=== PATIENT | female | born 1960 | race Caucasian/White ===

== ENCOUNTER 2016-10-28 19:22 | Emergency (ER) | payer OTHER, MEDICAID ==
--- NOTE | 2016-10-28 19:18 | EDPHY ---
H & P Constitutional: Initial Vital Signs Temperature (C) 36.9 C 10/28/16 19:31 Heart Rate 112 H 10/28/16 19:31 Respiratory Rate 18 10/28/16 19:31 O2 Sat (%) 95 10/28/16 19:31 O2 Delivery Mode Nasal Cannula O2 (L/minute) 4 Allergies/Adverse Reactions: No Known Allergies Allergy (Verified 09/14/16 22:32) Home Medications: Medication Instructions Recorded Aspirin [Aspirin 81mg (*)] 81 mg PO HS 08/22/14 Furosemide [Lasix 40 MG (*)] 40 mg PO BIDDIUR PRN 08/22/14 Gabapentin [Neurontin 300 MG (*)] 300 mg PO TID PRN 08/22/14 Levothyroxine [Synthroid 200 mcg 200 mcg PO DAILY 08/22/14 (*)] Pregabalin [Lyrica 75mg (*)] 150 mg PO TID 08/22/14 Promethazine HCl [Phenergan 25mg 25 mg PO BID PRN 08/22/14 (*)] HYDROmorphone HCL [Dilaudid 4 mg 8 mg PO Q4 PRN 08/12/15 (*)] Polyethylene Glycol 3350 [Miralax 17 gm PO BID PRN 08/12/15 17 gm (*)] Acetaminophen [Tylenol 325mg (*)] 650 mg PO Q4 PRN #0 tab 04/30/16 traZODone [traZODONE 50MG (*)] 25 mg PO HS 05/31/16 Calcium Carbonate [Tums 500MG (*)] 1,000 mg PO Q4 PRN 08/03/16 DULoxetine [Cymbalta 30 MG (*)] 30 mg PO BID 08/03/16 Diclofenac Sodium [Voltaren Gel 1 ammon TP DAILY PRN 08/03/16 (*)] HYDROmorphone HCL [Dilaudid 2 mg 2 mg PO Q4 PRN 08/03/16 (*)] Insulin Aspart Novolog 70/30 0 units SC AD 08/03/16 [Novolog Mix 70/30 (*)] Insulin Detemir [Levemir] 50 unit SQ BID 08/03/16 Sennosides/Docusate Sodium 2 tab PO BID 08/03/16 [Senokot-S] clonazePAM [Klonopin (*)] 0.5 mg PO Q6 PRN 08/03/16 fentaNYL [Duragesic 100 MCG Patch 100 mcg TD Q2D 08/09/16 (*)] Piperacillin/Tazo 3.375 gm/Dex 50 ml IV Q8HRS #0 bag 08/13/16 [Zosyn 3.375 gm (Premix)] amLODIPine BESYLATE [Norvasc 5 mg 5 mg PO DAILY #30 tab 08/13/16 (*)] Acidophilus 09/14/16 Prednisone 09/14/16 Medical Decision Making ED Course/Re-evaluation: CHIEF COMPLAINT: Multiple complaints HISTORY OF PRESENT ILLNESS: This patient is a 56 year old female arriving via EMS from [facility] with multiple complaints including chills, cough, bilateral lower leg pain, shortness of breath with chest tightness, and generalized malaise. She denies fever. She did get a flu shot this year. Medical history includes chronic pain secondary to fibromyalgia. REVIEW OF SYSTEMS: A 10 point review of systems was performed and is negative with the exception of the elements mentioned in the history of present illness. PHYSICAL EXAM: HR 112, O2 Sat 95%, RR, BP and Temp noted General Appearance: Alert, well hydrated, appropriate, and non-toxic appearing. Head: Atraumatic without scalp tenderness or obvious injury Eyes: Pupils equal, round, reactive to light and accommodation, EOMI, no trauma , no injection. Ears: Clear bilaterally, no perforation, normal landmarks Nose: Atraumatic, no rhinorrhea, clear. Throat: There is no erythema or exudates, no lesions, normal tonsils, mucus membranes moist. Neck: Supple, 2+ carotid upstroke, nontender, no lymphadenopathy. Respiratory: No retractions, no distress, no wheezes, and no accessory muscle use. Lungs are clear to auscultation bilaterally. Cardiovascular: Regular rate and rhythm, no murmurs, rubs, or gallops. Bilateral carotid, radial, dorsalis pedis, and posterior tibial pulses intact. Good capillary refill all extremities. Gastrointestinal: Abdomen is obese, soft, nontender, non-distended, no masses, no rebound, no guarding, no peritoneal signs. Musculoskeletal: Normal active ROM of all extremities, bilateral lower leg cellulitis. Neurological: Alert, appropriate, and interactive. The patient has normal DTRs and non-focal cranial nerves, motor, sensory, and cerebellar exam. Skin: No rashes, good turgor, no nodules on palpation. Past medical history: Nephropathy, kidney disease, chronic pain, fibromyalgia, anemia. Past surgical history: Denies. Family history: Non-contributory. Social history: Lives at [facility]. EKG INTERPRETATION: The 12 lead EKG was interpreted by myself: Sinus tachycardia, rate 112. No ischemic changes. See hard copy and/or "tracemaster" electronic copy for interpretation. IMAGING: Study: X-ray of the chest Indication: Cough, chest pressure Results: X-ray of the chest was obtained. The results of the study are: no acute process. The study was read by the radiologist, Dr. Frank. I viewed the images myself on the PACS system. DIFFERENTIAL DIAGNOSIS: The differential diagnosis for the patient's chills and malaise included but was not limited to pneumonia, urinary tract infection, cellulitis, viral syndrome, meningitis, and sepsis. MEDICAL DECISION MAKING: This patient is a 56 y/o female who lives at [facility] due to chronic pain who presents with multiple seemingly infectious complaints. Her vital signs are stable upon arrival, including normal O2 Sat. Physical exam is significant for bilateral lower leg cellulitis. Will proceed with formal work-up for possible sepsis. 1921: Took EMS report at bedside. Vitals in transport: BP 60/110 with HR in low 100s. Declined EKG or pain medication in transport. 2011: Labs reviewed and indicate slightly worsening but chronic renal insufficiency and mild chronic anemia. There is no indication of a septic process; lactic acid is 0.8, WBC is within normal ranges. Flu screen is negative. 2057: Imaging results reported to me by Dr. Frank. The patient's work-up is largely non-acute. Given this, she will be discharged home with self care instructions and return to the ED precautions. She is agreeable to this plan. - Data Points Laboratory Results: Laboratory Results 10/28/16 19:35 10/28/16 19:35 10/28/16 10/28/16 10/28/16 21:00 20:58 19:35 WBC 6.78 10^3/uL (3.80-9.50) RBC 3.76 L 10^6/uL (4.18-5.33) Hgb 10.2 L g/dL (12.6-16.3) Hct 31.8 L % (38.0-47.0) MCV 84.6 fL (81.5-99.8) MCH 27.1 L pg (27.9-34.1) MCHC 32.1 L g/dL (32.4-36.7) RDW 16.5 H % (11.5-15.2) Plt Count 213 10^3/uL (150-400) MPV 9.5 fL (8.7-11.7) Neut % (Auto) 66.4 % (39.3-74.2) Lymph % (Auto) 20.4 % (15.0-45.0) Crane % (Auto) 7.4 % (4.5-13.0) Eos % (Auto) 4.0 % (0.6-7.6) Baso % (Auto) 0.9 % (0.3-1.7) Nucleat RBC Rel Count 0.0 % (0.0-0.2) Absolute Neuts (auto) 4.51 10^3/uL (1.70-6.50) Absolute Lymphs (auto) 1.38 10^3/uL (1.00-3.00) Absolute Monos (auto) 0.50 10^3/uL (0.30-0.80) Absolute Eos (auto) 0.27 10^3/uL (0.03-0.40) Absolute Basos (auto) 0.06 10^3/uL (0.02-0.10) Absolute Nucleated RBC 0.00 10^3/uL (0-0.01) Immature Gran % 0.9 % (0.0-1.1) Immature Gran # 0.06 10^3/uL (0.00-0.10) PT 13.1 SEC (12.0-15.0) INR 1.00 (0.83-1.16) APTT 29.9 SEC (23.0-38.0) VBG Lactic Acid 0.8 mmol/L (0.7-2.1) Sodium 141 mEq/L (134-144) Potassium 5.0 mEq/L (3.5-5.2) Chloride 104 mEq/L (97-110) Carbon Dioxide 30 mEq/l (22-31) Anion Gap 7 mEq/L (8-16) BUN 36 H mg/dL (7-23) Creatinine 1.6 H mg/dL (0.6-1.0) Estimated GFR 33 Glucose 147 H mg/dL (70-100) Calcium 8.8 mg/dL (8.5-10.4) Total Bilirubin 0.5 mg/dL (0.1-1.4) Urine Color COLORLESS Urine Appearance CLEAR Urine pH 5.0 (5.0-7.5) Ur Specific [place] 1.008 (1.002-1.030) Urine Protein NEGATIVE (NEGATIVE) Urine Ketones NEGATIVE (NEGATIVE) Urine Blood 1+ H (NEGATIVE) Urine Nitrate NEGATIVE (NEGATIVE) Urine Bilirubin NEGATIVE (NEGATIVE) Urine Urobilinogen NEGATIVE EU (0.2-1.0) Ur Leukocyte Esterase NEGATIVE (NEGATIVE) Urine RBC 1-3 /hpf (0-3) Urine WBC NONE SEEN /hpf (0-3) Ur Epithelial Cells TRACE /lpf (NONE-1+) Urine Bacteria TRACE H /hpf (NONE SEEN) Urine Mucus TRACE /lpf (NONE-1+) Urine Glucose NEGATIVE (NEGATIVE) Influenza Typ A,B (DFA) NEGATIVE FOR FLU (NEGATIVE) Medications Given: Discontinued Medications Hydromorphone HCl (Dilaudid) 4 mg PO EDNOW ONE Stop: 10/28/16 21:44 Last Admin: 10/28/16 22:03 Dose: 4 mg Departure - Departure Disposition: Home, Routine, Self-Care Clinical Impression: Viral syndrome Cellulitis of lower extremity Qualifiers: Laterality: unspecified laterality Qualifier Code: (L03.119) Cellulitis of unspecified part of limb Condition: Good Instructions: Viral Syndrome (ED) Additional Instructions: 1. Rest, drink plenty of fluids. You should expect to start feeling better in the next 3-5 days. If not, please follow-up with your primary care provider. 2. Return to the Emergency Department if you experience difficulty breathing, worsening chest pain, or other serious concerns. Referrals: PITO DEL VALLE [Primary Care Provider] - As per Instructions Report Scribed for: Patricio Mo Report Scribed by: Loida Boyce Date of Report: 10/28/16 Time of Report: 19:22
[2016-10-28 19:32] VITALS: TEMP 98.4
--- NOTE | 2016-10-28 19:46 | CPEKG ---
Heart Rate: 113 RR Interval: 531 P-R Interval: 160 QRSD Interval: 82 QT Interval: 324 QTC Interval: 445 P [place]: 9 QRS [place]: 6 T Wave [place]: 46 EKG Severity - OTHERWISE NORMAL ECG - EKG Impression: SINUS TACHYCARDIA Electronically Signed By: Patricio Mo 28-Oct-2016 23:03:09
[2016-10-28 19:50] LABS: % IMMATURE GRANULYOCYTES 0.9 % (0.0-1.1); ABSOLUTE IMMATURE GRANULOCYTES 0.06 10^3/uL (0.00-0.10); ADD DIFF? NO; ADD MORPH? NO; ADD SCAN? NO; ATYPICAL LYMPHOCYTE FLAG 10 (0-99); FRAGMENT RBC FLAG 0 (0-99); HEMATOCRIT 31.8 % (38.0-47.0); HEMOGLOBIN 10.2 g/dL (12.6-16.3); LEFT SHIFT FLG 0 (0-99); LIPEMIA HEMOLYSIS FLAG 80 (0-99); MEAN CELL HEMOGLOBIN 27.1 pg (27.9-34.1); MEAN CELL HEMOGLOBIN CONCENTR. 32.1 g/dL (32.4-36.7); MEAN CELL VOLUME 84.6 fL (81.5-99.8); MEAN PLATELET VOLUME 9.5 fL (8.7-11.7); PLATELET CLUMPS FLAG 0 (0-99); PLATELET COUNT 213 10^3/uL (150-400); RED BLOOD CELL COUNT 3.76 10^6/uL (4.18-5.33); RED CELL DISTRIBUTION WIDTH 16.5 % (11.5-15.2)
[2016-10-28 19:58] LABS: PROTIME(PATIENT) 13.1 SEC (12.0-15.0)
[2016-10-28 19:59] LABS: APTT 29.9 SEC (23.0-38.0)
[2016-10-28 20:03] LABS: ANION GAP 7 mEq/L (8-16); BILIRUBIN,TOTAL 0.5 mg/dL (0.1-1.4); CALCIUM 8.8 mg/dL (8.5-10.4); CARBON DIOXIDE 30 mEq/l (22-31); CHLORIDE 104 mEq/L (97-110); CREATININE 1.6 mg/dL (0.6-1.0); GLOMERULAR FILTRATION RATE 33; GLUCOSE 147 mg/dL (70-100); SODIUM 141 mEq/L (134-144)
[2016-10-28 21:11] LABS: COLOR COLORLESS; LEUKOCYTE ESTERASE,URINE NEGATIVE (NEGATIVE); NITRITE,URINE NEGATIVE (NEGATIVE)
[2016-10-28 21:18] LABS: BACTERIA TRACE /hpf (NONE SEEN); MUCUS TRACE /lpf (NONE-1+)
[2016-10-28 21:20] LABS: WBC,URINE NONE SEEN /hpf (0-3)
[2016-10-28] MEDS ORDERED: HYDROmorphONE/DILAUDID 4 MG TAB PO ONE (21:43)
[2016-10-28] MEDS ORDERED: HYDROmorphONE/DILAUDID 2 MG TAB ONE (22:01)
[2016-10-28 22:12] VITALS: BP 111/61; PULSE 96; RESP 18; O2SAT 95
--- NOTE | 2016-10-28 23:14 | DX ---
PA and Lateral Chest October 28, 2016 Indication: Sick for one week. Comparison: September 14, 2016. Findings: Right-sided port is unchanged in location. The heart and mediastinum are normal. The agust[address] st is clear. Soft tissues and bones are unchanged. Impression: No acute cardiopulmonary process radiographically.
== END 2016-10-28 23:04 | disposition home or self-care (01) ==
LOC: EDUNIT#
DX: B34.9 Viral infection, unspecified (principal); L03.115 Cellulitis of right lower limb; L03.116 Cellulitis of left lower limb; Z79.82 Long term (current) use of aspirin

== ENCOUNTER 2016-12-25 16:01 | Inpatient (IN) | payer OTHER, MEDICAID ==
[2016-12-25 16:36] LABS: ABSOLUTE IMMATURE GRANULOCYTES 0.17 10^3/uL (0.00-0.10); ADD DIFF? NO; ADD MORPH? NO; ADD SCAN? NO; ATYPICAL LYMPHOCYTE FLAG 0 (0-99); FRAGMENT RBC FLAG 0 (0-99); HEMATOCRIT 30.9 % (38.0-47.0); HEMOGLOBIN 9.9 g/dL (12.6-16.3); LEFT SHIFT FLG 10 (0-99); LIPEMIA HEMOLYSIS FLAG 80 (0-99); MEAN CELL HEMOGLOBIN 26.6 pg (27.9-34.1); MEAN CELL VOLUME 83.1 fL (81.5-99.8); MEAN PLATELET VOLUME 9.6 fL (8.7-11.7); PLATELET CLUMPS FLAG 0 (0-99); PLATELET COUNT 244 10^3/uL (150-400); RED BLOOD CELL COUNT 3.72 10^6/uL (4.18-5.33); RED CELL DISTRIBUTION WIDTH 15.2 % (11.5-15.2)
--- NOTE | 2016-12-25 16:37 | EDPHY ---
H & P Stated Complaint: Bilat heel pain Source: Patient, EMS, Other ([facility] ) - Personal History Current Tetanus/Diphtheria Vaccine: Yes Tetanus Vaccine Date: unsure of date - Medical/Surgical History Hx Asthma: No Hx Chronic Respiratory Disease: No Hx Diabetes: Yes Hx Cardiac Disease: No Hx Renal Disease: Yes Hx Cirrhosis: No Hx Alcoholism: No Hx HIV/AIDS: No Hx Splenectomy or Spleen Trauma: No Other PMH: diabetic ulcers on bi-lat feet, sarcoidosis, fibromyalgia, home O2 for opiods, MRSA - Social History Smoking Status: Former smoker Time Seen by Provider: 12/25/16 16:19 HPI/ROS: This is a 56-year-old female presenting to the emergency department via EMS. EMS reports patient called 911 complaining of 10/10 bilateral heel pain, feeling feverish with chills. Patient states she has body pain all over, non ambulatory at nursing facility. History a of type 2 diabetes and anemia sleep apnea chronic foot ulcers. Patient denies any chest pain or shortness of breath at this time. REVIEW OF SYSTEMS: Constitutional: Fever chills Eyes: no eye pain ENT: No sore throat Respiratory: shortness of breath, on oxygen at nursing facility Cardiac: No chest pain Gastrointestinal: no abd pain No nausea vomiting : no urinary discomfort Musculoskeletal: Bilateral heel pain with redness Skin: Dry skin, ulcers to both heels Neurological: No headache or dizziness (Mary Ann Nichols) - Physical Exam Exam: CONSTITUTIONAL: patient obese, non-ill nontoxic appearing. No acute distress. Vital signs as documented. HEENT: NCAT. NECK: Supple, FROM without pain RESP: Non-labored resp effort, airway patent, decreased bilat at the bases CARDIAC: RRR w/o murmur, edward. GI: Abd soft NTTP, no mass NEURO: AAOx3 EXTREMITIES: Right heel 3 cm by 4 cm stage III ulcer, positive erythema warm and tender to touch. Left heel healing ulcer. No skin breakdown noted on buttocks SKIN: Dry, no rash PSYCH: Flat affect, calm, no distress (Mary Ann Nichols) Constitutional: Initial Vital Signs Temperature (C) 37 C 12/25/16 16:08 Heart Rate 114 H 12/25/16 16:08 Respiratory Rate 18 12/25/16 16:08 Blood Pressure 158/105 H 12/25/16 16:08 O2 Sat (%) 94 12/25/16 16:08 O2 Delivery Mode Nasal Cannula O2 (L/minute) 6 Allergies/Adverse Reactions: No Known Allergies Allergy (Verified 09/14/16 22:32) Home Medications: Medication Instructions Recorded Aspirin [Aspirin 81mg (*)] 81 mg PO HS 08/22/14 Levothyroxine [Synthroid 200 mcg 200 mcg PO DAILY 08/22/14 (*)] Promethazine HCl [Phenergan 25mg 25 mg PO BID PRN 08/22/14 (*)] HYDROmorphone HCL [Dilaudid 4 mg 8 mg PO Q4 PRN 08/12/15 (*)] Polyethylene Glycol 3350 [Miralax 17 gm PO BID PRN 08/12/15 17 gm (*)] Acetaminophen [Tylenol 325mg (*)] 650 mg PO Q4 PRN #0 tab 04/30/16 traZODone [traZODONE 50MG (*)] 50 mg PO HS 05/31/16 Calcium Carbonate [Tums 500MG (*)] 1,000 mg PO Q4 PRN 08/03/16 DULoxetine [Cymbalta 30 MG (*)] 30 mg PO BID 08/03/16 HYDROmorphone HCL [Dilaudid 2 mg 2 mg PO Q4 PRN 08/03/16 (*)] Insulin Detemir [Levemir] 45 unit SQ DAILY 08/03/16 Sennosides/Docusate Sodium 2 tab PO BID PRN 08/03/16 [Senokot-S] clonazePAM [Klonopin (*)] 0.5 mg PO Q6 PRN 08/03/16 predniSONE [predniSONE TAPER] 1 each PO AD 09/14/16 Gabapentin [Neurontin 100 MG (*)] 100 mg PO TID 12/25/16 Herbals/Supplements -Info Only 1 ea PO AD 12/25/16 Insulin Aspart [novoLOG] 0 unit SC TIDMEAL PRN 12/25/16 Insulin Aspart [novoLOG] 5 unit SC TIDMEAL 12/25/16 Insulin Detemir [Levemir] 63 unit SQ HS 12/25/16 Ipratropium/Albuterol [Duoneb (*)] 3 ml IH QID 12/25/16 Pregabalin [Lyrica 50mg (*)] 50 mg PO TID 12/25/16 fentaNYL [Duragesic 75 MCG Patch 75 mcg TD Q72H 12/25/16 (*)] Medical Decision Making ED Course/Re-evaluation: Patient monitor, labs drawn for sepsis protocol, chest x-ray, x-ray of right foot to rule out any osteomyelitis 1814: Transfer patient care to Dr. Morales, pt stable. (Mary Ann Nichols) I assumed care of the patient from Mary Ann Nichols at 6:00 p.m.. We are awaiting lactic acid. Patient's lactic acid is normal. On my examination, I find an overweight woman, very somnolent, asking for pain medications. Nursing staff informs me that the patient is refusing to return to [facility]. Patient has a significant ulceration on the left heel, with weeping discharge on the dressing and bed. She is too somulent to discuss with me what type of wound care she has been receiving. Wound culture was obtained. Will admit for infected decubitus ulcer, blood cultures pending, need for wound care recommendations, and potential antibiotics. 2026: Consulted with Dr. Mayorga, hospitalist. She accepts admission. (Madisyn Morales) Differential Diagnosis: Differential diagnosis considered but not limited to cellulitis, pleural effusion, sepsis (Mary Ann Nichols) - Data Points Laboratory Results: Laboratory Results 12/25/16 16:20 12/25/16 16:20 Microbiology Results: MICROBIOLOGY 12/25/16 21:06 Hand - Swab Gram Stain - Final 12/25/16 21:06 Hand - Swab Wound Culture - Preliminary Proteus Mirabilis 12/25/16 16:20 Blood Blood Culture - Preliminary Proteus Mirabilis 12/25/16 16:20 Blood Blood Panel (PCR) - Final Proteus Species 12/25/16 17:25 Blood Blood Culture - Preliminary Medications Given: Discontinued Medications Enoxaparin Sodium (Lovenox) 40 mg SC DAILY ANNELISE Stop: 06/24/17 08:59 Last Admin: 12/27/16 10:05 Dose: Not Given Hydromorphone HCl (Dilaudid) 0.5 mg IVP EDNOW ONE Stop: 12/25/16 19:54 Last Admin: 12/25/16 20:08 Dose: 0.5 mg Hydromorphone HCl (Dilaudid) 0.5 mg IVP EDNOW ONE Stop: 12/25/16 21:20 Last Admin: 12/25/16 21:25 Dose: 0.5 mg Hydromorphone HCl (Dilaudid) 0.5 mg IVP EDNOW ONE Stop: 12/25/16 23:01 Last Admin: 12/25/16 23:00 Dose: 0.5 mg Hydromorphone HCl (Dilaudid) 2 mg PO Q4 PRN PRN Reason: Pain, Severe Stop: 01/04/17 23:30 Last Admin: 12/26/16 16:25 Dose: 2 mg Ertapenem 1 gm/ Sodium (Chloride) 100 mls @ 200 mls/hr IV EDNOW ONE PRN Reason: Protocol Stop: 12/25/16 20:59 Last Admin: 12/25/16 21:10 Dose: 100 mls Vancomycin/Sodium Chloride (Vancomycin 1 Gm (Premix)) 250 mls @ 250 mls/hr IV EDNOW ONE PRN Reason: Protocol Stop: 12/25/16 21:29 Last Admin: 12/25/16 21:52 Dose: 250 mls Sodium Chloride (Ns) 1,000 mls @ 3,000 mls/hr IV ONCE ONE Stop: 12/25/16 23:45 Last Admin: 12/26/16 00:37 Dose: 1,000 mls Ertapenem 1 gm/ Sodium (Chloride) 100 mls @ 200 mls/hr IV DAILY ANNELISE PRN Reason: Protocol Stop: 01/25/17 08:59 Last Admin: 12/27/16 10:31 Dose: 100 mls Vancomycin HCl 1.25 gm/ (Dextrose) 250 mls @ 166.667 mls/hr IV Q12H ANNELISE Stop: 01/25/17 08:59 Last Admin: 12/26/16 21:45 Dose: 250 mls Magnesium Sulfate (Magnesium Sulf 2 Gm (Premix)) 50 mls @ 50 mls/hr IV ONCE ONE Stop: 12/27/16 14:29 Last Admin: 12/27/16 14:07 Dose: 50 mls Insulin Human Lispro (Humalog Lispro) 0 unit SC TIDMEAL ANNELISE PRN Reason: Protocol Stop: 06/24/17 07:59 Last Admin: 12/26/16 13:16 Dose: Not Given Prednisone (Prednisone) 20 mg PO DAILY ANNELISE Stop: 12/27/16 09:01 Last Admin: 12/27/16 10:06 Dose: 20 mg Promethazine HCl (Phenergan) 25 mg PO ONCE ONE Stop: 12/27/16 13:33 Last Admin: 12/27/16 14:06 Dose: 25 mg Sumatriptan Succinate (Imitrex) 50 mg PO ONCE ONE Stop: 12/27/16 10:16 Last Admin: 12/27/16 10:30 Dose: 50 mg Sumatriptan Succinate (Imitrex) 50 mg PO ONCE ONE Stop: 12/27/16 13:33 Last Admin: 12/27/16 14:06 Dose: 50 mg Departure - Departure Disposition: [facility] Clinical Impression: Cellulitis in diabetic foot Altered mental status Qualifiers: Altered mental status type: somnolence Qualified Code(s): R40.0 - Somnolence Lower limb ulcer, heel or midfoot Qualifiers: Laterality: left Non-pressure ulcer stage: unspecified non-pressure ulcer stage Qualified Code(s): L97.429 - Non-pressure chronic ulcer of left heel and midfoot with unspecified severity
[2016-12-25 16:55] LABS: ANION GAP 9 mEq/L (8-16); CALCIUM 9.1 mg/dL (8.5-10.4); CARBON DIOXIDE 30 mEq/l (22-31); CHLORIDE 97 mEq/L (97-110); CREATININE 1.4 mg/dL (0.6-1.0); GLOMERULAR FILTRATION RATE 39; GLUCOSE 375 mg/dL (70-100); LACTATE DEHYDROGENASE 508 IU/L (313-618); POTASSIUM 5.8 mEq/L (3.5-5.2); SODIUM 136 mEq/L (134-144)
[2016-12-25 17:17] LABS: INR 0.97 (0.83-1.16); PROTIME(PATIENT) 12.8 SEC (12.0-15.0)
[2016-12-25 17:18] LABS: APTT 26.3 SEC (23.0-38.0)
[2016-12-25 17:18] LABS: BILIRUBIN,TOTAL 0.5 mg/dL (0.1-1.4)
[2016-12-25 17:51] LABS: COLOR YELLOW; LEUKOCYTE ESTERASE,URINE NEGATIVE (NEGATIVE); NITRITE,URINE NEGATIVE (NEGATIVE)
[2016-12-25] MEDS ORDERED: HYDROmorphONE/DILAUDID 1 MG/ML SYR IVP ONE ×3 (19:53→23:00)
[2016-12-25] MEDS ORDERED: VANCOMYCIN HCL/NORMAL SALINE 250 ML IV ONE (20:30)
[2016-12-25] MEDS ORDERED: ERTAPENEM 1 GM in NS 100 ML IV ONE (20:30)
[2016-12-25] MEDS ORDERED: NS 1,000 ML IV ONE (23:26)
[2016-12-25] MEDS ORDERED: ONDANSETRON DISINTEGRATING 4 MG TAB PO PRN (23:26)
[2016-12-25] MEDS ORDERED: POLYETHYLENE GLYCOL 3350 17 GM PKT PO PRN (23:31)
[2016-12-25] MEDS ORDERED: SENNOSIDES/DOCUSATE SODIUM TAB PO PRN (23:31)
[2016-12-25] MEDS ORDERED: CALCIUM CARBONATE 500 MG CHEWABLE TAB PO PRN (23:31)
[2016-12-25] MEDS ORDERED: Herbals/Supplements -Info Only PO SCH (23:45)
[2016-12-26] MEDS ORDERED: D50W 25 GM/50 ML SYR IVP PRN (00:02)
[2016-12-26] MEDS: INSULIN GLARGINE 100 UNITS/ML SYRINGE SC SCH ×3 (00:19→23:02)
[2016-12-26] MEDS: fentaNYL 75 MCG PATCH TD SCH (00:20)
--- NOTE | 2016-12-26 00:40 | GHP ---
[f rep st] HISTORY AND PHYSICAL DATE OF ADMISSION: 12/25/2016 CHIEF COMPLAINT: Foot and hip pain. HISTORY OF PRESENT ILLNESS: A 56-year-old female with diabetes and chronic lower extremity diabetic wounds who presents from her [facility] facility today with complaints of worsening lower extr emity pain, as well as hip discomfort. The patient was brought into the emergency department by EMS with 10/10 bilateral heel pain. In the emergency department, patient was complaining of subjective fevers and chills. Denying chest pain, shortness of breath, cough. Reporting some nausea. No vom iting. Some abdominal discomfort. Denying diarrhea, dysuria, hematuria. Is reporting bilateral he el pain, as well as hip pain. Denies chest pain. Reports some shortness of breath. PAST MEDICAL HISTORY: For this patient: 1. Diabetes. 2. Chronic bilateral foot wounds, with history of osteomyelitis of the right calcaneus. 3. History of left foot abscess, status post debridement. 4. Charcot joints. 5. Morbid obesity. 6. Hypertension. 7. COPD. 8. Chronic hypoxic respiratory failure, on 4 L of oxygen. 9. Chronic kidney disease. 10. Chronic pain, with continuous narcotic dependency. 11. Sarcoidosis. FAMILY HISTORY: Positive for diabetes. SOCIAL HISTORY: Negative for active tobacco, alcohol or illicit drugs. REVIEW OF SYSTEMS: A 10-point review of systems is negative, with the exception of that reported in the HPI. ADVANCE DIRECTIVE: Patient is full cor/full tube. PHYSICAL EXAMINATION: VITAL SIGNS: Blood pressure is 158/105, heart rate 114, respiratory rate 18, 94% on 6 L. GENERAL: This is a morbidly obese female lying flat in bed. HEENT: Notable for dry mucous membranes. Eye exam is negative for any icterus. CARDIAC: Patient is tachycardic, but regu lar. A quiet systolic murmur is appreciated. PULMONARY: Poor respiratory effort. Diminished karlee th sounds at the bilateral bases. GASTROINTESTINAL: The patient is very obese. Positive bowel fabienne nds are noted. She seems diffusely tender to palpation. No rebound or guarding. MUSCULOSKELETAL: Bilateral Charcot joints, with bilateral symmetric lower extremity edema. SKIN: Patient has a jorge p-based wound of the right heel, which has purulent drainage. There is a scabbing wound on the left heel without significant drainage. No other wounds or cellulitis appreciated. NEUROLOGIC: The pa tient is somnolent on my examination, but answering yes/no questions appropriately. PSYCHIATRIC: C ooperative. DATA: White count is 17.1, most recently checked at 6.7, hematocrit 30.9, baseline, platelets of 24 4. INR 0.97. Sodium 136, potassium 5.8, creatinine 1.4, which is baseline, BUN 41. Urinalysis: 1 -3 white blood cells, 3-5 red, 2+ protein, 1+ blood, 3+ glucose. Foot x-ray, which I personally reviewed and interpreted, shows no acute bony abnormality. Radiology comments on soft tissue swelling and chronic erosive changes of the calcaneus on the right. Chest x-ray, which I personally reviewed and interpreted, shows a poor inspiratory effort, but no cl ear infiltrates or edema. ASSESSMENT AND PLAN: This is a 56-year-old female presenting with bilateral heel pain. 1. Sepsis. The patient has leukocytosis of 17, tachycardia in the 1 teens, presumed source is a di abetic foot wound on the right. The [facility] Blood cultures have been drawn, and empiric antibiotics started. 2. Purulent diabetic foot wound of the right heel. The patient has had longstanding history of chr onic bony changes, and osteo. It appears this is a status change for these chronic wounds. We have obtained blood cultures in the emergency department, and initiated vancomycin and ertapenem. We wi ll involve Infectious Disease in the morning, as they are well known to this patient, and await cult ure results. 3. Diabetes. The patient is presenting with a blood glucose greater than 300. Most recent hemoglo bin A1c is from 2014; we will resend this evening. Reinitiate her long-acting insulin, per outside dosing, and cover with lispro sliding scale. The patient is receiving aggressive fluid resuscitatio n currently. 4. Acute encephalopathy. I think this is likely toxic from high-dose narcotics intravenously in e emergency department. The patient is on chronic fentanyl patches and oral Dilaudid. We will hold additional IV doses for now until we see her mental status clear. Per report of the snf, the patient was mentating at her baseline, which is conversant and interactive prior to transition t o the emergency department. We will closely monitor overnight. 5. Chronic pain, with continuous narcotic dependency. As above, patient has a fentanyl patch in pl tawanda, which we will continue. We will continue oral dosing p.r.n. of Dilaudid, as well as her Lyrica , gabapentin, and nonnarcotic pain regimen. 6. Hypothyroidism. We will continue her Synthroid daily. 7. Prophylaxis with Lovenox. 8. Diet. Diabetic. 9. Disposition. I expect greater than 2 midnights, as the patient has multiple medical comorbiditi es, and presenting with sepsis, secondary to a diabetic foot wound. [facility] Patient will be triaged to the medical/surgical floor for care. /[id number]/MODL
[2016-12-26] MEDS: clonazePAM 0.5 MG TAB PO PRN ×2 (02:58→22:07)
[2016-12-26] MEDS: HYDROmorphONE/DILAUDID 2 MG TAB PO PRN ×5 (05:59→23:03)
[2016-12-26] MEDS: LEVOTHYROXINE 100 MCG TAB PO SCH (06:00)
[2016-12-26 06:05] LABS: % IMMATURE GRANULYOCYTES 0.5 % (0.0-1.1); ABSOLUTE IMMATURE GRANULOCYTES 0.06 10^3/uL (0.00-0.10); ADD DIFF? NO; ADD MORPH? NO; ADD SCAN? NO; ATYPICAL LYMPHOCYTE FLAG 0 (0-99); FRAGMENT RBC FLAG 0 (0-99); HEMATOCRIT 28.8 % (38.0-47.0); HEMOGLOBIN 9.2 g/dL (12.6-16.3); LEFT SHIFT FLG 0 (0-99); LIPEMIA HEMOLYSIS FLAG 80 (0-99); MEAN CELL HEMOGLOBIN 26.7 pg (27.9-34.1); MEAN CELL HEMOGLOBIN CONCENTR. 31.9 g/dL (32.4-36.7); MEAN CELL VOLUME 83.7 fL (81.5-99.8); MEAN PLATELET VOLUME 9.1 fL (8.7-11.7); PLATELET CLUMPS FLAG 0 (0-99); PLATELET COUNT 191 10^3/uL (150-400); RED BLOOD CELL COUNT 3.44 10^6/uL (4.18-5.33); RED CELL DISTRIBUTION WIDTH 15.6 % (11.5-15.2)
[2016-12-26] MEDS: ONDANSETRON 4 MG/2 ML VIAL IVP PRN (06:15)
[2016-12-26 06:31] LABS: ANION GAP 6 mEq/L (8-16); CALCIUM 8.5 mg/dL (8.5-10.4); CARBON DIOXIDE 32 mEq/l (22-31); CHLORIDE 103 mEq/L (97-110); CREATININE 1.3 mg/dL (0.6-1.0); GLOMERULAR FILTRATION RATE 43; GLUCOSE 129 mg/dL (70-100); POTASSIUM 4.6 mEq/L (3.5-5.2); SODIUM 141 mEq/L (134-144)
[2016-12-26] MEDS: IPRATROPIUM/ALBUTEROL 3 ML DEYVIAL IH SCH ×4 (06:38→21:22)
[2016-12-26] MEDS ORDERED: VANCOMYCIN 1.5 GM in D5W 250 ML IV ONE (07:00)
[2016-12-26] MEDS: INSULIN LISPRO 100 UNIT/ML SC SCH ×4 (08:26→17:48)
[2016-12-26] MEDS: ERTAPENEM 1 GM in NS 100 ML IV SCH (08:43)
[2016-12-26] MEDS: PREGABALIN 50 MG CAP PO SCH ×3 (09:06→21:44)
[2016-12-26] MEDS: DULoxetine 30 MG CAP PO SCH ×2 (09:06→21:44)
[2016-12-26] MEDS: GABAPENTIN 100 MG CAP PO SCH ×3 (09:06→21:44)
[2016-12-26] MEDS: ENOXAPARIN 40 MG/0.4 ML SYR SC SCH (09:06)
[2016-12-26] MEDS: predniSONE 20 MG TAB PO SCH (09:06)
[2016-12-26] MEDS: VANCOMYCIN 1.25 GM in D5W 250 ML IV SCH ×2 (09:38→21:45)
[2016-12-26] MEDS: ACETAMINOPHEN 325 MG TAB PO PRN ×2 (09:39→22:07)
[2016-12-26 10:04] LABS: HEMOGLOBIN A1C 8.3 % (4.0-6.0)
--- NOTE | 2016-12-26 12:57 | WOCRNPDOC ---
[facility] Advanced Assessment Note - Skin Integrity Problem, Advanced Assess Left Lower Lateral Leg Surgical Wound/Incision Dressing Type: Open to Air Exudate Amount: None Wound Bed Constitution: Granulation Tissue Wound Edges: Attached Site Measurement - Head-to-Toe Length X Width X Depth (cm): 1.5x1x0.3 Skin Integrity Problem Comment: Healing wound from previous I and D site. Left heel Dressing Type: Open to Air Exudate Amount: None Wound Bed Constitution: Dried Exudate Site Measurement - Head-to-Toe Length X Width X Depth (cm): 2.5x4x0 Pressure Injury Stage: Stage 3 Pressure Injury Present on Admit: Yes Right heel Dressing Type: Gauze, Kerlix Dressing Description: Clean/Dry, Intact Exudate Amount: Minimal Exudate Characteristic(s): Serosanguinous [place] Wound Tissue: Calloused Site Measurement - Head-to-Toe Length X Width X Depth (cm): 3.5x3.5x0.3 Pressure Injury Stage: Stage 3 Pressure Injury Present on Admit: Yes Skin Integrity Problem Comment: Will continue plan of care from outpatient clinic with hydrofera blue and kerlix.
[2016-12-26] MEDS: HYDROCODONE/APAP 5/325 TAB PO PRN ×2 (13:15→23:40)
--- NOTE | 2016-12-26 14:38 | HOSPPROG ---
Hospitalist Progress Note Assessment/Plan: * chronic right heel osteomyelitis with worsening cellulitis * continue Invanz and vancomycin * infectious Disease will see * sepsis * lactate was normal * tachycardia has improved * type 2 diabetes * continue home insulin doses * hypertension * chronic hypoxic respiratory failure on 4 L of oxygen * chronic kidney disease * chronic pain * mental status seems to be at baseline * sarcoid * DVT prophylaxis * patient is refusing Lovenox Subjective: No new complaints. Not much pain in right heel Objective: Vital Signs Temp Pulse Resp BP Pulse Ox 36.6 C 94 18 146/80 H 95 12/26/16 11:15 12/26/16 11:15 12/26/16 11:15 12/26/16 11:15 12/26/16 11:15 Laboratory Results 12/26/16 05:50 12/26/16 05:50 12/25/16 12/26/16 12/27/16 05:59 05:59 05:59 Output Total 900 Balance -900 PT 12.8 SEC (12.0-15.0) 12/25/16 16:25 INR 0.97 (0.83-1.16) 12/25/16 16:25 discussed with Infectious Disease - Physical Exam Constitutional: no apparent distress, appears nourished, not in pain Eyes: anicteric sclera, EOMI Ears, Nose, Mouth, Throat: moist mucous membranes, hearing normal, ears appear normal Cardiovascular: regular rate and rhythym, no murmur, rub, or gallop Respiratory: no respiratory distress, no rales or rhonchi, clear to auscultation Gastrointestinal: normoactive bowel sounds, soft, non-tender abdomen, no palpable masses Musculoskeletal: other ( right foot dressed) Neurologic: AAOx3 Psychiatric: interacting appropriately, not anxious, not encephalopathic, thought process linear ICD10 Worksheet Patient Problems: Problems Problem Status Onset Abscess of left leg Acute Altered mental status Acute Anemia Acute Cellulitis in diabetic foot Acute Cellulitis of foot, right Acute Cellulitis of lower extremity Acute Failure to thrive Acute Fever Acute Lower limb ulcer, heel or midfoot Acute MRSA (methicillin resistant Staphylococcus aureus) Acute 01/16/15 Osteomyelitis of ankle or foot, right, acute Acute Uremia Acute
--- NOTE | 2016-12-26 18:14 | PCMIDPN ---
Assessment/Plan: Assessment: B LE chronic heel ulcers -- under care at [facility] at the point of this admit. Patient called 911 herself to get EMS to take her to [facility] because she did not think that she was getting adequate pain control and was not getting response from the staff at the SNF. Examination of the wounds reveal no active infection or significant deviation from prior outpatient examinations. Currently covered with both vancomycin and ertapenem. Surprisingly, her blood cultures show proteus in culture. Does not appear to be a urinary source as her UA is normal. Will d/c the Vancomycin and maintain on ertapenem therapy and follow the repeat blood cultures in 1-2 days. Plan: 1) Discontinue Vancomycin. 2) Continue ertapenem. 3) Repeat blood cultures in 1-2 days. Subjective: Patient relates that she has been having problems getting adequate pain control at [facility]. This prompted her call to 911 and transport. Denies fevers or chills. Objective: Vancomycin #1 ertapenem #1 Vital Signs Temp Pulse Resp BP Pulse Ox 36.8 C 79 16 142/61 H 95 12/26/16 16:00 12/26/16 16:00 12/26/16 16:00 12/26/16 16:00 12/26/16 16:00 Laboratory Results 12/26/16 05:50 12/26/16 05:50 12/25/16 12/26/16 12/27/16 05:59 05:59 05:59 Output Total 900 Balance -900 - Physical Exam General Appearance: WD/WN, alert, no apparent distress, non-toxic Respiratory: lungs clear, normal breath sounds, No respiratory distress Cardiac/Chest: regular rate, rhythm, No tachycardia Extremities: non-tender, inflammation (minimal ), No normal inspection Skin: normal color, warm/dry, No rash Neuro/Psych: alert, normal mood/affect, oriented x 3 ICD10 Worksheet Patient Problems: Problems Problem Status Onset Abscess of left leg Acute Altered mental status Acute Anemia Acute Cellulitis in diabetic foot Acute Cellulitis of foot, right Acute Cellulitis of lower extremity Acute Failure to thrive Acute Fever Acute Lower limb ulcer, heel or midfoot Acute MRSA (methicillin resistant Staphylococcus aureus) Acute 01/16/15 Osteomyelitis of ankle or foot, right, acute Acute Uremia Acute
[2016-12-26] MEDS: traZODone 50 MG TAB PO SCH (21:44)
[2016-12-26] MEDS: ASPIRIN 81 MG CHEWABLE TAB PO SCH (21:44)
[2016-12-27] MEDS: LEVOTHYROXINE 100 MCG TAB PO SCH (05:19)
[2016-12-27] MEDS: HYDROmorphONE/DILAUDID 2 MG TAB PO PRN (06:00)
[2016-12-27] MEDS: IPRATROPIUM/ALBUTEROL 3 ML DEYVIAL IH SCH ×4 (08:25→21:26)
[2016-12-27] MEDS: HYDROCODONE/APAP 5/325 TAB PO PRN (09:51)
[2016-12-27] MEDS: ONDANSETRON 4 MG/2 ML VIAL IVP PRN (10:05)
[2016-12-27] MEDS: PREGABALIN 50 MG CAP PO SCH ×3 (10:05→21:31)
[2016-12-27] MEDS: DULoxetine 30 MG CAP PO SCH ×2 (10:05→21:31)
[2016-12-27] MEDS: GABAPENTIN 100 MG CAP PO SCH ×3 (10:05→21:31)
[2016-12-27] MEDS: ENOXAPARIN 40 MG/0.4 ML SYR SC SCH (10:05)
[2016-12-27] MEDS: predniSONE 20 MG TAB PO SCH (10:06)
[2016-12-27] MEDS: INSULIN LISPRO 100 UNIT/ML SC SCH ×3 (10:07→16:49)
[2016-12-27] MEDS: INSULIN GLARGINE 100 UNITS/ML SYRINGE SC SCH ×2 (10:07→21:33)
[2016-12-27] MEDS ORDERED: SUMAtriptan 50 MG TAB PO ONE ×2 (10:15→13:32)
[2016-12-27] MEDS: ERTAPENEM 1 GM in NS 100 ML IV SCH (10:31)
[2016-12-27] MEDS ORDERED: MAGNESIUM SULF 2 GM/WATER 50 ML IV ONE (13:30)
[2016-12-27] MEDS ORDERED: PROMETHAZINE HCL 25 MG TAB PO ONE (13:32)
--- NOTE | 2016-12-27 15:31 | PCMIDPN ---
Assessment/Plan: Proteus bacteremia - source like LE wound. Did not examine wounds today --repeat blood cultures --narrow antibiotics to ceftriaxone meds ertapenem 1gm IV day #2 microbiology 4/2 blood cx 1/2 proteus 4/2 wound cx proteus momin -S Subjective: no specific c/o still with 7/10 pain Objective: Vital Signs Temp Pulse Resp BP Pulse Ox 36.4 C 77 20 137/72 H 95 12/27/16 12:00 12/27/16 12:00 12/27/16 08:00 12/27/16 12:00 12/27/16 12:00 Laboratory Results 12/26/16 05:50 12/26/16 05:50 12/26/16 12/27/16 12/28/16 05:59 05:59 05:59 Output Total 1650 Balance -1650 Gen: obese non toxic flat affect CV: RRR Chest: breathing easy, NAD, decreased bs bases Abd: soft NT Ext Dressing in place R chest port c/d/i ICD10 Worksheet Patient Problems: Problems Problem Status Onset Abscess of left leg Acute Altered mental status Acute Anemia Acute Cellulitis in diabetic foot Acute Cellulitis of foot, right Acute Cellulitis of lower extremity Acute Failure to thrive Acute Fever Acute Lower limb ulcer, heel or midfoot Acute MRSA (methicillin resistant Staphylococcus aureus) Acute 01/16/15 Osteomyelitis of ankle or foot, right, acute Acute Uremia Acute
--- NOTE | 2016-12-27 16:03 | HOSPPROG ---
Hospitalist Progress Note Assessment/Plan: * chronic right heel osteomyelitis with worsening cellulitis * on Invanz * Proteus bacteremia * on Invanz * wound culture growing the same thing * sepsis * lactate was normal * tachycardia has improved * migraine * will try Imitrex, magnesium, phenergran * type 2 diabetes * continue home insulin doses * hypertension * chronic hypoxic respiratory failure on 4 L of oxygen * chronic kidney disease * chronic pain * mental status seems to be at baseline * sarcoid * DVT prophylaxis * patient is refusing Lovenox Subjective: complaining of migraine Objective: Vital Signs Temp Pulse Resp BP Pulse Ox 36.4 C 77 20 137/72 H 95 12/27/16 12:00 12/27/16 12:00 12/27/16 08:00 12/27/16 12:00 12/27/16 12:00 Laboratory Results 12/26/16 05:50 12/26/16 05:50 12/26/16 12/27/16 12/28/16 05:59 05:59 05:59 Output Total 1650 Balance -1650 PT 12.8 SEC (12.0-15.0) 12/25/16 16:25 INR 0.97 (0.83-1.16) 12/25/16 16:25 - Physical Exam Constitutional: no apparent distress, appears nourished, not in pain Eyes: anicteric sclera, EOMI Ears, Nose, Mouth, Throat: moist mucous membranes, hearing normal Cardiovascular: regular rate and rhythym, no murmur, rub, or gallop Respiratory: no respiratory distress, no rales or rhonchi, clear to auscultation Gastrointestinal: normoactive bowel sounds, soft, non-tender abdomen, no palpable masses Skin: warm Musculoskeletal: other ( dressed right heel) Neurologic: AAOx3 Psychiatric: interacting appropriately, not anxious, not encephalopathic, thought process linear ICD10 Worksheet Patient Problems: Problems Problem Status Onset Abscess of left leg Acute Altered mental status Acute Anemia Acute Cellulitis in diabetic foot Acute Cellulitis of foot, right Acute Cellulitis of lower extremity Acute Failure to thrive Acute Fever Acute Lower limb ulcer, heel or midfoot Acute MRSA (methicillin resistant Staphylococcus aureus) Acute 01/16/15 Osteomyelitis of ankle or foot, right, acute Acute Uremia Acute
[2016-12-27] MEDS ORDERED: ALTEPLASE 2 MG VIAL IVP PRN (18:04)
[2016-12-27] MEDS: ASPIRIN 81 MG CHEWABLE TAB PO SCH (21:31)
[2016-12-27] MEDS: traZODone 50 MG TAB PO SCH (21:31)
[2016-12-28] MEDS: LEVOTHYROXINE 100 MCG TAB PO SCH (04:49)
[2016-12-28] MEDS: HYDROmorphONE/DILAUDID 2 MG TAB PO PRN ×4 (04:50→20:52)
[2016-12-28] MEDS: HYDROCODONE/APAP 5/325 TAB PO PRN (06:08)
[2016-12-28] MEDS: IPRATROPIUM/ALBUTEROL 3 ML DEYVIAL IH SCH ×4 (06:15→21:03)
[2016-12-28] MEDS: clonazePAM 0.5 MG TAB PO PRN ×3 (06:25→20:54)
[2016-12-28] MEDS: DULoxetine 30 MG CAP PO SCH ×2 (09:21→20:47)
[2016-12-28] MEDS: PREGABALIN 50 MG CAP PO SCH ×3 (09:21→20:49)
[2016-12-28] MEDS: predniSONE 10 MG TAB PO SCH (09:22)
[2016-12-28] MEDS: GABAPENTIN 100 MG CAP PO SCH ×3 (09:22→20:49)
[2016-12-28] MEDS: INSULIN GLARGINE 100 UNITS/ML SYRINGE SC SCH ×2 (09:24→20:48)
[2016-12-28] MEDS: INSULIN LISPRO 100 UNIT/ML SC SCH ×3 (09:24→17:45)
[2016-12-28] MEDS: cefTRIAXone 2 GM in D5W 50 ML IV SCH (11:48)
--- NOTE | 2016-12-28 15:04 | PCMIDPN ---
Assessment/Plan: Assessment/Plan: * Proteus bacteremia: Likely due to heel wound although interesting that Proteus susceptibility from heel and blood are not concordant and wound has healthy appearance. Other consideration would be port related - if this is the case, would expect repeat blood cultures may still be positive. Continue ceftriaxone. Repeat blood cultures are pending to assess for clearing of bacteremia. Anticipate 10-14 days of antibiotic therapy post negative blood cultures. Blood isolate is fluoroquinolone resistant, this will necessitate treatment course with IV therapy. 12/28/16 15:01 12/28/16 15:05 Subjective: Patient without specific complaints. Objective: Vital Signs Temp Pulse Resp BP Pulse Ox 36.6 C 77 20 160/79 H 97 12/28/16 08:00 12/28/16 08:00 12/28/16 08:00 12/28/16 08:00 12/28/16 08:00 Laboratory Results 12/26/16 05:50 12/26/16 05:50 12/27/16 12/28/16 12/29/16 05:59 05:59 05:59 Output Total 1650 Balance -1650 Ceftriaxone # 2 Antibiotics # 3 Blood cultures 12/27/2016 pending Blood cultures 12/25/2016 with growth of Proteus which is resistant to levofloxacin Wound with growth of Proteus which is momin susceptible - Physical Exam General Appearance: alert, no apparent distress EENT: No thrush, No conjunctival petechiae Respiratory: lungs clear, No respiratory distress Cardiac/Chest: regular rate, rhythm, other (Port nontender without erythema), No systolic murmur Extremities: inflammation (Right heel wound with clean base with granulation throughout; no surrounding cellulitis present; no drainage; foul odor is present ; left heel with superficial breakdown without surrounding erythema) Abdomen: non-tender, No distended ICD10 Worksheet Patient Problems: Problems Problem Status Onset Altered mental status Acute Cellulitis in diabetic foot Acute Lower limb ulcer, heel or midfoot Acute Abscess of left leg Acute Anemia Acute Cellulitis of foot, right Acute Cellulitis of lower extremity Acute Failure to thrive Acute Fever Acute MRSA (methicillin resistant Staphylococcus aureus) Acute 01/16/15 Osteomyelitis of ankle or foot, right, acute Acute Uremia Acute
--- NOTE | 2016-12-28 15:19 | HOSPPROG ---
Hospitalist Progress Note Assessment/Plan: * Proteus bacteremia with protease growing on wound * on Invanz * wound culture growing the same thing although susceptibilities of different * sepsis * lactate was normal * tachycardia has improved * migraine * resolved * type 2 diabetes * continue home insulin doses * hypertension * chronic hypoxic respiratory failure on 4 L of oxygen * chronic kidney disease * chronic pain * mental status seems to be at baseline * sarcoid * DVT prophylaxis * patient is refusing Lovenox Subjective: migraine resolved. Objective: Vital Signs Temp Pulse Resp BP Pulse Ox 36.6 C 77 20 160/79 H 97 12/28/16 08:00 12/28/16 08:00 12/28/16 08:00 12/28/16 08:00 12/28/16 08:00 Laboratory Results 12/26/16 05:50 12/26/16 05:50 12/27/16 12/28/16 12/29/16 05:59 05:59 05:59 Output Total 1650 Balance -1650 PT 12.8 SEC (12.0-15.0) 12/25/16 16:25 INR 0.97 (0.83-1.16) 12/25/16 16:25 Discussed with Infectious Disease - Physical Exam Constitutional: no apparent distress, appears nourished, not in pain Eyes: anicteric sclera, EOMI Cardiovascular: regular rate and rhythym Respiratory: no respiratory distress Gastrointestinal: normoactive bowel sounds, soft, non-tender abdomen, no palpable masses Skin: warm Neurologic: AAOx3 Psychiatric: interacting appropriately, not anxious, not encephalopathic, thought process linear ICD10 Worksheet Patient Problems: Problems Problem Status Onset Altered mental status Acute Cellulitis in diabetic foot Acute Lower limb ulcer, heel or midfoot Acute Abscess of left leg Acute Anemia Acute Cellulitis of foot, right Acute Cellulitis of lower extremity Acute Failure to thrive Acute Fever Acute MRSA (methicillin resistant Staphylococcus aureus) Acute 01/16/15 Osteomyelitis of ankle or foot, right, acute Acute Uremia Acute
[2016-12-28] MEDS: ASPIRIN 81 MG CHEWABLE TAB PO SCH (20:47)
[2016-12-28] MEDS: traZODone 50 MG TAB PO SCH (20:48)
[2016-12-29] MEDS: fentaNYL 75 MCG PATCH TD SCH (00:08)
[2016-12-29] MEDS: clonazePAM 0.5 MG TAB PO PRN ×2 (03:29→14:45)
[2016-12-29] MEDS: HYDROmorphONE/DILAUDID 2 MG TAB PO PRN ×3 (03:30→20:50)
[2016-12-29] MEDS: LEVOTHYROXINE 100 MCG TAB PO SCH (05:11)
[2016-12-29] MEDS: IPRATROPIUM/ALBUTEROL 3 ML DEYVIAL IH SCH ×4 (05:17→20:13)
[2016-12-29] MEDS: predniSONE 10 MG TAB PO SCH (10:16)
[2016-12-29] MEDS: DULoxetine 30 MG CAP PO SCH ×2 (10:16→20:49)
[2016-12-29] MEDS: GABAPENTIN 100 MG CAP PO SCH ×3 (10:16→20:50)
[2016-12-29] MEDS: PREGABALIN 50 MG CAP PO SCH ×3 (10:16→20:50)
[2016-12-29] MEDS: cefTRIAXone 2 GM in D5W 50 ML IV SCH (10:17)
[2016-12-29] MEDS: INSULIN GLARGINE 100 UNITS/ML SYRINGE SC SCH ×2 (10:17→20:49)
[2016-12-29] MEDS: INSULIN LISPRO 100 UNIT/ML SC SCH ×3 (10:17→19:05)
--- NOTE | 2016-12-29 11:22 | PCMIDPN ---
Assessment/Plan: # Proteus bacteremia - source like LE wound, but odd that different susceptibility pattern. As Dr. Rodríguez mentioned, could be port (did not mention to patient) but rapid clearance of blood cx so far, less suggestive that port is etiology --repeat blood cultures cleared --plan 10 days antibiotic after blood cx clearance, 01/06/17 # B Charcot foot with pressure ulcers R>L heal - no signs of infection at wounds meds, Abx #4 ceftriaxone 2gm IV daily, #2 microbiology 4/ blood cx 1/2 proteus 4/2 wound cx proteus momin -S / blood cx 2/2 NGTD Subjective: Fairly cheerful today, heel pain significantly better than admission, no specific side effects to antibiotics have been noted Objective: Vital Signs Temp Pulse Resp BP Pulse Ox 36.9 C 78 18 135/76 H 97 12/29/16 08:00 12/29/16 08:00 12/29/16 08:00 12/29/16 08:00 12/29/16 08:00 Laboratory Results 12/26/16 05:50 12/26/16 05:50 - Physical Exam General Appearance: alert, no apparent distress, obese Respiratory: lungs clear, No accessory muscle use Neck: supple Cardiac/Chest: regular rate, rhythm Extremities: pedal edema, other (Right heel with superficial approximately 5 x 4 cm ulcer with excellent granulation in the base and no surrounding erythema. Left heel with smaller wound 1-2 cm again with good granulation tissue in the base and no surrounding erythema, no purulence) Abdomen: non-tender, soft Skin: pallor, No rash Neuro/Psych: alert, normal mood/affect, oriented x 3 - Line/s Mediport Lines: No drainage, No erythema ICD10 Worksheet Patient Problems: Problems Problem Status Onset Altered mental status Acute Cellulitis in diabetic foot Acute Lower limb ulcer, heel or midfoot Acute Abscess of left leg Acute Anemia Acute Cellulitis of foot, right Acute Cellulitis of lower extremity Acute Failure to thrive Acute Fever Acute MRSA (methicillin resistant Staphylococcus aureus) Acute 01/16/15 Osteomyelitis of ankle or foot, right, acute Acute Uremia Acute
--- NOTE | 2016-12-29 15:04 | PDIAF ---
- Diagnosis Diagnosis: Proteus bacteremia Code Status: Full Code - Medication Management Discharge Medications: Medications to Continue on Transfer Aspirin [Aspirin 81mg (*)] 81 mg PO HS 08/22/14 [Last Taken 12/24/16] Levothyroxine [Synthroid 200 mcg (*)] 200 mcg PO DAILY 08/22/14 [Last Taken 11/11] Promethazine HCl [Phenergan 25mg (*)] 25 mg PO BID PRN 08/22/14 [Last Taken 10/10] HYDROmorphone HCL [Dilaudid 4 mg (*)] 8 mg PO Q4 PRN 08/12/15 [Last Taken 08:22] Polyethylene Glycol 3350 [Miralax 17 gm (*)] 17 gm PO BID PRN 08/12/15 [Last Taken Unknown] Acetaminophen [Tylenol 325mg (*)] 650 mg PO Q4 PRN #0 tab 04/30/16 [Last Taken 12/25/16 11:39] traZODone [traZODONE 50MG (*)] 50 mg PO HS 05/31/16 [Last Taken 12/24/16] Calcium Carbonate [Tums 500MG (*)] 1,000 mg PO Q4 PRN 08/03/16 [Last Taken Unknown] DULoxetine [Cymbalta 30 MG (*)] 30 mg PO BID 08/03/16 [Last Taken 12/25/16 08:00 ] HYDROmorphone HCL [Dilaudid 2 mg (*)] 2 mg PO Q4 PRN 08/03/16 [Last Taken 08:22] Insulin Detemir [Levemir] 45 unit SQ DAILY 08/03/16 [Last Taken 12/25/16] Sennosides/Docusate Sodium [Senokot-S] 2 tab PO BID PRN 08/03/16 [Last Taken Unknown] clonazePAM [Klonopin (*)] 0.5 mg PO Q6 PRN 08/03/16 [Last Taken 12/25/16 11:38] predniSONE [predniSONE TAPER] 1 each PO AD 09/14/16 [Last Taken 12/25/16 20mg] Gabapentin [Neurontin 100 MG (*)] 100 mg PO TID 12/25/16 [Last Taken 12/25/16 08 :00] Herbals/Supplements -Info Only 1 ea PO AD 12/25/16 [Last Taken 12/25/16] Insulin Aspart [novoLOG] 0 unit SC TIDMEAL PRN 12/25/16 [Last Taken 12/25/16 11: 00] Insulin Aspart [novoLOG] 5 unit SC TIDMEAL 12/25/16 [Last Taken 12/25/16 12:00] Insulin Detemir [Levemir] 63 unit SQ HS 12/25/16 [Last Taken 12/24/16] Ipratropium/Albuterol [Duoneb (*)] 3 ml IH QID 12/25/16 [Last Taken 12/25/16 12: 00] Pregabalin [Lyrica 50mg (*)] 50 mg PO TID 12/25/16 [Last Taken 12/25/16 08:00] fentaNYL [Duragesic 75 MCG Patch (*)] 75 mcg TD Q72H 12/25/16 [Last Taken ] Snf Antibiotics: 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 PICC Care - Routine: N/A (R chest Wall port care per routine) - Labs/Radiology CBC Date: 01/02/17 CMP Date: 01/02/17 Call or Fax Lab and Imaging Results to: [id number] Ralph Rodríguez Or Simeon - Follow Up Care Current Providers and Referrals: Patient,NotPresent [Unknown] - As per Instructions
[2016-12-29] MEDS ORDERED: clonazePAM 1 MG TAB PO ONE (15:30)
--- NOTE | 2016-12-29 15:39 | HOSPPROG ---
Hospitalist Progress Note Assessment/Plan: * Proteus bacteremia with protease growing on wound * on Invanz * wound culture growing the same thing although susceptibilities of different * sepsis * lactate was normal * tachycardia has improved * migraine * resolved * type 2 diabetes * continue home insulin doses * hypertension * chronic hypoxic respiratory failure on 4 L of oxygen * chronic kidney disease * chronic pain * mental status seems to be at baseline * sarcoid * DVT prophylaxis * patient is refusing Lovenox * disposition - back to half-way tomorrow Subjective: no new complaints Objective: Vital Signs Temp Pulse Resp BP Pulse Ox 36.9 C 78 18 135/76 H 97 12/29/16 08:00 12/29/16 08:00 12/29/16 08:00 12/29/16 08:00 12/29/16 08:00 Laboratory Results 12/26/16 05:50 12/26/16 05:50 PT 12.8 SEC (12.0-15.0) 12/25/16 16:25 INR 0.97 (0.83-1.16) 12/25/16 16:25 - Physical Exam Constitutional: no apparent distress, appears nourished, not in pain Cardiovascular: regular rate and rhythym Respiratory: no respiratory distress Skin: warm Neurologic: AAOx3 Psychiatric: interacting appropriately, not anxious, not encephalopathic, thought process linear ICD10 Worksheet Patient Problems: Problems Problem Status Onset Altered mental status Acute Cellulitis in diabetic foot Acute Lower limb ulcer, heel or midfoot Acute Abscess of left leg Acute Anemia Acute Cellulitis of foot, right Acute Cellulitis of lower extremity Acute Failure to thrive Acute Fever Acute MRSA (methicillin resistant Staphylococcus aureus) Acute 01/16/15 Osteomyelitis of ankle or foot, right, acute Acute Uremia Acute
[2016-12-29] MEDS: traZODone 50 MG TAB PO SCH (20:49)
[2016-12-29] MEDS: ASPIRIN 81 MG CHEWABLE TAB PO SCH (20:49)
[2016-12-30] MEDS: HYDROmorphONE/DILAUDID 2 MG TAB PO PRN ×2 (00:47→17:19)
[2016-12-30] MEDS: clonazePAM 0.5 MG TAB PO PRN ×2 (00:48→17:19)
[2016-12-30] MEDS: IPRATROPIUM/ALBUTEROL 3 ML DEYVIAL IH SCH ×2 (05:10→08:45)
[2016-12-30] MEDS: LEVOTHYROXINE 100 MCG TAB PO SCH (05:49)
[2016-12-30] MEDS: cefTRIAXone 2 GM in D5W 50 ML IV SCH (10:25)
[2016-12-30] MEDS: PREGABALIN 50 MG CAP PO SCH ×2 (10:25→17:17)
[2016-12-30] MEDS: GABAPENTIN 100 MG CAP PO SCH ×2 (10:26→17:17)
[2016-12-30] MEDS: predniSONE 10 MG TAB PO SCH (10:26)
[2016-12-30] MEDS: INSULIN GLARGINE 100 UNITS/ML SYRINGE SC SCH (10:26)
[2016-12-30] MEDS: DULoxetine 30 MG CAP PO SCH (10:26)
[2016-12-30] MEDS: INSULIN LISPRO 100 UNIT/ML SC SCH ×2 (10:27→12:05)
--- NOTE | 2016-12-30 11:42 | PDIAF ---
- Diagnosis Diagnosis: Proteus bacteremia Code Status: Full Code - Medication Management Discharge Medications: Medications to Continue on Transfer Aspirin [Aspirin 81mg (*)] 81 mg PO HS 08/22/14 [Last Taken 12/24/16] Levothyroxine [Synthroid 200 mcg (*)] 200 mcg PO DAILY 08/22/14 [Last Taken 11/11] Promethazine HCl [Phenergan 25mg (*)] 25 mg PO BID PRN 08/22/14 [Last Taken 10/10] HYDROmorphone HCL [Dilaudid 4 mg (*)] 8 mg PO Q4 PRN 08/12/15 [Last Taken 08:22] Polyethylene Glycol 3350 [Miralax 17 gm (*)] 17 gm PO BID PRN 08/12/15 [Last Taken Unknown] Acetaminophen [Tylenol 325mg (*)] 650 mg PO Q4 PRN #0 tab 04/30/16 [Last Taken 12/25/16 11:39] traZODone [traZODONE 50MG (*)] 50 mg PO HS 05/31/16 [Last Taken 12/24/16] Calcium Carbonate [Tums 500MG (*)] 1,000 mg PO Q4 PRN 08/03/16 [Last Taken Unknown] DULoxetine [Cymbalta 30 MG (*)] 30 mg PO BID 08/03/16 [Last Taken 12/25/16 08:00 ] HYDROmorphone HCL [Dilaudid 2 mg (*)] 2 mg PO Q4 PRN 08/03/16 [Last Taken 08:22] Insulin Detemir [Levemir] 45 unit SQ DAILY 08/03/16 [Last Taken 12/25/16] Sennosides/Docusate Sodium [Senokot-S] 2 tab PO BID PRN 08/03/16 [Last Taken Unknown] clonazePAM [Klonopin (*)] 0.5 mg PO Q6 PRN 08/03/16 [Last Taken 12/25/16 11:38] predniSONE [predniSONE TAPER] 1 each PO AD 09/14/16 [Last Taken 12/25/16 20mg] Gabapentin [Neurontin 100 MG (*)] 100 mg PO TID 12/25/16 [Last Taken 12/25/16 08 :00] Herbals/Supplements -Info Only 1 ea PO AD 12/25/16 [Last Taken 12/25/16] Insulin Aspart [novoLOG] 0 unit SC TIDMEAL PRN 12/25/16 [Last Taken 12/25/16 11: 00] Insulin Aspart [novoLOG] 5 unit SC TIDMEAL 12/25/16 [Last Taken 12/25/16 12:00] Insulin Detemir [Levemir] 63 unit SQ HS 12/25/16 [Last Taken 12/24/16] Ipratropium/Albuterol [Duoneb (*)] 3 ml IH QID 12/25/16 [Last Taken 12/25/16 12: 00] Pregabalin [Lyrica 50mg (*)] 50 mg PO TID 12/25/16 [Last Taken 12/25/16 08:00] fentaNYL [Duragesic 75 MCG Patch (*)] 75 mcg TD Q72H 12/25/16 [Last Taken ] cefTRIAXone [Rocephin] 2 gm IV DAILY #0 vial 12/30/16 [Last Taken Unknown] 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 PICC Care - Routine: N/A (R chest Wall port care per routine) - Orders Services needed: Physical Therapy, Occupational Therapy - Labs/Radiology CBC Date: 01/02/17 CMP Date: 01/02/17 Call or Fax Lab and Imaging Results to: [id number] Ralph Rodríguez Or Simeon - Follow Up Care Current Providers and Referrals: Patient,NotPresent [Unknown] - As per Instructions
--- NOTE | 2016-12-30 13:59 | GDS ---
[f rep st] DISCHARGE SUMMARY DISCHARGE DIAGNOSES: 1. Protease bacteremia. 2. Chronic right heel osteomyelitis with positive protease wound culture. 3. Early sepsis, resolved. 4. Type 2 diabetes. 5. Chronic hypoxic respiratory failure. 6. Chronic kidney disease. 7. Chronic pain. 8. Sarcoid. 9. Migraine headaches. 10. Chronic osteomyelitis. HISTORY: This is a 56-year-old female with multiple medical problems, who lives at [facility] an d called 911 because she was having more pain in her right foot. This foot wound has been monitored by Infectious Disease outpatient. HOSPITAL COURSE: Patient did have some early signs of sepsis including tachycardia, elevated white blood cell count. Blood cultures were drawn which were then positive for protease. Her wound cultu re also became positive for protease. She has been treated with IV ceftriaxone at this time. Infec tious Disease feels that she should complete 14 days of IV antibiotics. She will continue this at [facility]. No other changes in her medications have been made. TIME SPENT: Greater than 30 minutes was spent on discharge. /[id number]/MODL
[2016-12-30 16:40] VITALS: BP 141/92; PULSE 93; RESP 18; TEMP 98.6; O2SAT 94
[2016-12-30] MEDS: ACETAMINOPHEN 325 MG TAB PO PRN (17:19)
== END 2016-12-30 17:41 | DRG 871 ==
LOC: EDUNIT# → OBSVTOIN 23:26 → F3E 23:40
PROVIDERS: ADMIT Hospitalist; ATTEND Internal Medicine
DX: A41.59 Other Gram-negative sepsis (principal); L89.613 Pressure ulcer of right heel, stage 3; L89.623 Pressure ulcer of left heel, stage 3; E11.621 Type 2 diabetes mellitus with foot ulcer; G93.40 Encephalopathy, unspecified; E11.69 Type 2 diabetes mellitus with other specified complication; M86.671 Other chronic osteomyelitis, right ankle and foot; J96.11 Chronic respiratory failure with hypoxia; E11.22 Type 2 diabetes mellitus with diabetic chronic kidney disease; I12.9 Hypertensive chronic kidney disease with stage 1 through stage 4 chronic kidney disease, or unspecified chronic kidney disease; N18.9 Chronic kidney disease, unspecified; D86.9 Sarcoidosis, unspecified; J44.9 Chronic obstructive pulmonary disease, unspecified; F11.20 Opioid dependence, uncomplicated; G89.29 Other chronic pain; E66.01 Morbid (severe) obesity due to excess calories; Z68.43 Body mass index [BMI] 50.0-59.9, adult; Z99.81 Dependence on supplemental oxygen
CPT/HCPCS: 96365; 97165-GO; G8987-GO-CK; G8988-GO-CI; J0696; J1170; J1335; J1650; J1815; J2405; J2997; J3370

== ENCOUNTER 2017-02-07 11:31 | Inpatient (IN) | payer OTHER, MEDICAID ==
[2017-02-07] MEDS ORDERED: ONDANSETRON 4 MG/2 ML VIAL ONE (11:34)
[2017-02-07] MEDS ORDERED: ONDANSETRON 4 MG/2 ML VIAL IVP ONE (11:38)
[2017-02-07] MEDS ORDERED: NS 1,000 ML IV ONE ×3 (11:38→15:35)
--- NOTE | 2017-02-07 12:01 | EDPHY ---
H & P Stated Complaint: vomiting, from [facility], low O2 Time Seen by Provider: 02/07/17 11:31 HPI/ROS: CHIEF COMPLAINT: Fever, vomiting, hypoxemia HISTORY OF PRESENT ILLNESS: The patient is brought to the emergency department from [facility] with a 1 day history of fever, vomiting and hypoxemia. Patient has a number of chronic comorbid medical problems including diabetes, chronic lower extremity osteomyelitis and open ulcers, hypertension, COPD, chronic pain syndrome and chronic renal insufficiency. The patient was hospitalized for sepsis in December of 2016. She was found to have Proteus bacteremia during that hospitalization. She was treated with 14 days of ceftriaxone. In the emergency department today, the patient is unable to give much history. She seems to be able to answer yes and no questions. REVIEW OF SYSTEMS: A comprehensive 10 point review of systems is otherwise negative aside from elements mentioned in the history of present illness. Source: Patient Exam Limitations: No limitations - Personal History Current Tetanus/Diphtheria Vaccine: Unsure Current Tetanus Diphtheria and Acellular Pertussis (TDAP): Unsure Tetanus Vaccine Date: unsure of date - Medical/Surgical History Hx Asthma: No Hx Chronic Respiratory Disease: No Hx Diabetes: Yes Hx Cardiac Disease: No Hx Renal Disease: Yes Hx Cirrhosis: No Hx Alcoholism: No Hx HIV/AIDS: No Hx Splenectomy or Spleen Trauma: No Other PMH: diabetic ulcers on bi-lat feet, sarcoidosis, fibromyalgia, home O2 for opiods, MRSA - Social History Smoking Status: Former smoker - Physical Exam Exam: General Appearance: Obese female, diaphoretic Eyes: Pupils equal and round no pallor or injection ENT, Mouth: Mucous membranes moist Respiratory: Tachypnea, rhonchorous breath sounds bilateral lower lobes Cardiovascular: Regular rate and rhythm Gastrointestinal: Somewhat distended, mild tenderness which is poorly localized , no peritoneal signs Neurological: A&O, normal motor function, normal sensory exam, normal cranial nerves Skin: Warm and dry, no rashes Musculoskeletal: Neck is supple nontender Extremities: Bilateral Charcot joints noted in the feet, 2+ bilateral edema, chronic ulcer noted to the base of the right heel with dressing in place. Left heel ulcer also noted Psychiatric: Patient is oriented X 3, there is no agitation Constitutional: Initial Vital Signs Temperature (C) 39.2 C H 02/07/17 11:48 Heart Rate 129 H 02/07/17 11:48 Respiratory Rate 23 H 02/07/17 11:48 Blood Pressure 165/125 H 02/07/17 11:48 O2 Sat (%) 78 L 02/07/17 11:48 O2 Delivery Mode Oxymizer O2 (L/minute) 10 Allergies/Adverse Reactions: No Known Allergies Allergy (Verified 02/07/17 11:48) Home Medications: Medication Instructions Recorded Aspirin [Aspirin 81mg (*)] 81 mg PO HS 08/22/14 Levothyroxine [Synthroid 200 mcg 200 mcg PO DAILY 08/22/14 (*)] Promethazine HCl [Phenergan 25mg 25 mg PO BID PRN 08/22/14 (*)] HYDROmorphone HCL [Dilaudid 4 mg 8 mg PO Q4 PRN 08/12/15 (*)] Polyethylene Glycol 3350 [Miralax 17 gm PO BID PRN 08/12/15 17 gm (*)] Acetaminophen [Tylenol 325mg (*)] 650 mg PO Q4 PRN #0 tab 04/30/16 traZODone [traZODONE 50MG (*)] 50 mg PO HS 05/31/16 Calcium Carbonate [Tums 500MG (*)] 1,000 mg PO Q4 PRN 08/03/16 DULoxetine [Cymbalta 30 MG (*)] 30 mg PO BID 08/03/16 HYDROmorphone HCL [Dilaudid 2 mg 2 mg PO Q4 PRN 08/03/16 (*)] Insulin Detemir [Levemir] 45 unit SQ DAILY 08/03/16 Sennosides/Docusate Sodium 2 tab PO BID PRN 08/03/16 [Senokot-S] clonazePAM [Klonopin (*)] 0.5 mg PO Q6 PRN 08/03/16 predniSONE [predniSONE TAPER] 1 each PO AD 09/14/16 Gabapentin [Neurontin 100 MG (*)] 100 mg PO TID 12/25/16 Herbals/Supplements -Info Only 1 ea PO AD 12/25/16 Insulin Aspart [novoLOG] 0 unit SC TIDMEAL PRN 12/25/16 Insulin Aspart [novoLOG] 5 unit SC TIDMEAL 12/25/16 Insulin Detemir [Levemir] 63 unit SQ HS 12/25/16 Ipratropium/Albuterol [Duoneb (*)] 3 ml IH QID 12/25/16 Pregabalin [Lyrica 50mg (*)] 50 mg PO TID 12/25/16 fentaNYL [Duragesic 75 MCG Patch 75 mcg TD Q72H 12/25/16 (*)] cefTRIAXone [Rocephin] 2 gm IV DAILY #0 vial 12/30/16 Medical Decision Making - Diagnostics Imaging Results: Imaging Impressions Chest X-Ray 02/07/17 12:00 Impression: Pronounced hypoventilatory features with progressive perihilar interstitial infiltrates compared to 12/25/2016, and a possible left perihilar alveolar infiltrate (versus localized edema). When clinically feasible, PA and lateral upright views in the department would be helpful. ED Course/Re-evaluation: The patient presents to the ED with fever, altered mental status and vomiting. The patient is morbidly obese. The patient is able to answer yes and no questions. She does not appear to be in acute pain. The patient was noted to be febrile to 39.2. The patient had blood cultures x2 obtained. The patient's initial lactic acid is normal at 1.0. The patient does have evidence of an infiltrate noted on her chest x-ray. The patient also has evidence of sepsis with tachycardia and fever. Patient was started on IV Invanz. I reviewed her past medical records including her hospitalization in December. The patient is noted to have a port in her chest wall. The patient's liver function tests and lipase are within normal limits. The patient has no significant leukocytosis. The patient will require admission to the hospital for fever, pneumonia and associated encephalopathy. Consultation was made with Dr. Douglas Paige from the hospitalist service for admission. Differential Diagnosis: Differential diagnosis considered includes pneumonia, sepsis, severe sepsis, septic shock, metabolic abnormality - Data Points Laboratory Results: Laboratory Results 02/07/17 12:05 02/07/17 12:05 02/07/17 02/07/17 02/07/17 12:05 12:05 12:05 WBC 9.01 10^3/uL 10^3/uL (3.80-9.50) RBC 3.85 10^6/uL L 10^6/uL (4.18-5.33) Hgb 9.9 g/dL L g/dL (12.6-16.3) Hct 31.1 % L % (38.0-47.0) MCV 80.8 fL L fL (81.5-99.8) MCH 25.7 pg L pg (27.9-34.1) MCHC 31.8 g/dL L g/dL (32.4-36.7) RDW 16.3 % H % (11.5-15.2) Plt Count 164 10^3/uL 10^3/uL (150-400) MPV 9.0 fL fL (8.7-11.7) Neut % (Auto) 86.1 % H % (39.3-74.2) Lymph % (Auto) 7.3 % L % (15.0-45.0) [place] % (Auto) 4.0 % L % (4.5-13.0) Eos % (Auto) 1.6 % % (0.6-7.6) Baso % (Auto) 0.3 % % (0.3-1.7) Nucleat RBC Rel Count 0.0 % % (0.0-0.2) Absolute Neuts (auto) 7.76 10^3/uL H 10^3/uL (1.70-6.50) Absolute Lymphs (auto) 0.66 10^3/uL L 10^3/uL (1.00-3.00) Absolute Monos (auto) 0.36 10^3/uL 10^3/uL (0.30-0.80) Absolute Eos (auto) 0.14 10^3/uL 10^3/uL (0.03-0.40) Absolute Basos (auto) 0.03 10^3/uL 10^3/uL (0.02-0.10) Absolute Nucleated RBC 0.00 10^3/uL 10^3/uL (0-0.01) Immature Gran % 0.7 % % (0.0-1.1) Immature Gran # 0.06 10^3/uL 10^3/uL (0.00-0.10) VBG Lactic Acid 1.0 mmol/L mmol/L (0.7-2.1) Sodium 138 mEq/L mEq/L (134-144) Potassium 5.3 mEq/L H mEq/L (3.5-5.2) Chloride 101 mEq/L mEq/L (97-110) Carbon Dioxide 27 mEq/l mEq/l (22-31) Anion Gap 10 mEq/L mEq/L (8-16) BUN 38 mg/dL H mg/dL (7-23) Creatinine 1.4 mg/dL H mg/dL (0.6-1.0) Estimated GFR 39 Glucose 273 mg/dL H mg/dL (70-100) Calcium 8.8 mg/dL mg/dL (8.5-10.4) Total Bilirubin 0.7 mg/dL mg/dL (0.1-1.4) Conjugated Bilirubin 0.4 mg/dL mg/dL (0.0-0.5) Unconjugated Bilirubin 0.3 mg/dL mg/dL (0.0-1.1) AST 22 IU/L IU/L (14-46) ALT 25 IU/L IU/L (9-52) Alkaline Phosphatase 106 IU/L IU/L (38-126) Total Protein 7.8 g/dL g/dL (6.3-8.2) Albumin 4.1 g/dL g/dL (3.5-5.0) Lipase 56.0 IU/L IU/L (23-300) Medications Given: Discontinued Medications Sodium Chloride (Ns) 1,000 mls @ 0 mls/hr IV ONCE ONE PRN Reason: Wide Open Stop: 02/07/17 11:39 Last Admin: 02/07/17 12:09 Dose: 1,000 mls Sodium Chloride (Ns) 1,000 mls @ 0 mls/hr IV ONCE ONE PRN Reason: Wide Open Stop: 02/07/17 12:01 Last Admin: 02/07/17 13:02 Dose: 1,000 mls Ondansetron HCl (Zofran) 4 mg IVP EDNOW ONE Stop: 02/07/17 11:39 Last Admin: 02/07/17 11:45 Dose: 4 mg Departure - Departure Disposition: [facility] Inpatient Acute Clinical Impression: Sepsis, Altered mental status, Failure to thrive Condition: Fair Referrals: PITO DEL VALLE [Primary Care Provider] - As per Instructions
[2017-02-07 12:13] LABS: % IMMATURE GRANULYOCYTES 0.7 % (0.0-1.1); ABSOLUTE IMMATURE GRANULOCYTES 0.06 10^3/uL (0.00-0.10); ADD DIFF? NO; ADD MORPH? NO; ADD SCAN? NO; ATYPICAL LYMPHOCYTE FLAG 0 (0-99); FRAGMENT RBC FLAG 0 (0-99); HEMATOCRIT 31.1 % (38.0-47.0); HEMOGLOBIN 9.9 g/dL (12.6-16.3); LEFT SHIFT FLG 20 (0-99); LIPEMIA HEMOLYSIS FLAG 80 (0-99); MEAN CELL HEMOGLOBIN 25.7 pg (27.9-34.1); MEAN CELL HEMOGLOBIN CONCENTR. 31.8 g/dL (32.4-36.7); MEAN CELL VOLUME 80.8 fL (81.5-99.8); PLATELET CLUMPS FLAG 0 (0-99); PLATELET COUNT 164 10^3/uL (150-400); RED BLOOD CELL COUNT 3.85 10^6/uL (4.18-5.33); RED CELL DISTRIBUTION WIDTH 16.3 % (11.5-15.2)
[2017-02-07 12:41] LABS: ALANINE AMINOTRANSFERASE 25 IU/L (9-52); ALBUMIN 4.1 g/dL (3.5-5.0); ALKALINE PHOSPHATASE 106 IU/L (38-126); ANION GAP 10 mEq/L (8-16); ASPARTATE AMINOTRANSFERASE 22 IU/L (14-46); BILIRUBIN,TOTAL 0.7 mg/dL (0.1-1.4); BILIRUBIN-CONJUGATED 0.4 mg/dL (0.0-0.5); BILIRUBIN-UNCONJUGATED 0.3 mg/dL (0.0-1.1); CALCIUM 8.8 mg/dL (8.5-10.4); CARBON DIOXIDE 27 mEq/l (22-31); CHLORIDE 101 mEq/L (97-110); CREATININE 1.4 mg/dL (0.6-1.0); GLOMERULAR FILTRATION RATE 39; GLUCOSE 273 mg/dL (70-100); POTASSIUM 5.3 mEq/L (3.5-5.2); SODIUM 138 mEq/L (134-144); TOTAL PROTEIN 7.8 g/dL (6.3-8.2)
[2017-02-07] MEDS ORDERED: ERTAPENEM 1 GM in NS 100 ML IV ONE (13:59)
[2017-02-07] MEDS ORDERED: ACETAMINOPHEN 650 MG SUPP PR ONE ×2 (14:33→14:55)
[2017-02-07] MEDS ORDERED: ACETAMINOPHEN 325 MG SUPP PR ONE (14:34)
[2017-02-07] MEDS ORDERED: ONDANSETRON DISINTEGRATING 4 MG TAB PO PRN (14:37)
[2017-02-07] MEDS ORDERED: ACETAMINOPHEN 325 MG TAB PO PRN ×2 (14:37→22:10)
[2017-02-07] MEDS ORDERED: D50W 25 GM/50 ML SYR IVP PRN (14:47)
--- NOTE | 2017-02-07 15:23 | GHP ---
[f rep st] HISTORY AND PHYSICAL DATE OF ADMISSION: 02/07/2017 HISTORY OF PRESENT ILLNESS: The patient is a pleasant 56-year-old female with history of diabetes, recent admission last month for Proteus bacteremia, as well as chronic bilateral foot wounds followed by wound care, who presents from [facility] with vomiting and tachycardia. I discussed the case with Dr Jones in the emergency department where she was answering yes or no questions to me, where she is febrile and tachycardic, whose really only answer is grunting. According to him, she has 1-day history of fever, vomiting, and hypoxemia. She does have chronic hypoxemic respiratory failure secondary to her morbid obesity. When I speak with her, she is able to deny pain. She actively resists me, opening her eyes, but otherwise is not interactive with the interview. At this point, in time, she has no leukocytosis, pending urinalysis. REVIEW OF SYSTEMS: Complete 10-point review of systems conducted, unable to be obtained secondary to patient's mental status. PAST MEDICAL HISTORY: 1. Type 2 diabetes. 2. Chronic bilateral foot wounds. History of osteomyelitis of the right calcaneus. 3. History of left foot abscess, Charcot joint. 4. Morbid obesity. 5. Hypertension. 6. COPD. 7. Chronic hypoxic respiratory failure, on 4 L of oxygen. 8. Chronic kidney disease, baseline creatinine about 1.4. 9. Chronic pain with continuous narcotic dependency. 10. Sarcoidosis, recent Proteus bacteremia. FAMILY HISTORY: Notable for diabetes. SOCIAL HISTORY: Negative tobacco, alcohol or illicit drugs. Currently living in [facility]. ALLERGIES: No known drug allergies. HOME MEDICATIONS: Acetaminophen, aspirin, calcium carbonate, recently completed a course of ceftriaxone, clonazepam, duloxetine, fentanyl patch, gabapentin, hydromorphone, pills, insulin, DuoNeb, levothyroxine, MiraLAX, prednisone, pregabalin, promethazine, senna, trazodone. PHYSICAL EXAMINATION: VITALS: Presenting vitals, temp 39.2, blood pressure 165 /125, pulse 129, breathing 22 times a minute, 78% on room air, 95 on 10 L. GENERAL: In no acute distress. She seems a little bit willfully unresponsive to the physical exam. HEENT: Sclerae are anicteric. Pupils are reactive to light. Oropharynx is clear. Mucous membranes are dry. NECK: Supple. Difficult to assess JVD given habitus. LUNGS: Anterolaterally is essentially meaningless. HEART: S1, S2, tachycardic. ABDOMEN: Obese, soft, there is no rebound or guarding. Bowel sounds are hypoactive, but present. EXTREMITIES: Lower extremities, there are bilateral chronic venous stasis changes without lymphangitic streaking. She has bilateral occlusive dressings on her lower extremities, which I did not unwrap. They are due to be changed tomorrow. NEUROLOGIC: Notable for encephalopathy. SKIN: Otherwise without rash. LABS: White count 9; hematocrit 31; platelets are 164,000. The anemia is at her baseline. Venous lactate is normal at 1, sodium 138, potassium 5.3, chloride 101, bicarb 27, BUN 38, creatinine 1.4. Again, this is about her baseline creatinine. Glucose 273, LFTs normal, lipase 56. UA pending. Chest x-ray interpreted by me is very difficult to interpret, as it is a lordotic hypoventilatory shot. I have discussed case with Dr. Keegan Jones. ASSESSMENT AND PLAN: This is a 56-year-old female with multiple chronic comorbidities who presents with fever, tachycardia, and vomiting. 1. Fever, tachycardia and vomiting. I suspect she has a viral gastroenteritis. I have written her for a gastrointestinal PCR panel. There was no evidence of diarrhea. She has had normal liver function tests and unconcerning abdominal exam. At this point in time, ertapenem was given in the emergency department. I have not written to continue antibiotics; however, this is a 24-hour antibiotic. Blood cultures have been drawn. Will follow. There is no Lim's sign. 2. Encephalopathy. I suspect this is secondary to fever, as well as possible polypharmacy. I will do serial exams today on her and re-evaluate. 3. Diabetes. Will continue her home insulin. Start lispro sliding scale. 4. History of bacteremia. Blood cultures have been drawn. Antibiotics have been started. 5. Prophylaxis. Pharmacologic prophylaxis indicated. Start low molecular weight heparin. 6. Chronic pain. Will continue her medicines as prescribed. 7. Disposition. Inpatient status. /[id number]/MODL MTDD
[2017-02-07 15:31] LABS: BASE EXCESS -1.6 mEq/L (-2.5-2.5); BICARBONATE 25 mEq/L (22-26); MEASURED OXYGEN SATURATION 95 % (92-95); PCO2 52 mmHg (34-38); PO2 84 mmHg (65-75); TCO2 26 mEq/L (23-27)
[2017-02-07] MEDS ORDERED: INSULIN LISPRO 100 UNIT/ML SC SCH ×2 (18:00→22:00)
--- NOTE | 2017-02-07 19:49 | HOSPPROG ---
Hospitalist Progress Note Assessment/Plan: patient revisited three times since admit. slightly more alert but remains tachypneic, tahcycardic and febrile abg at 4 w hypercarbia repeat cxr at 7 w progressive b/l airspace disease (interp by me) at this point diagnosis looking more like b/l pneumonia, cannot rule out large aspiration cover for HCAP and atypicals vanc/zosyn/azith check urine legionelaa discussed w er MD who will intubate now- too tenuous to leave overnight this tachypneic w low reserve 40' crit care Objective: Vital Signs Temp Pulse Resp BP Pulse Ox 39.8 C H 133 H 33 H 123/74 H 97 02/07/17 18:32 02/07/17 18:32 02/07/17 18:32 02/07/17 18:32 02/07/17 18:32 02/06/17 02/07/17 02/08/17 05:59 05:59 05:59 Intake Total 3000 Output Total 450 Balance 2550 ICD10 Worksheet Patient Problems: Problems Problem Status Onset Altered mental status Acute Failure to thrive Acute Sepsis Acute Abscess of left leg Acute Anemia Acute Cellulitis in diabetic foot Acute Cellulitis of foot, right Acute Cellulitis of lower extremity Acute Fever Acute Lower limb ulcer, heel or midfoot Acute MRSA (methicillin resistant Staphylococcus aureus) Acute 01/16/15 Osteomyelitis of ankle or foot, right, acute Acute Uremia Acute
[2017-02-07] MEDS ORDERED: PROPOFOL/EMULSION 1,000 MG/100 ML BOTTLE IV ONE (20:00)
--- NOTE | 2017-02-07 20:09 | EDPHY ---
Inpatient Procedure Narrative: 2007: I was asked by the hospitalist service specifically Dr. Paige to come and see and evaluate the patient for respiratory failure in need for emergent intubation. Upon my evaluation the patient is in respiratory failure unresponsive on a 15 L Ventimask. Patient's O2 sat 98%. Patient unresponsive to verbal or painful stimuli. Patient needs emergent intubation due to respiratory failure. This patient was intubated with a glide scope 1 attempt. Direct visualization of the cords. 7 0 endotracheal tube was passed through the cords direct visualization under glide scope. Patient was given 20 mg of IV etomidate prior to intubation. She did not require 100 mg of rocuronium. Patient tolerated this procedure well. Endotracheal tube was confirmed with moist air in the tube , bilateral breath sounds, capnography changes. Chest x-ray has been ordered for endotracheal tube placement. Hospitalist notified. Patient tolerated this procedure well. Critical Care: Total Critical Care Time Spent Managing this Patient: 20Minutes. This time was spent Exclusively with this patient. This Care was exclusive of procedures. The Organ System/life at risk was respiratory failure This Patient was in Critical Condition because respiratory failure requiring intubation.
[2017-02-07 20:35] LABS: BASE EXCESS -1.8 mEq/L (-2.5-2.5); BICARBONATE 24 mEq/L (22-26); END TIDAL CO2 45; MEASURED OXYGEN SATURATION 95 % (92-95); O2 CONCENTRATIION 50 % (0-100); P/F RATIO 184 RATIO; PCO2 56 mmHg (34-38); PO2 92 mmHg (65-75); TCO2 26 mEq/L (23-27)
[2017-02-07 20:36] LABS: INSP PRESSURE 21; PATIENT RATE 38; PRESSURE SUPPORT 7
[2017-02-07] MEDS: NS 1,000 ML IV SCH (20:45)
[2017-02-07] MEDS: AZITHROMYCIN IV 500 MG in D5W 250 ML IV SCH ×2 (20:58→21:36)
[2017-02-07] MEDS: DULoxetine 30 MG CAP PO SCH (20:59)
[2017-02-07] MEDS: fentaNYL/NACL 100 ML IV SCH (20:59)
[2017-02-07] MEDS: PROPOFOL/EMULSION 100 ML IV SCH (21:01)
[2017-02-07] MEDS: VANCOMYCIN HCL/NORMAL SALINE 250 ML IV SCH (21:05)
[2017-02-07] MEDS ORDERED: NON-FORMULARY NEW DRUG (Insulin Aspart [Novolog] 5 UNIT) SC SCH (22:00)
[2017-02-07] MEDS: PREGABALIN 50 MG CAP PO SCH (22:08)
[2017-02-07] MEDS: PIPERACILLIN/TAZO 3.375 GM/DEX 50 ML IV SCH (22:18)
[2017-02-07] MEDS: ACETAMINOPHEN 650 MG SUPP PR PRN (22:28)
[2017-02-08] MEDS ORDERED: ROCURONIUM 100 MG/10 ML VIAL ONE (00:37)
[2017-02-08] MEDS ORDERED: ETOMIDATE 40 MG/20 ML INJ ONE (00:38)
[2017-02-08] MEDS: INSULIN REGULAR HUMAN 100 UNIT in NS 100 ML IV SCH (01:32)
[2017-02-08] MEDS ORDERED: NS 1,000 ML IV ONE (02:18)
[2017-02-08] MEDS: NS 1,000 ML IV SCH (02:23)
[2017-02-08] MEDS: PROPOFOL/EMULSION 100 ML IV SCH ×3 (02:24→23:57)
[2017-02-08] MEDS ORDERED: PHENYLEPHRINE HCL 50 MG in D5W 250 ML IV SCH (02:30)
[2017-02-08] MEDS ORDERED: NOREPINEPHRINE/NS 500 ML IV SCH (02:30)
[2017-02-08] MEDS ORDERED: VASOPRESSIN/DEXTROSE 250 ML IV SCH (02:30)
[2017-02-08] MEDS ORDERED: DOBUTamine/DEXTROSE 250 ML IV SCH (02:30)
[2017-02-08] MEDS: ACETAMINOPHEN 650 MG SUPP PR PRN ×3 (03:48→22:34)
[2017-02-08 04:15] LABS: ADD MORPH? NO; ATYPICAL LYMPHOCYTE FLAG 0 (0-99); FRAGMENT RBC FLAG 0 (0-99); HEMATOCRIT 27.4 % (38.0-47.0); HEMOGLOBIN 8.5 g/dL (12.6-16.3); LIPEMIA HEMOLYSIS FLAG 80 (0-99); MEAN CELL HEMOGLOBIN 25.8 pg (27.9-34.1); MEAN PLATELET VOLUME 9.2 fL (8.7-11.7); PLATELET CLUMPS FLAG 10 (0-99); PLATELET COUNT 142 10^3/uL (150-400); RED CELL DISTRIBUTION WIDTH 16.6 % (11.5-15.2)
[2017-02-08 04:24] LABS: ADD DIFF? YES; ADD SCAN? NO; ALANINE AMINOTRANSFERASE 22 IU/L (9-52); ALBUMIN 2.8 g/dL (3.5-5.0); ALKALINE PHOSPHATASE 63 IU/L (38-126); ANION GAP 8 mEq/L (8-16); ASPARTATE AMINOTRANSFERASE 18 IU/L (14-46); BILIRUBIN,TOTAL 0.7 mg/dL (0.1-1.4); CALCIUM 7.7 mg/dL (8.5-10.4); CARBON DIOXIDE 25 mEq/l (22-31); CHLORIDE 108 mEq/L (97-110); CREATININE 1.6 mg/dL (0.6-1.0); GLOMERULAR FILTRATION RATE 33; GLUCOSE 209 mg/dL (70-100); LEFT SHIFT FLG 170 (0-99); POTASSIUM 4.5 mEq/L (3.5-5.2); SODIUM 141 mEq/L (134-144); TOTAL PROTEIN 5.8 g/dL (6.3-8.2)
[2017-02-08 04:25] LABS: INR 1.34 (0.83-1.16); PROTIME(PATIENT) 16.6 SEC (12.0-15.0)
[2017-02-08 04:26] LABS: APTT 32.8 SEC (23.0-38.0)
[2017-02-08 04:54] LABS: BASE EXCESS -1.9 mEq/L (-2.5-2.5); BICARBONATE 23 mEq/L (22-26); MEASURED OXYGEN SATURATION 96 % (92-95); PCO2 47 mmHg (34-38); PO2 94 mmHg (65-75); TCO2 24 mEq/L (23-27)
[2017-02-08 04:55] LABS: ASSIST CONTROL YES; END TIDAL CO2 38; O2 CONCENTRATIION 40 % (0-100); P/F RATIO 235 RATIO; TOTAL RATE 30
[2017-02-08 05:32] LABS: MICROCYTES 1+
[2017-02-08 05:33] LABS: LARGE PLATELETS PRESENT; PLATELET ESTIMATE ADEQUATE (ADEQ); POLYCHROMASIA 1+; TOXIC GRANULATION PRESENT
[2017-02-08] MEDS: PIPERACILLIN/TAZO 3.375 GM/DEX 50 ML IV SCH ×4 (05:34→23:07)
[2017-02-08] MEDS ORDERED: LEVOTHYROXINE 200 MCG TAB PO SCH (06:00)
[2017-02-08] MEDS: VANCOMYCIN HCL/NORMAL SALINE 250 ML IV SCH ×2 (06:13→19:40)
[2017-02-08] MEDS ORDERED: ALTEPLASE 2 MG VIAL IVP PRN (07:37)
[2017-02-08] MEDS ORDERED: INSULIN GLARGINE 100 UNITS/ML SYRINGE SC SCH (09:00)
[2017-02-08] MEDS ORDERED: INSULIN DETEMIR 45 UNIT SQ SCH (09:00)
[2017-02-08] MEDS: DULoxetine 30 MG CAP PO SCH ×2 (09:19→21:34)
[2017-02-08] MEDS: AZITHROMYCIN IV 500 MG in D5W 250 ML IV SCH (09:19)
[2017-02-08] MEDS: LOSARTAN POTASSIUM 25 MG TAB PO SCH (09:20)
[2017-02-08] MEDS: fentaNYL 75 MCG PATCH TD SCH (09:20)
[2017-02-08] MEDS: PREGABALIN 50 MG CAP PO SCH ×3 (09:20→21:34)
[2017-02-08] MEDS: ENOXAPARIN 40 MG/0.4 ML SYR SC SCH (09:24)
[2017-02-08] MEDS: fentaNYL/NACL 100 ML IV SCH (09:25)
[2017-02-08 09:57] LABS: BASE EXCESS -2.5 mEq/L (-2.5-2.5); BICARBONATE 23 mEq/L (22-26); MEASURED OXYGEN SATURATION 96 % (92-95); PCO2 49 mmHg (34-38); PO2 96 mmHg (65-75); TCO2 24 mEq/L (23-27)
[2017-02-08 09:59] LABS: ASSIST CONTROL YES; END TIDAL CO2 40
[2017-02-08 10:00] LABS: O2 CONCENTRATIION 40 % (0-100); P/F RATIO 240 RATIO; TOTAL RATE 29
--- NOTE | 2017-02-08 11:41 | HOSPPROG ---
Hospitalist Progress Note Assessment/Plan: #Strep bacteremia: suspect pulmonary source. Has chronic venous skin and chronic heel wounds. MRI feet pending. -cont Vanc/Zosyn, IVFs. PICC placed - appreciate ID consultation #Septic shock: Levo started this afternoon. #Acute on chronic hypoxemic resp failure: normally on 4 L. Intubated #Uncontrolled DM: insulin gtt #Hypotension: likely due to infection. TTE pending #Chronic calcaneal wounds: MRI pending. Broad-abx coverage #Acute encephalopathy: due to acute illness, +/- opioids. CTH negative. Give daily sedation holidays #Hypothyroidism: reduce dose in IV form (200mcg at home) #Fever: DDX includes PNA, bacteremia, chronic foot infections. Abx and evaluation as above #ARPITA on CKD: due to hypotension. Baseline Cr 1.3-1.4 #possible ileus: AXR with constipation #Diet: IVFs #DVT ppx: Lovenox #Disp: warrants inpt admission with shock, on IV pressors, abx Subjective: intubated emergently overnight Objective: Vital Signs Temp Pulse Resp BP Pulse Ox 39.6 C H 134 H 36 H 135/55 H 97 02/08/17 10:37 02/08/17 10:37 02/08/17 10:37 02/08/17 10:37 02/08/17 10:37 Laboratory Results 02/08/17 04:00 02/08/17 04:00 02/07/17 02/08/17 02/09/17 05:59 05:59 05:59 Intake Total 5590 Output Total 1385 255 Balance 4205 -255 PT 16.6 SEC (12.0-15.0) H 02/08/17 04:00 INR 1.34 (0.83-1.16) H 02/08/17 04:00 - Physical Exam Constitutional: chronically ill appearing, obese Eyes: PERRL Ears, Nose, Mouth, Throat: other (intubated) Cardiovascular: regular rate and rhythym, tachycardia Respiratory: rhonchi Gastrointestinal: other (quiet bowel sounds throughout. Dark green output from NG) Genitourinary: mccormick in urethra Skin: warm, other (chronic venous skin changes of lower legs. sloughing skin. No cellultis. ) Musculoskeletal: other (right heel with half-dollar calcaneal wound, adjacent is a quarter-sized with purulence. Dime-sized wound left heel) Neurologic: other (sedated) Psychiatric: encephalopathic ICD10 Worksheet Patient Problems: Problems Problem Status Onset Altered mental status Acute Failure to thrive Acute Sepsis Acute Abscess of left leg Acute Anemia Acute Cellulitis in diabetic foot Acute Cellulitis of foot, right Acute Cellulitis of lower extremity Acute Fever Acute Lower limb ulcer, heel or midfoot Acute MRSA (methicillin resistant Staphylococcus aureus) Acute 01/16/15 Osteomyelitis of ankle or foot, right, acute Acute Uremia Acute
[2017-02-08] MEDS: LEVOTHYROXINE 100 MCG/5 ML SYR IVP SCH (12:26)
[2017-02-08] MEDS ORDERED: NS BOLUS 500 ML (Wide open) IV ONE (14:30)
--- NOTE | 2017-02-08 15:10 | WOCRNPDOC ---
WOCRN Advanced Assessment Note - Skin Integrity Problem, Advanced Assess Right Heel Pressure Injury Dressing Type: Open to Air Exudate Amount: None [place] Wound Tissue: Hemosiderin Staining, Calloused Wound Bed Constitution: Smooth Tissue Site Measurement - Head-to-Toe Length X Width X Depth (cm): 5x6.5x0.5 Pressure Injury Stage: Stage 3 Pressure Injury Present on Admit: Yes Extremity Temperature: Warm Skin Integrity Problem Comment: Patient well known to wound care team. Long standing wound with mixed etiology of pressure (per previous discussions with patient) and lower extremity neuropathic disease with trophic changes. They are most consistent with LEND wounds. There is also a component of venous disease present in bilateral lower legs. This wound is larger by approx 2x2 cm since previous assesment at the begining of December. Orders will be written consistent with plan of care from outpatient wound healing center. Wound care will follow with visits every 1-2 weeks. Left Heel Pressure Injury Dressing Type: Open to Air Exudate Amount: None [place] Wound Tissue: Erythema (extending up gaiter area that has been demarcated with sharpie pen), Hemosiderin Staining, Calloused Wound Bed Color: Golva Wound Bed Constitution: Smooth Tissue Wound Edges: Thick Site Measurement - Head-to-Toe Length X Width X Depth (cm): 1.8x1.5x0.1 (lateral ), 1x0.8x0.1 (medial) Pressure Injury Stage: Stage 3 Pressure Injury Present on Admit: Yes Extremity Temperature: Warm Skin Integrity Problem Comment: Patient well known to wound care team. Long standing wound with mixed etiology of pressure and lower extremity neuropathic disease with trophic changes. There is also a component of venous disease present in bilateral lower legs. The two wounds on this heel were originally one wound that has partially healed and now presents as two wounds. Orders will be written consistent with plan of care from outpatient wound healing center.
--- NOTE | 2017-02-08 16:24 | ECHO ---
[id number] + + [id number] : : [place] [id number] : : [phone] + + Adult Echocardiographic Report + ------+ :Name: DAGMAR CLEMNOS LStudy Date: 02/08/2017 08:14 AM BP: 119/44 mmHg : : Hospital Admission Number: [id number] Pamella n: 252: :: 1960 Gender: Female Height: 66 in : :Age: 56 yrs Race: WH Weight: 250 lb : :Reason For Study: pulm infiltrates : : BSA: 2.2 meters 2 : :History: pulm infiltrates : + ------+ MMode/2D Measurements \T\ Calculations IVSd: 1.2 cm RVDd: 3.6 cm FS: 38.6 % Ao root diam: 2.9 cm LVPWd: 1.2 cm LVIDd: 4.2 cm EDV(Teich): 77.1 ml LA dimension: 3.3 cm LVIDs: 2.6 cm ESV(Teich): 23.6 ml EF(Teich): 69.4 % Normal Measurement Values: + + :LVIDd (3.5-5.7cm) IVSd (0.6-1.1cm) LVPWd (0.6-1.1cm) Aortic Root (2.0-3.7cm)Left Atrium (1.5-4.0cm): :LV Vol(d) (76-115ml) LV Vol(s) (29-48ml) Ejec Fraction (50-65%)PV Norberto (0.6- 1.2m/s) TV Norberto (0.4-1.0m/s) : :MV E Norberto (0.8-1.0m/s)MV A Norberto (0.3-1.0m/s)LVOT Norberto (0.7-1.2m/s) Asc Ao Norberto ( 0.9-1.8m/s) : + + Doppler Measurements \T\ Calculations MV E max norberto: Ao V2 max: LV V1 max: PA V2 max: 109.1 cm/sec 154.7 cm/sec 124.9 cm/sec 118.2 cm/sec MV A max norberto: Ao max PG: LV V1 max PG: PA max P.1 cm/sec 9.6 mmHg 6.2 mmHg 5.6 mmHg MV E/A: 1.0 MV dec time: 0.22 sec TR max norberto: 275.5 cm/sec TR max P.4 mmHg RAP systole: 10.0 mmHg RVSP(TR): 40.4 mmHg Left Ventricle The left ventricle is normal in size and function. There is mild to moderate concentric left ventricular hypertrophy. Ejection Fraction = 70%. The left ventricle is hyperdynamic. There is Doppler evidence for diastolic dysfunction. Regional wall motion abnormalities cannot be excluded due to limited visualization. Right Ventricle The right ventricle is normal in size and function. Atria The left atrial size is normal. Right atrial size is normal. Mitral Valve The mitral valve is normal in structure and function. There is no mitral valve stenosis. There is no mitral regurgitation noted. Tricuspid Valve The tricuspid valve is normal in structure and function. There is trace tricuspid regurgitation. Right ventricular systolic pressure is 40mmHg. There is Doppler evidence for mild pulmonary hypertension. Aortic Valve The aortic valve is trileaflet. There is mild aortic valve calcification. There is no aortic stenosis. There is no aortic insufficiency. Pulmonic Valve The pulmonic valve is not well visualized. There is no pulmonic valvular regurgitation. Great Vessels The aortic root is normal size. Pericardium/Pleural There is no pericardial effusion. Conclusion A two-dimensional transthoracic echocardiogram with M-mode and Doppler was performed. Technically difficult apical window. Patient supine and on a ventilator. (1) Left ventricular systolic ejection fraction was grossly normal to hyperdynamic (>70%) - regional wall motion abnormalities can not be ruled out given the patient's postion and vented position (2) Borderline left ventricular hypertrophy (3) Diastolic dysfunction was present (4) Normal atrial dimensions were noted (5) Grossly normal right ventricular size (6) Grossly normal mitral valve (7) Trileaflet aortic valve with mild sclerosis, no stenosis, and no appreciable insufficiency (8) Physiologic tricuspid regurgitation - RVSP was estimated to be 40 mm Hg (9) Poor visualization of the pulmonic valve (10) In comparison to prior echocardiogram from 2014, no substantial changes have been noted. Final Reading Physician: Jluis Casper signed on 02/08/2017 04:22 PM Ordering Physician: Douglas Paige Performed By: Karena Rae
[2017-02-08] MEDS ORDERED: LACTULOSE 20 GM/30 ML UDCUP PO PRN (20:41)
[2017-02-08] MEDS ORDERED: BISACODYL 10 MG SUPP PR PRN (20:41)
[2017-02-08] MEDS ORDERED: MAGNESIUM HYDROXIDE 30 ML UDCUP PO PRN (20:41)
[2017-02-08] MEDS ORDERED: POLYETHYLENE GLYCOL 3350 17 GM PKT PO PRN (20:41)
[2017-02-08] MEDS: SENNOSIDES 17.6 MG/10 ML UDL - IF LIQUID ORDERED PO SCH (21:34)
[2017-02-08] MEDS: METOCLOPRAMIDE 10 MG/2 ML VIAL IVP PRN (21:34)
[2017-02-09] MEDS: INSULIN REGULAR HUMAN 100 UNIT in NS 100 ML IV SCH (00:08)
[2017-02-09] MEDS: fentaNYL/NACL 100 ML IV SCH ×2 (02:18→14:28)
--- NOTE | 2017-02-09 04:08 | GCON ---
[f rep st] CONSULTATION CRITICAL CARE CONSULTATION DATE OF CONSULTATION: 02/08/2017 HISTORY OF PRESENT ILLNESS: The patient is a 56-year-old female with a history of diabetes and oste omyelitis with poor medical compliance concerning lower extremity foot wounds. In any case, she has been living at [facility] and presented with vomiting and tachycardia. She was seen in the emergency department where she was somewhat confused but febrile and was unable to really provide much detail. In any case, she appeared to have 1-day history of fever and worsening hypoxemia on top of chronic oxygen issues. She was subsequently thought initially to have a viral g astroenteritis, but a chest x-ray revealed diffuse infiltrate and she continued to have respiratory failure and required intubation overnight. She has also been intermittently hypotensive and eventua lly required pressor support. No other details are known to me at this time. REVIEW OF SYSTEMS: Otherwise unable to be obtained. PAST MEDICAL HISTORY: Includes: 1. Diabetes. 2. Bilateral foot wounds. 3. History of osteomyelitis. 4. History of a left foot abscess. 5. Morbid obesity. 6. Hypertension. 7. COPD. 8. Chronic hypoxemia with a baseline requirement of 4 L/minute. 9. Chronic kidney disease with a baseline of about 1.4. 10. Chronic pain with narcotic dependency. 11. Sarcoid, by history. 12. Recent proteus bacteremia. FAMILY HISTORY: Includes diabetes. SOCIAL HISTORY: She is a nonsmoker. No alcohol or IV drug use. ALLERGIES: Drug allergies are none. MEDICATIONS: At this time include azithromycin, Cymbalta, Lovenox, Duragesic, Lantus, Synthroid, Re glan, Levophed, Zofran, Zosyn, Lyrica, propofol, vancomycin, Vasopressin. PHYSICAL EXAMINATION: VITAL SIGNS: She had a T-max of 39.2. Blood pressure was initially this mor wali 122/49 but dropped to the 60s and required Levophed. Her heart rate was now 111. Respirations 21. Oxygen saturations 100% on 40% FiO2 with a ventilator. GENERAL: She was sedated on the vent and in no apparent distress and was not using accessory muscles for breathing. HEENT: Pupils were equally round and reactive to light, noninjected, and nonicteric. NECK: Supple without obvious nacho nopathy or jugular vein distention. LUNGS: Breath sounds were somewhat coarse but no obvious wheez ing. HEART: Had a regular rate and rhythm without murmurs, rubs, gallops. ABDOMEN: Soft, nontend er, nondistended without hepatosplenomegaly. EXTREMITIES: Showed bilateral venous stasis changes w ith bilateral calcaneal wounds. On the right side, there was an approximately 3-4 cm what appeared to be somewhat superficial wound without erythema or exudate. On the left side, there was a smaller similar-type wound on calcaneus there. NEUROLOGICAL: Otherwise nonfocal. OBJECTIVE DATA: Includes a white count which was 9.0 when she arrived yesterday; it was up to 11 to day with hematocrit of 27.4, platelets of 142. Her blood gas showed a pH of 7.30, pCO2 of 49, pO2 o f 96, bicarb 24, with a saturation of 96%. Basic metabolic panel showed an increase of creatinine t o 1.6 from 1.4 but otherwise was unremarkable. Cultures are showing gram-positive cocci in chains, likely streptococcus in her blood. ASSESSMENT AND PLAN: 1. Septic shock from bacteremia. This could certainly be from pulmonary source, which appears to b e the case. She is on reasonable antibiotics now. I believe Infectious Disease is getting involved and will likely tailor those antibiotics appropriately. She should be following sepsis protocol wi th serial lactates, as well as maintaining a mean arterial pressure of greater than 65. We should p robably look to make sure she has adequate fluids NICOM, as well. 2. Respiratory failure. Again due to pneumonia and septic shock. She is on a ventilator at this t jose eduardo. I do not think she has acute respiratory distress syndrome. She is showing signs of hypercapn ic respiratory failure at this time. We can probably increase her tidal volume to 8-10 mL/kg of lynn al body weight and make sure she is adequately sedated. She may be able to tolerate some permissive hypercapnia in an effort to maintain low tidal volumes so that we do not progress the ARDS. 3. Osteomyelitis that she has by history, which may or may not be a factor at this time, but an MRI is pending and we can follow up on that then. 4. Sarcoid, by history. Her chest x-ray shows pretty significant hypoventilation. I do not apprec iate significant adenopathy there. I do not feel that steroids directed toward sarcoid would be ammon ropriate at this time. A total of about 45 minutes of critical care time was required for this patient with multiorgan fail ure. /[id number]/MODL
[2017-02-09 04:11] LABS: HEMATOCRIT 24.3 % (38.0-47.0); HEMOGLOBIN 7.6 g/dL (12.6-16.3); MEAN CELL HEMOGLOBIN 25.9 pg (27.9-34.1); MEAN CELL HEMOGLOBIN CONCENTR. 31.3 g/dL (32.4-36.7); MEAN CELL VOLUME 82.9 fL (81.5-99.8); RED BLOOD CELL COUNT 2.93 10^6/uL (4.18-5.33)
[2017-02-09 04:21] LABS: ANION GAP 7 mEq/L (8-16); CALCIUM 7.7 mg/dL (8.5-10.4); CARBON DIOXIDE 24 mEq/l (22-31); CHLORIDE 109 mEq/L (97-110); CREATININE 1.8 mg/dL (0.6-1.0); GLOMERULAR FILTRATION RATE 29; GLUCOSE 134 mg/dL (70-100); POTASSIUM 4.2 mEq/L (3.5-5.2); SODIUM 140 mEq/L (134-144)
[2017-02-09] MEDS: ACETAMINOPHEN 650 MG SUPP PR PRN (05:10)
[2017-02-09] MEDS: PIPERACILLIN/TAZO 3.375 GM/DEX 50 ML IV SCH (05:24)
[2017-02-09] MEDS: PROPOFOL/EMULSION 100 ML IV SCH ×3 (06:17→21:34)
[2017-02-09 08:44] LABS: COLOR YELLOW; LEUKOCYTE ESTERASE,URINE TRACE (NEGATIVE); NITRITE,URINE NEGATIVE (NEGATIVE)
[2017-02-09 09:03] LABS: AMORPHOUS PRESENT /hpf (NONE-1+); MUCUS TRACE /lpf (NONE-1+)
[2017-02-09 09:09] LABS: BACTERIA NONE SEEN /hpf (NONE SEEN)
[2017-02-09] MEDS: SENNOSIDES 17.6 MG/10 ML UDL - IF LIQUID ORDERED PO SCH ×2 (09:18→21:34)
[2017-02-09] MEDS: ENOXAPARIN 40 MG/0.4 ML SYR SC SCH (09:19)
[2017-02-09] MEDS: DULoxetine 30 MG CAP PO SCH (09:24)
[2017-02-09] MEDS: PREGABALIN 50 MG CAP PO SCH (09:24)
[2017-02-09] MEDS: LOSARTAN POTASSIUM 25 MG TAB PO SCH (09:24)
[2017-02-09] MEDS: VANCOMYCIN HCL/NORMAL SALINE 250 ML IV SCH (09:26)
[2017-02-09] MEDS: AZITHROMYCIN IV 500 MG in D5W 250 ML IV SCH (09:26)
--- NOTE | 2017-02-09 10:05 | PCMIDPN ---
Assessment/Plan: #Sepsis secondary to Group C strep, portal likely LLE wound/cellulitis. Persistently febrile since admit, but generally trending down. --narrow antibiotic to ceftriaxone 2gm IV daily, elected for 3rd gen ceph in light of PNA --MRI L heal --dc vancomycin, zosyn today --repeat single blood cx 02/08 negative #Resp Failure/PNA --ceftriaxone as above #ARF secondary to sepsis, ceftriaxone not renally metabolized Subjective: no specific events overnight. remains intubated in ICU Objective: Vital Signs Temp Pulse Resp BP Pulse Ox 38 C 115 H 28 H 133/48 H 96 02/09/17 10:00 02/09/17 10:00 02/09/17 10:00 02/09/17 10:00 02/09/17 10:00 Laboratory Results 02/09/17 04:00 02/09/17 04:00 02/08/17 02/09/17 02/10/17 05:59 05:59 05:59 Intake Total 5590 3082.3 Output Total 1385 1993 Balance 4205 1089.3 - Physical Exam General Appearance: alert, obese EENT: pale conjunctiva, ET Tube Respiratory: coarse breath sounds Cardiac/Chest: tachycardia Extremities: erythema (stocking distribution LLE, with some recession from lines previously drawn), other (dressing in place B heals ) Abdomen: non-tender, soft Male Genitalia: mccormick Skin: diaphoresis, pallor, No rash Neuro/Psych: other (sedated) - Line/s RUE PICC Lines: No drainage, No erythema Mediport Lines: other (R chest wall), No drainage, No erythema - Time Spent With Patient Time Spent with Patient: greater than 35 minutes Time Spent with Patient: Greater than 35 minutes spent on this patients care, greater than 50% of time spent counseling, educating, and coordinating care regarding the above mentioned plan. ICD10 Worksheet Patient Problems: Problems Problem Status Onset Altered mental status Acute Failure to thrive Acute Sepsis Acute Abscess of left leg Acute Anemia Acute Cellulitis in diabetic foot Acute Cellulitis of foot, right Acute Cellulitis of lower extremity Acute Fever Acute Lower limb ulcer, heel or midfoot Acute MRSA (methicillin resistant Staphylococcus aureus) Acute 01/16/15 Osteomyelitis of ankle or foot, right, acute Acute Uremia Acute
[2017-02-09] MEDS: cefTRIAXone 2 GM in D5W 50 ML IV SCH (10:36)
[2017-02-09] MEDS: LEVOTHYROXINE 100 MCG/5 ML SYR IVP SCH (10:57)
[2017-02-09] MEDS ORDERED: ONDANSETRON DISINTEGRATING 4 MG TAB TUBE PRN (15:26)
[2017-02-09] MEDS ORDERED: MAGNESIUM HYDROXIDE 30 ML UDCUP TUBE PRN (15:29)
[2017-02-09] MEDS ORDERED: LACTULOSE 20 GM/30 ML UDCUP TUBE PRN (15:29)
[2017-02-09] MEDS ORDERED: POLYETHYLENE GLYCOL 3350 17 GM PKT TUBE PRN (15:29)
[2017-02-09 15:56] LABS: HEMOGLOBIN A1C 8.2 % (4.0-6.0)
[2017-02-09] MEDS ORDERED: GABAPENTIN 300 MG CAP PO SCH (16:00)
--- NOTE | 2017-02-09 16:12 | HOSPPROG ---
Hospitalist Progress Note Assessment/Plan: * Septic shock (POA) - weaned off pressors * Persistent fever - ? source -consider CT a/p if persists (chief complaint on admission GI) * Strep bacteremia -IV rocephin * Pneumonia * Acute on chronic respiratory failure - vent -4L baseline COPD * Charcot foot - chronic wounds - with cellulitis -check US r/o DVT for edema * DM -Lantus * Metabolic encephalopathy * Acute on chronic renal failure - baseline 1.3 * Morbid obesity BMI 46 Subjective: no events Objective: Vital Signs Temp Pulse Resp BP Pulse Ox 37.2 C 107 H 18 112/58 L 97 02/09/17 15:00 02/09/17 15:00 02/09/17 15:00 02/09/17 15:00 02/09/17 15:00 Laboratory Results 02/09/17 04:00 02/09/17 04:00 02/08/17 02/09/17 02/10/17 05:59 05:59 05:59 Intake Total 5590 3082.3 Output Total 1385 1993 Balance 4205 1089.3 PT 16.6 SEC (12.0-15.0) H 02/08/17 04:00 INR 1.34 (0.83-1.16) H 02/08/17 04:00 LE MRI - no osteo or abscess d/w Dr. Celis - searching for source of persistent fever IV fentanyl gtt for sedation - Physical Exam Constitutional: no apparent distress, appears nourished, not in pain Cardiovascular: regular rate and rhythym, no murmur, rub, or gallop Respiratory: no respiratory distress, no rales or rhonchi, clear to auscultation Gastrointestinal: normoactive bowel sounds, soft, non-tender abdomen, no palpable masses Skin: no fluctuance, induration, other (LE erthythema right> left with edema), No mottled Musculoskeletal: asymmetric calves Neurologic: other (intubated and sedated), No AAOx3 Psychiatric: encephalopathic, No interacting appropriately, No agitated ICD10 Worksheet Patient Problems: Problems Problem Status Onset Altered mental status Acute Failure to thrive Acute Sepsis Acute Abscess of left leg Acute Anemia Acute Cellulitis in diabetic foot Acute Cellulitis of foot, right Acute Cellulitis of lower extremity Acute Fever Acute Lower limb ulcer, heel or midfoot Acute MRSA (methicillin resistant Staphylococcus aureus) Acute 01/16/15 Osteomyelitis of ankle or foot, right, acute Acute Uremia Acute
--- NOTE | 2017-02-09 16:14 | PDINTPN ---
Catia Designer Progress Note Assessment/Plan: Assessment/plan: 56 F with DM and chronic osteomyelitis/NHW of bilateral lower extremities coupled with poor compliance admitted with hypoxemia and GI complaints, found to have eviedence of PNA requiring intubation shortly after admission. She has been treated with Abx, but her oxygen requirements have remained high with a rising creatinine. * PNA- diffuse bilateral infiltrates L>R and high FiO2. Increased PEEP and will attempt to titrate FiO2. BAL not likely helpful at this time. ID consulted and well known to their service. WBC decreasing. * Septic shock and bacteremia- blood cxs growing Strep species which is presumably the same organism in her lungs. Abx changes per ID. Now off pressors * ARPITA- her rising creatinine is a problem, though UOP is adequate. Check UA, urine electrolytes and urine eosinophils * Osteomyelitis- I believe this is chronic and MRI shows no osteo on left, but some on right. No surgical intervention required as best I can tell. * Respiratory failure with hypoxemia 2/2 severe PNA- adequate vent settings as above Objective: Vital Signs Temp Pulse Resp BP Pulse Ox 37.2 C 107 H 18 112/58 L 97 02/09/17 15:00 02/09/17 15:00 02/09/17 15:00 02/09/17 15:00 02/09/17 15:00 Laboratory Results 02/09/17 04:00 02/09/17 04:00 02/08/17 02/09/17 02/10/17 05:59 05:59 05:59 Intake Total 5590 3082.3 Output Total 1385 1993 Balance 4205 1089.3 PT 16.6 SEC (12.0-15.0) H 02/08/17 04:00 INR 1.34 (0.83-1.16) H 02/08/17 04:00 Physical Exam - Physical Exam General Appearance: obese, other (sedated) EENT: PERRL/EOMI Neck: supple Respiratory: decreased breath sounds, No rhonchi, No wheezing Cardiac/Chest: regular rate, rhythm, No edema Abdomen: normal bowel sounds, soft, No distended Skin: warm/dry, other (cellulitis RLE) Lymphatic: no adenopathy Extremities: pedal edema Neuro/Psych: cognition abnormalities ICD10 Worksheet Patient Problems: Problems Problem Status Onset Altered mental status Acute Failure to thrive Acute Sepsis Acute Abscess of left leg Acute Anemia Acute Cellulitis in diabetic foot Acute Cellulitis of foot, right Acute Cellulitis of lower extremity Acute Fever Acute Lower limb ulcer, heel or midfoot Acute MRSA (methicillin resistant Staphylococcus aureus) Acute 01/16/15 Osteomyelitis of ankle or foot, right, acute Acute Uremia Acute
[2017-02-09] MEDS ORDERED: D50W 25 GM/50 ML SYR IVP PRN (16:28)
[2017-02-09] MEDS: INSULIN GLARGINE 100 UNITS/ML SYRINGE SC SCH (16:29)
[2017-02-09] MEDS: PREGABALIN 50 MG CAP TUBE SCH ×2 (16:29→21:33)
[2017-02-09] MEDS: GABAPENTIN 300 MG CAP TUBE SCH ×2 (16:29→21:33)
[2017-02-09] MEDS ORDERED: INSULIN REGULAR HUMAN 100 UNIT/ML SC SCH (17:30)
[2017-02-09] MEDS: INSULIN REGULAR HUMAN 100 UNIT/ML SC SCH (18:20)
[2017-02-09] MEDS ORDERED: ASPIRIN EC 81 MG TAB PO SCH (21:00)
[2017-02-09] MEDS: ASPIRIN 81 MG CHEWABLE TAB TUBE SCH (21:34)
[2017-02-10] MEDS: INSULIN REGULAR HUMAN 100 UNIT/ML SC SCH ×4 (00:20→18:50)
[2017-02-10] MEDS: fentaNYL/NACL 100 ML IV SCH ×2 (02:54→22:12)
[2017-02-10] MEDS: ACETAMINOPHEN 325 MG TAB TUBE PRN ×2 (03:19→12:28)
[2017-02-10] MEDS: PROPOFOL/EMULSION 100 ML IV SCH ×3 (03:50→22:12)
[2017-02-10 04:28] LABS: % IMMATURE GRANULYOCYTES 0.2 % (0.0-1.1); ABSOLUTE IMMATURE GRANULOCYTES 0.01 10^3/uL (0.00-0.10); ADD DIFF? NO; ADD MORPH? NO; ADD SCAN? NO; ATYPICAL LYMPHOCYTE FLAG 0 (0-99); FRAGMENT RBC FLAG 0 (0-99); HEMATOCRIT 22.4 % (38.0-47.0); HEMOGLOBIN 7.2 g/dL (12.6-16.3); LEFT SHIFT FLG 60 (0-99); LIPEMIA HEMOLYSIS FLAG 80 (0-99); MEAN CELL HEMOGLOBIN CONCENTR. 32.1 g/dL (32.4-36.7); MEAN CELL VOLUME 83.9 fL (81.5-99.8); MEAN PLATELET VOLUME 10.3 fL (8.7-11.7); PLATELET CLUMPS FLAG 20 (0-99); PLATELET COUNT 123 10^3/uL (150-400); RED BLOOD CELL COUNT 2.67 10^6/uL (4.18-5.33); RED CELL DISTRIBUTION WIDTH 16.9 % (11.5-15.2)
[2017-02-10 04:41] LABS: ANION GAP 8 mEq/L (8-16); CALCIUM 7.8 mg/dL (8.5-10.4); CARBON DIOXIDE 21 mEq/l (22-31); CHLORIDE 108 mEq/L (97-110); CREATININE 1.6 mg/dL (0.6-1.0); GLOMERULAR FILTRATION RATE 33; GLUCOSE 194 mg/dL (70-100); POTASSIUM 4.4 mEq/L (3.5-5.2); SODIUM 137 mEq/L (134-144)
[2017-02-10 05:25] LABS: BASE EXCESS -2.1 mEq/L (-2.5-2.5); BICARBONATE 23 mEq/L (22-26); MEASURED OXYGEN SATURATION 94 % (92-95); PCO2 44 mmHg (34-38); PO2 81 mmHg (65-75); TCO2 24 mEq/L (23-27)
[2017-02-10 05:27] LABS: ASSIST CONTROL YES; O2 CONCENTRATIION 35 % (0-100); P/F RATIO 231 RATIO; TOTAL RATE 25
[2017-02-10] MEDS: LEVOTHYROXINE 200 MCG TAB TUBE SCH (06:05)
[2017-02-10] MEDS: cefTRIAXone 2 GM in D5W 50 ML IV SCH (08:02)
[2017-02-10] MEDS: INSULIN GLARGINE 100 UNITS/ML SYRINGE SC SCH (08:02)
[2017-02-10] MEDS: ENOXAPARIN 40 MG/0.4 ML SYR SC SCH ×2 (08:02→09:55)
[2017-02-10] MEDS: PREGABALIN 50 MG CAP TUBE SCH ×3 (08:05→22:02)
[2017-02-10] MEDS: GABAPENTIN 300 MG CAP TUBE SCH ×3 (08:05→22:03)
[2017-02-10] MEDS: SENNOSIDES 17.6 MG/10 ML UDL - IF LIQUID ORDERED PO SCH ×2 (08:06→22:01)
[2017-02-10] MEDS: LOSARTAN POTASSIUM 25 MG TAB TUBE SCH (08:20)
--- NOTE | 2017-02-10 08:53 | CPEKG ---
Heart Rate: 99 RR Interval: 606 P-R Interval: 156 QRSD Interval: 74 QT Interval: 320 QTC Interval: 411 P Reynolds Station: 31 QRS [place] Station: 5 T Wave [place] Station: 43 EKG Severity - OTHERWISE NORMAL ECG - EKG Impression: SINUS TACHYCARDIA EKG Impression: VENTRICULAR PREMATURE COMPLEX Electronically Signed By: Darya Jewell 10-Feb-2017 11:37:48
--- NOTE | 2017-02-10 11:37 | PCMIDPN ---
Assessment/Plan: Assessment: Group C/G bacteremia with probable source of lower extremity ulceration with cellulitis. Patient now on ceftriaxone 2 g daily. Repeat blood cultures are negative thus far. She remains intubated but is on weaning parameters currently. Plan to continue with ceftriaxone monotherapy for 14 days post clearance. Plan: 1. Continue ceftriaxone. Anticipate a 14 day course post clearance. 2. Follow up blood cultures. 3. Continue wound care. 4. Follow her clinical course. 02/10/17 11:50 Subjective: Patient is resting in her hospital bed. She remains intubated but her sedation is decreased for weaning parameters. She is very anxious to get the breathing tube removed. Objective: Ceftriaxone #1 Vital Signs Temp Pulse Resp BP Pulse Ox 37.9 C 102 H 20 107/52 L 100 02/10/17 08:00 02/10/17 11:00 02/10/17 11:00 02/10/17 11:00 02/10/17 11:00 Microbiology 02/09/17 16:15 - Final Sputum, Induced/Suctioned Laboratory Results 02/10/17 04:13 02/10/17 04:13 02/09/17 02/10/17 02/11/17 05:59 05:59 05:59 Intake Total 3082.3 1264.9 Output Total 1992 1350 Balance 1089.3 -85.1 - Physical Exam General Appearance: WD/WN, alert, apparent distress (Distress secondary to lower sedation and breathing tube remaining), non-toxic Respiratory: lungs clear, normal breath sounds, No respiratory distress Cardiac/Chest: regular rate, rhythm, No tachycardia Extremities: non-tender, inflammation, erythema, No normal inspection Skin: normal color, warm/dry, No rash Neuro/Psych: alert, normal mood/affect, oriented x 3 ICD10 Worksheet Patient Problems: Problems Problem Status Onset Altered mental status Acute Failure to thrive Acute Sepsis Acute Abscess of left leg Acute Anemia Acute Cellulitis in diabetic foot Acute Cellulitis of foot, right Acute Cellulitis of lower extremity Acute Fever Acute Lower limb ulcer, heel or midfoot Acute MRSA (methicillin resistant Staphylococcus aureus) Acute 01/16/15 Osteomyelitis of ankle or foot, right, acute Acute Uremia Acute
[2017-02-10 12:58] LABS: BASE EXCESS -1.4 mEq/L (-2.5-2.5); BICARBONATE 23 mEq/L (22-26); MEASURED OXYGEN SATURATION 89 % (92-95); PCO2 44 mmHg (34-38); PO2 64 mmHg (65-75); TCO2 25 mEq/L (23-27)
[2017-02-10 12:59] LABS: CPAP YES; O2 CONCENTRATIION 40 % (0-100); P/F RATIO 160 RATIO
[2017-02-10 13:00] LABS: END TIDAL CO2 50; PATIENT RATE 30; PRESSURE SUPPORT 7
--- NOTE | 2017-02-10 16:44 | HOSPPROG ---
Hospitalist Progress Note Assessment/Plan: * Septic shock (POA) - weaned off pressors * Persistent fever - improving * Strep bacteremia - LE cellulitis source -IV rocephin * Pneumonia * Acute on chronic respiratory failure - vent weans -4L baseline COPD * Charcot foot - chronic wounds - with cellulitis -minimal osteomyelitis right foot * DM -Lantus * Metabolic encephalopathy * Acute on chronic renal failure - baseline 1.3 * Morbid obesity BMI 46 Subjective: weaning okay this am but f/u ABG bad - no extubation Objective: Vital Signs Temp Pulse Resp BP Pulse Ox 36.8 C 100 24 H 133/66 H 99 02/10/17 15:00 02/10/17 15:00 02/10/17 15:00 02/10/17 15:00 02/10/17 15:00 Microbiology 02/09/17 16:15 - Final Sputum, Induced/Suctioned Laboratory Results 02/10/17 04:13 02/10/17 04:13 02/09/17 02/10/17 02/11/17 05:59 05:59 05:59 Intake Total 3082.3 1264.9 Output Total 1992 1350 Balance 1089.3 -85.1 PT 16.6 SEC (12.0-15.0) H 02/08/17 04:00 INR 1.34 (0.83-1.16) H 02/08/17 04:00 d/w Dr. Celis - miriam going well MRI LE reviewed - small osteo right foot EKG viewed, my personal interpretation is - sinus tachy - Physical Exam Constitutional: no apparent distress, appears nourished, not in pain Cardiovascular: regular rate and rhythym, no murmur, rub, or gallop Respiratory: no respiratory distress, no rales or rhonchi, clear to auscultation Gastrointestinal: normoactive bowel sounds, soft, non-tender abdomen, no palpable masses Skin: warm, erythema, induration, rash, No normal color, No fluctuance Neurologic: No weakness, No numbness Psychiatric: not anxious, not encephalopathic, agitated, other (following commands on vent) ICD10 Worksheet Patient Problems: Problems Problem Status Onset Altered mental status Acute Failure to thrive Acute Sepsis Acute Abscess of left leg Acute Anemia Acute Cellulitis in diabetic foot Acute Cellulitis of foot, right Acute Cellulitis of lower extremity Acute Fever Acute Lower limb ulcer, heel or midfoot Acute MRSA (methicillin resistant Staphylococcus aureus) Acute 01/16/15 Osteomyelitis of ankle or foot, right, acute Acute Uremia Acute
--- NOTE | 2017-02-10 16:44 | PDINTPN ---
Professor Sculpture Progress Note Assessment/Plan: Assessment/plan: 56 F with DM and chronic osteomyelitis/NHW of bilateral lower extremities coupled with poor compliance admitted with hypoxemia and GI complaints, found to have eviedence of PNA requiring intubation shortly after admission. She has been treated with Abx, but her oxygen requirements have remained high with a rising creatinine. * PNA- improving and weaned some today but unable to extubate 2/2 secretions and borderline sats. I expect she will extubate soon. The rapid improvement in her oxygen needs makes ARDS less likely and I suspect the abx have helped. Recheck CXR in AM * Septic shock and bacteremia- blood cxs growing Strep species which is presumably the same organism in her lungs. Abx changes per ID. Now off pressors * ARPITA- decreased creatinine today. Fena suggest pre-renal azotemia. Continue to follow * Osteomyelitis- I believe this is chronic and MRI shows no osteo on left, but some on right. No surgical intervention required as best I can tell. Abx changed to CTX 2 g/day per ID. * Respiratory failure with hypoxemia 2/2 severe PNA- adequate vent settings as above 02/10/17 16:39 Objective: Vital Signs Temp Pulse Resp BP Pulse Ox 36.8 C 100 24 H 133/66 H 99 02/10/17 15:00 02/10/17 15:00 02/10/17 15:00 02/10/17 15:00 02/10/17 15:00 Microbiology 02/09/17 16:15 - Final Sputum, Induced/Suctioned Laboratory Results 02/10/17 04:13 02/10/17 04:13 02/09/17 02/10/17 02/11/17 05:59 05:59 05:59 Intake Total 3082.3 1264.9 Output Total 1992 1350 Balance 1089.3 -85.1 PT 16.6 SEC (12.0-15.0) H 02/08/17 04:00 INR 1.34 (0.83-1.16) H 02/08/17 04:00 Physical Exam - Physical Exam General Appearance: no apparent distress, obese EENT: PERRL/EOMI Neck: supple Respiratory: rales, No respiratory distress Cardiac/Chest: regular rate, rhythm, edema Abdomen: normal bowel sounds, non-tender, soft, No distended Skin: warm/dry Extremities: swelling Neuro/Psych: No abnormal production engineer track II-XII ICD10 Worksheet Patient Problems: Problems Problem Status Onset Altered mental status Acute Failure to thrive Acute Sepsis Acute Abscess of left leg Acute Anemia Acute Cellulitis in diabetic foot Acute Cellulitis of foot, right Acute Cellulitis of lower extremity Acute Fever Acute Lower limb ulcer, heel or midfoot Acute MRSA (methicillin resistant Staphylococcus aureus) Acute 01/16/15 Osteomyelitis of ankle or foot, right, acute Acute Uremia Acute
[2017-02-10] MEDS: ASPIRIN 81 MG CHEWABLE TAB TUBE SCH (22:01)
[2017-02-11] MEDS: INSULIN REGULAR HUMAN 100 UNIT/ML SC SCH ×4 (00:45→18:24)
[2017-02-11] MEDS: PROPOFOL/EMULSION 100 ML IV SCH ×2 (02:17→06:55)
[2017-02-11 04:29] LABS: % IMMATURE GRANULYOCYTES 0.7 % (0.0-1.1); ABSOLUTE IMMATURE GRANULOCYTES 0.03 10^3/uL (0.00-0.10); ADD DIFF? NO; ADD MORPH? NO; ADD SCAN? NO; ATYPICAL LYMPHOCYTE FLAG 0 (0-99); FRAGMENT RBC FLAG 0 (0-99); HEMATOCRIT 23.1 % (38.0-47.0); HEMOGLOBIN 7.1 g/dL (12.6-16.3); LEFT SHIFT FLG 10 (0-99); LIPEMIA HEMOLYSIS FLAG 80 (0-99); MEAN CELL HEMOGLOBIN 25.8 pg (27.9-34.1); MEAN CELL HEMOGLOBIN CONCENTR. 30.7 g/dL (32.4-36.7); MEAN PLATELET VOLUME 10.3 fL (8.7-11.7); PLATELET CLUMPS FLAG 0 (0-99); PLATELET COUNT 138 10^3/uL (150-400); RED BLOOD CELL COUNT 2.75 10^6/uL (4.18-5.33); RED CELL DISTRIBUTION WIDTH 16.7 % (11.5-15.2)
[2017-02-11 05:01] LABS: CALCULATED OXYGEN SATURATION 97 % (92-95); O2 CONCENTRATIION 35 % (0-100)
[2017-02-11 05:05] LABS: ANION GAP 8 mEq/L (8-16); CALCIUM 8.6 mg/dL (8.5-10.4); CARBON DIOXIDE 26 mEq/l (22-31); CHLORIDE 109 mEq/L (97-110); CREATININE 1.4 mg/dL (0.6-1.0); GLOMERULAR FILTRATION RATE 39; GLUCOSE 178 mg/dL (70-100); POTASSIUM 4.4 mEq/L (3.5-5.2); SODIUM 143 mEq/L (134-144)
[2017-02-11] MEDS: LEVOTHYROXINE 200 MCG TAB TUBE SCH (05:51)
[2017-02-11] MEDS: LOSARTAN POTASSIUM 25 MG TAB TUBE SCH (09:24)
[2017-02-11] MEDS: GABAPENTIN 300 MG CAP TUBE SCH ×3 (09:24→20:17)
[2017-02-11] MEDS: ENOXAPARIN 40 MG/0.4 ML SYR SC SCH (09:24)
[2017-02-11] MEDS: PREGABALIN 50 MG CAP TUBE SCH ×3 (09:24→20:17)
[2017-02-11] MEDS: cefTRIAXone 2 GM in D5W 50 ML IV SCH (09:24)
[2017-02-11] MEDS: fentaNYL 75 MCG PATCH TD SCH (09:25)
[2017-02-11] MEDS: INSULIN GLARGINE 100 UNITS/ML SYRINGE SC SCH (09:26)
[2017-02-11] MEDS: SENNOSIDES 17.6 MG/10 ML UDL - IF LIQUID ORDERED PO SCH ×2 (10:08→20:17)
[2017-02-11] MEDS: ONDANSETRON 4 MG/2 ML VIAL IVP PRN ×3 (13:17→20:22)
--- NOTE | 2017-02-11 14:30 | PDINTPN ---
Ad Operations Coordinator Progress Note Assessment/Plan: Assessment/plan: 56 F with DM and chronic osteomyelitis/NHW of bilateral lower extremities coupled with poor compliance admitted with hypoxemia and GI complaints, found to have eviedence of PNA requiring intubation shortly after admission. She has been treated with Abx, but her oxygen requirements have remained high with a rising creatinine. * PNA- improved but she was difficult to assess on the vent and quite uncooperative. She was successfully extubated this morning and appears stable at this time. Part of her barrier may have been the small ETT (7.0). * Septic shock and bacteremia- blood cxs growing Strep species which is presumably the same organism in her lungs. Abx changes per ID. Now off pressors * ARPTIA- decreased creatinine today. Fena suggest pre-renal azotemia and creatinine decreasing * Osteomyelitis- I believe this is chronic and MRI shows no osteo on left, but some on right. No surgical intervention required as best I can tell. Abx changed to CTX 2 g/day per ID. * Respiratory failure with hypoxemia 2/2 severe PNA- extubated. Daughter at bedside and helpful 02/10/17 16:39 02/11/17 14:26 Objective: Vital Signs Temp Pulse Resp BP Pulse Ox 38.7 C H 96 13 161/70 H 100 02/11/17 12:00 02/11/17 12:00 02/11/17 12:00 02/11/17 12:00 02/11/17 12:00 Microbiology 02/09/17 16:15 - Final Sputum, Induced/Suctioned Sputum Culture - Final Laboratory Results 02/11/17 04:20 02/11/17 04:20 02/10/17 02/11/17 02/12/17 05:59 05:59 05:59 Intake Total 1264.9 2245 76 Output Total 1350 1900 Balance -85.1 345 76 PT 16.6 SEC (12.0-15.0) H 02/08/17 04:00 INR 1.34 (0.83-1.16) H 02/08/17 04:00 Physical Exam - Physical Exam General Appearance: alert, no apparent distress, anxiety, obese, other (obscene gestures and poor cooperation) EENT: PERRL/EOMI Neck: supple Respiratory: lungs clear, normal breath sounds, decreased breath sounds, No respiratory distress Cardiac/Chest: regular rate, rhythm, edema Abdomen: normal bowel sounds, non-tender, soft, No distended Skin: warm/dry, other (warm erythema RLE. Bilateral heel ulcers) Extremities: pedal edema Neuro/Psych: alert, oriented x 3, cognition abnormalities ICD10 Worksheet Patient Problems: Problems Problem Status Onset Altered mental status Acute Failure to thrive Acute Sepsis Acute Abscess of left leg Acute Anemia Acute Cellulitis in diabetic foot Acute Cellulitis of foot, right Acute Cellulitis of lower extremity Acute Fever Acute Lower limb ulcer, heel or midfoot Acute MRSA (methicillin resistant Staphylococcus aureus) Acute 01/16/15 Osteomyelitis of ankle or foot, right, acute Acute Uremia Acute
--- NOTE | 2017-02-11 16:35 | HOSPPROG ---
Hospitalist Progress Note Assessment/Plan: * Septic shock (POA) - weaned off pressors * Persistent fever * Strep bacteremia - LE cellulitis source -IV rocephin * Pneumonia * Acute on chronic respiratory failure - extubated -4L baseline COPD * Charcot foot - chronic wounds - with cellulitis -minimal osteomyelitis right foot * DM -Lantus * Metabolic encephalopathy * Acute on chronic renal failure - baseline 1.3 * Morbid obesity BMI 46 Subjective: extubated. failed swallow. angry about NPO. Profane to staff. Objective: Vital Signs Temp Pulse Resp BP Pulse Ox 38.7 C H 90 14 141/74 H 94 02/11/17 12:00 02/11/17 16:00 02/11/17 16:00 02/11/17 16:00 02/11/17 16:00 Microbiology 02/09/17 16:15 - Final Sputum, Induced/Suctioned Sputum Culture - Final Laboratory Results 02/11/17 04:20 02/11/17 04:20 02/10/17 02/11/17 02/12/17 05:59 05:59 05:59 Intake Total 1264.9 2245 76 Output Total 1350 1900 Balance -85.1 345 76 PT 16.6 SEC (12.0-15.0) H 02/08/17 04:00 INR 1.34 (0.83-1.16) H 02/08/17 04:00 CXR - poor inspiration d/w Dr. Celis - to extubate today - Physical Exam Constitutional: no apparent distress, appears nourished, not in pain Cardiovascular: regular rate and rhythym, no murmur, rub, or gallop Respiratory: no respiratory distress, no rales or rhonchi, clear to auscultation Gastrointestinal: normoactive bowel sounds, soft, non-tender abdomen, no palpable masses Skin: erythema, rash, No induration, No fluctuance Neurologic: No weakness, No numbness Psychiatric: encephalopathic, agitated, poor insight, other (profane), No interacting appropriately (angry) ICD10 Worksheet Patient Problems: Problems Problem Status Onset Altered mental status Acute Failure to thrive Acute Sepsis Acute Abscess of left leg Acute Anemia Acute Cellulitis in diabetic foot Acute Cellulitis of foot, right Acute Cellulitis of lower extremity Acute Fever Acute Lower limb ulcer, heel or midfoot Acute MRSA (methicillin resistant Staphylococcus aureus) Acute 01/16/15 Osteomyelitis of ankle or foot, right, acute Acute Uremia Acute
[2017-02-11] MEDS: METOCLOPRAMIDE 10 MG/2 ML VIAL IVP PRN (20:15)
[2017-02-11] MEDS: ASPIRIN 81 MG CHEWABLE TAB TUBE SCH (20:17)
[2017-02-11] MEDS: LORazepam 2 MG/ML INJ IVP PRN (22:21)
[2017-02-11] MEDS: ACETAMINOPHEN 325 MG TAB TUBE PRN (22:26)
[2017-02-11] MEDS: PANTOPRAZOLE SODIUM 40 MG in NS 100 ML IV SCH (23:18)
[2017-02-12] MEDS: INSULIN REGULAR HUMAN 100 UNIT/ML SC SCH ×4 (00:18→18:16)
[2017-02-12] MEDS: SENNOSIDES 17.6 MG/10 ML UDL - IF LIQUID ORDERED PO SCH (09:19)
[2017-02-12] MEDS: ENOXAPARIN 40 MG/0.4 ML SYR SC SCH (09:28)
[2017-02-12] MEDS: PREGABALIN 50 MG CAP TUBE SCH (09:28)
[2017-02-12] MEDS: GABAPENTIN 300 MG CAP TUBE SCH (09:29)
[2017-02-12] MEDS: LOSARTAN POTASSIUM 25 MG TAB TUBE SCH (09:30)
[2017-02-12] MEDS: cefTRIAXone 2 GM in D5W 50 ML IV SCH (09:32)
[2017-02-12] MEDS: PANTOPRAZOLE SODIUM 40 MG in NS 100 ML IV SCH (09:32)
[2017-02-12] MEDS ORDERED: INSULIN GLARGINE 100 UNITS/ML SYRINGE SC ONE (12:00)
[2017-02-12] MEDS: LEVOTHYROXINE 200 MCG TAB PO SCH (12:45)
[2017-02-12] MEDS ORDERED: POLYETHYLENE GLYCOL 3350 17 GM PKT PO PRN (12:47)
[2017-02-12] MEDS ORDERED: LACTULOSE 20 GM/30 ML UDCUP PO PRN (12:50)
[2017-02-12] MEDS: INSULIN GLARGINE 100 UNITS/ML SYRINGE SC SCH (13:03)
[2017-02-12] MEDS: LEVOTHYROXINE 200 MCG TAB TUBE SCH (13:04)
[2017-02-12] MEDS: DULoxetine 30 MG CAP PO SCH ×2 (13:41→20:28)
--- NOTE | 2017-02-12 14:11 | PDINTPN ---
Tutor Coordinator Progress Note Assessment/Plan: Assessment/plan: 56 F with DM and chronic osteomyelitis/NHW of bilateral lower extremities coupled with poor compliance admitted with hypoxemia and GI complaints, found to have eviedence of PNA requiring intubation shortly after admission. She has been treated with Abx, but her oxygen requirements have remained high with a rising creatinine. * PNA- extubated 02/11 without difficulty. Continue abx * Septic shock and bacteremia- blood cxs growing Strep species which is presumably the same organism in her lungs. Abx changes per ID. Now off pressors * ARPITA- decreased creatinine today. Fena suggest pre-renal azotemia and creatinine decreasing * Osteomyelitis- I believe this is chronic and MRI shows no osteo on left, but some on right. No surgical intervention required as best I can tell. Abx changed to CTX 2 g/day per ID. * Respiratory failure with hypoxemia 2/2 severe PNA- extubated. OK for floor Objective: Vital Signs Temp Pulse Resp BP Pulse Ox 37.2 C 91 22 H 136/67 H 99 02/12/17 00:00 02/12/17 08:00 02/12/17 08:00 02/12/17 09:30 02/12/17 08:00 Microbiology 02/09/17 16:15 - Final Sputum, Induced/Suctioned Sputum Culture - Final Laboratory Results 02/11/17 04:20 02/11/17 04:20 02/11/17 02/12/17 02/13/17 05:59 05:59 05:59 Intake Total 2245 420 Output Total 1900 1650 475 Balance 345 -1230 -475 PT 16.6 SEC (12.0-15.0) H 02/08/17 04:00 INR 1.34 (0.83-1.16) H 02/08/17 04:00 Physical Exam - Physical Exam General Appearance: no apparent distress, obese, other (non-communicative and uncooperative. Generally angry) EENT: PERRL/EOMI Neck: supple Respiratory: lungs clear, decreased breath sounds, No respiratory distress Cardiac/Chest: regular rate, rhythm, edema Abdomen: non-tender, soft, No distended Skin: normal color, warm/dry Lymphatic: no adenopathy Extremities: pedal edema Neuro/Psych: alert, cognition abnormalities, No abnormal crayon painter II-XII ICD10 Worksheet Patient Problems: Problems Problem Status Onset Altered mental status Acute Failure to thrive Acute Sepsis Acute Abscess of left leg Acute Anemia Acute Cellulitis in diabetic foot Acute Cellulitis of foot, right Acute Cellulitis of lower extremity Acute Fever Acute Lower limb ulcer, heel or midfoot Acute MRSA (methicillin resistant Staphylococcus aureus) Acute 01/16/15 Osteomyelitis of ankle or foot, right, acute Acute Uremia Acute
[2017-02-12] MEDS: GABAPENTIN 300 MG CAP PO SCH ×2 (15:33→21:47)
[2017-02-12] MEDS: PREGABALIN 50 MG CAP PO SCH ×2 (15:33→21:47)
--- NOTE | 2017-02-12 15:51 | HOSPPROG ---
Hospitalist Progress Note Assessment/Plan: * Septic shock (POA) - weaned off pressors * Persistent fever - ? source * Strep bacteremia - LE cellulitis source -IV rocephin for 14 days after BC clearance * Pneumonia * Acute on chronic respiratory failure - extubated -4L baseline COPD * Charcot foot - chronic wounds - with cellulitis -minimal osteomyelitis right foot - ? chronic * DM -Lantus * Metabolic encephalopathy - resolved * Acute on chronic renal failure - baseline 1.3 * Morbid obesity BMI 46 * Coffee ground emesis -patient would like to avoid EGD if possible -empiric PPI and monitor, check Hpylori abx Subjective: Coffee ground emesis last night, + diarrhea Objective: Vital Signs Temp Pulse Resp BP Pulse Ox 37.2 C 91 22 H 136/67 H 99 02/12/17 00:00 02/12/17 08:00 02/12/17 08:00 02/12/17 09:30 02/12/17 08:00 Microbiology 02/09/17 16:15 - Final Sputum, Induced/Suctioned Sputum Culture - Final Laboratory Results 02/11/17 04:20 02/11/17 04:20 02/11/17 02/12/17 02/13/17 05:59 05:59 05:59 Intake Total 2245 420 Output Total 1900 1650 475 Balance 345 -1230 -475 PT 16.6 SEC (12.0-15.0) H 02/08/17 04:00 INR 1.34 (0.83-1.16) H 02/08/17 04:00 d/w Dr. Celis ICU rounds - doing well post extubation, okay for floor tele reviewed - NSR - Physical Exam Constitutional: no apparent distress, appears nourished, not in pain Cardiovascular: regular rate and rhythym, no murmur, rub, or gallop Respiratory: no respiratory distress, no rales or rhonchi, clear to auscultation Gastrointestinal: normoactive bowel sounds, soft, non-tender abdomen, no palpable masses Skin: warm, erythema (left leg improved, still more swollen than right), induration, No mottled Neurologic: AAOx3, sensation intact bilaterally Psychiatric: interacting appropriately, not anxious, not encephalopathic, thought process linear ICD10 Worksheet Patient Problems: Problems Problem Status Onset Altered mental status Acute Failure to thrive Acute Sepsis Acute Abscess of left leg Acute Anemia Acute Cellulitis in diabetic foot Acute Cellulitis of foot, right Acute Cellulitis of lower extremity Acute Fever Acute Lower limb ulcer, heel or midfoot Acute MRSA (methicillin resistant Staphylococcus aureus) Acute 01/16/15 Osteomyelitis of ankle or foot, right, acute Acute Uremia Acute
[2017-02-12] MEDS: HYDROmorphONE/DILAUDID 4 MG TAB PO PRN (16:49)
--- NOTE | 2017-02-12 17:15 | PCMIDPN ---
Assessment/Plan: Assessment: Group C/G bacteremia with probable source of lower extremity ulceration with cellulitis. Patient now on ceftriaxone 2 g daily. Repeat blood cultures are negative thus far. Plan to continue with ceftriaxone monotherapy for 14 days post clearance. Plan: 1. Continue ceftriaxone. Anticipate a 14 day course post clearance. 2. Follow up blood cultures. 3. Continue wound care. 4. Follow her clinical course. Subjective: Patient is now extubated. To be somewhat confused. Suspect this is from the sedatives and pain medication. No fevers overnight. Seems to be tolerating ceftriaxone well. Objective: Ceftriaxone # 5/ Vital Signs Temp Pulse Resp BP Pulse Ox 37.1 C 89 14 142/73 H 98 02/12/17 15:55 02/12/17 15:55 02/12/17 15:55 02/12/17 15:55 02/12/17 15:55 Microbiology 02/09/17 16:15 - Final Sputum, Induced/Suctioned Sputum Culture - Final Laboratory Results 02/11/17 04:20 02/11/17 04:20 02/11/17 02/12/17 02/13/17 05:59 05:59 05:59 Intake Total 2245 420 Output Total 1900 1650 475 Balance 345 -1230 -475 - Physical Exam General Appearance: WD/WN, alert, no apparent distress, other (Mildly confused) Respiratory: lungs clear, normal breath sounds, No respiratory distress Cardiac/Chest: regular rate, rhythm, No tachycardia Extremities: non-tender, pedal edema, inflammation, other (Charcot joint changes bilaterally), No normal inspection Skin: normal color, warm/dry, No rash Neuro/Psych: alert, oriented x 3 ICD10 Worksheet Patient Problems: Problems Problem Status Onset Altered mental status Acute Failure to thrive Acute Sepsis Acute Abscess of left leg Acute Anemia Acute Cellulitis in diabetic foot Acute Cellulitis of foot, right Acute Cellulitis of lower extremity Acute Fever Acute Lower limb ulcer, heel or midfoot Acute MRSA (methicillin resistant Staphylococcus aureus) Acute 01/16/15 Osteomyelitis of ankle or foot, right, acute Acute Uremia Acute
[2017-02-12] MEDS: LORazepam 2 MG/ML INJ IVP PRN (19:47)
[2017-02-12] MEDS: clonazePAM 0.5 MG TAB PO PRN (19:48)
[2017-02-12] MEDS: traZODone 50 MG TAB PO SCH (20:13)
[2017-02-12] MEDS: PANTOPRAZOLE SODIUM 40 MG TAB PO SCH (20:13)
[2017-02-12 20:19] LABS: HEMATOCRIT 23.1 % (38.0-47.0); HEMOGLOBIN 7.1 g/dL (12.6-16.3)
[2017-02-13] MEDS: INSULIN REGULAR HUMAN 100 UNIT/ML SC SCH ×4 (01:33→18:56)
[2017-02-13] MEDS: HYDROmorphONE/DILAUDID 4 MG TAB PO PRN ×3 (03:55→22:30)
[2017-02-13] MEDS: LEVOTHYROXINE 200 MCG TAB PO SCH (03:56)
[2017-02-13 04:53] LABS: ANION GAP 7 mEq/L (8-16); CALCIUM 8.4 mg/dL (8.5-10.4); CARBON DIOXIDE 27 mEq/l (22-31); CHLORIDE 107 mEq/L (97-110); CREATININE 1.4 mg/dL (0.6-1.0); GLOMERULAR FILTRATION RATE 39; GLUCOSE 72 mg/dL (70-100); POTASSIUM 4.3 mEq/L (3.5-5.2); SODIUM 141 mEq/L (134-144)
[2017-02-13 04:58] LABS: ADD DIFF? YES; ADD MORPH? NO; ADD SCAN? NO; ATYPICAL LYMPHOCYTE FLAG 0 (0-99); FRAGMENT RBC FLAG 0 (0-99); HEMOGLOBIN 7.1 g/dL (12.6-16.3); LEFT SHIFT FLG 50 (0-99); LIPEMIA HEMOLYSIS FLAG 80 (0-99); MEAN CELL HEMOGLOBIN 25.9 pg (27.9-34.1); MEAN CELL HEMOGLOBIN CONCENTR. 30.9 g/dL (32.4-36.7); MEAN CELL VOLUME 83.9 fL (81.5-99.8); MEAN PLATELET VOLUME 9.4 fL (8.7-11.7); PLATELET CLUMPS FLAG 0 (0-99); PLATELET COUNT 244 10^3/uL (150-400); RED BLOOD CELL COUNT 2.74 10^6/uL (4.18-5.33); RED CELL DISTRIBUTION WIDTH 15.9 % (11.5-15.2)
[2017-02-13 05:54] LABS: HYPOCHROMIA 1+; MICROCYTES 1+; PLATELET ESTIMATE ADEQUATE (ADEQ); POLYCHROMASIA 1+
[2017-02-13] MEDS: PREGABALIN 50 MG CAP PO SCH ×3 (09:29→22:32)
[2017-02-13] MEDS: cefTRIAXone 2 GM in D5W 50 ML IV SCH (09:29)
[2017-02-13] MEDS: PANTOPRAZOLE SODIUM 40 MG TAB PO SCH ×2 (09:30→19:45)
[2017-02-13] MEDS: GABAPENTIN 300 MG CAP PO SCH ×3 (09:30→22:32)
[2017-02-13] MEDS: INSULIN GLARGINE 100 UNITS/ML SYRINGE SC SCH (09:33)
[2017-02-13] MEDS: DULoxetine 30 MG CAP PO SCH ×2 (09:46→19:45)
[2017-02-13] MEDS: LOSARTAN POTASSIUM 25 MG TAB PO SCH (10:42)
--- NOTE | 2017-02-13 10:42 | HOSPPROG ---
Hospitalist Progress Note Assessment/Plan: 56 y/o female new to my care today with: * Strep bacteremia - LE cellulitis source -IV rocephin for 14 days after BC clearance *acute on chronic respiratory failure secondary to pna s/p extubation 02/11 with persistent shortness of breath -start duoneb treatments * Septic shock (POA) - weaned off pressors (resolved) *reported diarrhea -await c-dff * Pneumonia * Charcot foot - chronic wounds - with cellulitis -minimal osteomyelitis right foot - ? chronic * DM -Lantus * Metabolic encephalopathy - resolved * Acute on chronic renal failure (improving) - baseline 1.3 * Morbid obesity BMI 46 * Coffee ground emesis with anemia -patient would like to avoid EGD if possible -empiric PPI and monitor, check Hpylori AB negative dispo: will continue inpatient care given persistent shortness of breath. Will plan to transfer back to [facility] in the next 24-48 hours once resp status stabilizes Subjective: reports shortness of breath. breathing feels "tight". no fever or chills. wants to return to [facility] Objective: Vital Signs Temp Pulse Resp BP Pulse Ox 36.6 C 94 14 142/88 H 99 02/13/17 07:50 02/13/17 07:50 02/13/17 07:50 02/13/17 07:50 02/13/17 07:50 Microbiology 02/08/17 00:40 Blood Culture - Final Blood Laboratory Results 02/13/17 04:45 02/13/17 04:15 02/12/17 02/13/17 02/14/17 05:59 05:59 05:59 Intake Total 420 1109 Output Total 1650 575 Balance -1230 534 PT 16.6 SEC (12.0-15.0) H 02/08/17 04:00 INR 1.34 (0.83-1.16) H 02/08/17 04:00 - Physical Exam Constitutional: no apparent distress, obese Cardiovascular: regular rate and rhythym, no murmur, rub, or gallop, No JVD, No edema Respiratory: reduced air movement, No expiratory wheeze, No inspiratory crackles , No rhonchi Gastrointestinal: normoactive bowel sounds, soft, non-tender abdomen, no palpable masses, No guarding, No rebound Genitourinary: no bladder fullness, no bladder tenderness, no renal bruits Skin: no rashes or abrasions, no fluctuance, no induration, other (clean dry dressing on both feet) ICD10 Worksheet Patient Problems: Problems Problem Status Onset Osteomyelitis of ankle or foot, right, acute Acute Anemia Acute Cellulitis of foot, right Acute Cellulitis in diabetic foot Acute MRSA (methicillin resistant Staphylococcus aureus) Acute 01/16/15 Failure to thrive Acute Lower limb ulcer, heel or midfoot Acute Cellulitis of lower extremity Acute Abscess of left leg Acute Altered mental status Acute Uremia Acute Fever Acute Sepsis Acute
[2017-02-13] MEDS: LOSARTAN POTASSIUM 25 MG TAB TUBE SCH (10:43)
[2017-02-13] MEDS: IPRATROPIUM/ALBUTEROL 3 ML DEYVIAL IH PRN ×2 (10:49→14:53)
--- NOTE | 2017-02-13 12:40 | PCMIDPN ---
Assessment/Plan: 1. Group C/G bacteremia, likely 2/2 LLE cellulitis/plantar foot wound: Notably,blood cultures were positive from the patient's port. She cleared her bacteremia quickly and I do not feel that her port needs to be removed at this point in time. Continue ceftriaxone. Check liver function tests tomorrow on this antibiotic. 2. Left lower extremity cellulitis /chronic ulceration: Wound Care to see today. Cellulitis improving. no evidence of osteomyelitis on MRI. 3. Pneumonia: Continue ceftriaxone. Improving slowly. 02/13/17 12:40 Subjective: Wants to go back to [facility]. Still short of breath. Denies cough. Dysphonic Secondary to ET tube. Says she was not hoarse prior to admission. Objective: Ceftriaxone 2 g IV daily day 6. Out of 14 Afebrile Vital Signs Temp Pulse Resp BP Pulse Ox 36.8 C 91 15 151/84 H 95 02/13/17 11:58 02/13/17 11:58 02/13/17 11:58 02/13/17 11:58 02/13/17 11:58 Microbiology 02/08/17 00:40 Blood Culture - Final Blood Laboratory Results 02/13/17 04:45 02/13/17 04:15 02/12/17 02/13/17 02/14/17 05:59 05:59 05:59 Intake Total 420 1109 Output Total 1650 575 Balance -1230 534 no new microbiology Repeat blood cultures are sterile February 07 blood culture with group C and g strep - Physical Exam General Appearance: no apparent distress, obese EENT: No scleral icterus, No thrush Respiratory: other, No crackles, No wheezing ( fairly clear anterolaterally.) Cardiac/Chest: other ( Port in place with no erythema or tenderness.) Extremities: other ( PICC line right upper extremity looks fine. Small hematoma superiorly. Patient's feet are wrapped ; she did not want me to take off the gauze. Left lower extremity cellulitis has improved and receded inside demarcated margins. Area is not beet red, but pinkish and blanching.) ICD10 Worksheet Patient Problems: Problems Problem Status Onset Altered mental status Acute Failure to thrive Acute Sepsis Acute Abscess of left leg Acute Anemia Acute Cellulitis in diabetic foot Acute Cellulitis of foot, right Acute Cellulitis of lower extremity Acute Fever Acute Lower limb ulcer, heel or midfoot Acute MRSA (methicillin resistant Staphylococcus aureus) Acute 01/16/15 Osteomyelitis of ankle or foot, right, acute Acute Uremia Acute
[2017-02-13] MEDS: NYSTATIN POWDER 15 GM BTL TP SCH ×2 (16:22→22:52)
[2017-02-13] MEDS: clonazePAM 0.5 MG TAB PO PRN (18:27)
[2017-02-13] MEDS: traZODone 50 MG TAB PO SCH (19:44)
[2017-02-13] MEDS: LORazepam 2 MG/ML INJ IVP PRN (19:44)
[2017-02-14] MEDS: INSULIN REGULAR HUMAN 100 UNIT/ML SC SCH ×4 (01:04→18:13)
[2017-02-14] MEDS: LORazepam 2 MG/ML INJ IVP PRN (02:58)
[2017-02-14] MEDS: ONDANSETRON 4 MG/2 ML VIAL IVP PRN (02:59)
[2017-02-14] MEDS: IPRATROPIUM/ALBUTEROL 3 ML DEYVIAL IH PRN ×2 (03:07→09:55)
[2017-02-14] MEDS: LEVOTHYROXINE 200 MCG TAB PO SCH (05:48)
[2017-02-14] MEDS: HYDROmorphONE/DILAUDID 4 MG TAB PO PRN ×3 (05:48→20:36)
[2017-02-14 06:05] LABS: ALANINE AMINOTRANSFERASE 31 IU/L (9-52); ALBUMIN 3.1 g/dL (3.5-5.0); ALKALINE PHOSPHATASE 172 IU/L (38-126); ANION GAP 10 mEq/L (8-16); ASPARTATE AMINOTRANSFERASE 26 IU/L (14-46); BILIRUBIN,TOTAL 0.5 mg/dL (0.1-1.4); CALCIUM 8.4 mg/dL (8.5-10.4); CARBON DIOXIDE 28 mEq/l (22-31); CHLORIDE 105 mEq/L (97-110); CREATININE 1.2 mg/dL (0.6-1.0); GLOMERULAR FILTRATION RATE 47; GLUCOSE 110 mg/dL (70-100); POTASSIUM 4.3 mEq/L (3.5-5.2); SODIUM 143 mEq/L (134-144); TOTAL PROTEIN 6.5 g/dL (6.3-8.2)
[2017-02-14] MEDS: LOSARTAN POTASSIUM 25 MG TAB PO SCH (09:35)
[2017-02-14] MEDS: GABAPENTIN 300 MG CAP PO SCH ×3 (09:35→20:36)
[2017-02-14] MEDS: cefTRIAXone 2 GM in D5W 50 ML IV SCH (09:36)
[2017-02-14] MEDS: PREGABALIN 50 MG CAP PO SCH ×3 (09:36→20:36)
[2017-02-14] MEDS: DULoxetine 30 MG CAP PO SCH ×2 (09:36→20:36)
[2017-02-14] MEDS: INSULIN GLARGINE 100 UNITS/ML SYRINGE SC SCH (09:36)
[2017-02-14] MEDS: PANTOPRAZOLE SODIUM 40 MG TAB PO SCH ×2 (09:36→20:36)
[2017-02-14] MEDS: NYSTATIN POWDER 15 GM BTL TP SCH ×3 (09:49→20:41)
[2017-02-14] MEDS: fentaNYL 75 MCG PATCH TD SCH (10:06)
--- NOTE | 2017-02-14 13:55 | PCMIDPN ---
Assessment/Plan: 1. Group C/G bacteremia, likely 2/2 LLE cellulitis/plantar foot wound: Cellulitis markedly improved today. Continue ceftriaxone another 7 days. As outlined in my note yesterday, I do not feel the patient's port needs to be removed. She may be able to go back to [facility] tomorrow. 2. Left lower extremity cellulitis /chronic ulceration: Cellulitis improving. No evidence of osteomyelitis on MRI. 3. Pneumonia: Continue ceftriaxone. Improving slowly. Subjective: Very irritable presently. Apparently called 911 yesterday from her room. No diarrhea, nausea or vomiting. Objective: T-max 37.7degrees Ceftriaxone 2 g IV daily day 04/07 98% on 4 L Vital Signs Temp Pulse Resp BP Pulse Ox 36.8 C 90 20 173/90 H 98 02/14/17 08:00 02/14/17 09:55 02/14/17 09:55 02/14/17 08:00 02/14/17 09:55 Laboratory Results 02/13/17 04:45 02/14/17 05:40 02/13/17 02/14/17 02/15/17 05:59 05:59 05:59 Intake Total 1109 450 Output Total 575 1400 Balance 534 -950 No new microbiology Laboratory Tests 08/29/14 06/02/16 02/14/17 05:55 17:45 05:40 Creatinine 1.6 H Total Bilirubin 0.5 AST 26 ALT 31 Alkaline Phosphatase 172 H Vancomycin Trough 8.5 - Physical Exam General Appearance: obese, other (Extremely irritable) EENT: other (Would not allow me to look in her oropharynx) Respiratory: wheezing (Diffusely) Cardiac/Chest: other (Port right upper chest looks fine with no erythema or tenderness) Extremities: other (PICC line right upper extremity is fine. Left lower extremity cellulitis markedly improved, with receding pinkish blanching erythema inside of margins. Improved compared with yesterday. I did not take down the dressings on her feet.) Skin: No rash ICD10 Worksheet Patient Problems: Problems Problem Status Onset Altered mental status Acute Failure to thrive Acute Sepsis Acute Abscess of left leg Acute Anemia Acute Cellulitis in diabetic foot Acute Cellulitis of foot, right Acute Cellulitis of lower extremity Acute Fever Acute Lower limb ulcer, heel or midfoot Acute MRSA (methicillin resistant Staphylococcus aureus) Acute 01/16/15 Osteomyelitis of ankle or foot, right, acute Acute Uremia Acute
--- NOTE | 2017-02-14 14:53 | HOSPPROG ---
Hospitalist Progress Note Assessment/Plan: 56 y/o female new to my care 02/13/17 with: * Strep bacteremia - LE cellulitis source -IV rocephin for 14 days after BC clearance *acute on chronic respiratory failure secondary to pna s/p extubation 02/11 with persistent shortness of breath -I visualized and interpreted the cxr done 02/14 that shows scattered infiltrates ? fluid overload -trial lasix -continue duoneb treatments *paranoid behavior query delirium with history of resolved metabolic encephalopathy this admission * Septic shock (POA) - weaned off pressors (resolved) *reported diarrhea (resolved) -dc cdiff precautions * Pneumonia (improving) * Charcot foot - chronic wounds - with cellulitis (improved) * DM (controlled) -Lantus * Acute on chronic renal failure (improving) - baseline 1.3 * Morbid obesity BMI 46 * Coffee ground emesis with stable anemia -patient would like to avoid EGD if possible -empiric PPI and monitor, check Hpylori AB negative dispo: will continue inpatient care given persistent shortness of breath. Will plan to transfer back to [facility] in the next 24-48 hours once resp status stabilizes Subjective: continues to report shortness of breath. no fevers or chills. appears slightly confused and paranoid Objective: Vital Signs Temp Pulse Resp BP Pulse Ox 36.8 C 90 20 173/90 H 98 02/14/17 08:00 02/14/17 09:55 02/14/17 09:55 02/14/17 08:00 02/14/17 09:55 Laboratory Results 02/13/17 04:45 02/14/17 05:40 02/13/17 02/14/17 02/15/17 05:59 05:59 05:59 Intake Total 1109 450 Output Total 575 1400 Balance 534 -950 PT 16.6 SEC (12.0-15.0) H 02/08/17 04:00 INR 1.34 (0.83-1.16) H 02/08/17 04:00 - Physical Exam Constitutional: no apparent distress, appears nourished, not in pain Cardiovascular: regular rate and rhythym, no murmur, rub, or gallop Respiratory: no respiratory distress, no rales or rhonchi, clear to auscultation , expiratory wheeze, inspiratory crackles Gastrointestinal: normoactive bowel sounds, soft, non-tender abdomen, no palpable masses, No guarding, No rebound Neurologic: AAOx3, sensation intact bilaterally Psychiatric: poor judgement, other ( paranoid) ICD10 Worksheet Patient Problems: Problems Problem Status Onset Osteomyelitis of ankle or foot, right, acute Acute Anemia Acute Cellulitis of foot, right Acute Cellulitis in diabetic foot Acute MRSA (methicillin resistant Staphylococcus aureus) Acute 01/16/15 Failure to thrive Acute Lower limb ulcer, heel or midfoot Acute Cellulitis of lower extremity Acute Abscess of left leg Acute Altered mental status Acute Uremia Acute Fever Acute Sepsis Acute
[2017-02-14] MEDS ORDERED: FUROSEMIDE 40 MG/4 ML VIAL IVP ONE (14:56)
[2017-02-14] MEDS: clonazePAM 0.5 MG TAB PO PRN (17:30)
[2017-02-14] MEDS: traZODone 50 MG TAB PO SCH (20:36)
[2017-02-15] MEDS: INSULIN REGULAR HUMAN 100 UNIT/ML SC SCH ×4 (01:55→18:46)
[2017-02-15] MEDS: IPRATROPIUM/ALBUTEROL 3 ML DEYVIAL IH PRN ×2 (03:00→22:33)
[2017-02-15] MEDS: ONDANSETRON 4 MG/2 ML VIAL IVP PRN (03:13)
[2017-02-15] MEDS: LEVOTHYROXINE 200 MCG TAB PO SCH (05:54)
[2017-02-15] MEDS: PANTOPRAZOLE SODIUM 40 MG TAB PO SCH ×2 (08:39→20:38)
[2017-02-15] MEDS: GABAPENTIN 300 MG CAP PO SCH ×3 (08:39→20:38)
[2017-02-15] MEDS: cefTRIAXone 2 GM in D5W 50 ML IV SCH (08:39)
[2017-02-15] MEDS: LOSARTAN POTASSIUM 25 MG TAB PO SCH (08:39)
[2017-02-15] MEDS: PREGABALIN 50 MG CAP PO SCH ×3 (08:39→20:38)
[2017-02-15] MEDS: INSULIN GLARGINE 100 UNITS/ML SYRINGE SC SCH (08:40)
[2017-02-15] MEDS: DULoxetine 30 MG CAP PO SCH ×2 (08:59→20:38)
[2017-02-15] MEDS: NYSTATIN POWDER 15 GM BTL TP SCH ×3 (09:00→23:09)
[2017-02-15] MEDS: HYDROmorphONE/DILAUDID 4 MG TAB PO PRN ×2 (09:48→19:27)
--- NOTE | 2017-02-15 10:54 | WOCRNPDOC ---
WOCRN Advanced Assessment Note - Skin Integrity Problem, Advanced Assess Right Heel Pressure Injury Dressing Type: Coban, Hydrofera Blue Ready, Kerlix Dressing Description: Intact, Shadowed Exudate Amount: Minimal Exudate Characteristic(s): Serosanguinous Integumentary Issue Intervention: Dressing Removed [place] Wound Tissue: Xerotic, Calloused Wound Bed Constitution: Granulation Tissue Wound Edges: Thick Site Measurement - Head-to-Toe Length X Width X Depth (cm): 4x4x0.2 Pressure Injury Stage: Stage 3 Pressure Injury Present on Admit: Yes Skin Integrity Problem Comment: Wound appears stable. No sign of infection. Continue with plan of care. Wound care will round again on 02/22. Left Heel Pressure Injury Dressing Type: Coban, Hydrofera Blue Ready, Kerlix Dressing Description: Intact, Shadowed Exudate Amount: Minimal Exudate Characteristic(s): Serosanguinous Integumentary Issue Intervention: Dressing Removed [place] Wound Tissue: Xerotic, Calloused Wound Bed Constitution: Granulation Tissue, Smooth Tissue, Scab (x2 areas ) Wound Edges: Thick Site Measurement - Head-to-Toe Length X Width X Depth (cm): 3.5x3.5x0 Pressure Injury Stage: Stage 3 Pressure Injury Present on Admit: Yes Skin Integrity Problem Comment: Wounds appear to be devolving somewhat since previous assessment one week ago. Instead of two wounds there are now 3 wounds present, two of which are partially scabbed. No evidence of infection. Please make sure biltaral heels are offloaded at all times. Continue with plan of care. Will round again in one week. Patient was pleasant and cooperative during entire assessment.
--- NOTE | 2017-02-15 10:57 | HOSPPROG ---
Hospitalist Progress Note Assessment/Plan: 56 y/o female new to my care 02/13/17 with: * Strep bacteremia - LE cellulitis source -IV rocephin for another 6 days per ID note dates 02/14 *acute on chronic respiratory failure secondary to pna s/p extubation 02/11 with persistent shortness of breath likely due to mild volume overload -continue IV lasix -continue duoneb treatments *paranoid behavior query delirium with history of resolved metabolic encephalopathy this admission * Septic shock (POA) - weaned off pressors (resolved) *reported diarrhea (resolved) -dc cdiff precautions * Pneumonia (improving) * Charcot foot - chronic wounds - with cellulitis (improved) * DM (controlled) -Lantus * Acute on chronic renal failure (improving) - baseline 1.3 * Morbid obesity BMI 46 * Coffee ground emesis with stable anemia -patient would like to avoid EGD if possible -empiric PPI and monitor, check Hpylori AB negative dispo: will continue inpatient care given persistent shortness of breath. Will plan to transfer back to [facility] 02/16/17 if resp status stabilizes Subjective: reports persistent shortness of breath. no chest pain. no fevers or chills Objective: Vital Signs Temp Pulse Resp BP Pulse Ox 36.8 C 91 20 180/90 H 98 02/15/17 08:32 02/15/17 08:32 02/15/17 08:32 02/15/17 08:32 02/15/17 08:32 Laboratory Results 02/13/17 04:45 02/14/17 05:40 02/14/17 02/15/17 02/16/17 05:59 05:59 05:59 Intake Total 450 700 Output Total 1400 3500 700 Balance -950 -2800 -700 PT 16.6 SEC (12.0-15.0) H 02/08/17 04:00 INR 1.34 (0.83-1.16) H 02/08/17 04:00 - Physical Exam Constitutional: no apparent distress, appears nourished, not in pain, chronically ill appearing Ears, Nose, Mouth, Throat: moist mucous membranes, hearing normal, ears appear normal, no oral mucosal ulcers Cardiovascular: regular rate and rhythym, no murmur, rub, or gallop, edema Respiratory: no respiratory distress, no rales or rhonchi, clear to auscultation , reduced air movement, inspiratory crackles Gastrointestinal: normoactive bowel sounds, soft, non-tender abdomen, no palpable masses, No guarding, No rebound Skin: no rashes or abrasions, no fluctuance, no induration ICD10 Worksheet Patient Problems: Problems Problem Status Onset Osteomyelitis of ankle or foot, right, acute Acute Anemia Acute Cellulitis of foot, right Acute Cellulitis in diabetic foot Acute MRSA (methicillin resistant Staphylococcus aureus) Acute 01/16/15 Failure to thrive Acute Lower limb ulcer, heel or midfoot Acute Cellulitis of lower extremity Acute Abscess of left leg Acute Altered mental status Acute Uremia Acute Fever Acute Sepsis Acute
[2017-02-15] MEDS: FUROSEMIDE 40 MG/4 ML VIAL IVP SCH (11:45)
--- NOTE | 2017-02-15 13:57 | PCMIDPN ---
Assessment/Plan: Assessment: Group C/G bacteremia with probable source of lower extremity ulceration with cellulitis. Patient now on ceftriaxone 2 g daily. Repeat blood cultures are negative thus far. Plan to continue with ceftriaxone monotherapy for 14 days post clearance. Stop date 02/22/2017. Left lower extremity cellulitis is significantly improved. Plan: 1. Continue ceftriaxone. Anticipate a 14 day course post clearance. 2. Follow up blood cultures. 3. Continue wound care. 4. Follow her clinical course. 02/15/17 13:54 02/15/17 13:55 Subjective: Patient is resting in her hospital bed. She appears significantly weak. Her voice is not strong. Had complained of some shortness of breath earlier in the day. No fevers or chills. Objective: Ceftriaxone # 05/08 Vital Signs Temp Pulse Resp BP Pulse Ox 36.9 C 96 20 129/75 H 94 02/15/17 11:22 02/15/17 11:22 02/15/17 11:22 02/15/17 11:22 02/15/17 11:22 Laboratory Results 02/13/17 04:45 02/14/17 05:40 02/14/17 02/15/17 02/16/17 05:59 05:59 05:59 Intake Total 450 700 Output Total 1400 3500 1500 Balance -950 -2800 -1500 - Physical Exam General Appearance: WD/WN, alert, no apparent distress, obese, non-toxic, other (Tired appearing) Respiratory: lungs clear, normal breath sounds, No respiratory distress Cardiac/Chest: regular rate, rhythm, No tachycardia Skin: normal color, warm/dry, other (The chronic open ulcers on the plantar heel aspect bilaterally.), No rash Neuro/Psych: alert, oriented x 3 ICD10 Worksheet Patient Problems: Problems Problem Status Onset Altered mental status Acute Failure to thrive Acute Sepsis Acute Abscess of left leg Acute Anemia Acute Cellulitis in diabetic foot Acute Cellulitis of foot, right Acute Cellulitis of lower extremity Acute Fever Acute Lower limb ulcer, heel or midfoot Acute MRSA (methicillin resistant Staphylococcus aureus) Acute 01/16/15 Osteomyelitis of ankle or foot, right, acute Acute Uremia Acute
[2017-02-15] MEDS: clonazePAM 0.5 MG TAB PO PRN (20:38)
[2017-02-15] MEDS: traZODone 50 MG TAB PO SCH (20:38)
[2017-02-16] MEDS: ACETAMINOPHEN 325 MG TAB PO PRN ×2 (00:49→16:51)
[2017-02-16] MEDS: HYDROmorphONE/DILAUDID 4 MG TAB PO PRN ×3 (00:51→15:25)
[2017-02-16] MEDS: INSULIN REGULAR HUMAN 100 UNIT/ML SC SCH ×4 (01:26→17:03)
[2017-02-16] MEDS: LEVOTHYROXINE 200 MCG TAB PO SCH (05:52)
--- NOTE | 2017-02-16 08:36 | HOSPPROG ---
Hospitalist Progress Note Assessment/Plan: #Group C/G bacteremia: from LE wounds. 2 weeks CTX through 02/22 #Septic shock: due to above. Resolved. #Acute on chronic hypoxemic resp failure: extubated 02/11. PNA + volume overload. IV Lasix, Cr stable today #Controlled DM: glargine, SSI #Chronic calcaneal wounds: MRI negative for osteo #Chronic pain: home meds #Acute encephalopathy: resolved. due to acute illness, +/- opioids. CTH negative. #Hypothyroidism: LT4 #ARPITA on CKD: due to hypotension. Baseline Cr 1.3-1.4 #Deconditioning: PT/OT, but refusing #Diet: IVFs #DVT ppx: Lovenox #Disp: warrants inpt admission with IV diuresis, abx Subjective: c/o fatigue, short of breath with talking Objective: Vital Signs Temp Pulse Resp BP Pulse Ox 36.6 C 91 14 133/84 H 97 02/16/17 03:52 02/16/17 08:23 02/16/17 08:23 02/16/17 03:52 02/16/17 08:23 Laboratory Results 02/13/17 04:45 02/14/17 05:40 02/15/17 02/16/17 02/17/17 05:59 05:59 05:59 Intake Total 700 1240 Output Total 3500 2900 Balance -2800 -1660 PT 16.6 SEC (12.0-15.0) H 02/08/17 04:00 INR 1.34 (0.83-1.16) H 02/08/17 04:00 - Physical Exam Constitutional: chronically ill appearing, obese Eyes: PERRL Ears, Nose, Mouth, Throat: moist mucous membranes, hearing normal Cardiovascular: regular rate and rhythym, systolic murmur Respiratory: reduced air movement Gastrointestinal: normoactive bowel sounds, soft, non-tender abdomen Genitourinary: no bladder fullness Skin: warm, other (chronic venous stasis LEs, feet wrapped with curlex) Musculoskeletal: generalized weakness Neurologic: AAOx3, CN II-XII Intact ICD10 Worksheet Patient Problems: Problems Problem Status Onset Altered mental status Acute Failure to thrive Acute Sepsis Acute Abscess of left leg Acute Anemia Acute Cellulitis in diabetic foot Acute Cellulitis of foot, right Acute Cellulitis of lower extremity Acute Fever Acute Lower limb ulcer, heel or midfoot Acute MRSA (methicillin resistant Staphylococcus aureus) Acute 01/16/15 Osteomyelitis of ankle or foot, right, acute Acute Uremia Acute
[2017-02-16] MEDS: FUROSEMIDE 40 MG/4 ML VIAL IVP SCH (09:12)
[2017-02-16] MEDS: INSULIN GLARGINE 100 UNITS/ML SYRINGE SC SCH (09:12)
[2017-02-16] MEDS: PREGABALIN 50 MG CAP PO SCH ×3 (09:12→20:31)
[2017-02-16] MEDS: cefTRIAXone 2 GM in D5W 50 ML IV SCH (09:12)
[2017-02-16] MEDS: DULoxetine 30 MG CAP PO SCH ×2 (09:12→19:49)
[2017-02-16] MEDS: LOSARTAN POTASSIUM 25 MG TAB PO SCH (09:12)
[2017-02-16] MEDS: PANTOPRAZOLE SODIUM 40 MG TAB PO SCH ×2 (09:12→19:49)
[2017-02-16] MEDS: GABAPENTIN 300 MG CAP PO SCH ×3 (09:12→20:31)
[2017-02-16] MEDS: NYSTATIN POWDER 15 GM BTL TP SCH ×3 (09:13→21:27)
[2017-02-16] MEDS: ONDANSETRON 4 MG/2 ML VIAL IVP PRN ×2 (11:07→19:52)
[2017-02-16 11:18] LABS: ANION GAP 10 mEq/L (8-16); CALCIUM 8.5 mg/dL (8.5-10.4); CARBON DIOXIDE 32 mEq/l (22-31); CHLORIDE 100 mEq/L (97-110); CREATININE 1.3 mg/dL (0.6-1.0); GLOMERULAR FILTRATION RATE 43; GLUCOSE 135 mg/dL (70-100); POTASSIUM 3.6 mEq/L (3.5-5.2); SODIUM 142 mEq/L (134-144)
--- NOTE | 2017-02-16 18:12 | PCMIDPN ---
Assessment/Plan: Assessment: Group C/G bacteremia with probable source of lower extremity ulceration with cellulitis. Patient now on ceftriaxone 2 g daily. Repeat blood cultures are negative thus far. Plan to continue with ceftriaxone monotherapy for 14 days post clearance. Stop date 02/22/2017. Left lower extremity cellulitis is significantly improved. Plan: 1. Continue ceftriaxone. Anticipate a 14 day course post clearance. 2. Follow up blood cultures. 3. Continue wound care. 4. Follow her clinical course. 02/15/17 13:54 02/15/17 13:55 Subjective: Patient still quite weak. No new issues. No fevers. Objective: ceftriaxone #06/08 Vital Signs Temp Pulse Resp BP Pulse Ox 36.9 C 91 20 130/81 H 98 02/16/17 15:55 02/16/17 15:55 02/16/17 15:55 02/16/17 15:55 02/16/17 15:55 Laboratory Results 02/13/17 04:45 02/16/17 10:15 02/15/17 02/16/17 02/17/17 05:59 05:59 05:59 Intake Total 700 1240 750 Output Total 3500 2900 1425 Balance -2800 -6640 -675 - Physical Exam General Appearance: WD/WN, alert, no apparent distress, non-toxic Respiratory: lungs clear, normal breath sounds, No respiratory distress Cardiac/Chest: regular rate, rhythm, No tachycardia Extremities: non-tender, No normal inspection Skin: normal color, warm/dry, No rash Neuro/Psych: alert, oriented x 3 ICD10 Worksheet Patient Problems: Problems Problem Status Onset Altered mental status Acute Failure to thrive Acute Sepsis Acute Abscess of left leg Acute Anemia Acute Cellulitis in diabetic foot Acute Cellulitis of foot, right Acute Cellulitis of lower extremity Acute Fever Acute Lower limb ulcer, heel or midfoot Acute MRSA (methicillin resistant Staphylococcus aureus) Acute 01/16/15 Osteomyelitis of ankle or foot, right, acute Acute Uremia Acute
[2017-02-16] MEDS: traZODone 50 MG TAB PO SCH (19:49)
[2017-02-16] MEDS: clonazePAM 0.5 MG TAB PO PRN (20:35)
[2017-02-17] MEDS: INSULIN REGULAR HUMAN 100 UNIT/ML SC SCH ×4 (01:19→19:24)
[2017-02-17] MEDS: LEVOTHYROXINE 200 MCG TAB PO SCH (05:18)
[2017-02-17] MEDS: HYDROmorphONE/DILAUDID 4 MG TAB PO PRN ×3 (05:35→17:35)
[2017-02-17 06:37] LABS: ANION GAP 9 mEq/L (8-16); CARBON DIOXIDE 35 mEq/l (22-31); CHLORIDE 100 mEq/L (97-110); CREATININE 1.3 mg/dL (0.6-1.0); GLOMERULAR FILTRATION RATE 43; GLUCOSE 90 mg/dL (70-100); POTASSIUM 4.1 mEq/L (3.5-5.2); SODIUM 144 mEq/L (134-144)
--- NOTE | 2017-02-17 08:25 | HOSPPROG ---
Hospitalist Progress Note Assessment/Plan: #Hypoglycemia: not eating much. Refused D5 amp #Group C/G bacteremia: from LE wounds. 2 weeks CTX through 02/22 #Septic shock: due to above. Resolved. #Acute on chronic hypoxemic resp failure: extubated 02/11. PNA + volume overload. IV Lasix, Cr stable today #Controlled DM: glargine, SSI #Chronic calcaneal wounds: MRI negative for osteo #Chronic pain: home meds #Acute encephalopathy: resolved. due to acute illness, +/- opioids. CTH negative. #Hypothyroidism: LT4 #ARPITA on CKD: due to hypotension. Baseline Cr 1.3-1.4 #Deconditioning: PT/OT, but refusing #Diet: IVFs #DVT ppx: Lovenox #Disp: warrants inpt admission with IV diuresis, abx Subjective: no acute events overnight Objective: Vital Signs Temp Pulse Resp BP Pulse Ox 36.9 C 101 H 22 H 160/84 H 92 02/17/17 04:00 02/17/17 04:00 02/17/17 04:00 02/17/17 04:00 02/17/17 04:00 Laboratory Results 02/13/17 04:45 02/17/17 05:50 02/16/17 02/17/17 02/18/17 05:59 05:59 05:59 Intake Total 1240 750 Output Total 2900 2525 Balance -1660 -1775 PT 16.6 SEC (12.0-15.0) H 02/08/17 04:00 INR 1.34 (0.83-1.16) H 02/08/17 04:00 ICD10 Worksheet Patient Problems: Problems Problem Status Onset Osteomyelitis of ankle or foot, right, acute Acute Anemia Acute Cellulitis of foot, right Acute Cellulitis in diabetic foot Acute MRSA (methicillin resistant Staphylococcus aureus) Acute 01/16/15 Failure to thrive Acute Lower limb ulcer, heel or midfoot Acute Cellulitis of lower extremity Acute Abscess of left leg Acute Altered mental status Acute Uremia Acute Fever Acute Sepsis Acute
[2017-02-17] MEDS: DULoxetine 30 MG CAP PO SCH ×2 (09:32→21:20)
[2017-02-17] MEDS: GABAPENTIN 300 MG CAP PO SCH ×3 (09:32→21:20)
[2017-02-17] MEDS: PANTOPRAZOLE SODIUM 40 MG TAB PO SCH ×2 (09:32→21:20)
[2017-02-17] MEDS: PREGABALIN 50 MG CAP PO SCH ×3 (09:32→21:20)
[2017-02-17] MEDS: INSULIN GLARGINE 100 UNITS/ML SYRINGE SC SCH (09:33)
[2017-02-17] MEDS: cefTRIAXone 2 GM in D5W 50 ML IV SCH (09:33)
[2017-02-17] MEDS: NYSTATIN POWDER 15 GM BTL TP SCH ×3 (09:33→23:14)
[2017-02-17] MEDS: FUROSEMIDE 40 MG/4 ML VIAL IVP SCH (09:33)
[2017-02-17] MEDS: LOSARTAN POTASSIUM 25 MG TAB PO SCH (09:34)
[2017-02-17] MEDS: fentaNYL 75 MCG PATCH TD SCH (09:53)
--- NOTE | 2017-02-17 13:44 | PCMIDPN ---
Assessment/Plan: Assessment: Group C/G bacteremia with probable source of lower extremity ulceration with cellulitis. Patient now on ceftriaxone 2 g daily. Repeat blood cultures are negative thus far. Plan to continue with ceftriaxone monotherapy for 14 days post clearance. Stop date 02/22/2017. Left lower extremity cellulitis is significantly improved. Patient continues to have laryngitis and some vocal stridor/wheezing. Discussed with hospitalist. Will ask ENT to evaluate for stricture. Plan: 1. Continue ceftriaxone. Anticipate a 14 day course post clearance. 2. Follow up blood cultures. 3. Continue wound care. 4. Follow her clinical course. 5. Obtain ENT consultation. Subjective: Patient is appearing stronger. She is sitting up at the side of the bed filling out a form. Still with a very weak voice and audible wheezing with inspiration. No fevers or chills. Tolerating ceftriaxone fine. Objective: Ceftriaxone # 07/08 Vital Signs Temp Pulse Resp BP Pulse Ox 36.6 C 107 H 18 141/85 H 93 02/17/17 11:21 02/17/17 11:21 02/17/17 11:21 02/17/17 11:21 02/17/17 11:21 Laboratory Results 02/13/17 04:45 02/17/17 05:50 02/16/17 02/17/17 02/18/17 05:59 05:59 05:59 Intake Total 1240 750 Output Total 2900 5225 Balance -3638 -5617 - Physical Exam General Appearance: WD/WN, alert, no apparent distress, obese, non-toxic Respiratory: lungs clear, wheezing, No normal breath sounds, No respiratory distress Cardiac/Chest: regular rate, rhythm, No tachycardia Skin: normal color, warm/dry, No rash Neuro/Psych: alert, normal mood/affect, oriented x 3 ICD10 Worksheet Patient Problems: Problems Problem Status Onset Altered mental status Acute Failure to thrive Acute Sepsis Acute Abscess of left leg Acute Anemia Acute Cellulitis in diabetic foot Acute Cellulitis of foot, right Acute Cellulitis of lower extremity Acute Fever Acute Lower limb ulcer, heel or midfoot Acute MRSA (methicillin resistant Staphylococcus aureus) Acute 01/16/15 Osteomyelitis of ankle or foot, right, acute Acute Uremia Acute
--- NOTE | 2017-02-17 13:47 | PDIAF ---
- Diagnosis Diagnosis: LLE cellulitis and bacteremia Code Status: Full Code - Medication Management Discharge Medications: Medications to Continue on Transfer Acetaminophen [Tylenol 325mg (*)] 650 mg PO Q6 PRN 02/07/17 [Last Taken 02/05/17 ] Aspirin EC [Aspirin EC 81 mg (*)] 81 mg PO HS 02/07/17 [Last Taken 02/06/17] DULoxetine [Cymbalta 30 MG (*)] 30 mg PO BID 02/07/17 [Last Taken 02/07/17] Gabapentin [Neurontin 300 MG (*)] 300 mg PO TID 02/07/17 [Last Taken 02/07/17] HYDROmorphone HCL [Dilaudid 4 mg (*)] 8 mg PO Q4H PRN 02/07/17 [Last Taken 02/06] Insulin Aspart [novoLOG] 0 unit SC AD PRN 02/07/17 [Last Taken 02/06/17] Insulin Aspart [novoLOG] 5 unit SC TID 02/07/17 [Last Taken 02/07/17] Insulin Detemir [Levemir] 45 unit SQ DAILY 02/07/17 [Last Taken 02/07/17] Levothyroxine [Synthroid 200 mcg (*)] 200 mcg PO DAILY 02/07/17 [Last Taken ] Losartan Potassium [Cozaar 25 mg (*)] 25 mg PO DAILY 02/07/17 [Last Taken ] Pregabalin [Lyrica 50mg (*)] 50 mg PO TID 02/07/17 [Last Taken 02/05/17] clonazePAM [Klonopin (*)] 0.5 mg PO BID PRN 02/07/17 [Last Taken 02/07/17] fentaNYL [Duragesic 75 MCG Patch (*)] 75 mcg TD Q72H 02/07/17 [Last Taken ] traZODone [traZODONE 50MG (*)] 50 mg PO HS 02/07/17 [Last Taken 02/06/17] [facility] [place] Antibiotics: ceftriaxone 2g IV q 24 hours [place] [place] Antibiotic Stop Date: 02/22/17 Discharge Medications: Refer to the Discharge Home Medication list for PRN reason. PICC Care - Routine: Yes - Orders Services needed: Registered Nurse - Labs/Radiology CBC Date: 02/20/17 (weekly) CMP Date: 02/20/17 (weekly) Call or Fax Lab and Imaging Results to: Dr. Patricio Rosas - Follow Up Care Current Providers and Referrals: PITO DEL VALLE [Primary Care Provider] - As per Instructions
--- NOTE | 2017-02-17 17:13 | HOSPPROG ---
Hospitalist Progress Note Assessment/Plan: #Hypoglycemia: not eating much. Refused D5 amp. Improved after eating #Raspy voice: ENT evaluated and edematous. Airway not compromised. IV Decadron, Fluconazole #Group C/G bacteremia: from LE wounds. 2 weeks CTX through 02/22 #Septic shock: due to above. Resolved. #Acute on chronic hypoxemic resp failure: extubated 02/11. PNA + volume overload. Changed to PO Lasix #Controlled DM: glargine, SSI #Chronic calcaneal wounds: MRI negative for osteo #Chronic pain: home meds #Acute encephalopathy: resolved. due to acute illness, +/- opioids. CTH negative. #Hypothyroidism: LT4 #ARPITA on CKD: due to hypotension. Baseline Cr 1.3-1.4 #Deconditioning: PT/OT, but refusing #Diet: IVFs #DVT ppx: Lovenox #Disp: warrants inpt admission with IV diuresis, abx Subjective: denies SOB. Doesnt want to leave hosp Objective: Vital Signs Temp Pulse Resp BP Pulse Ox 36.7 C 91 18 154/99 H 94 02/17/17 15:12 02/17/17 15:12 02/17/17 15:12 02/17/17 15:12 02/17/17 15:12 Laboratory Results 02/13/17 04:45 02/17/17 05:50 02/16/17 02/17/17 02/18/17 05:59 05:59 05:59 Intake Total 1240 750 Output Total 2900 2525 Balance -1660 -1775 PT 16.6 SEC (12.0-15.0) H 02/08/17 04:00 INR 1.34 (0.83-1.16) H 02/08/17 04:00 - Physical Exam Constitutional: no apparent distress, chronically ill appearing, obese Eyes: PERRL Ears, Nose, Mouth, Throat: moist mucous membranes, hearing normal, other (raspy voice. No overt stridor) Cardiovascular: regular rate and rhythym Respiratory: no respiratory distress, expiratory wheeze Gastrointestinal: normoactive bowel sounds, soft, non-tender abdomen Genitourinary: no bladder fullness Skin: warm Musculoskeletal: full muscle strength Neurologic: AAOx3 Psychiatric: interacting appropriately, flat affect ICD10 Worksheet Patient Problems: Problems Problem Status Onset Altered mental status Acute Failure to thrive Acute Sepsis Acute Abscess of left leg Acute Anemia Acute Cellulitis in diabetic foot Acute Cellulitis of foot, right Acute Cellulitis of lower extremity Acute Fever Acute Lower limb ulcer, heel or midfoot Acute MRSA (methicillin resistant Staphylococcus aureus) Acute 01/16/15 Osteomyelitis of ankle or foot, right, acute Acute Uremia Acute
[2017-02-17] MEDS: DEXAMETHASONE 10 MG/ML VIAL IVP SCH (17:34)
[2017-02-17] MEDS: clonazePAM 0.5 MG TAB PO PRN (17:45)
[2017-02-17] MEDS: FLUCONAZOLE 100 MG TAB PO SCH (18:48)
[2017-02-17] MEDS: traZODone 50 MG TAB PO SCH (21:20)
--- NOTE | 2017-02-17 22:02 | GCON ---
[f rep st] CONSULTATION HISTORY OF PRESENT ILLNESS: This is a 56-year-old female, admitted to the hospital on February 07, 2017, for a 1-day history of fever, vomiting, hypoxemia. The patient has a number of chronic comorbid med ical problems, including diabetes, lower extremity osteomyelitis and open ulcers, hypertension, COPD , chronic pain syndrome and chronic renal insufficiency. The patient was intubated for respiratory failure and ultimately extubated on February 11, 2017. Since that time, she has complained of difficulty with her voice, as well as some difficulty breathing. ENT is consulted for laryngoscopic examinatio n. PHYSICAL EXAMINATION: GENERAL: This is a 56-year-old female, in no acute distress. HEENT: There is minimal stridor on deep inspiration. Her voice is quite hoarse. Oropharynx is nor mal without mass or lesion. She does have poor dentition. Flexible laryngoscopic exam was performed through the left naris. The nasopharynx is normal. Base of tongue is normal. Epiglottis shows mild cheesy exudate. She has watery edema of the left aryten oid cartilage. Bilateral true vocal cords have significant edema. Her airway is patent however. ASSESSMENT: This is a 56-year-old female with arytenoid edema following intubation. She does have some edema of her vocal cords as well. Her airway is however. The patient was seen in conjunction with Dr. Forrest. There was question as to whether there may be some cheesy exudate to the epiglott is. Patient does have mild pain. At this point, we would recommend dexamethasone 10 mg q.8 hours. Would also recommend Diflucan 200 mg daily for 1 week for possible fungal coverage. PLAN: 1. Decadron 10 mg q.8 hours. Patient can be discharged back to her healthcare facility on a 4-day D ecadron taper. Would recommend 8 mg Decadron for 2 days, then 4 mg Decadron for 2 days then stop. 2. Recommend Diflucan 200 mg daily for 7 days for fungal coverage. 3. The patient should be given our phone number, on discharge in order for followup to be arranged. She should be seen in our office in 2 weeks after discharge for repeat evaluation. Thank you so much for allowing us to participate in the care of this patient. If you have any furth er questions, please do not hesitate to contact our office. Dr. Forrest has seen and evaluated the patient. He agrees with the above. /[id number]/MODL
[2017-02-18] MEDS: ACETAMINOPHEN 325 MG TAB PO PRN (00:34)
[2017-02-18] MEDS: DEXAMETHASONE 10 MG/ML VIAL IVP SCH ×2 (00:35→09:21)
[2017-02-18] MEDS: INSULIN REGULAR HUMAN 100 UNIT/ML SC SCH ×3 (01:21→10:17)
[2017-02-18] MEDS: LEVOTHYROXINE 200 MCG TAB PO SCH (05:36)
[2017-02-18] MEDS: ONDANSETRON 4 MG/2 ML VIAL IVP PRN ×2 (05:44→14:46)
[2017-02-18 06:03] LABS: ANION GAP 11 mEq/L (8-16); CALCIUM 8.6 mg/dL (8.5-10.4); CARBON DIOXIDE 34 mEq/l (22-31); CHLORIDE 95 mEq/L (97-110); CREATININE 1.4 mg/dL (0.6-1.0); GLOMERULAR FILTRATION RATE 39; GLUCOSE 305 mg/dL (70-100); POTASSIUM 5.1 mEq/L (3.5-5.2); SODIUM 140 mEq/L (134-144)
[2017-02-18] MEDS: cefTRIAXone 2 GM in D5W 50 ML IV SCH (09:21)
[2017-02-18] MEDS: PREGABALIN 50 MG CAP PO SCH ×2 (09:21→16:45)
[2017-02-18] MEDS: PANTOPRAZOLE SODIUM 40 MG TAB PO SCH (09:21)
[2017-02-18] MEDS: GABAPENTIN 300 MG CAP PO SCH ×2 (09:22→16:46)
[2017-02-18] MEDS: FLUCONAZOLE 100 MG TAB PO SCH (09:22)
[2017-02-18] MEDS: LOSARTAN POTASSIUM 25 MG TAB PO SCH (09:22)
[2017-02-18] MEDS: FUROSEMIDE 40 MG TAB PO SCH ×2 (09:22→14:08)
[2017-02-18] MEDS: DULoxetine 30 MG CAP PO SCH (09:22)
[2017-02-18] MEDS: INSULIN GLARGINE 100 UNITS/ML SYRINGE SC SCH (09:23)
[2017-02-18] MEDS: HYDROmorphONE/DILAUDID 4 MG TAB PO PRN ×2 (10:18→14:06)
[2017-02-18 12:07] VITALS: BP 165/85; PULSE 99; RESP 18; TEMP 97.7; O2SAT 88
--- NOTE | 2017-02-18 13:25 | HOSPPROG ---
Hospitalist Progress Note Assessment/Plan: #Aryentoid edema: from intubation. Appreciate ENT. Decadron, fluconazole #Septic shock: resolved #ARPITA on CKD: Cr stable #G/C bacteremia: abx through 02/22 #Acute on chronic hypoxemic resp failure: at baseline 3L #Acute blood loss anemia: H/H stable #Disp: DC today Subjective: "I want a sleep study" Objective: Vital Signs Temp Pulse Resp BP Pulse Ox 36.5 C 99 18 165/85 H 88 L 02/18/17 12:06 02/18/17 12:06 02/18/17 12:06 02/18/17 12:06 02/18/17 12:06 Laboratory Results 02/13/17 04:45 02/18/17 05:33 02/17/17 02/18/17 02/19/17 05:59 05:59 05:59 Intake Total 750 Output Total 2525 500 Balance -1775 -500 PT 16.6 SEC (12.0-15.0) H 02/08/17 04:00 INR 1.34 (0.83-1.16) H 02/08/17 04:00 - Physical Exam Constitutional: chronically ill appearing, obese Eyes: PERRL Ears, Nose, Mouth, Throat: moist mucous membranes, other (raspy voice) Respiratory: no respiratory distress, no rales or rhonchi, other (prolonged expiratory phase) Gastrointestinal: normoactive bowel sounds, soft, non-tender abdomen Genitourinary: no bladder fullness Skin: warm, other (improvement of LE cellulitis) Musculoskeletal: full muscle strength Neurologic: AAOx3, CN II-XII Intact ICD10 Worksheet Patient Problems: Problems Problem Status Onset Altered mental status Acute Failure to thrive Acute Sepsis Acute Abscess of left leg Acute Anemia Acute Cellulitis in diabetic foot Acute Cellulitis of foot, right Acute Cellulitis of lower extremity Acute Fever Acute Lower limb ulcer, heel or midfoot Acute MRSA (methicillin resistant Staphylococcus aureus) Acute 01/16/15 Osteomyelitis of ankle or foot, right, acute Acute Uremia Acute
[2017-02-18] MEDS ORDERED: INSULIN REGULAR HUMAN 100 UNIT/ML SC SCH ×3 (13:45→17:30)
[2017-02-18 13:46] LABS: HEMATOCRIT 26.4 % (38.0-47.0); HEMOGLOBIN 8.3 g/dL (12.6-16.3); MEAN CELL HEMOGLOBIN 25.9 pg (27.9-34.1); MEAN CELL HEMOGLOBIN CONCENTR. 31.4 g/dL (32.4-36.7); MEAN CELL VOLUME 82.2 fL (81.5-99.8); RED BLOOD CELL COUNT 3.21 10^6/uL (4.18-5.33); RED CELL DISTRIBUTION WIDTH 15.2 % (11.5-15.2)
[2017-02-18 14:05] LABS: ANION GAP 12 mEq/L (8-16); CALCIUM 8.6 mg/dL (8.5-10.4); CARBON DIOXIDE 31 mEq/l (22-31); CHLORIDE 93 mEq/L (97-110); CREATININE 1.3 mg/dL (0.6-1.0); GLOMERULAR FILTRATION RATE 43; GLUCOSE 497 mg/dL (70-100); SODIUM 136 mEq/L (134-144)
[2017-02-18] MEDS: NYSTATIN POWDER 15 GM BTL TP SCH ×2 (14:52→16:45)
--- NOTE | 2017-02-18 16:05 | PDIAF ---
- Diagnosis Diagnosis: LLE cellulitis and bacteremia Code Status: Full Code - Medication Management Discharge Medications: Medications to Continue on Transfer Acetaminophen [Tylenol 325mg (*)] 650 mg PO Q6 PRN 02/07/17 [Last Taken 02/05/17 ] Aspirin EC [Aspirin EC 81 mg (*)] 81 mg PO HS 02/07/17 [Last Taken 02/06/17] DULoxetine [Cymbalta 30 MG (*)] 30 mg PO BID 02/07/17 [Last Taken 02/07/17] Gabapentin [Neurontin 300 MG (*)] 300 mg PO TID 02/07/17 [Last Taken 02/07/17] HYDROmorphone HCL [Dilaudid 4 mg (*)] 8 mg PO Q4H PRN 02/07/17 [Last Taken 02/06] Insulin Detemir [Levemir] 45 unit SQ DAILY 02/07/17 [Last Taken 02/07/17] Levothyroxine [Synthroid 200 mcg (*)] 200 mcg PO DAILY 02/07/17 [Last Taken ] Losartan Potassium [Cozaar 25 mg (*)] 25 mg PO DAILY 02/07/17 [Last Taken ] Pregabalin [Lyrica 50mg (*)] 50 mg PO TID 02/07/17 [Last Taken 02/05/17] clonazePAM [Klonopin (*)] 0.5 mg PO BID PRN 02/07/17 [Last Taken 02/07/17] fentaNYL [Duragesic 75 MCG Patch (*)] 75 mcg TD Q72H 02/07/17 [Last Taken ] traZODone [traZODONE 50MG (*)] 50 mg PO HS 02/07/17 [Last Taken 02/06/17] Alteplase [Cathflo Activase 2 mg (*)] 2 mg IVP PRN PRN #0 vial 02/18/17 [Last Taken Unknown] Dexamethasone [Decadron 4 MG (*)] 8 mg PO DAILY #6 tab 02/18/17 [Last Taken Unknown] Fluconazole [Diflucan (*)] 200 mg PO DAILY #5 tab 02/18/17 [Last Taken Unknown] Furosemide [Lasix 20 MG (*)] 20 mg PO BID #60 tab 02/18/17 [Last Taken Unknown] Insulin Lispro [Humalog Kwikpen U-100] 100 unit SQ ACHS #1 ml 02/18/17 [Last Taken Unknown] Nystatin Powder [Mycostatin Powder] 1 ammon TP TID powder 02/18/17 [Last Taken Unknown] Pantoprazole Sodium [Protonix 40mg (*)] 40 mg PO BID tab 02/18/17 [Last Taken Unknown] Polyethylene Glycol 3350 [Miralax 17 gm (*)] 17 gm PO DAILY PRN #0 pkt 02/18/17 [Last Taken Unknown] cefTRIAXone [Rocephin] 2 gm IV DAILY vial 02/18/17 [Last Taken Unknown] Longterm Antibiotics: ceftriaxone 2g IV q 24 hours [employer] Antibiotic Stop Date: 02/22/17 Discharge Medications: Refer to the Discharge Home Medication list for PRN reason. PICC Care - Routine: Yes - Orders Services needed: Registered Nurse Diet Recommendation: ADA 2000 consistent carb Diet Texture: Regular Texture Diet - Labs/Radiology BMP Date: 02/18/17 (baseline 1.3-1.4) CBC Date: 02/20/17 (weekly) CMP Date: 02/20/17 (weekly) Call or Fax Lab and Imaging Results to: Dr. Patricio Rosas - Follow Up Care Current Providers and Referrals: John Forrest MD [Medical Doctor] - follow up in 2 weeks PITO DEL VALLE [Primary Care Provider] - As per Instructions
[2017-02-18] MEDS: clonazePAM 0.5 MG TAB PO PRN (16:56)
--- NOTE | 2017-02-19 05:20 | GDS ---
[f rep st] DISCHARGE SUMMARY DISCHARGE DIAGNOSES: 1. Septic shock secondary to chronic lower extremity leg ulcers. 2. Arytenoid edema secondary to intubation. 3. Type 2 diabetes with hyperglycemia secondary to steroids. 4. Group C-G bacteremia. 5. Acute on chronic hypoxemic respiratory failure, extubated 02/11. 6. Controlled diabetes. 7. Chronic calcaneal wound. 8. Chronic pain. 9. Acute encephalopathy. 10. Hypothyroidism. 11. Acute kidney injury on chronic kidney disease. CONSULTATIONS: Infectious Disease, Pulmonology and ENT. HISTORY OF PRESENT ILLNESS: The patient is a 56-year-old female with a history of diabetes, chronic bilateral foot wounds Charcot joint, morbid obesity, who presented from [facility] with vomiting and tachycardia. At the time of admission, she was febrile and tachycardic and only grunting. Per ED report, she was having 1 day of fevers, vomiting and hypoxemia. HOSPITAL COURSE BY PROBLEM: 1. Septic shock: from G/C bacteremia due to chronic foot oral ulcers. She was to was admitted to the ICU and required pressors initially. She was evaluated by Infectious Disease. MRI was negative for osteomyelitis. She is to complete a 14-day course of ceftriaxone from date of clearance, stop date is 02/22/2017. 2. Acute on chronic hypoxemic respiratory failure: intubated extubated on . Likely multifactorial with possible aspiration and volume overload. She was diuresed with IV Lasix here with improvement. I will transition her to a low dose 20 mg twice daily. Recommend close monitoring of creatinine. 3. Type 2 diabetes with hyperglycemia: Elevated in the setting of steroids. Sliding scale will need to be adjusted for a short course of steroids. 4. Arytenoid edema: has had persistent raspy voice. ENT was consulted and did scope that showed significant swelling. Recommended Decadron taper along with fluconazole for 7 days. Follow up with them in 2 weeks. 5. Hypothyroid. Continue on Synthroid. 6. Acute toxic encephalopathy: This was at time of admission when critically ill and likely secondary to her infection. She is now at her baseline. 7. ARPITA on CKD: due to septic shock. Cr now at baseline 1.3-1.4 7. Deconditioning. Recommend PT OT. 8. Left lower extremity cellulitis much improved. Continue ceftriaxone as stated above. 9. History of sleep apnea: Patient states that she has been off CPAP for several years and would like an outpatient CPAP. I would recommend this to be scheduled. DISPOSITION: The patient stable for discharge. MEDICATIONS: See medication reconciliation. FOLLOWUP: 1. BMP. 2. Up titrate sliding-scale insulin as needed while on steroids. 3. Referral for outpatient sleep study. 4. Follow up with Infectious Disease. 5. Follow up with ENT in 2 weeks. Time spent on DC greater than 35 min counseling patient on treatment plan and coordinating follow up. /[id number]/MODL MARIA LUISA
== END 2017-02-18 17:39 | DRG 871 ==
LOC: EDUNIT# → F2N 18:28 → F3E 02-12 21:06
PROVIDERS: ADMIT Internal Medicine; ATTEND Internal Medicine
PROC: 5A1945Z Respiratory Ventilation, 24-96 Consecutive Hours (ICD-10-PCS; principal; 2017-02-07)
PROC: 0BH18EZ Insertion of Endotracheal Airway into Trachea, Via Natural or Artificial Opening Endoscopic (ICD-10-PCS; principal; 2017-02-07)
PROC: 02HV33Z Insertion of Infusion Device into Superior Vena Cava, Percutaneous Approach (ICD-10-PCS; 2017-02-08)
PROC: 0CJS8ZZ Inspection of Larynx, Via Natural or Artificial Opening Endoscopic (ICD-10-PCS; 2017-02-17)
DX: A40.8 Other streptococcal sepsis (principal); R65.21 Severe sepsis with septic shock; E11.622 Type 2 diabetes mellitus with other skin ulcer; L89.613 Pressure ulcer of right heel, stage 3; L89.623 Pressure ulcer of left heel, stage 3; J18.9 Pneumonia, unspecified organism; J96.21 Acute and chronic respiratory failure with hypoxia; G92 Toxic encephalopathy; N17.9 Acute kidney failure, unspecified; E11.22 Type 2 diabetes mellitus with diabetic chronic kidney disease; N18.9 Chronic kidney disease, unspecified; I12.9 Hypertensive chronic kidney disease with stage 1 through stage 4 chronic kidney disease, or unspecified chronic kidney disease; G89.29 Other chronic pain; F11.20 Opioid dependence, uncomplicated; D62 Acute posthemorrhagic anemia; E11.65 Type 2 diabetes mellitus with hyperglycemia; T38.0X5A Adverse effect of glucocorticoids and synthetic analogues, initial encounter; E03.9 Hypothyroidism, unspecified; J44.9 Chronic obstructive pulmonary disease, unspecified; E66.01 Morbid (severe) obesity due to excess calories; Z68.42 Body mass index [BMI] 45.0-49.9, adult; Z87.891 Personal history of nicotine dependence; Z99.81 Dependence on supplemental oxygen
CPT/HCPCS: 82947-QW; 92526-GN; 92610-GN; 96374; 97162-GP; 97165-GO; 97530-GO; 97530-GP; 97535-GO; C1751; G8978-GP-CL; G8979-GP-CK; G8987-GO-CL; G8988-GO-CJ; G8996-GN-CI; G8996-GN-CL; G8997-GN-CI; G8998-GN-CI; J0456; J0696; J1335; J1642; J1650; J1815; J1940; J2060; J2405; J2543; J2704; J2765; J2997; J3010; J3370

== ENCOUNTER 2017-02-23 14:51 | Emergency (ER) | payer OTHER, MEDICAID ==
--- NOTE | 2017-02-23 15:01 | EDPHY ---
H & P Time Seen by Provider: 02/23/17 15:00 HPI/ROS: CHIEF COMPLAINT: Fatigue HISTORY OF PRESENT ILLNESS: The patient presents to the emergency department for evaluation of fatigue. She has a complicated past medical history. She was recently in the hospital from to January for septic shock secondary to bacteremia. The patient was treated with IV antibiotics during that hospitalization. She returned to her snf facility 4 days ago. The patient complains only of fatigue. She denies acute fever, vomiting, acute pain, diarrhea or other complaints. She denies any significant changes to her medications. The patient is not currently on antibiotics. She denies dysuria. REVIEW OF SYSTEMS: A comprehensive 10 point review of systems is otherwise negative aside from elements mentioned in the history of present illness. Source: Patient Exam Limitations: No limitations - Personal History Tetanus Vaccine Date: unsure of date - Medical/Surgical History Hx Asthma: No Hx Chronic Respiratory Disease: No Hx Diabetes: Yes Hx Cardiac Disease: No Hx Renal Disease: Yes Hx Cirrhosis: No Hx Alcoholism: No Hx HIV/AIDS: No Hx Splenectomy or Spleen Trauma: No Other PMH: diabetic ulcers on bi-lat feet, sarcoidosis, fibromyalgia, home O2 for opiods, MRSA - Social History Smoking Status: Former smoker - Physical Exam Exam: General Appearance: Obese female Eyes: Pupils equal and round no pallor or injection ENT, Mouth: Mucous membranes moist Respiratory: Lungs clear to auscultation bilaterally Cardiovascular: Regular rate and rhythm Gastrointestinal: Abdomen is soft and nontender, no masses, bowel sounds normal Neurological: A&O, normal motor function, normal sensory exam, normal cranial nerves Skin: Hyperkeratosis noted to the bilateral lower extremities, bilateral chronic heel ulcer stable in appearance Musculoskeletal: Chronic lower extremity ulcers Extremities: PICC line right upper extremity Constitutional: Initial Vital Signs Temperature (C) 36.7 C 02/23/17 15:00 Heart Rate 93 02/23/17 15:00 Respiratory Rate 18 02/23/17 15:00 Blood Pressure 156/88 H 02/23/17 15:00 O2 Sat (%) 96 02/23/17 15:00 O2 Delivery Mode Room Air O2 (L/minute) 4 Allergies/Adverse Reactions: No Known Allergies Allergy (Verified 02/07/17 11:48) Home Medications: Medication Instructions Recorded Acetaminophen [Tylenol 325mg (*)] 650 mg PO Q6 PRN 02/07/17 Aspirin EC [Aspirin EC 81 mg (*)] 81 mg PO HS 02/07/17 DULoxetine [Cymbalta 30 MG (*)] 30 mg PO BID 02/07/17 Gabapentin [Neurontin 300 MG (*)] 300 mg PO TID 02/07/17 HYDROmorphone HCL [Dilaudid 4 mg 8 mg PO Q4H PRN 02/07/17 (*)] Insulin Detemir [Levemir] 45 unit SQ DAILY 02/07/17 Levothyroxine [Synthroid 200 mcg 200 mcg PO DAILY 02/07/17 (*)] Losartan Potassium [Cozaar 25 mg 25 mg PO DAILY 02/07/17 (*)] Pregabalin [Lyrica 50mg (*)] 50 mg PO TID 02/07/17 clonazePAM [Klonopin (*)] 0.5 mg PO BID PRN 02/07/17 fentaNYL [Duragesic 75 MCG Patch 75 mcg TD Q72H 02/07/17 (*)] traZODone [traZODONE 50MG (*)] 50 mg PO HS 02/07/17 Alteplase [Cathflo Activase 2 mg 2 mg IVP PRN PRN #0 vial 02/18/17 (*)] Dexamethasone [Decadron 4 MG (*)] 8 mg PO DAILY #6 tab 02/18/17 Fluconazole [Diflucan (*)] 200 mg PO DAILY #5 tab 02/18/17 Furosemide [Lasix 20 MG (*)] 20 mg PO BID #60 tab 02/18/17 Insulin Lispro [Humalog Kwikpen 100 unit SQ ACHS #1 ml 02/18/17 U-100] Nystatin Powder [Mycostatin Powder] 1 ammon TP TID powder 02/18/17 Pantoprazole Sodium [Protonix 40mg 40 mg PO BID tab 02/18/17 (*)] Polyethylene Glycol 3350 [Miralax 17 gm PO DAILY PRN #0 pkt 02/18/17 17 gm (*)] cefTRIAXone [Rocephin] 2 gm IV DAILY vial 02/18/17 Medical Decision Making - Diagnostics Imaging Results: Imaging Impressions Chest X-Ray 02/23/17 15:18 Impression: Hypoventilatory chest with mild peribronchial thickening, which could be related to fluid overload or bronchitis, improved since February 14, 2017. ED Course/Re-evaluation: The patient is well-appearing. She is afebrile. She has no leukocytosis. The patient's vital signs are stable. The patient did have blood cultures obtained given her history of bacteremia. The patient's lower extremity cellulitis and chronic leg wound appears well without evidence of an acute infection. The patient does have evidence of mild dehydration with a slightly elevated BUN. The patient did received 2 L of IV fluids in the emergency department. She received 3 serial examinations by myself over 2.5 hour period. The patient is reexamined by myself at 5:15 p.m.. At this point time she does appear stable without evidence of significant hemodynamic instability fever, obvious infection, arrhythmia or other explanation of her fatigue which appears to be acute or life-threatening. I do feel the patient can be discharged back to her snf facility for further supportive care. Differential Diagnosis: Differential diagnosis considered includes dehydration, metabolic abnormality, sepsis, bacteremia, pneumonia - Data Points Laboratory Results: Laboratory Results 02/23/17 15:00 02/23/17 15:00 02/23/17 02/23/17 15:00 15:00 WBC 7.98 10^3/uL 10^3/uL (3.80-9.50) RBC 3.69 10^6/uL L 10^6/uL (4.18-5.33) Hgb 9.6 g/dL L g/dL (12.6-16.3) Hct 31.3 % L % (38.0-47.0) MCV 84.8 fL fL (81.5-99.8) MCH 26.0 pg L pg (27.9-34.1) MCHC 30.7 g/dL L g/dL (32.4-36.7) RDW 16.2 % H % (11.5-15.2) Plt Count 346 10^3/uL 10^3/uL (150-400) MPV 9.1 fL fL (8.7-11.7) Neut % (Auto) 59.1 % % (39.3-74.2) Lymph % (Auto) 27.2 % % (15.0-45.0) [place] % (Auto) 7.9 % % (4.5-13.0) Eos % (Auto) 3.4 % % (0.6-7.6) Baso % (Auto) 1.0 % % (0.3-1.7) Nucleat RBC Rel Count 0.0 % % (0.0-0.2) Absolute Neuts (auto) 4.72 10^3/uL 10^3/uL (1.70-6.50) Absolute Lymphs (auto) 2.17 10^3/uL 10^3/uL (1.00-3.00) Absolute Monos (auto) 0.63 10^3/uL 10^3/uL (0.30-0.80) Absolute Eos (auto) 0.27 10^3/uL 10^3/uL (0.03-0.40) Absolute Basos (auto) 0.08 10^3/uL 10^3/uL (0.02-0.10) Absolute Nucleated RBC 0.00 10^3/uL 10^3/uL (0-0.01) Immature Gran % 1.4 % H % (0.0-1.1) Immature Gran # 0.11 10^3/uL H 10^3/uL (0.00-0.10) Sodium 139 mEq/L mEq/L (134-144) Potassium 4.3 mEq/L mEq/L (3.5-5.2) Chloride 91 mEq/L L mEq/L (97-110) Carbon Dioxide 36 mEq/l H mEq/l (22-31) Anion Gap 12 mEq/L mEq/L (8-16) BUN 57 mg/dL H mg/dL (7-23) Creatinine 1.2 mg/dL H mg/dL (0.6-1.0) Estimated GFR 47 Glucose 222 mg/dL H mg/dL (70-100) Calcium 9.2 mg/dL mg/dL (8.5-10.4) Medications Given: Discontinued Medications Gabapentin (Neurontin) 300 mg PO EDNOW ONE Stop: 02/23/17 18:40 Last Admin: 02/23/17 18:49 Dose: 300 mg Hydromorphone HCl (Dilaudid) 8 mg PO EDNOW ONE Stop: 02/23/17 18:40 Last Admin: 02/23/17 18:49 Dose: 8 mg Sodium Chloride (Ns) 1,000 mls @ 0 mls/hr IV ONCE ONE PRN Reason: Wide Open Stop: 02/23/17 15:55 Last Admin: 02/23/17 16:38 Dose: 1,000 mls Sodium Chloride (Ns) 1,000 mls @ 0 mls/hr IV ONCE ONE PRN Reason: Wide Open Stop: 02/23/17 15:55 Last Admin: 02/23/17 16:38 Dose: 1,000 mls Departure - Departure Disposition: Home, Routine, Self-Care Clinical Impression: Dehydration Condition: Good Instructions: Dehydration (ED) Additional Instructions: 1. Please try and increase your fluid intake as your symptoms today appear to be secondary to dehydration. 2. Please return to the ED for fever, acute pain, vomiting, difficulty breathing or other concerns. 3. Please follow up with your regular physician as scheduled. Referrals: PITO DEL VALLE [Primary Care Provider] - As per Instructions
[2017-02-23 15:02] VITALS: TEMP 98.1
[2017-02-23 15:25] LABS: % IMMATURE GRANULYOCYTES 1.4 % (0.0-1.1); ABSOLUTE IMMATURE GRANULOCYTES 0.11 10^3/uL (0.00-0.10); ADD DIFF? NO; ADD MORPH? NO; ADD SCAN? NO; ATYPICAL LYMPHOCYTE FLAG 0 (0-99); FRAGMENT RBC FLAG 0 (0-99); HEMATOCRIT 31.3 % (38.0-47.0); HEMOGLOBIN 9.6 g/dL (12.6-16.3); LEFT SHIFT FLG 10 (0-99); LIPEMIA HEMOLYSIS FLAG 80 (0-99); MEAN CELL HEMOGLOBIN CONCENTR. 30.7 g/dL (32.4-36.7); MEAN CELL VOLUME 84.8 fL (81.5-99.8); MEAN PLATELET VOLUME 9.1 fL (8.7-11.7); PLATELET CLUMPS FLAG 0 (0-99); PLATELET COUNT 346 10^3/uL (150-400); RED BLOOD CELL COUNT 3.69 10^6/uL (4.18-5.33); RED CELL DISTRIBUTION WIDTH 16.2 % (11.5-15.2)
[2017-02-23 15:33] LABS: ANION GAP 12 mEq/L (8-16); CALCIUM 9.2 mg/dL (8.5-10.4); CARBON DIOXIDE 36 mEq/l (22-31); CHLORIDE 91 mEq/L (97-110); CREATININE 1.2 mg/dL (0.6-1.0); GLOMERULAR FILTRATION RATE 47; GLUCOSE 222 mg/dL (70-100); POTASSIUM 4.3 mEq/L (3.5-5.2); SODIUM 139 mEq/L (134-144)
[2017-02-23] MEDS ORDERED: NS 1,000 ML IV ONE ×2 (15:54)
[2017-02-23] MEDS ORDERED: GABAPENTIN 300 MG CAP PO ONE (18:39)
[2017-02-23] MEDS ORDERED: HYDROmorphONE/DILAUDID 4 MG TAB PO ONE (18:39)
[2017-02-23] MEDS ORDERED: HYDROmorphONE/DILAUDID 2 MG TAB ONE (18:42)
[2017-02-23 19:01] VITALS: BP 158/94; PULSE 94; RESP 16; O2SAT 94
== END 2017-02-23 19:50 | disposition home or self-care (01) ==
LOC: EDUNIT#
DX: E86.0 Dehydration (principal); E11.9 Type 2 diabetes mellitus without complications; Z79.4 Long term (current) use of insulin; Z79.82 Long term (current) use of aspirin; Z87.891 Personal history of nicotine dependence

== ENCOUNTER 2017-03-04 04:52 | Emergency (ER) | payer OTHER, MEDICAID ==
[2017-03-04 05:30] VITALS: BP 157/97; PULSE 100; RESP 16; TEMP 97.9; O2SAT 96
--- NOTE | 2017-03-04 05:33 | EDPHY ---
H & P Stated Complaint: AMS per [facility] staff Time Seen by Provider: 03/04/17 05:18 HPI/ROS: HPI The patient presents with behavioral change according to her nurse at [facility]. Apparently, she is more angry than usual and was not participating in her care. She was aggressive with staff and was not using her wheelchair properly. She was demanding dinner at 2:00 a.m.. Her blood sugar was elevated in the 400s. She is brought in by ambulance. To me, the patient denies any complaints, she says she feels well and just wants to be discharged from the emergency room. She feels that the nurses are not treating her fairly. REVIEW OF SYSTEMS Constitutional: No fever, no chills. Eyes: No discharge. ENT: No sore throat. Cardiovascular: No chest pain, no palpitations. Respiratory: No cough, no shortness of breath. Gastrointestinal: No abdominal pain, no vomiting. Genitourinary: No hematuria. Musculoskeletal: No back pain. Skin: No rashes. Neurological: No headache. PMHx: Diabetes, on supplemental O2, diabetic foot ulcers, recent IV line infection Soc Hx: Resides at [facility], has previously been unsatisfied with the care there and has asked to be transferred to another care home, this was not successful PHYSICAL General Appearance: Alert, no distress Eyes: Pupils equal and round no pallor or injection ENT, Mouth: Mucous membranes moist Respiratory: There are no retractions, lungs are clear to auscultation Cardiovascular: Regular rate and rhythm Gastrointestinal: Abdomen is soft and non-tender, no masses, bowel sounds normal Neurological: A&O, moves all extremities Skin: Warm and dry, no rashes Musculoskeletal: Neck is supple non tender Extremities: symmetrical, full range of motion Psychiatric: Patient is oriented X 3, there is no agitation Source: Patient, EMS, [facility] records - Personal History Tetanus Vaccine Date: unsure of date - Medical/Surgical History Hx Asthma: No Hx Chronic Respiratory Disease: No Hx Diabetes: Yes Hx Cardiac Disease: No Hx Renal Disease: Yes Hx Cirrhosis: No Hx Alcoholism: No Hx HIV/AIDS: No Hx Splenectomy or Spleen Trauma: No Other PMH: diabetic ulcers on bi-lat feet, sarcoidosis, fibromyalgia, home O2 for opiods, MRSA - Social History Smoking Status: Former smoker Constitutional: Initial Vital Signs Temperature (C) 36.6 C 03/04/17 05:28 Heart Rate 100 03/04/17 05:28 Respiratory Rate 16 03/04/17 05:28 Blood Pressure 157/97 H 03/04/17 05:28 O2 Sat (%) 96 03/04/17 05:28 O2 Delivery Mode Room Air Allergies/Adverse Reactions: No Known Allergies Allergy (Verified 03/04/17 04:59) Home Medications: Medication Instructions Recorded Acetaminophen [Tylenol 325mg (*)] 650 mg PO Q6 PRN 02/07/17 Aspirin EC [Aspirin EC 81 mg (*)] 81 mg PO HS 02/07/17 DULoxetine [Cymbalta 30 MG (*)] 30 mg PO BID 02/07/17 Gabapentin [Neurontin 300 MG (*)] 300 mg PO TID 02/07/17 HYDROmorphone HCL [Dilaudid 4 mg 8 mg PO Q4H PRN 02/07/17 (*)] Insulin Detemir [Levemir] 45 unit SQ DAILY 02/07/17 Levothyroxine [Synthroid 200 mcg 200 mcg PO DAILY 02/07/17 (*)] Losartan Potassium [Cozaar 25 mg 25 mg PO DAILY 02/07/17 (*)] Pregabalin [Lyrica 50mg (*)] 50 mg PO TID 02/07/17 clonazePAM [Klonopin (*)] 0.5 mg PO BID PRN 02/07/17 fentaNYL [Duragesic 75 MCG Patch 75 mcg TD Q72H 02/07/17 (*)] traZODone [traZODONE 50MG (*)] 50 mg PO HS 02/07/17 Alteplase [Cathflo Activase 2 mg 2 mg IVP PRN PRN #0 vial 02/18/17 (*)] Dexamethasone [Decadron 4 MG (*)] 8 mg PO DAILY #6 tab 02/18/17 Fluconazole [Diflucan (*)] 200 mg PO DAILY #5 tab 02/18/17 Furosemide [Lasix 20 MG (*)] 20 mg PO BID #60 tab 02/18/17 Insulin Lispro [Humalog Kwikpen 100 unit SQ ACHS #1 ml 02/18/17 U-100] Nystatin Powder [Mycostatin Powder] 1 ammon TP TID powder 02/18/17 Pantoprazole Sodium [Protonix 40mg 40 mg PO BID tab 02/18/17 (*)] Polyethylene Glycol 3350 [Miralax 17 gm PO DAILY PRN #0 pkt 02/18/17 17 gm (*)] cefTRIAXone [Rocephin] 2 gm IV DAILY vial 02/18/17 Medical Decision Making Differential Diagnosis: This is a 56-year-old female with multiple medical problems coming in for [facility] with behavioral change according to staff there. Apparently, she is more angry than usual and was demanding dinner at 2 o'clock in the morning. She seems somewhat confused to them. She is refusing all interventions, she eventually agrees to vital sign check which is normal. There are no signs of sepsis or hypoxia. She says that she would like to be discharged. She makes her own medical decisions. I have offered her laboratory evaluation basic workup, however she refuses. She is hyperglycemic per report from [facility], however I doubt she is in DKA given lack of abdominal pain, tachypnea, vomiting. She will be discharged home by paramedics. Departure - Departure Disposition: Home, Routine, Self-Care Clinical Impression: Behavioral change Condition: Good Instructions: Diabetic Hyperglycemia (ED) Referrals: PITO DEL VLALE [Primary Care Provider] - As per Instructions
== END 2017-03-04 05:58 | disposition home or self-care (01) ==
LOC: EDUNIT#
DX: F91.9 Conduct disorder, unspecified (principal); E11.9 Type 2 diabetes mellitus without complications; Z79.4 Long term (current) use of insulin; Z79.82 Long term (current) use of aspirin; Z87.891 Personal history of nicotine dependence

== ENCOUNTER 2017-07-31 16:26 | Emergency (ER) | payer OTHER, MEDICAID ==
--- NOTE | 2017-07-31 16:39 | EDPHY ---
H & P Source: Patient Exam Limitations: No limitations - Personal History Tetanus Vaccine Date: unsure of date - Medical/Surgical History Hx Asthma: No Hx Chronic Respiratory Disease: No Hx Diabetes: Yes Hx Cardiac Disease: No Hx Renal Disease: Yes Hx Cirrhosis: No Hx Alcoholism: No Hx HIV/AIDS: No Hx Splenectomy or Spleen Trauma: No Other PMH: diabetic ulcers on bi-lat feet, sarcoidosis, fibromyalgia, home O2 for opiods, MRSA, type 2 diabetes,anemia - Social History Smoking Status: Former smoker Time Seen by Provider: 07/31/17 16:37 HPI/ROS: HPI: This is a 56-year-old female who presents with Chief Complaint: This is a 56-year-old female who presents with Location:RECTAL Quality: Pain Duration: 1 day Signs and Symptoms: no fever, no nausea, no vomiting, no hematemesis, no blood in stool, no abdominal bloating, no diarrhea, no back pain, no urinary symptoms , no testicular/groin pain, no indigestion, no chest pain, no shortness of breath Timing: Sudden Severity: Moderate Context: Patient arrived from [facility] via EMS with complaints of constipated yesterday gave enema and suppository with result of a large bowel movement and has had burning rectal pain ever since the event. She reports that she has a history of hemorrhoids unsure if it is internal or external as she is unable to use the commode and primarily uses a bed pain and does not wipe herself. Patient reports that she has had problems with constipation ever since starting opiates. She consumes approximately 16 mg of Dilaudid daily. Primarily bed ridden. Last colonoscopy was 10 years ago and normal per patient. Denies any blood in her stool. She is passing flatus and eating without difficulty. Denies nausea/vomiting/abdominal pain. Modifying Factors: See above Comment: ROS: see HPI Constitutional: No fever, no chills, no weight loss Eyes: No blurred vision Respiratory: No shortness of breath, no cough Cardiovascular: No chest pain, no palpitations Gastrointestinal: No nausea, no vomiting, no diarrhea, no hematemesis, no blood in stool Genitourinary: No dysuria, no blood in urine Extremities: No myalgias, no edema Neurologic: No weakness, no numbness Skin: No rashes, no petechiae Hematologic: No bruising, no bleeding MEDICAL/SURGICAL/SOCIAL HISTORY: Medical history: diabetic ulcers on bi-lat feet, sarcoidosis, fibromyalgia, home O2 for opiods, MRSA, type 2 diabetes,anemia Surgical history: Amputation Social history: Resident of [facility] CONSTITUTIONAL: Morbidly obese well-appearing white female, wearing nasal cannula, awake and alert, no obvious distress HEENT: Atraumatic and normocephalic, PERRL, EOMI. Tympanic membranes clear. Oropharynx clear, no exudate and moist pink mucosa. Airway patent. No lymphadenopathy. No meningismus. Cardiovascular: Normal S1/S2, regular rate, regular rhythm, without murmur rub or gallop. PULMONARY/CHEST: Symmetrical and nontender. Clear to auscultation bilaterally. Good air movement. No accessory muscle usage. ABDOMEN: Soft, nondistended, nontender, no rebound, no guarding, no peritoneal signs, no masses or organomegaly. No CVAT. RECTAL: Good sphincter tone, light brown stool in vault, external hemorrhoids but no thrombosis/bleeding, no fissures, no palpable masses, guaiac negative EXTREMITIES: 2/2 pulses, strength 5/5, right BKA, no clubbing, no cyanosis or edema. NEUROLOGICAL: no focal neuro deficits. GCS 15. SKIN: Warm and dry, no erythema. no rash. Good capillary refill. (Nadege Rcoha) Constitutional: Initial Vital Signs Temperature (C) 36.7 C 07/31/17 16:35 Heart Rate 102 H 07/31/17 16:35 Respiratory Rate 12 07/31/17 16:35 Blood Pressure 130/73 H 07/31/17 16:35 O2 Sat (%) 92 07/31/17 16:35 O2 Delivery Mode Room Air O2 (L/minute) 5 Allergies/Adverse Reactions: No Known Allergies Allergy (Verified 03/04/17 04:59) Home Medications: Medication Instructions Recorded Acetaminophen [Tylenol 325mg (*)] 325 mg PO Q6 PRN 02/07/17 DULoxetine [Cymbalta 30 MG (*)] 30 mg PO BID 02/07/17 Gabapentin [Neurontin 300 MG (*)] 300 mg PO BID 02/07/17 HYDROmorphone HCL [Dilaudid 4 mg 10 mg PO MOTUWETHFRSA 02/07/17 (*)] Insulin Detemir [Levemir] 50 unit SQ DAILY 02/07/17 Levothyroxine [Synthroid 200 mcg 200 mcg PO DAILY 02/07/17 (*)] Losartan Potassium [Cozaar 25 mg 25 mg PO DAILY 02/07/17 (*)] Pregabalin [Lyrica 50mg (*)] 50 mg PO TID 02/07/17 clonazePAM [Klonopin (*)] 0.5 mg PO BID PRN 02/07/17 traZODone [traZODONE 50MG (*)] 50 mg PO HS 02/07/17 Furosemide [Lasix 20 MG (*)] 20 mg PO BID #60 tab 02/18/17 Alteplase [Cathflo Activase 2 mg 2 mg IVP DAILY PRN 06/10/17 (*)] Aspirin [Aspirin 81mg (*)] 81 mg PO DAILY 06/10/17 Bisacodyl [Dulcolax] 10 mg RC DAILY PRN 06/10/17 Calcium Carbonate [Tums 500MG (*)] 1,000 mg PO Q4H PRN 06/10/17 Diclofenac Sodium 1% [Voltaren Gel 2 gm TP QID 06/10/17 (*)] Gabapentin [Neurontin 400 MG (*)] 400 mg PO BID 06/10/17 HYDROmorphone HCL [Dilaudid 4 mg 8 mg PO Q4H PRN 06/10/17 (*)] Ibuprofen [Motrin (*)] 600 mg PO Q8H PRN 06/10/17 Insulin Lispro [humALOG LISPRO 100 5 unit SC TIDMEAL 06/10/17 units/ml (*)] Insulin Lispro [humALOG LISPRO 100 5 unit SC TIDMEAL PRN 06/10/17 units/ml (*)] Ipratropium/Albuterol [Duoneb (*)] 3 ml IH Q6H PRN 06/10/17 Magnesium Hydroxide [Milk of 30 ml PO DAILY PRN 06/10/17 Magnesia] Nystatin Powder [Mycostatin Powder] 1 ammon TP Q8H PRN 06/10/17 Omeprazole Magnesium [Prilosec Otc] 20 mg PO DAILY 06/10/17 Phenylephrine/Shk Lv/Mo/Pet,Wh 1 ammon AL Q6H PRN 06/10/17 [Preparation H Oint] Polyethylene Glycol 3350 [Miralax 17 gm PO BID PRN 06/10/17 17 gm (*)] Promethazine HCl [Phenergan 25mg 25 mg PO BID PRN 06/10/17 (*)] Sennosides/Docusate Sodium 2 tab PO BID PRN 06/10/17 [Senna-Docusate Sodium Tablet] Acetaminophen [Tylenol 325mg (*)] 650 mg PO Q4 PRN tab 06/28/17 Acetaminophen [Tylenol Rectal] 650 mg AL Q4 PRN supp 06/28/17 Carbamide Peroxide [Debrox Ear 5 drop RTEAR BID bottle 06/28/17 drops (*)] Citalopram [CeleXA 20 MG] 20 mg PO DAILY tab 06/28/17 Insulin Detemir [Levemir] 35 unit SQ HS #0 06/28/17 Lidocaine 5% [Lidoderm 5% Patch 2 ea TD DAILY patch 06/28/17 (*)] Melatonin [Melatonin 3 MG (*)] 3 mg PO HS tab 06/28/17 Patch Removal 1 ea TD DAILY21 patch 06/28/17 Polyethylene Glycol 3350 [Miralax 17 gm PO BID PRN pkt 06/28/17 17 gm (*)] fentaNYL [Duragesic 100 MCG Patch 100 mcg TD Q72H patch 06/28/17 (*)] Hydrocortisone Acetate [Anucort-Hc] 25 mg RC BID #12 supp.rect 07/31/17 Polyethylene Glycol 3350 [Miralax 17 gm PO DAILY #30 pkt 07/31/17 17 gm (*)] Medical Decision Making - Diagnostics Imaging Results: Imaging Impressions Abdomen X-Ray 07/31/17 16:41 Impression: Significant constipation. Otherwise normal bowel gas pattern. ED Course/Re-evaluation: Uro jet used during examination which patient tolerated relatively well. Guaiac negative Advised MiraLax and Anusol HC suppositories GI follow-up (Nadege Rocha) Differential Diagnosis: Differential diagnosis includes but is not limited to external hemorrhoids, thrombosed hemorrhoids, fissure, rectal irritation, constipation. (Nadege Rocha) Other Provider: The patient was evaluated and managed by the Physician Malariologist/ Nurse Practitioner. I discussed the patient's presentation and course with the midlevel provider with them and agree with the evaluation. My co-signature indicates that I have reviewed this chart and I agree with the findings and plan of care as documented. I am the secondary supervising physician. (Madisyn Morales) - Data Points Laboratory Results: 07/31/17 16:53 Stool Occult Bld Scrn NEGATIVE (NEGATIVE) Medications Given: Discontinued Medications Lidocaine (Uroject Lidocaine 2% Jelly) 20 ml TP EDNOW ONE Stop: 07/31/17 16:41 Last Admin: 07/31/17 16:51 Dose: 20 ml Departure - Departure Disposition: Home, Routine, Self-Care Clinical Impression: External hemorrhoids without complication, Perirectal skin irritation Constipation Qualifiers: Constipation type: drug induced constipation Qualified Code(s): K59.03 - Drug induced constipation Condition: Good Instructions: Constipation (ED), Hemorrhoids (ED) Additional Instructions: Please use Anusol HC suppositories for rectal pain. Take MiraLax daily and drink plenty of liquids to prevent constipation. Follow up with General surgery for repeat examination and determine candidacy for outpatient colonoscopy. Referrals: Derek Nolan MD [Medical Doctor] - As per Instructions Prescriptions: Hydrocortisone Acetate [Anucort-Hc] 25 mg RC BID #12 supp.rect Polyethylene Glycol 3350 [Miralax 17 gm (*)] 17 gm PO DAILY #30 pkt
[2017-07-31] MEDS ORDERED: LIDOCAINE 2% JELLY 20 ML (UROJECT) TP ONE (16:40)
[2017-07-31 16:47] VITALS: TEMP 98.1
[2017-07-31 17:19] VITALS: BP 131/60; PULSE 97; RESP 16; O2SAT 99
== END 2017-07-31 19:00 | disposition home or self-care (01) ==
LOC: EDUNIT#
DX: K64.4 Residual hemorrhoidal skin tags (principal); K59.03 Drug induced constipation; E11.9 Type 2 diabetes mellitus without complications; T40.2X5A Adverse effect of other opioids, initial encounter; Z79.4 Long term (current) use of insulin; Z79.82 Long term (current) use of aspirin; Z87.891 Personal history of nicotine dependence

== ENCOUNTER 2017-08-19 16:19 | Emergency (ER) | payer OTHER, MEDICAID ==
--- NOTE | 2017-08-19 16:16 | EDPHY ---
H & P Constitutional: Initial Vital Signs Temperature (C) 36.8 C 08/19/17 16:28 Heart Rate 95 08/19/17 16:28 Respiratory Rate 16 08/19/17 16:28 Blood Pressure 129/70 H 08/19/17 16:28 O2 Sat (%) 97 08/19/17 16:28 Allergies/Adverse Reactions: No Known Allergies Allergy (Verified 03/04/17 04:59) Home Medications: Medication Instructions Recorded Acetaminophen [Tylenol 325mg (*)] 325 mg PO Q6 PRN 02/07/17 DULoxetine [Cymbalta 30 MG (*)] 30 mg PO BID 02/07/17 Gabapentin [Neurontin 300 MG (*)] 300 mg PO BID 02/07/17 HYDROmorphone HCL [Dilaudid 4 mg 10 mg PO MOTUWETHFRSA 02/07/17 (*)] Insulin Detemir [Levemir] 50 unit SQ DAILY 02/07/17 Levothyroxine [Synthroid 200 mcg 200 mcg PO DAILY 02/07/17 (*)] Losartan Potassium [Cozaar 25 mg 25 mg PO DAILY 02/07/17 (*)] Pregabalin [Lyrica 50mg (*)] 50 mg PO TID 02/07/17 clonazePAM [Klonopin (*)] 0.5 mg PO BID PRN 02/07/17 traZODone [traZODONE 50MG (*)] 50 mg PO HS 02/07/17 Furosemide [Lasix 20 MG (*)] 20 mg PO BID #60 tab 02/18/17 Alteplase [Cathflo Activase 2 mg 2 mg IVP DAILY PRN 06/10/17 (*)] Aspirin [Aspirin 81mg (*)] 81 mg PO DAILY 06/10/17 Bisacodyl [Dulcolax] 10 mg RC DAILY PRN 06/10/17 Calcium Carbonate [Tums 500MG (*)] 1,000 mg PO Q4H PRN 06/10/17 Diclofenac Sodium 1% [Voltaren Gel 2 gm TP QID 06/10/17 (*)] Gabapentin [Neurontin 400 MG (*)] 400 mg PO BID 06/10/17 HYDROmorphone HCL [Dilaudid 4 mg 8 mg PO Q4H PRN 06/10/17 (*)] Ibuprofen [Motrin (*)] 600 mg PO Q8H PRN 06/10/17 Insulin Lispro [humALOG LISPRO 100 5 unit SC TIDMEAL 06/10/17 units/ml (*)] Insulin Lispro [humALOG LISPRO 100 5 unit SC TIDMEAL PRN 06/10/17 units/ml (*)] Ipratropium/Albuterol [Duoneb (*)] 3 ml IH Q6H PRN 06/10/17 Magnesium Hydroxide [Milk of 30 ml PO DAILY PRN 06/10/17 Magnesia] Nystatin Powder [Mycostatin Powder] 1 ammon TP Q8H PRN 06/10/17 Omeprazole Magnesium [Prilosec Otc] 20 mg PO DAILY 06/10/17 Phenylephrine/Shk Lv/Mo/Pet,Wh 1 ammon [place] Q6H PRN 06/10/17 [Preparation H Oint] Polyethylene Glycol 3350 [Miralax 17 gm PO BID PRN 06/10/17 17 gm (*)] Promethazine HCl [Phenergan 25mg 25 mg PO BID PRN 06/10/17 (*)] Sennosides/Docusate Sodium 2 tab PO BID PRN 06/10/17 [Senna-Docusate Sodium Tablet] Acetaminophen [Tylenol 325mg (*)] 650 mg PO Q4 PRN tab 06/28/17 Acetaminophen [Tylenol Rectal] 650 mg [place] Q4 PRN supp 06/28/17 Carbamide Peroxide [Debrox Ear 5 drop RTEAR BID bottle 06/28/17 drops (*)] Citalopram [CeleXA 20 MG] 20 mg PO DAILY tab 06/28/17 Insulin Detemir [Levemir] 35 unit SQ HS #0 06/28/17 Lidocaine 5% [Lidoderm 5% Patch 2 ea TD DAILY patch 06/28/17 (*)] Melatonin [Melatonin 3 MG (*)] 3 mg PO HS tab 06/28/17 Patch Removal 1 ea TD DAILY21 patch 06/28/17 Polyethylene Glycol 3350 [Miralax 17 gm PO BID PRN pkt 06/28/17 17 gm (*)] fentaNYL [Duragesic 100 MCG Patch 100 mcg TD Q72H patch 06/28/17 (*)] Hydrocortisone Acetate [Anucort-Hc] 25 mg RC BID #12 supp.rect 07/31/17 Polyethylene Glycol 3350 [Miralax 17 gm PO DAILY #30 pkt 07/31/17 17 gm (*)] Medical Decision Making - Diagnostics Imaging Results: Imaging Impressions Thoracic Spine CT 08/19/17 16:57 Impression: 1. No acute findings in the thoracic spine. 2. Old moderate T12 compression fracture. 3. Additional findings, as above. Findings discussed with Patricio Mo MD on August 19, 2017 at 1741 hours. ED Course/Re-evaluation: CHIEF COMPLAINT: Back pain HISTORY OF PRESENT ILLNESS: This patient is an obese 56 year old female with history of type II diabetes mellitus arriving via EMS from [facility] complaining of mid-back pain secondary to an accidental injury shortly prior to arrival. She has a right below-knee amputation and requires assistance to use the commode for bowel movements. Today, she felt uncomfortable and unsteady with her placement in the sling used to move her from her bed to her commode, and during this transfer, she struck her mid-back against the commode apparatus. She continues to note mid -back pain. She denies chest pain, difficulty breathing, headache, or other associated symptoms. No other recent trauma. REVIEW OF SYSTEMS: A 10 point review of systems was performed and is negative with the exception of the elements mentioned in the history of present illness. PHYSICAL EXAM: HR, BP, O2 Sat, RR. Temp noted General Appearance: Morbidly obese, alert, well hydrated, appropriate, and non- toxic appearing. Head: Atraumatic without scalp tenderness or obvious injury Eyes: Pupils equal, round, reactive to light and accommodation, EOMI, no trauma , no injection. Throat: There is no erythema or exudates, no lesions, normal tonsils, mucus membranes moist. Neck: Supple, nontender, no lymphadenopathy. Respiratory: No retractions, no distress, no wheezes, and no accessory muscle use. Lungs are clear to auscultation bilaterally. Cardiovascular: Regular rate and rhythm, no murmurs, rubs, or gallops. Good capillary refill all extremities. Gastrointestinal: Abdomen is soft, nontender, non-distended, no masses, no rebound, no guarding, no peritoneal signs. Musculoskeletal: Right leg amputation below knee. Normal active ROM of other extremities. Neurological: Alert, appropriate, and interactive. The patient has normal DTRs and non-focal cranial nerves, motor, sensory, and cerebellar exam. Skin: Ulceration to left plantar surface. No rashes, good turgor, no nodules on palpation. Past medical history: Type II diabetes mellitus with chronic kidney disease. Fibromyalgia. Chronic pain. Anemia. Obstructive sleep apnea. Chronic foot ulcer. Morbid obesity. Depression. Past surgical history: Right leg amputation below knee. Family history: Noncontributory Social history: Lives at [facility]. Single. No tobacco, alcohol, or illicit drug use. DIAGNOSTICS/PROCEDURES/CRITICAL CARE TIME: Study: CT of the thoracic spine Indication: back pain and thoracic spine after being dropped on to a bedside commode according to the patient Results: CT scan of the thoracic spine was obtained. The results of the study are old T12 compression fracture nothing acute. The study was read by the radiologist, Dr. Donny Feliciano. I viewed the images myself on the PACS system. DIFFERENTIAL DIAGNOSIS: The differential diagnosis for the patient's back pain included but was not limited to musculo-skeletal pain, epidural abscess, herniated disk, spinal fracture, and intra-abdominal causes including urinary system. MEDICAL DECISION MAKING: This 56 year old female presents with mid-back pain following an accidental injury shortly prior to arrival. Exam reveals no obvious signs of trauma. Plan for CT thoracic spine to evaluate for acute processes. 17:[address] Feliciano, radiologist. CT thoracic spine negative for acute processes. This patient has no acute findings. There is no evidence of significant back injury and certainly no neuro compromise. Patient has a negative CT scan. I will send her back to [facility]. Departure - Departure Disposition: Home, Routine, Self-Care Clinical Impression: Back contusion Qualifiers: Encounter type: initial encounter Laterality: unspecified laterality Qualified Code(s): S20.229A - Contusion of unspecified back wall of thorax, initial encounter Condition: Good Instructions: Contusion in Adults (ED), Back Pain (ED) Additional Instructions: 1. Follow up with your primary care provider for further evaluation. 2. You make take ibuprofen or Tylenol as directed below as needed for pain. 3. Return to the emergency department for severe pain, fever, numbness, change in location or nature of pain or other concerns. Adult Pain & Fever Control: We recommend Acetaminophen (Tylenol) and Ibuprofen (Motrin,Advil) for pain and fever control. When fever is high or pain severe, both drugs can be used at the same time, but at different intervals. Please note the time differences. Your dose is: Acetaminophen 650mg every 4 to 6 hours Ibuprofen 600mg every 6-8 hours with food Note: do not take Acetaminophen with Hydrocodone (Vicodin, Lortab) or Oxycodone (Percocet). These medications also contain Acetaminophen. No more than 3000mg of Acetaminophen should be taken in 24 hours (for an adult). Referrals: Patient,NotPresent [Primary Care Provider] - As per Instructions Sinai Vo MD [Medical Doctor] - As per Instructions Report Scribed for: Patricio Mo Report Scribed by: Katarzyna Thacker Date of Report: 08/19/17 Time of Report: 16:17
[2017-08-19 16:31] VITALS: BP 129/70; PULSE 95; RESP 16; TEMP 98.2; O2SAT 97
== END 2017-08-19 19:21 | disposition home or self-care (01) ==
LOC: EDUNIT#
DX: S20.229A Contusion of unspecified back wall of thorax, initial encounter (principal); E11.9 Type 2 diabetes mellitus without complications; Z79.82 Long term (current) use of aspirin; Z79.4 Long term (current) use of insulin; W22.8XXA Striking against or struck by other objects, initial encounter

== ENCOUNTER 2017-09-02 08:14 | Emergency (ER) | payer OTHER, MEDICAID ==
[2017-09-02 08:30] VITALS: RESP 16
--- NOTE | 2017-09-02 08:36 | EDPHY ---
General - Diagnostics Imaging: Discussed imaging studies w/ senior production supervisor Radiologist, I viewed and interpreted images myself - History Smoking Status: Former smoker Narrative: CHIEF COMPLAINT: Abdominal pain, urinary retention HISTORY OF PRESENT ILLNESS: Patient complains of ongoing abdominal pain as well as urinary retention. The abdominal pain has been going on since her recent right leg above the knee amputation. It is generalized but worse on the left upper left lower quadrant. No nausea or vomiting. Some constipation. No diarrhea. No bloody stools. She also had urinary retention earlier today that resolved prior to being transported to the hospital. She felt as though this was a normal void after not urinating for over 24 hr. No fever or chills. No chest pain or shortness of breath. She is transported by EMS and seen at time arrival. She received 8 mg of Dilaudid in route. This is her normal q.4 hours dosing. No other associated complaints or modifying factors. REVIEW OF SYSTEMS: Ten systems reviewed and are negative unless otherwise noted in the HPI PCP: None. She just fired her PCP (Dr. Mancia) yesterday SPECIALISTS: Dr. Derek Nolan PAST MEDICAL HISTORY: Extensive. Significant for diabetes mellitus with chronic kidney disease and recent right [id number] amputation, chronic pain syndrome, fibromyalgia. Chronic supplemental O2 dependence PAST SURGICAL HISTORY: Reviewed. Recent above the knee right lower extremity amputation SOCIAL HISTORY: Quit smoking 20 years ago. Lives in [facility] FAMILY HISTORY: Noncontributory EXAMINATION General Appearance: Alert, no distress Head: normocephalic, atraumatic Eyes: Pupils equal and round, no conjunctival pallor or injection ENT, Mouth: Mucous membranes moist. Airway patent. Surgically edentulous Neck: Normal inspection, supple, non-tender Respiratory: Mild rhonchi. No wheezing. No crackles. No diminishment. No distress Cardiovascular: Tachycardic rate with regular rhythm. Gastrointestinal: Morbidly obese abdomen. Difficult to fully assess. There is tenderness of the left side. No appreciated tympany. No appreciated rigidity. No CVA tenderness. Neurological: GCS 15. Alert and oriented x4. Strength is symmetric in the upper extremities. Skin: Warm and dry, no rash. Well-healed surgical incision on the right leg from her recent [id number] amputation. Extremities: Right leg status post [id number] amputation. Psychiatric: Mood and affect normal DIFFERENTIAL DIAGNOSES: Including but not limited to urinary retention, UTI, stricture, stone, colitis, diverticulitis, constipation, obstipation MDM: 8:25 a.m. Urinary retention that resolved prior to arrival, but patient does have ongoing abdominal pain. Difficult to assess this patient due to body habitus and chronic pain, on high dose narcotics. Due to this I have ordered CT scan of the abdomen pelvis. This has been ordered without contrast due to her chronic kidney dysfunction. Laboratory studies have been ordered. Bladder scan ordered. She is in no acute distress with mild tachycardia. No vomiting. No diarrhea. 8:45 a.m. Notified by KD Bennett. Bladder scan reveals 259 mLs. Continue with laboratory studies and CT scan. Case has been discussed with Dr. Mo. He agrees with the plan thus far. 9:45 a.m. CBC is unremarkable. Her hemoglobin is chronically low back has improved since last lab draw. Chemistry does reveal a decrease in her kidney function. She has gone from a creatinine 1.2 in June to a creatinine of 2.4 today, but her BUN to creatinine ratio is nearly [address] scan pending. 10:44 a.m. Contacted by radiologist Dr. Clark. CT scan of the abdomen pelvis reveals constipation. No other significant findings noted. Patient still has not been able to void, thus we will place a Guillen catheter due to acute urinary retention. 11:55 a.m. Urinalysis is unremarkable. I have re-evaluated the patient, and she is feeling significantly better post Guillen catheter placement she does have significant constipation which should be treated with Fleet's enemas and MiraLax. I do feel this could be done back at her residence. She is in no acute distress. We discussed her increasing creatinine and I stressed the importance of follow up with primary care physician, urologist and apartment assistant manager this week due to the urinary retention in conjunction with pre renal azotemia. She is comfortable this plan and she will be discharged back to her halfway. I have discussed the case with Dr. Mo he agrees with this plan. SUPERVISION: Patient was independently examined, but I discussed the case with my secondary supervising physician Dr. Mo (Cristo Felton) Medical Decision Making: I Evaluated this patient, reviewed laboratory studies, discuss the case with Neo Felton, nurse, medical case worker. This patient had urinary retention but she urinated just before arrival. She has numerous chronic medical problems including chronic pain on a number of opiates and chronically constipated. Since she has had this chronic abdominal pain that is not been worked out will perform a noncontrast CT scan because she has chronic kidney disease so no contrast will be given. Disposition will be back to [facility] with Urology follow-up and instructions to help relieve her constipation. This patient is workup is unremarkable. The kidney function is slightly worse potentially stop struck issues will leave a Guillen catheter in. We are recommending nephrology follow-up. Otherwise, she is severe chronic constipation from all of her opiate analgesics. (Patricio Mo) - Diagnostics Imaging Results: Imaging Impressions Abdomen/Pelvis CT 09/02/17 08:36 Impression: Constipation, otherwise negative CT of the abdomen and pelvis without contrast. - Objective Vital Signs: Initial Vital Signs Temperature (C) 36.9 C 09/02/17 08:14 Heart Rate 122 H 09/02/17 08:14 Respiratory Rate 16 09/02/17 08:14 Blood Pressure 137/80 H 09/02/17 08:14 O2 Sat (%) 92 09/02/17 08:14 O2 Delivery Mode Nasal Cannula O2 (L/minute) 2 Allergies/Adverse Reactions: No Known Allergies Allergy (Verified 03/04/17 04:59) Home Medications: Medication Instructions Recorded Acetaminophen [Tylenol 325mg (*)] 325 mg PO Q6 PRN 02/07/17 DULoxetine [Cymbalta 30 MG (*)] 30 mg PO BID 02/07/17 Gabapentin [Neurontin 300 MG (*)] 300 mg PO BID 02/07/17 HYDROmorphone HCL [Dilaudid 4 mg 10 mg PO MOTUWETHFRSA 02/07/17 (*)] Insulin Detemir [Levemir] 50 unit SQ DAILY 02/07/17 Levothyroxine [Synthroid 200 mcg 200 mcg PO DAILY 02/07/17 (*)] Losartan Potassium [Cozaar 25 mg 25 mg PO DAILY 02/07/17 (*)] Pregabalin [Lyrica 50mg (*)] 50 mg PO TID 02/07/17 clonazePAM [Klonopin (*)] 0.5 mg PO BID PRN 02/07/17 traZODone [traZODONE 50MG (*)] 50 mg PO HS 02/07/17 Furosemide [Lasix 20 MG (*)] 20 mg PO BID #60 tab 02/18/17 Alteplase [Cathflo Activase 2 mg 2 mg IVP DAILY PRN 06/10/17 (*)] Aspirin [Aspirin 81mg (*)] 81 mg PO DAILY 06/10/17 Bisacodyl [Dulcolax] 10 mg RC DAILY PRN 06/10/17 Calcium Carbonate [Tums 500MG (*)] 1,000 mg PO Q4H PRN 06/10/17 Diclofenac Sodium 1% [Voltaren Gel 2 gm TP QID 06/10/17 (*)] Gabapentin [Neurontin 400 MG (*)] 400 mg PO BID 06/10/17 HYDROmorphone HCL [Dilaudid 4 mg 8 mg PO Q4H PRN 06/10/17 (*)] Ibuprofen [Motrin (*)] 600 mg PO Q8H PRN 06/10/17 Insulin Lispro [humALOG LISPRO 100 5 unit SC TIDMEAL 06/10/17 units/ml (*)] Insulin Lispro [humALOG LISPRO 100 5 unit SC TIDMEAL PRN 06/10/17 units/ml (*)] Ipratropium/Albuterol [Duoneb (*)] 3 ml IH Q6H PRN 06/10/17 Magnesium Hydroxide [Milk of 30 ml PO DAILY PRN 06/10/17 Magnesia] Nystatin Powder [Mycostatin Powder] 1 ammon TP Q8H PRN 06/10/17 Omeprazole Magnesium [Prilosec Otc] 20 mg PO DAILY 06/10/17 Phenylephrine/Shk Lv/Mo/Pet,Wh 1 ammon [place] Q6H PRN 06/10/17 [Preparation H Oint] Polyethylene Glycol 3350 [Miralax 17 gm PO BID PRN 06/10/17 17 gm (*)] Promethazine HCl [Phenergan 25mg 25 mg PO BID PRN 06/10/17 (*)] Sennosides/Docusate Sodium 2 tab PO BID PRN 06/10/17 [Senna-Docusate Sodium Tablet] Acetaminophen [Tylenol 325mg (*)] 650 mg PO Q4 PRN tab 06/28/17 Acetaminophen [Tylenol Rectal] 650 mg [place] Q4 PRN supp 06/28/17 Carbamide Peroxide [Debrox Ear 5 drop RTEAR BID bottle 06/28/17 drops (*)] Citalopram [CeleXA 20 MG] 20 mg PO DAILY tab 06/28/17 Insulin Detemir [Levemir] 35 unit SQ HS #0 06/28/17 Lidocaine 5% [Lidoderm 5% Patch 2 ea TD DAILY patch 06/28/17 (*)] Melatonin [Melatonin 3 MG (*)] 3 mg PO HS tab 06/28/17 Patch Removal 1 ea TD DAILY21 patch 06/28/17 Polyethylene Glycol 3350 [Miralax 17 gm PO BID PRN pkt 06/28/17 17 gm (*)] fentaNYL [Duragesic 100 MCG Patch 100 mcg TD Q72H patch 06/28/17 (*)] Hydrocortisone Acetate [Anucort-Hc] 25 mg RC BID #12 supp.rect 07/31/17 Polyethylene Glycol 3350 [Miralax 17 gm PO DAILY #30 pkt 07/31/17 17 gm (*)] Laboratory Results: Laboratory Results 09/02/17 09:15 09/02/17 09:15 09/02/17 09/02/17 09/02/17 11:20 09:15 09:15 WBC 8.78 10^3/uL 10^3/uL (3.80-9.50) RBC 3.01 10^6/uL L 10^6/uL (4.18-5.33) Hgb 9.1 g/dL L g/dL (12.6-16.3) Hct 27.2 % L % (38.0-47.0) MCV 90.4 fL fL (81.5-99.8) MCH 30.2 pg pg (27.9-34.1) MCHC 33.5 g/dL g/dL (32.4-36.7) RDW 16.2 % H % (11.5-15.2) Plt Count 187 10^3/uL 10^3/uL (150-400) MPV 9.6 fL fL (8.7-11.7) Neut % (Auto) 72.8 % % (39.3-74.2) Lymph % (Auto) 16.6 % % (15.0-45.0) [place] % (Auto) 5.7 % % (4.5-13.0) Eos % (Auto) 3.4 % % (0.6-7.6) Baso % (Auto) 0.5 % % (0.3-1.7) Nucleat RBC Rel Count 0.0 % % (0.0-0.2) Absolute Neuts (auto) 6.39 10^3/uL 10^3/uL (1.70-6.50) Absolute Lymphs (auto) 1.46 10^3/uL 10^3/uL (1.00-3.00) Absolute Monos (auto) 0.50 10^3/uL 10^3/uL (0.30-0.80) Absolute Eos (auto) 0.30 10^3/uL 10^3/uL (0.03-0.40) Absolute Basos (auto) 0.04 10^3/uL 10^3/uL (0.02-0.10) Absolute Nucleated RBC 0.00 10^3/uL 10^3/uL (0-0.01) Immature Gran % 1.0 % % (0.0-1.1) Immature Gran # 0.09 10^3/uL 10^3/uL (0.00-0.10) Sodium 140 mEq/L mEq/L (134-144) Potassium 5.1 mEq/L mEq/L (3.5-5.2) Chloride 91 mEq/L L mEq/L (97-110) Carbon Dioxide 33 mEq/l H mEq/l (22-31) Anion Gap 16 mEq/L mEq/L (8-16) BUN 71 mg/dL H mg/dL (7-23) Creatinine 2.4 mg/dL H mg/dL (0.6-1.0) Estimated GFR 21 Glucose 167 mg/dL H mg/dL (70-100) Calcium 10.0 mg/dL mg/dL (8.5-10.4) Total Bilirubin 0.2 mg/dL mg/dL (0.1-1.4) Conjugated Bilirubin 0.2 mg/dL mg/dL (0.0-0.5) Unconjugated Bilirubin 0.0 mg/dL mg/dL (0.0-1.1) AST 25 IU/L IU/L (14-46) ALT 31 IU/L IU/L (9-52) Alkaline Phosphatase 94 IU/L IU/L (38-126) Total Protein 7.4 g/dL g/dL (6.3-8.2) Albumin 3.8 g/dL g/dL (3.5-5.0) Lipase 27 IU/L IU/L (23-300) Urine Color YELLOW Urine Appearance CLEAR Urine pH 5.0 (5.0-7.5) Ur Specific [place] 1.013 (1.002-1.030) Urine Protein NEGATIVE (NEGATIVE) Urine Ketones NEGATIVE (NEGATIVE) Urine Blood NEGATIVE (NEGATIVE) Urine Nitrate NEGATIVE (NEGATIVE) Urine Bilirubin NEGATIVE (NEGATIVE) Urine Urobilinogen NEGATIVE EU EU (0.2-1.0) Ur Leukocyte Esterase NEGATIVE (NEGATIVE) Urine RBC NONE SEEN /hpf /hpf (0-3) Urine WBC NONE SEEN /hpf /hpf (0-3) Ur Epithelial Cells TRACE /lpf /lpf (NONE-1+) Urine Mucus TRACE /lpf /lpf (NONE-1+) Urine Glucose NEGATIVE (NEGATIVE) Medications Given: Discontinued Medications Heparin Sodium (Porcine) (Heparin Lock Flush) 500 unit IVP EDNOW ONE Stop: 09/02/17 12:20 Last Admin: 09/02/17 12:47 Dose: 500 unit Sodium Chloride (Ns) 1,000 mls @ 0 mls/hr IV EDNOW ONE; Wide Open PRN Reason: Protocol Stop: 09/02/17 08:38 Last Admin: 09/02/17 09:10 Dose: 1,000 mls Departure - Departure Disposition: Home, Routine, Self-Care Clinical Impression: Constipation due to opioid therapy, Urinary retention Abdominal pain Qualifiers: Abdominal location: generalized Qualified Code(s): R10.84 - Generalized abdominal pain CKD (chronic kidney disease) Qualifiers: Chronic kidney disease stage: stage 3 (moderate) Qualified Code(s): N18.3 - Chronic kidney disease, stage 3 (moderate) Condition: Good Instructions: Constipation (ED), Chronic Kidney Disease (ED), High Fiber Diet ( ED), Fleet Enema (ED) Additional Instructions: 1. Contact primary care physician and Nephrology to discuss your chronic kidney disease 2. Increase your water intake 3. Fleet enema and magnesium citrate Referrals: Keegan Sharpe MD [Medical Doctor] - As per Instructions Prudencio Thompson MD [Medical Doctor] - As per Instructions Viktor Celis MD [Medical Doctor] - As per Instructions
[2017-09-02] MEDS ORDERED: NS 1,000 ML IV ONE (08:37)
[2017-09-02 09:25] LABS: ABSOLUTE IMMATURE GRANULOCYTES 0.09 10^3/uL (0.00-0.10); ADD DIFF? NO; ADD MORPH? NO; ADD SCAN? NO; ATYPICAL LYMPHOCYTE FLAG 0 (0-99); FRAGMENT RBC FLAG 0 (0-99); HEMATOCRIT 27.2 % (38.0-47.0); HEMOGLOBIN 9.1 g/dL (12.6-16.3); LEFT SHIFT FLG 0 (0-99); LIPEMIA HEMOLYSIS FLAG 80 (0-99); MEAN CELL HEMOGLOBIN 30.2 pg (27.9-34.1); MEAN CELL HEMOGLOBIN CONCENTR. 33.5 g/dL (32.4-36.7); MEAN CELL VOLUME 90.4 fL (81.5-99.8); MEAN PLATELET VOLUME 9.6 fL (8.7-11.7); PLATELET CLUMPS FLAG 0 (0-99); PLATELET COUNT 187 10^3/uL (150-400); RED BLOOD CELL COUNT 3.01 10^6/uL (4.18-5.33); RED CELL DISTRIBUTION WIDTH 16.2 % (11.5-15.2)
[2017-09-02 09:40] LABS: ALANINE AMINOTRANSFERASE 31 IU/L (9-52); ALBUMIN 3.8 g/dL (3.5-5.0); ALKALINE PHOSPHATASE 94 IU/L (38-126); ANION GAP 16 mEq/L (8-16); ASPARTATE AMINOTRANSFERASE 25 IU/L (14-46); BILIRUBIN,TOTAL 0.2 mg/dL (0.1-1.4); BILIRUBIN-CONJUGATED 0.2 mg/dL (0.0-0.5); CARBON DIOXIDE 33 mEq/l (22-31); CHLORIDE 91 mEq/L (97-110); CREATININE 2.4 mg/dL (0.6-1.0); GLOMERULAR FILTRATION RATE 21; GLUCOSE 167 mg/dL (70-100); POTASSIUM 5.1 mEq/L (3.5-5.2); SODIUM 140 mEq/L (134-144); TOTAL PROTEIN 7.4 g/dL (6.3-8.2)
[2017-09-02 11:43] LABS: COLOR YELLOW; LEUKOCYTE ESTERASE,URINE NEGATIVE (NEGATIVE); NITRITE,URINE NEGATIVE (NEGATIVE)
[2017-09-02 11:51] LABS: MUCUS TRACE /lpf (NONE-1+)
[2017-09-02 11:53] LABS: RBC,URINE NONE SEEN /hpf (0-3); WBC,URINE NONE SEEN /hpf (0-3)
[2017-09-02 12:17] VITALS: TEMP 98.2
[2017-09-02 13:46] VITALS: BP 115/71; PULSE 91; O2SAT 98
== END 2017-09-02 13:39 | disposition home or self-care (01) ==
LOC: EDUNIT#
PROC: 0T9B70Z Drainage of Bladder with Drainage Device, Via Natural or Artificial Opening (ICD-10-PCS; principal; 2017-09-02)
DX: R33.9 Retention of urine, unspecified (principal); K59.09 Other constipation; T40.2X5A Adverse effect of other opioids, initial encounter; E11.9 Type 2 diabetes mellitus without complications; N18.9 Chronic kidney disease, unspecified; E86.9 Volume depletion, unspecified; Z87.891 Personal history of nicotine dependence; Z79.82 Long term (current) use of aspirin; Z79.4 Long term (current) use of insulin
CPT/HCPCS: 51702; 74176; 96361; 96374; 99285; J1642

== ENCOUNTER 2017-09-04 15:17 | Emergency (ER) | payer OTHER, MEDICAID ==
--- NOTE | 2017-09-04 15:25 | EDPHY ---
H & P - Personal History Tetanus Vaccine Date: unsure of date - Medical/Surgical History Hx Asthma: No Hx Chronic Respiratory Disease: No Hx Diabetes: Yes Hx Cardiac Disease: No Hx Renal Disease: Yes Hx Cirrhosis: No Hx Alcoholism: No Hx HIV/AIDS: No Hx Splenectomy or Spleen Trauma: No Other PMH: diabetic ulcers on bi-lat feet, sarcoidosis, fibromyalgia, home O2 for opiods, MRSA, type 2 diabetes,anemia - Social History Smoking Status: Former smoker Constitutional: Initial Vital Signs Heart Rate 101 H 09/04/17 15:25 Respiratory Rate 18 09/04/17 15:25 Blood Pressure 129/75 H 09/04/17 15:25 O2 Sat (%) 96 09/04/17 15:25 O2 Delivery Mode Nasal Cannula O2 (L/minute) 4 Allergies/Adverse Reactions: No Known Allergies Allergy (Verified 03/04/17 04:59) Home Medications: Medication Instructions Recorded Acetaminophen [Tylenol 325mg (*)] 325 mg PO Q6 PRN 02/07/17 DULoxetine [Cymbalta 30 MG (*)] 30 mg PO BID 02/07/17 Gabapentin [Neurontin 300 MG (*)] 300 mg PO BID 02/07/17 HYDROmorphone HCL [Dilaudid 4 mg 10 mg PO MOTUWETHFRSA 02/07/17 (*)] Insulin Detemir [Levemir] 50 unit SQ DAILY 02/07/17 Levothyroxine [Synthroid 200 mcg 200 mcg PO DAILY 02/07/17 (*)] Losartan Potassium [Cozaar 25 mg 25 mg PO DAILY 02/07/17 (*)] Pregabalin [Lyrica 50mg (*)] 50 mg PO TID 02/07/17 clonazePAM [Klonopin (*)] 0.5 mg PO BID PRN 02/07/17 traZODone [traZODONE 50MG (*)] 50 mg PO HS 02/07/17 Furosemide [Lasix 20 MG (*)] 20 mg PO BID #60 tab 02/18/17 Alteplase [Cathflo Activase 2 mg 2 mg IVP DAILY PRN 06/10/17 (*)] Aspirin [Aspirin 81mg (*)] 81 mg PO DAILY 06/10/17 Bisacodyl [Dulcolax] 10 mg RC DAILY PRN 06/10/17 Calcium Carbonate [Tums 500MG (*)] 1,000 mg PO Q4H PRN 06/10/17 Diclofenac Sodium 1% [Voltaren Gel 2 gm TP QID 06/10/17 (*)] Gabapentin [Neurontin 400 MG (*)] 400 mg PO BID 06/10/17 HYDROmorphone HCL [Dilaudid 4 mg 8 mg PO Q4H PRN 06/10/17 (*)] Ibuprofen [Motrin (*)] 600 mg PO Q8H PRN 06/10/17 Insulin Lispro [humALOG LISPRO 100 5 unit SC TIDMEAL 06/10/17 units/ml (*)] Insulin Lispro [humALOG LISPRO 100 5 unit SC TIDMEAL PRN 06/10/17 units/ml (*)] Ipratropium/Albuterol [Duoneb (*)] 3 ml IH Q6H PRN 06/10/17 Magnesium Hydroxide [Milk of 30 ml PO DAILY PRN 06/10/17 Magnesia] Nystatin Powder [Mycostatin Powder] 1 ammon TP Q8H PRN 06/10/17 Omeprazole Magnesium [Prilosec Otc] 20 mg PO DAILY 06/10/17 Phenylephrine/Shk Lv/Mo/Pet,Wh 1 ammon CA Q6H PRN 06/10/17 [Preparation H Oint] Polyethylene Glycol 3350 [Miralax 17 gm PO BID PRN 06/10/17 17 gm (*)] Promethazine HCl [Phenergan 25mg 25 mg PO BID PRN 06/10/17 (*)] Sennosides/Docusate Sodium 2 tab PO BID PRN 06/10/17 [Senna-Docusate Sodium Tablet] Acetaminophen [Tylenol 325mg (*)] 650 mg PO Q4 PRN tab 06/28/17 Acetaminophen [Tylenol Rectal] 650 mg CA Q4 PRN supp 06/28/17 Carbamide Peroxide [Debrox Ear 5 drop RTEAR BID bottle 06/28/17 drops (*)] Citalopram [CeleXA 20 MG] 20 mg PO DAILY tab 06/28/17 Insulin Detemir [Levemir] 35 unit SQ HS #0 06/28/17 Lidocaine 5% [Lidoderm 5% Patch 2 ea TD DAILY patch 06/28/17 (*)] Melatonin [Melatonin 3 MG (*)] 3 mg PO HS tab 06/28/17 Patch Removal 1 ea TD DAILY21 patch 06/28/17 Polyethylene Glycol 3350 [Miralax 17 gm PO BID PRN pkt 06/28/17 17 gm (*)] fentaNYL [Duragesic 100 MCG Patch 100 mcg TD Q72H patch 06/28/17 (*)] Hydrocortisone Acetate [Anucort-Hc] 25 mg RC BID #12 supp.rect 07/31/17 Polyethylene Glycol 3350 [Miralax 17 gm PO DAILY #30 pkt 07/31/17 17 gm (*)] Cephalexin [Keflex (RX)] 500 mg PO TID #30 cap 09/04/17 Medical Decision Making ED Course/Re-evaluation: CHIEF COMPLAINT: Increasing lethargy HISTORY OF PRESENT ILLNESS: This is a 57 y/o female with multiple comorbidities who arrives via EMS from [facility] for evaluation of increasing lethargy over the last 2 days. She was evaluated here on 09/02/17, 2 days ago, for abdominal pain and urinary retention. She required a Guillen catheter to be placed at that time and this remains in place today. She complained then and today of constipation as well, which is likely related to her 8mg Dilaudid [id number] dosing. REVIEW OF SYSTEMS: A 10 point review of systems was performed and is negative with the exception of the elements mentioned in the history of present illness. PHYSICAL EXAM: HR, BP, O2 Sat, RR. Temp noted General Appearance: Alert, well-hydrated, appropriate, morbidly obese, and chronically-ill appearing. Head: Atraumatic without scalp tenderness or obvious injury Eyes: Pupils equal, round, reactive to light and accommodation, EOMI, no trauma , no injection. Nose: Atraumatic, no rhinorrhea, clear. Throat: Mucus membranes moist. Neck: Supple Respiratory: No retractions, no distress, no wheezes, and no accessory muscle use. Lungs distant to auscultation bilaterally. Cardiovascular: Regular rate and rhythm, no murmurs, rubs, or gallops. Good capillary refill all extremities. Gastrointestinal: Abdomen is soft, non-tender, obese, no masses, no rebound, no guarding, no peritoneal signs. Musculoskeletal: Right above the knee amputation, no evidence of dehiscence or infection at incision site; Normal active ROM of all extremities, atraumatic. Neurological: Alert, appropriate, and interactive. The patient has non-focal cranial nerves, motor, sensory, and cerebellar exam. Skin: No rashes, good turgor, no nodules on palpation. PAST MEDICAL HISTORY: Diabetes with chronic kidney disease and right above the knee amputation and foot ulcers; sarcoidosis; fibromyalgia and chronic pain syndrome on extensive opioids requiring home O2; anemia; obstructive sleep apnea ; morbid obesity; hypoxemia PAST SURGICAL HISTORY: Right ATK amputation SOCIAL HISTORY: Lives at [facility]. Fired her PCP (Dr. Martinez) 3 days ago. Prior medical records reviewed including ED visit 09/02/17 for urinary retention and abdominal pain DIFFERENTIAL DIAGNOSIS: The differential diagnosis for the patient's lethargy included but was not limited to UTI, narcotic dependence, hypoglycemia, infectious process, electrolyte abnormality, head injury, neurologic process, anemia, cardiac process, and intoxicants. MEDICAL DECISION MAKING: This is a morbidly obese and chronically-ill appearing 57 y/o female with extensive medical history who presents with increasing lethargy after her return to her SNF 2 days ago. She takes 8mg Dilaudid T7svild and also required a Guillen catheter to be placed during her ED visit on 09/02/17 for urinary retention. Her symptoms are consistent with a UTI. Plan for UA. UA indicated UTI. 500mg PO Keflex administered. Patient will be discharged home to [facility] with script for Keflex and standard care instructions. Return precautions discussed. She agrees with plan for discharge. - Data Points Laboratory Results: 09/04/17 15:25 Urine Color YELLOW Urine Appearance HAZY Urine pH 7.0 (5.0-7.5) Ur Specific [place] 1.015 (1.002-1.030) Urine Protein 2+ H (NEGATIVE) Urine Ketones NEGATIVE (NEGATIVE) Urine Blood NEGATIVE (NEGATIVE) Urine Nitrate NEGATIVE (NEGATIVE) Urine Bilirubin NEGATIVE (NEGATIVE) Urine Urobilinogen NEGATIVE EU EU (0.2-1.0) Ur Leukocyte Esterase 2+ H (NEGATIVE) Urine RBC 5-10 /hpf H /hpf (0-3) Urine WBC 15-25 /hpf H /hpf (0-3) Ur Epithelial Cells TRACE /lpf /lpf (NONE-1+) Urine Mucus TRACE /lpf /lpf (NONE-1+) Urine Glucose NEGATIVE (NEGATIVE) Medications Given: Discontinued Medications Cephalexin HCl (Keflex) 500 mg PO EDNOW ONE PRN Reason: Protocol Stop: 09/04/17 15:48 Last Admin: 09/04/17 15:59 Dose: 500 mg Departure - Departure Disposition: Home, Routine, Self-Care Clinical Impression: UTI (urinary tract infection) Qualifiers: Urinary tract infection type: catheter-associated UTI Indwelling urinary catheter type: indwelling urethral catheter Encounter type: initial encounter Qualified Code(s): T83.511A - Infection and inflammatory reaction due to indwelling urethral catheter, initial encounter Condition: Good Instructions: Cephalexin (By mouth), Urinary Tract Infection in Women (ED) Additional Instructions: 1. Take Keflex as prescribed for UTI. Be sure to complete the entire prescription. 2. Follow up with your primary care provider as needed in the next 2-3 days. Referrals: [facility],. [Clinic] - As per Instructions Prescriptions: Cephalexin [Keflex (RX)] 500 mg PO TID #30 cap Report Scribed for: Patricio Mo Report Scribed by: Maribel Spann Date of Report: 09/04/17 Time of Report: 15:34
[2017-09-04 15:33] LABS: COLOR YELLOW; LEUKOCYTE ESTERASE,URINE 2+ (NEGATIVE); NITRITE,URINE NEGATIVE (NEGATIVE)
[2017-09-04 15:42] LABS: MUCUS TRACE /lpf (NONE-1+); WBC,URINE 15-25 /hpf (0-3)
[2017-09-04] MEDS ORDERED: CEPHALEXIN 500 MG CAP PO ONE (15:47)
[2017-09-04 16:01] VITALS: RESP 16
[2017-09-04 16:34] VITALS: BP 150/80; PULSE 75; TEMP 98.6; O2SAT 94
== END 2017-09-04 16:45 | disposition home or self-care (01) ==
DX: T83.511A Infection and inflammatory reaction due to indwelling urethral catheter, initial encounter (principal); E11.9 Type 2 diabetes mellitus without complications; N18.9 Chronic kidney disease, unspecified; Z79.4 Long term (current) use of insulin; Z87.891 Personal history of nicotine dependence; Y73.2 Prosthetic and other implants, materials and accessory gastroenterology and urology devices associated with adverse incidents

== ENCOUNTER 2017-11-17 08:53 | Inpatient (IN) | payer OTHER, MEDICAID ==
[2017-11-17] MEDS ORDERED: AMPICILLIN/SULBACTAM 3 GM in NS 100 ML IV ONE (09:02)
[2017-11-17] MEDS ORDERED: NS 1,000 ML IV ONE ×3 (09:03→10:17)
[2017-11-17] MEDS ORDERED: NALOXONE HCL 0.4 MG/ML INJ IVP ONE (09:12)
[2017-11-17] MEDS ORDERED: NALOXONE HCL 0.4 MG/ML INJ ONE (09:12)
[2017-11-17 09:13] LABS: PLATELET COUNT 218 10^3/uL (150-400)
[2017-11-17] MEDS ORDERED: AMPICILLIN/SULBACTAM 3 GM in STERILE WATER INJ 8 ML IV ONE (09:15)
--- NOTE | 2017-11-17 09:16 | CPEKG ---
Heart Rate: 160 RR Interval: 375 P-R Interval: 376 QRSD Interval: 74 QT Interval: 248 QTC Interval: 405 P [place]: 0 QRS [place]: 47 T Wave [place]: 73 EKG Severity - ABNORMAL ECG - EKG Impression: SINUS TACHYCARDIA EKG Impression: FIRST DEGREE AV BLOCK Electronically Signed By: Juliocesar Leigh 17-Nov-2017 14:36:15
[2017-11-17] MEDS ORDERED: ONDANSETRON 4 MG/2 ML VIAL ONE (09:17)
[2017-11-17] MEDS ORDERED: ONDANSETRON 4 MG/2 ML VIAL IVP ONE (09:18)
[2017-11-17 09:23] LABS: INR 1.01 (0.83-1.16); PROTIME(PATIENT) 13.5 SEC (12.0-15.0)
[2017-11-17] MEDS ORDERED: ETOMIDATE 40 MG/20 ML INJ IV ONE (09:45)
[2017-11-17] MEDS ORDERED: PROPOFOL/EMULSION 1,000 MG/100 ML BOTTLE IV ONE (09:55)
--- NOTE | 2017-11-17 10:55 | ASMTCMCOM ---
CM Note CM Note Notes: Pt. om FED from [facility]. Records indicate a history of homelessness, several comorbidities and multiple ED visits. This SW left a message for SEAN Colon @ [facility] (called through direct line [phone]) and a message for Carine [phone]. Daughter listed in system, Emily [phone]. This SW called but did not leave a VM. Date Signed: 11/17/2017 10:54 AM Electronically Signed By:Susan Fried LCSW
[2017-11-17] MEDS ORDERED: SODIUM CHLORIDE IV ONE (12:00)
[2017-11-17] MEDS ORDERED: ACETAMINOPHEN 325 MG TAB PO PRN (12:10)
[2017-11-17] MEDS ORDERED: ONDANSETRON 4 MG/2 ML VIAL IVP PRN (12:10)
[2017-11-17] MEDS ORDERED: ONDANSETRON DISINTEGRATING 4 MG TAB PO PRN (12:10)
[2017-11-17] MEDS ORDERED: D50W 25 GM/50 ML SYR IVP PRN (12:12)
--- NOTE | 2017-11-17 12:13 | ASMTCMCOM ---
CM Note CM Note Notes: Return call from [facility] Nurse Floresita. Floresita left a message for daughter Dorothy, not on file with [facility]. She also attempted to call Emily but was full. At the time of this note Floresita reported that Keyana had not returned the call. Date Signed: 11/17/2017 12:12 PM Electronically Signed By:Susan Fried LCSW
[2017-11-17] MEDS ORDERED: guaiFENesin 600 MG TAB.ER PO PRN (12:14)
[2017-11-17] MEDS ORDERED: NYSTATIN POWDER 15 GM BTL TP PRN (12:14)
[2017-11-17] MEDS ORDERED: POLYETHYLENE GLYCOL 3350 17 GM PKT PO PRN (12:14)
[2017-11-17] MEDS ORDERED: BISACODYL 10 MG SUPP PR PRN (12:14)
[2017-11-17] MEDS ORDERED: fentaNYL 100 MCG PATCH TD SCH (12:15)
[2017-11-17] MEDS ORDERED: ALTEPLASE 2 MG VIAL IVP PRN (12:44)
[2017-11-17] MEDS ORDERED: VANCOMYCIN 1 GM in NS 250 ML IV SCH (13:00)
--- NOTE | 2017-11-17 13:09 | GHP ---
[f rep st] HISTORY AND PHYSICAL DATE OF ADMISSION: 11/17/2017 CHIEF COMPLAINT: Intubated. HISTORY OF PRESENT ILLNESS: This is a 58-year-old female, who resides at [facility], who is currently intubated. All history is derived per discussions with Dr. Leigh as well as per her chart. Apparently at [facility] she was found to be hyperglycemic. I believe that paramedics were called after that, she vomited, and immediately had worsening respiratory distress. Paramedics report that her oxygen sats were in the 50s when they arrived. She was brought to the emergency department, seen by Dr. Leigh who initially placed her on BiPAP. She was initially comfortable; however, he felt that intubation was necessary and thus proceeded with intubation. She is intubated when I am seeing her. In review of her chart, I note that she has had significant resistant bacteria exposure including Pseudomonas, MRSA. PAST MEDICAL/SURGICAL HISTORY: 1. Diabetes mellitus type 2. 2. Charcot joints. 3. Chronic calcaneal wound with previous osteomyelitis. 4. Morbid obesity. 5. Hypertension. 6. COPD, on 4 L. 7. Chronic kidney disease, baseline creatinine 1.3. 8. Continuous narcotic dependency with chronic pain. 9. Sarcoidosis. MEDICATIONS: Please see medication reconciliation. ALLERGIES: No known drug allergies. SOCIAL HISTORY: She lives at [facility]. FAMILY HISTORY: This is unobtainable due to her mental status. REVIEW OF SYSTEMS: Unobtainable, due to mental status. PHYSICAL EXAM: VITAL SIGNS: Blood pressure is 105/78, heart rate 140, respiration rate 20, satting at 95% on ventilator 60% FiO2, temperature 38.7. GENERAL: The patient is an obtunded female who is obese, lying in bed. HEENT: Shows her to be normocephalic, atraumatic. CARDIOVASCULAR: Shows her to be tachycardic. There are no murmurs, rubs, or gallops. The S1 and S2 are very diminished. PULMONARY: Shows her to have an endotracheal tube in place. She has diffuse rhonchi bilaterally. ABDOMEN: Shows her to have normal bowel sounds. She is soft. She does not grimace to palpation. There is no rebound or guarding. EXTREMITIES: Shows her to have a right BKA. SKIN: Shows no rash. : Shows her to have a chronic Guillen catheter in place. NEUROLOGIC: Shows her to be moving all extremities. Otherwise is unobtainable. LABS: White count is 14.03, hemoglobin is 11; actually higher than her previous. INR is 1.0. ABG shows her to have a blood gas of 7.3/55/30/71. Creatinine is 1.3 with a BUN of 69, glucose is 348. Urinalysis shows her to have positive nitrites, 3+ leukocyte esterase, 50-182 whites, 4+ bacteria. DATA: 1. I discussed this with Dr. Leigh. 2. I personally viewed and interpreted her chest x-ray. This shows bilateral interstitial infiltrates. She has had 2 x-rays. The second shows her to have an endotracheal tube about 1.5 cm above the lia. She also does notably has a right-sided port in place. IMPRESSION AND PLAN: 1. Severe sepsis, possibly septic shock: Suspect pulmonary source though urine source considered as well. She is not currently receiving her bolus of intravenous fluids. PIC has been ordered. She may need pressors. 2. Suspected aspiration pneumonia: Currently critically ill, requiring a ventilator. Given her history of methicillin-resistant Staphylococcus aureus as well as Pseudomonas, I will broadly cover her potential aspiration event with vancomycin as well as Zosyn. Pulmonology will be involved. Will follow her clinical course. 3. Possible urinary tract infection: Does not seem as though this was the precipitant however her urine looks as though it may be infected. She should be covered by the above antibiotics. 4. Diabetes mellitus type 2: Will cut her normal insulin doses in half. She is however quite hyperglycemic. But not taking by mouth. We will give her every 6 sliding scale as well. 5. Chronic pain on continuous narcotics: Will continue her fentanyl patch. Will put her gabapentin and Lyrica down her tube if possible. 6. Prerenal azotemia: Creatinine is at baseline. However BUN is elevated. She is getting fluid bolus. 7. Charcot foot deformity with chronic calcaneal wound: Does not appear infected at this point. 8. Morbid obesity: Body mass index is 52. 9. Chronic obstructive pulmonary disease: She has chronic oxygen requirement of 4 L. 10. Code status: Full code. 11. I spent 45 minutes of bedside and floor critical care time taking care of the patient. 12. Deep vein thrombosis prophylaxis: Lovenox. She is high risk. /[id number]/MODL MTDD
[2017-11-17] MEDS ORDERED: PREGABALIN 50 MG CAP PO SCH (14:00)
--- NOTE | 2017-11-17 14:21 | PDMN ---
Medical Necessity Medical necessity: est los>2mn for severe sepsis, possible septic shock r/t pulmonary and/or urinary source, suspected aspiration pna requiring ventilator, hyperglycemia, and prerenal azotemia; requires admit to ICU w/possible need for pressors, IV abx; IVF; comorbid DM, COPD, HTN, CKD,, chronic calcaneal wound, morbid obesity, Charcot joints, hx osteomyelitis, significant resistant bacteria exposure: MRSA, pseudomonas; per order and H&P 11/17/17
[2017-11-17] MEDS ORDERED: POLYETHYLENE GLYCOL 3350 17 GM PKT TUBE PRN (14:30)
[2017-11-17] MEDS ORDERED: ONDANSETRON DISINTEGRATING 4 MG TAB TUBE PRN (14:30)
[2017-11-17] MEDS ORDERED: ACETAMINOPHEN 325 MG TAB TUBE PRN (14:30)
[2017-11-17] MEDS ORDERED: SODIUM POLY SULF 15 GM/60 ML BOTTLE PO ONE ×2 (15:23→17:52)
[2017-11-17] MEDS: INSULIN GLARGINE 100 UNITS/ML UNIT SC SCH ×2 (15:45→21:19)
[2017-11-17] MEDS ORDERED: LIDOCAINE 2% 5 ML SDV ONE (16:00)
[2017-11-17] MEDS ORDERED: DOBUTamine/DEXTROSE 250 ML IV SCH (16:30)
[2017-11-17] MEDS ORDERED: PHENYLEPHRINE HCL 50 MG in D5W 250 ML IV SCH (16:30)
[2017-11-17] MEDS ORDERED: NOREPINEPHRINE BITARTRATE 4 MG in NS 500 ML IV SCH (16:30)
[2017-11-17] MEDS ORDERED: VASOPRESSIN/DEXTROSE 250 ML IV SCH (16:30)
[2017-11-17] MEDS ORDERED: INSULIN LISPRO 100 UNIT/ML SC SCH (18:00)
[2017-11-17] MEDS ORDERED: HEPARIN 10,000 UNIT/10 ML MDV (1,000 UNIT/ML) DIAL ONE (19:00)
[2017-11-17] MEDS: PIPERACILLIN/TAZO 4.5 GM/DEX 100 ML IV SCH (19:11)
--- NOTE | 2017-11-17 19:12 | GPN ---
[f rep st] PROCEDURE NOTE PREOPERATIVE DIAGNOSIS: Acute renal failure. POSTOPERATIVE DIAGNOSIS: Acute renal failure. NAME OF PROCEDURE: Right femoral vein central venous catheterization for dialysis. INDICATIONS: 57-year-old female going into renal failure with hyperkalemia, needing emergent dialysi s. DESCRIPTION OF PROCEDURE: The right groin was scrubbed with ChloraPrep, draped in usual sterile fash ion. An 18-gauge thin-wall needle was used to locate the femoral vein on the 1st attempt using ultra sound guidance. A guidewire was inserted. Dilators were exchanged over the guidewire, somewhat diff icult because of the patient's morbid obesity, thick pannus, etc., but with retraction of the pannus cephalad by the nurse, the wire could be kept straight enough to allow the dilators to pass and event ually the triple-lumen hemodialysis catheter inserted to its full length, sutured in place, flushed w ith saline, and a sterile dressing applied. Blood had been easily returned from all 3 ports. Fitz t tolerated the procedure well. /[id number]/MODL
--- NOTE | 2017-11-17 19:36 | GCON ---
[f rep st] CONSULTATION CRITICAL-CARE CONSULTATION DATE OF CONSULTATION: 11/17/2017 HISTORY OF PRESENT ILLNESS: This patient is a 57-year-old, morbidly obese female with multiple medic al problems and numerous hospital admissions and ER visits. She is a resident of [facility] and a pparently was found to have hyperglycemia earlier today. This was followed by an episode of nausea a nd vomiting of large volume causing immediate respiratory distress and an oxygen saturation of 50% de spite her baseline oxygen requirement of 4 L/minute (due to COPD). EMS was called and she was placed on BiPAP and transported to the emergency department where she was still in respiratory distress and was intubated in the emergency department. A chest x-ray showed diffuse bilateral infiltrates suspi cious for edema but certainly not diagnostic. In any case, she was then brought to the intensive car e unit where her blood pressure was marginal with a mean arterial pressure of about 60, though she wa s comfortable on the ventilator at the time of my initial evaluation. All of the details were hicks ed from the patient's medical record as she was unable to communicate at the time of my evaluation. She has a longstanding history of recent visits to [facility] including May. She was admitted from 06/10/2017, through 06/28/2017, with altered mental status, sepsis, and hy percapnic respiratory failure. She has required multiple visits to the emergency department includin g 07/31/2017, 09/02/2017, 09/04/2017, mostly related to urinary retention, constipation, abdominal pa in, and lethargy; all in the setting of chronic narcotic dependence. She was also admitted to [facility] beds at the [facility] I believe in January of 2017 with a similar presentation as today. REVIEW OF SYSTEMS: Otherwise negative. PAST MEDICAL HISTORY: Includes: 1. Diabetes. 2. Charcot joint. 3. Osteomyelitis in the past. 4. Obesity. 5. Hypertension. 6. COPD with a 4 L/minute oxygen requirement. 7. Chronic kidney disease with a baseline creatinine 1.3. 8. Narcotic dependency. 9. Sarcoidosis. 10. Bacteremia. 11. Cellulitis. 12. Fibromyalgia. 13. Anemia. 14. Sleep apnea with noncompliance. 15. Probable obesity hypoventilation syndrome. PAST SURGICAL HISTORY: Includes a right BKA in May 2017. SOCIAL HISTORY: She is a former smoker. FAMILY HISTORY: Noncontributory at this time. MEDICATIONS: Include aspirin, Celexa, Cymbalta, Lovenox, Duragesic, Lantus, Synthroid, Zofran, Asaf nix, Zosyn, Lyrica, propofol, vancomycin. PHYSICAL EXAMINATION: VITAL SIGNS: Her T-max was 38.7, blood pressure 88/61, heart rate of 135, sin us tachycardia, respirations 28, oxygen saturation 94% on 60% FiO2. She is morbidly obese female who is sedated on the ventilator in no apparent distress. HEENT: Pupils were equally round and reactiv e to light. Nonicteric and noninjected. Mucous membranes appeared to be moist without erythema or e xudate. NECK: Supple, without adenopathy. I could not detect jugular venous distention. RESPIRATO RY: Breath sounds reveal coarse rhonchi bilaterally without wheezing. HEART: Regular rate and rhyt hm without murmurs, rubs, gallops. ABDOMEN: Obese but soft, nontender, nondistended, without palpab le masses or pulsations, and no obvious hepatosplenomegaly. EXTREMITIES: A BKA on the right, and th e left side showed no clubbing, cyanosis, or edema. NEUROLOGICAL: Exam was deferred. SKIN: Warm a nd dry without rash. OBJECTIVE DATA: Includes a chest x-ray as described above. White count was 14, hematocrit of 34, platelets 218. INR was 1. Her blood gas drawn at 9:38 showed a pH of 7.33, pCO2 55, PO2 71, bicarb 29, sat of 93%. Basic metabolic panel was significant for sodi um 141, potassium 5.0, chloride 100, bicarb 30, BUN 69, creatinine 1.3, glucose of 359. Procalcitoni n was 1.65. Urinalysis showed no ketones, but positive nitrates, 3+ positive leukocyte esterase, 50- 180 white cells, 4+ bacteria. Blood cultures were drawn and are pending at this time. ASSESSMENT AND PLAN: 1. Septic shock. Not mentioned above was a lactate of only 2.3, but her blood pressure is certainly marginal right now. I think we should treat her with a sepsis protocol upfront, look at serial lact ates as well as maintaining a mean arterial pressure of at least 65. Though her chest x-ray does loo k somewhat like pulmonary edema, given the elevated procalcitonin and white count, I would favor infe ction at this time. We should follow the sepsis protocol and get a peripherally inserted central cat heter line placed in case she needs pressors in the near future. 2. Pneumonia, probably from an aspiration event. Again, antibiotics are indicated. I agree with Zo syn and vancomycin, and ventilator support. I do not think she had a food emesis. I do not feel a b ronchoscopy would be useful at this time. 3. Acute hypoxic respiratory failure with chronic hypercapnia. Her ventilation management should in clude an increase in her rate, though not much because I suspect that her baseline CO2 is probably ab out 50. In the meantime, we should use a low tidal volume strategy until other issues arise. 4. Chronic kidney disease, appears to be stable at this time at her baseline creatinine. We should watch closely her urine output. Critical care time was about 40 minutes at the bedside, with a highly complex patient. /[id number]/MODL
[2017-11-17] MEDS ORDERED: FUROSEMIDE 100 MG/10 ML VIAL IVP ONE (20:30)
[2017-11-17] MEDS: PROPOFOL/EMULSION 100 ML IV SCH (20:41)
[2017-11-17] MEDS: CHLORHEXIDINE GLUCONATE 15 ML UDL PO SCH (21:00)
[2017-11-17] MEDS ORDERED: FAMOTIDINE 20 MG/NACL 50 ML IV SCH (21:00)
[2017-11-17] MEDS: ASPIRIN 81 MG CHEWABLE TAB TUBE SCH (21:26)
--- NOTE | 2017-11-17 21:41 | GCON ---
[f rep st] CONSULTATION DATE OF CONSULTATION: 11/17/2017 REASON FOR CONSULTATION: Opinion regarding acute kidney injury in a patient with known chronic kidne y disease. HISTORY OF PRESENT ILLNESS: The patient is a 57-year-old female, who is a permanent resident of [facility]. The patient was brought to the emergency department by paramedics earlier today after the y were called for possible aspiration. Apparently, the patient vomited and was unable to clear her r espiratory tract. The oxygen saturations were quite low (in the 50s) when they arrived. She was bro ught to the emergency department here at [facility], where she was placed on suppleme ntal oxygen and BiPAP. After a time on BiPAP, she did have increasing respiratory distress and ended up being intubated and moved to the intensive care unit. The patient is sedated and intubated on the ventilator, and I was unable to glean any information dir ectly from the patient. All of my information was gleaned by chart review. PAST MEDICAL HISTORY: Significant for: 1. Chronic kidney disease stage 3, with a baseline creatinine between 1.3 and 1.4. 2. Diabetes mellitus type 2, with multiple complications. 3. Chronic pain. 4. History of right wsrqk-ciy-ggar amputation. 5. Peripheral vascular occlusive disease. 6. History of osteomyelitis. 7. Hypothyroidism. 8. Fibromyalgia. 9. Anemia. 10. Gastroesophageal reflux disease. 11. Depression. ALLERGIES: None known. FAMILY HISTORY: Unobtainable. CURRENT MEDICATIONS: Include: 1. Tylenol. 2. Aspirin 81 mg a day. 3. Celexa 20 mg daily. 4. Dobutamine as necessary. 5. Norepinephrine 9 mcg/kg per minute. 6. Cymbalta 60 mg a day. 7. Lovenox 40 mg a day. 8. Duragesic patch 100 mcg, change every 3 days. 9. Insulin. 10. Prevacid 30 mg a day. 11. Phenylephrine as needed. 12. Vasopressin as needed. 13. Zosyn every 6 hours. 14. Normal saline at 75 cc/hour. 15. Lyrica. 16. Propofol. REVIEW OF SYSTEMS: Unobtainable from the patient. PHYSICAL EXAMINATION: VITAL SIGNS: Temperature 39.4 degrees, pulse in the 120s to 130s and appears to be sinus tachycardia, blood pressure 121/53 on intravenous norepinephrine, respirations 28. Urine output about 650 cc since admission. GENERAL: She is sedated on the ventilator. She is morbidly o bese. HEENT: Pupils are reactive to light. Extraocular movements are not noted. NECK: Thick. No lymphadenopathy or thyromegaly. HEART: Tachycardic, regular. No rub. No murmur appreciated. THANH GS: Coarse breath sounds bilaterally, with rhonchi, rales, and wheezes. ABDOMEN: Morbidly obese. Bowel sounds are positive. Soft. No apparent tenderness. I cannot appreciate any organomegaly, mas ses, or bruits. EXTREMITIES: She has a right qvjyj-jop-eeum amputation that is healed. She has Chhaya rcot joints in her left ankle. She does have trace lower extremity edema on the left below the knee. NEUROLOGIC: She is sedated, on the ventilator. She has no asterixis. SKIN: No unusual rashes. LYMPHATICS: No palpable lymphadenopathy or lymphedema. MUSCULOSKELETAL: Right dsjcu-uqa-piij amput ation. Charcot joint on the left ankle. LABORATORY: Serum sodium 143, potassium 6.2 and climbing, chloride 103, CO2 29, BUN 70, creatinine 1 .6, glucose 355, calcium 8.1, AST 23. Procalcitonin is elevated at 1.65. Urinalysis: Specific grav ity 1.012, pH 5, +1 protein, +2 blood, +4 bacteria. WBCs 15966, hemoglobin 11, hematocrit 34, platel et count 218,000. ABG: pH 7.33, pCO2 55, pO2 37. Lactic acid is 2.1. IMPRESSION: 1. Chronic kidney disease stage 3. Baseline creatinine is around 1.3 to 1.4. This is presumed due to diabetes and vascular disease. 2. Acute kidney injury. Serum creatinine is rising. She is nonoliguric at this time, although her urine output seems to be slowing down a bit. 3. Hypotension requiring intravenous norepinephrine to maintain a mean arterial pressure of greater than 65. 4. Respiratory failure, on a ventilator. 5. Chronic respiratory acidosis. 6. Hyperkalemia. RECOMMENDATIONS: I have talked with Dr. Ferreira. We appreciate Trauma Surgery helping us out with a right groin temporary dialysis catheter. We are going to repeat a stat renal panel. If the [facility] um continues to go up, we will need to initiate renal replacement therapy. I think we would start wi th hemodialysis. If she does not tolerate that, we may need to proceed to CRRT. The patient is unab le to give consent at this time. This would be considered emergency dialysis should her potassium co ntinue to increase. Thank you for allowing me to participate in the care of your patient. If there are any questions, pl ease do not hesitate to contact us. We will be following along with you. /[id number]/MODL
[2017-11-17] MEDS ORDERED: ACETAMINOPHEN 650 MG/20.3 ML UDCUP PO PRN (21:44)
[2017-11-17 23:41] LABS: HEPATITIS B SURFACE ANTIGEN NEGATIVE (NEGATIVE)
[2017-11-18 00:01] LABS: HEPATITIS C ANTIBODY TOTAL NEGATIVE (NEGATIVE)
[2017-11-18] MEDS: ACETAMINOPHEN 650 MG/20.3 ML UDCUP TUBE PRN ×2 (01:55→10:32)
[2017-11-18] MEDS ORDERED: INSULIN LISPRO 100 UNIT/ML SC ONE (02:09)
[2017-11-18 05:59] LABS: PLATELET COUNT 187 10^3/uL (150-400)
[2017-11-18] MEDS: PIPERACILLIN/TAZO 4.5 GM/DEX 100 ML IV SCH ×4 (06:07→18:22)
[2017-11-18] MEDS: PROPOFOL/EMULSION 100 ML IV SCH (06:08)
[2017-11-18] MEDS: NS 1,000 ML IV SCH ×2 (06:09→20:37)
[2017-11-18] MEDS: INSULIN REGULAR HUMAN 100 UNIT in NS 100 ML IV SCH ×2 (08:31→18:22)
[2017-11-18] MEDS: D5W 1,000 ML IV SCH (08:31)
[2017-11-18] MEDS ORDERED: PANTOPRAZOLE SODIUM 40 MG TAB PO SCH (09:00)
--- NOTE | 2017-11-18 10:00 | HOSPPROG ---
Hospitalist Progress Note Assessment/Plan: # acute encephalopathy - likely d/t below; wean sedation and follow # acute on chronic (COPD on 4L) hypoxic resp failure d/t aspiration pneumonia - cont zosyn (sputum cx with GPC); got a dose of vanc, has a hx MRSA - cont vent support # acute on chronic renal failure - hyperK better; has not needed HD - has R groin line, hope to dc soon - good oup currently # septic shock - d/t pna; cont pressors, wean as tolerated # DM2 with hyperglycemia - insulin gtt # ?UTI - UCx sent, covered with abx # chronic pain on continuous narcotics - cont fentanyl TD and dilaudid per tube # nutrition - start TF # htn - holding meds # morbid obesity - BMI 52 # charcot foot deformity 45 mins bedside/floor cc time managing septic shock, resp failure Subjective: seen by renal overnight; K better today; remains intubated Objective: Vital Signs Temp Pulse Resp BP Pulse Ox 38.1 C 120 H 28 H 104/60 95 11/18/17 08:00 11/18/17 09:00 11/18/17 09:00 11/18/17 09:00 11/18/17 09:00 Microbiology 11/17/17 13:32 - Final Sputum, Induced/Suctioned Laboratory Results 11/18/17 05:35 11/18/17 08:25 11/17/17 11/18/17 11/19/17 05:59 05:59 05:59 Intake Total 5502.5 Output Total 2000 Balance 3502.5 PT 13.5 SEC (12.0-15.0) 11/17/17 09:00 INR 1.01 (0.83-1.16) 11/17/17 09:00 - Physical Exam Constitutional: obese Ears, Nose, Mouth, Throat: other (ET tube; NGT) Cardiovascular: regular rate and rhythym, no murmur, rub, or gallop Respiratory: inspiratory crackles (diffuse), rhonchi (diffuse) Gastrointestinal: soft, non-tender abdomen ICD10 Worksheet Patient Problems: Problems Problem Status Onset Osteomyelitis of right foot Acute Methicillin resistant Staphylococcus aureus infection Acute ~06/10/17 Osteomyelitis of ankle or foot, right, acute Acute Anemia Acute Cellulitis of foot, right Acute Cellulitis in diabetic foot Acute MRSA (methicillin resistant Staphylococcus aureus) Acute 01/16/15 Failure to thrive Acute Lower limb ulcer, heel or midfoot Acute Cellulitis of lower extremity Acute Abscess of left leg Acute Altered mental status Acute Uremia Acute Fever Acute Sepsis Acute Severe sepsis Acute
[2017-11-18] MEDS: DULoxetine 30 MG CAP TUBE SCH (10:28)
[2017-11-18] MEDS: CHLORHEXIDINE GLUCONATE 15 ML UDL PO SCH ×2 (10:28→20:37)
[2017-11-18] MEDS: LANSOPRAZOLE SUSP 30MG/10ML UDSYR (Adult) TUBE SCH (10:29)
[2017-11-18] MEDS: CITALOPRAM 20 MG TAB TUBE SCH (10:29)
[2017-11-18] MEDS: LEVOTHYROXINE 200 MCG TAB TUBE SCH (10:29)
[2017-11-18] MEDS: ENOXAPARIN 40 MG/0.4 ML SYR SC SCH (10:29)
[2017-11-18] MEDS: HYDROmorphONE/DILAUDID 4 MG TAB TUBE PRN ×3 (10:30→22:21)
--- NOTE | 2017-11-18 11:12 | PDINTPN ---
Supervisor In Charge Progress Note Assessment/Plan: Assessment: Septic Shock: Likely due to pneumonia. BP improved, still tachycardic. Pneumonia: Aspiration (witnessed vomiting at time of deterioration) vs. bacterial vs. viral, CXR now with a more discreet infiltrate on left On Zosyn, got Vancomycin. Tachycardia: Sinus. Likely due to sepsis, anemia. ARPITA with CKD: Baseline Cr 1.3. Oliguric and hyperkalemic overnight, now both resolved. DM: BSs 400s overnight, now coming down on insulin gtt. Anemia: H/H down this AM. Tachycardic without hypotension. No signs active blood loss currently. Dilution could contribute. Plan: Check viral respiratory panel. Continue Zosyn, mechanical ventilation. Continue insulin gtt. Remove HD catheter. Follow H/H 40 minutes CC time managing tachycardia, hypoxemic respiratory failure, adjusting ventilator. 11/18/17 11:31 Subjective: Intubated, sedated. Objective: Vital Signs Temp Pulse Resp BP Pulse Ox 38.1 C 129 H 28 H 118/70 95 11/18/17 08:00 11/18/17 10:00 11/18/17 10:00 11/18/17 10:00 11/18/17 10:00 Microbiology 11/17/17 13:32 - Final Sputum, Induced/Suctioned Laboratory Results 11/18/17 05:35 11/18/17 08:25 11/17/17 11/18/17 11/19/17 05:59 05:59 05:59 Intake Total 5502.5 Output Total 2000 Balance 3502.5 PT 13.5 SEC (12.0-15.0) 11/17/17 09:00 INR 1.01 (0.83-1.16) 11/17/17 09:00 CXR 11/17: Increased density LLL. Images reviewed by me. Physical Exam - Physical Exam General Appearance: unresponsive (sedated) EENT: normal ENT inspection, ET tube Neck: normal inspection Respiratory: chest non-tender, lungs clear Cardiac/Chest: regular rate, rhythm, No edema Abdomen: normal bowel sounds, soft Skin: normal color, warm/dry Extremities: normal inspection Neuro/Psych: No alert ICD10 Worksheet Patient Problems: Problems Problem Status Onset Abscess of left leg Acute Altered mental status Acute Anemia Acute Cellulitis in diabetic foot Acute Cellulitis of foot, right Acute Cellulitis of lower extremity Acute Failure to thrive Acute Fever Acute Lower limb ulcer, heel or midfoot Acute MRSA (methicillin resistant Staphylococcus aureus) Acute 01/16/15 Methicillin resistant Staphylococcus aureus infection Acute ~06/10/17 Osteomyelitis of ankle or foot, right, acute Acute Osteomyelitis of right foot Acute Sepsis Acute Severe sepsis Acute Uremia Acute
--- NOTE | 2017-11-18 12:38 | SOAPPROG ---
SOAP Progress Note Assessment/Plan: Assessment: ARPITA due to ischemia from hypotension, creat leveled off about 1.9 Oliguria, resolved with IV diuretics and better blood pressures hyperkalemia, life threatening last night, with conservative management has much improved hypotension, better, pressors have been off for about 2 hours CKD 3 due to diabetes, baseline creat about 1.3 diabetes with multiple complications respiratory failure due to PNA and probable aspiration remains sedated on the vent pneumonia with aspiration on Zosyn Plan: no dialysis needs OK to remove HD catheter continue antibiotics renal US reviewed follow lytes volume and renal function 11/18/17 12:32 Subjective: sedated on the vent, not communicative Objective: Vital Signs Temp Pulse Resp BP Pulse Ox 39.2 C H 134 H 28 H 122/71 H 96 11/18/17 12:00 11/18/17 12:00 11/18/17 12:00 11/18/17 12:00 11/18/17 12:00 Microbiology 11/17/17 13:32 - Final Sputum, Induced/Suctioned Laboratory Results 11/18/17 05:35 11/18/17 08:25 11/17/17 11/18/17 11/19/17 05:59 05:59 05:59 Intake Total 5502.5 Output Total 2000 Balance 3502.5 PT 13.5 SEC (12.0-15.0) 11/17/17 09:00 INR 1.01 (0.83-1.16) 11/17/17 09:00 Physical Exam - Physical Exam General Appearance: obese, other (sedated) Neck: other (thick) Respiratory: other (coarse bs with RH and wh bilaterally) Cardiac/Chest: regular rate, rhythm, edema Abdomen: other (obese, quiet) Skin: warm/dry Extremities: other (right BKA) Neuro/Psych: other (sedated) ICD10 Worksheet Patient Problems: Problems Problem Status Onset Abscess of left leg Acute Altered mental status Acute Anemia Acute Cellulitis in diabetic foot Acute Cellulitis of foot, right Acute Cellulitis of lower extremity Acute Failure to thrive Acute Fever Acute Lower limb ulcer, heel or midfoot Acute MRSA (methicillin resistant Staphylococcus aureus) Acute 01/16/15 Methicillin resistant Staphylococcus aureus infection Acute ~06/10/17 Osteomyelitis of ankle or foot, right, acute Acute Osteomyelitis of right foot Acute Sepsis Acute Severe sepsis Acute Uremia Acute
[2017-11-18] MEDS: fentaNYL 100 MCG PATCH TD SCH (13:11)
[2017-11-18] MEDS: PREGABALIN 50 MG CAP TUBE SCH (14:20)
[2017-11-18] MEDS: GABAPENTIN 100 MG CAP TUBE SCH ×2 (14:21→22:21)
--- NOTE | 2017-11-18 16:03 | ASMTCMCOM ---
CM Note CM Note Notes: Pt was admitted with aspiration PNA from [facility]. Anticipate d/c back to LTC when medically cleared. CM will follow for any d/c needs. Date Signed: 11/18/2017 04:02 PM Electronically Signed By:TAYA Singer
[2017-11-18] MEDS: ASPIRIN 81 MG CHEWABLE TAB TUBE SCH (22:21)
[2017-11-19] MEDS: PIPERACILLIN/TAZO 4.5 GM/DEX 100 ML IV SCH ×4 (00:07→17:52)
[2017-11-19] MEDS: ACETAMINOPHEN 650 MG/20.3 ML UDCUP TUBE PRN ×4 (02:18→20:00)
[2017-11-19] MEDS: HYDROmorphONE/DILAUDID 4 MG TAB TUBE PRN ×2 (06:17→20:00)
[2017-11-19] MEDS: LANSOPRAZOLE SUSP 30MG/10ML UDSYR (Adult) TUBE SCH (08:35)
[2017-11-19] MEDS: GABAPENTIN 100 MG CAP TUBE SCH ×3 (08:35→22:43)
[2017-11-19] MEDS: CHLORHEXIDINE GLUCONATE 15 ML UDL PO SCH ×2 (08:35→20:01)
[2017-11-19] MEDS: LEVOTHYROXINE 200 MCG TAB TUBE SCH (08:35)
[2017-11-19] MEDS: CITALOPRAM 20 MG TAB TUBE SCH (08:35)
[2017-11-19] MEDS: ENOXAPARIN 40 MG/0.4 ML SYR SC SCH (08:35)
[2017-11-19] MEDS: DULoxetine 30 MG CAP TUBE SCH (08:36)
[2017-11-19] MEDS ORDERED: POTASSIUM CL 20 MEQ/15 ML UDCUP PO ONE (09:35)
--- NOTE | 2017-11-19 09:47 | PDINTPN ---
Gis Manager Progress Note Assessment/Plan: Assessment: Septic Shock: Likely due to pneumonia. BP improved, still tachycardic. Pneumonia: Aspiration (witnessed vomiting at time of deterioration) vs. bacterial vs. viral, CXR now with a more discreet infiltrate on left On Zosyn, got Vancomycin. Tachycardia: Sinus. Now with some bigeminy. Likely due to sepsis, anemia. ARPITA with CKD: Baseline Cr 1.3. Oliguric and hyperkalemic overnight, now both resolved. DM: BSs 400s yesterday, now coming down to about 200 on insulin gtt. Anemia: H/H down this AM. Tachycardic without hypotension. No signs active blood loss currently. Dilution could contribute. Hypokalemia: Mild. Could contribute to arrhythmias. Plan: Continue Zosyn, mechanical ventilation. Continue insulin gtt. Replace K+. Transfuse 1 unit PRBCs and follow H/H 40 minutes CC time managing tachycardia, hypoxemic respiratory failure, adjusting ventilator, addressing anemia. 11/19/17 10:52 11/19/17 11:01 Subjective: Intubated, sedated. Objective: Vital Signs Temp Pulse Resp BP Pulse Ox 38.4 C H 112 H 28 H 134/54 H 93 11/19/17 08:00 11/19/17 08:02 11/19/17 08:02 11/19/17 08:00 11/19/17 08:02 Microbiology 11/17/17 13:32 - Final Sputum, Induced/Suctioned 11/18/17 11:15 Respiratory Panel (PCR) - Final Nasal, Sinus - Swab No Organism Detected Laboratory Results 11/18/17 05:35 11/19/17 05:15 11/18/17 11/19/17 11/20/17 05:59 05:59 05:59 Intake Total 5502.5 3411 140 Output Total 1999 2250 Balance 3502.5 1161 140 PT 13.5 SEC (12.0-15.0) 11/17/17 09:00 INR 1.01 (0.83-1.16) 11/17/17 09:00 CXR: Persistent left pneumonia. New right base infiltrate. Images reviewed by me. Microbiology 11/18/17 11:15 Nasal, Sinus - Swab Respiratory Panel (PCR) - Final No Organism Detected 11/17/17 13:32 Sputum, Induced/Suctioned - Final 11/17/17 13:32 Sputum, Induced/Suctioned Sputum Culture - Preliminary Staphylococcus Aureus Laboratory Tests 11/19/17 10:10 WBC 9.73 H Hgb 6.9 L Plt Count 150 Physical Exam - Physical Exam General Appearance: No alert EENT: normal ENT inspection Neck: normal inspection Respiratory: lungs clear, normal breath sounds Cardiac/Chest: edema (trace), irregularly irregular Abdomen: normal bowel sounds, non-tender Skin: normal color, warm/dry Extremities: normal inspection Neuro/Psych: No alert, No oriented x 3 ICD10 Worksheet Patient Problems: Problems Problem Status Onset Abscess of left leg Acute Altered mental status Acute Anemia Acute Cellulitis in diabetic foot Acute Cellulitis of foot, right Acute Cellulitis of lower extremity Acute Failure to thrive Acute Fever Acute Lower limb ulcer, heel or midfoot Acute MRSA (methicillin resistant Staphylococcus aureus) Acute 01/16/15 Methicillin resistant Staphylococcus aureus infection Acute ~06/10/17 Osteomyelitis of ankle or foot, right, acute Acute Osteomyelitis of right foot Acute Sepsis Acute Severe sepsis Acute Uremia Acute
[2017-11-19] MEDS ORDERED: PROTOCOL POTASSIUM 1 DOSE MISC PRN (09:51)
[2017-11-19 10:23] LABS: PLATELET COUNT 150 10^3/uL (150-400)
--- NOTE | 2017-11-19 11:28 | HOSPPROG ---
Hospitalist Progress Note Assessment/Plan: # acute encephalopathy - likely d/t below; continues, sedation weaned with some arousal but still very somnolent # acute on chronic (COPD on 4L) hypoxic resp failure d/t aspiration pneumonia - MSSA in sputum - cont zosyn today, consider tapering abx - cont vent support # acute on chronic renal failure - hyperK better; has not needed HD - better today with actually low K # septic shock - d/t pna; off pressors today # anemia - no clear source of blood loss; agree with transfusing PRBC # DM2 with hyperglycemia - cont insulin gtt - start lantus today (has high requirements) - may need to increase # ?UTI - multiple orgs in UCx - not clearly UTI, more likely colonization - currently covered by zosyn # chronic pain on continuous narcotics - cont fentanyl TD and dilaudid per tube # FEN - cont TF, increase free H2O flushes # htn - holding meds # morbid obesity - BMI 52 # charcot foot deformity 35 mins bedside/floor cc time managing resp failure requiring mechanical ventilation Subjective: still intubated; off sedation, awakes but barely oriented Objective: Vital Signs Temp Pulse Resp BP Pulse Ox 38.7 C H 114 H 28 H 139/67 H 97 11/19/17 10:00 11/19/17 10:00 11/19/17 10:00 11/19/17 10:00 11/19/17 10:00 Microbiology 11/17/17 13:32 - Final Sputum, Induced/Suctioned 11/18/17 11:15 Respiratory Panel (PCR) - Final Nasal, Sinus - Swab No Organism Detected Laboratory Results 11/19/17 10:10 11/19/17 05:15 11/18/17 11/19/17 11/20/17 05:59 05:59 05:59 Intake Total 5502.5 3411 140 Output Total 1999 2250 Balance 3502.5 1161 140 PT 13.5 SEC (12.0-15.0) 11/17/17 09:00 INR 1.01 (0.83-1.16) 11/17/17 09:00 - Physical Exam Constitutional: chronically ill appearing, unkempt Cardiovascular: no murmur, rub, or gallop, tachycardia Respiratory: inspiratory crackles, rhonchi, other (ETT), No expiratory wheeze Gastrointestinal: soft, non-tender abdomen, no palpable masses Genitourinary: mccormick in urethra Musculoskeletal: other (BKA) ICD10 Worksheet Patient Problems: Problems Problem Status Onset Osteomyelitis of right foot Acute Methicillin resistant Staphylococcus aureus infection Acute ~06/10/17 Osteomyelitis of ankle or foot, right, acute Acute Anemia Acute Cellulitis of foot, right Acute Cellulitis in diabetic foot Acute MRSA (methicillin resistant Staphylococcus aureus) Acute 01/16/15 Failure to thrive Acute Lower limb ulcer, heel or midfoot Acute Cellulitis of lower extremity Acute Abscess of left leg Acute Altered mental status Acute Uremia Acute Fever Acute Sepsis Acute Severe sepsis Acute
[2017-11-19] MEDS: NS 1,000 ML IV SCH (11:33)
--- NOTE | 2017-11-19 11:58 | SOAPPROG ---
SOAP Progress Note Assessment/Plan: Assessment: ARPITA due to ischemia from hypotension, creat better today Oliguria, resolved with IV diuretics and better blood pressures hyperkalemia, life threatening last night, with conservative management has much improved hypotension, better, pressors off CKD 3 due to diabetes, baseline creat about 1.3 diabetes with multiple complications respiratory failure due to PNA and probable aspiration remains on the vent pneumonia with aspiration on Zosyn Plan: no dialysis needs OK to remove HD catheter continue antibiotics renal US reviewed follow lytes volume and renal function nothing further to add, will sign off, available if needed 11/18/17 12:32 11/19/17 11:54 Subjective: opens eyes to her name does not answer or engage in questions Objective: Vital Signs Temp Pulse Resp BP Pulse Ox 38.7 C H 124 H 28 H 139/67 H 94 11/19/17 10:00 11/19/17 11:48 11/19/17 11:48 11/19/17 10:00 11/19/17 11:48 Microbiology 11/17/17 13:32 - Final Sputum, Induced/Suctioned 11/18/17 11:15 Respiratory Panel (PCR) - Final Nasal, Sinus - Swab No Organism Detected Laboratory Results 11/19/17 10:10 11/19/17 05:15 11/18/17 11/19/17 11/20/17 05:59 05:59 05:59 Intake Total 5502.5 3411 140 Output Total 2000 2250 Balance 3502.5 1161 140 PT 13.5 SEC (12.0-15.0) 11/17/17 09:00 INR 1.01 (0.83-1.16) 11/17/17 09:00 Physical Exam - Physical Exam General Appearance: obese Neck: other (thick) Respiratory: other (coarse bs with wheezes and rhonchi throughout) Cardiac/Chest: regular rate, rhythm, edema Abdomen: other (obese, quiet) Skin: other (changes of arterial and venous insufficiency) Extremities: other (R BKA, L ankle charcot jt.) Neuro/Psych: other (no asterixis) ICD10 Worksheet Patient Problems: Problems Problem Status Onset Abscess of left leg Acute Altered mental status Acute Anemia Acute Cellulitis in diabetic foot Acute Cellulitis of foot, right Acute Cellulitis of lower extremity Acute Failure to thrive Acute Fever Acute Lower limb ulcer, heel or midfoot Acute MRSA (methicillin resistant Staphylococcus aureus) Acute 01/16/15 Methicillin resistant Staphylococcus aureus infection Acute ~06/10/17 Osteomyelitis of ankle or foot, right, acute Acute Osteomyelitis of right foot Acute Sepsis Acute Severe sepsis Acute Uremia Acute
[2017-11-19] MEDS: INSULIN GLARGINE 100 UNITS/ML UNIT SC SCH (12:54)
[2017-11-19] MEDS ORDERED: POTASSIUM Cl (KCl) 50 ML IV SCH (14:39)
[2017-11-19] MEDS: PREGABALIN 50 MG CAP TUBE SCH (15:31)
[2017-11-19] MEDS: POTASSIUM Cl (KCl) 10 MEQ in NS 100 ML IV SCH ×3 (15:33→16:43)
[2017-11-19] MEDS ORDERED: POTASSIUM Cl (KCl) 50 ML IV ONE (19:12)
[2017-11-19] MEDS: ASPIRIN 81 MG CHEWABLE TAB TUBE SCH (20:00)
[2017-11-19] MEDS: PROPOFOL/EMULSION 100 ML IV SCH (22:30)
[2017-11-20] MEDS: PIPERACILLIN/TAZO 4.5 GM/DEX 100 ML IV SCH ×2 (00:05→05:45)
[2017-11-20] MEDS: D5W 1,000 ML IV SCH (00:22)
[2017-11-20] MEDS ORDERED: POTASSIUM Cl (KCl) 50 ML IV SCH (01:30)
[2017-11-20] MEDS ORDERED: POTASSIUM Cl (KCl) 100 ML IV ONE (01:30)
[2017-11-20] MEDS: INSULIN REGULAR HUMAN 100 UNIT in NS 100 ML IV SCH (02:22)
[2017-11-20] MEDS ORDERED: POTASSIUM Cl (KCl) 10 MEQ in D5W 50 ML IV ONE (02:30)
[2017-11-20] MEDS: HYDROmorphONE/DILAUDID 4 MG TAB TUBE PRN ×4 (04:55→20:50)
[2017-11-20] MEDS: PROPOFOL/EMULSION 100 ML IV SCH (04:55)
[2017-11-20 06:04] LABS: PLATELET COUNT 145 10^3/uL (150-400)
[2017-11-20] MEDS ORDERED: POTASSIUM Cl (KCl) 50 ML IV ONE ×2 (06:37→21:36)
[2017-11-20] MEDS: DULoxetine 30 MG CAP TUBE SCH (08:19)
[2017-11-20] MEDS: CHLORHEXIDINE GLUCONATE 15 ML UDL PO SCH (08:19)
[2017-11-20] MEDS: LEVOTHYROXINE 200 MCG TAB TUBE SCH (08:19)
[2017-11-20] MEDS: INSULIN GLARGINE 100 UNITS/ML UNIT SC SCH (08:19)
[2017-11-20] MEDS: ENOXAPARIN 40 MG/0.4 ML SYR SC SCH (08:20)
[2017-11-20] MEDS: GABAPENTIN 100 MG CAP TUBE SCH ×3 (08:20→21:04)
[2017-11-20] MEDS: LANSOPRAZOLE SUSP 30MG/10ML UDSYR (Adult) TUBE SCH (08:26)
[2017-11-20] MEDS: CITALOPRAM 20 MG TAB TUBE SCH (08:27)
[2017-11-20] MEDS: NS 1,000 ML IV SCH ×2 (10:53→10:58)
--- NOTE | 2017-11-20 11:30 | PDINTPN ---
Home Energy Auditor Progress Note Assessment/Plan: Assessment: Septic Shock: Likely due to pneumonia. BP improved, still tachycardic. Pneumonia: Aspiration (witnessed vomiting at time of deterioration) vs. bacterial vs. viral, CXR now with a more discreet infiltrate on left On Zosyn, got Vancomycin. Tachycardia: Sinus. Resolved. ARPITA with CKD: Baseline Cr 1.3. Cr trending down towards this. DM: BSs 400s initially, now low 100s on Lantus and insulin gtt. Anemia: Improved after transfusion, still low Hypokalemia: Mild. Improved with treatment. Hypernatremia: Na climbing. Plan: Continue Zosyn. Increase free H2O. Wean vent, try to extubate. 11/20/17 11:29 11/20/17 11:31 Subjective: Intubated, alert, comfortable. Objective: Vital Signs Temp Pulse Resp BP Pulse Ox 37 C 75 28 H 115/61 95 11/20/17 10:00 11/20/17 10:00 11/20/17 10:00 11/20/17 10:00 11/20/17 10:00 Microbiology 11/17/17 13:32 - Final Sputum, Induced/Suctioned Sputum Culture - Final Staphylococcus Aureus Laboratory Results 11/20/17 05:50 11/20/17 05:50 11/19/17 11/20/17 11/21/17 05:59 05:59 05:59 Intake Total 3411 4750 Output Total 2250 2900 Balance 1161 1850 PT 13.5 SEC (12.0-15.0) 11/17/17 09:00 INR 1.01 (0.83-1.16) 11/17/17 09:00 CXR: Improved basilar infiltrates, persistent/worsened left mid-lung infiltrate. Images reviewed by me. Physical Exam - Physical Exam General Appearance: alert, no apparent distress EENT: normal ENT inspection Neck: normal inspection Respiratory: lungs clear, normal breath sounds Cardiac/Chest: regular rate, rhythm, No edema Abdomen: normal bowel sounds, non-tender Skin: normal color, warm/dry Extremities: normal inspection Neuro/Psych: alert, normal mood/affect, No motor weakness ICD10 Worksheet Patient Problems: Problems Problem Status Onset Abscess of left leg Acute Altered mental status Acute Anemia Acute Cellulitis in diabetic foot Acute Cellulitis of foot, right Acute Cellulitis of lower extremity Acute Failure to thrive Acute Fever Acute Lower limb ulcer, heel or midfoot Acute MRSA (methicillin resistant Staphylococcus aureus) Acute 01/16/15 Methicillin resistant Staphylococcus aureus infection Acute ~06/10/17 Osteomyelitis of ankle or foot, right, acute Acute Osteomyelitis of right foot Acute Sepsis Acute Severe sepsis Acute Uremia Acute
[2017-11-20] MEDS: clonazePAM 0.5 MG TAB TUBE PRN (16:50)
[2017-11-20] MEDS: AMPICILLIN/SULBACTAM 3 GM VIAL IV SCH ×2 (16:55→21:04)
[2017-11-20] MEDS: PREGABALIN 50 MG CAP TUBE SCH (17:03)
--- NOTE | 2017-11-20 17:20 | HOSPPROG ---
Hospitalist Progress Note Assessment/Plan: # acute encephalopathy - likely d/t below; continues, sedation weaned responding appropriately # acute on chronic (COPD on 4L) hypoxic resp failure d/t aspiration pneumonia- improving on vent oxygen saturations 95% on 50% Fi02 CXR ( personally reviewed and interpreted) multifocal infiltrates - MSSA in sputum- dc zosyn today transition to Unasyn - cont vent support- anticipating extubation today # acute on chronic renal failure - hyperK better; has not needed HD creatinine 1.5 today # septic shock - d/t pna; off pressors today # anemia - no clear source of blood loss; agree with transfusing PRBC # DM2 with hyperglycemia -dc insulin gtt - cont lantus andstart SSI # ?UTI - multiple orgs in UCx - not clearly UTI, more likely colonization - currently covered by unasyn # chronic pain on continuous narcotics - cont fentanyl TD # FEN - is passes swallow post extubation diabetic # htn - holding meds # morbid obesity - BMI 52 # charcot foot deformity I have discussed the case with Dr. Nunn - planning for extubation today Subjective: denies pain Objective: Vital Signs Temp Pulse Resp BP Pulse Ox 37 C 98 19 149/87 H 93 11/20/17 14:00 11/20/17 14:00 11/20/17 14:00 11/20/17 14:00 11/20/17 14:00 Microbiology 11/17/17 13:32 - Final Sputum, Induced/Suctioned Sputum Culture - Final Staphylococcus Aureus Laboratory Results 11/20/17 05:50 11/20/17 05:50 11/19/17 11/20/17 11/21/17 05:59 05:59 05:59 Intake Total 3411 4750 Output Total 2250 2900 Balance 1161 1850 PT 13.5 SEC (12.0-15.0) 11/17/17 09:00 INR 1.01 (0.83-1.16) 11/17/17 09:00 - Physical Exam Constitutional: obese Eyes: anicteric sclera Ears, Nose, Mouth, Throat: moist mucous membranes Cardiovascular: regular rate and rhythym Respiratory: no respiratory distress Gastrointestinal: normoactive bowel sounds Genitourinary: no bladder fullness Skin: warm Musculoskeletal: No asymmetric calves Neurologic: No AAOx3 Psychiatric: interacting appropriately Lymph, Heme, Immunologic: no cervical LAD ICD10 Worksheet Patient Problems: Problems Problem Status Onset Abscess of left leg Acute Altered mental status Acute Anemia Acute Cellulitis in diabetic foot Acute Cellulitis of foot, right Acute Cellulitis of lower extremity Acute Failure to thrive Acute Fever Acute Lower limb ulcer, heel or midfoot Acute MRSA (methicillin resistant Staphylococcus aureus) Acute 01/16/15 Methicillin resistant Staphylococcus aureus infection Acute ~06/10/17 Osteomyelitis of ankle or foot, right, acute Acute Osteomyelitis of right foot Acute Sepsis Acute Severe sepsis Acute Uremia Acute
[2017-11-20] MEDS: INSULIN LISPRO 100 UNIT/ML SC SCH (19:12)
[2017-11-20] MEDS: ASPIRIN 81 MG CHEWABLE TAB TUBE SCH (20:49)
[2017-11-21] MEDS: HYDROmorphONE/DILAUDID 4 MG TAB TUBE PRN ×2 (00:47→05:52)
[2017-11-21] MEDS: clonazePAM 0.5 MG TAB TUBE PRN (00:47)
[2017-11-21] MEDS: AMPICILLIN/SULBACTAM 3 GM VIAL IV SCH ×4 (05:10→22:38)
[2017-11-21 05:27] LABS: PLATELET COUNT 171 10^3/uL (150-400)
--- NOTE | 2017-11-21 09:11 | PDINTPN ---
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 BP, tachycardia improved, afebrile. Pneumonia: Aspiration (witnessed vomiting at time of deterioration) vs. bacterial vs. viral, CXR now with a more discreet infiltrate on left. On Zosyn, got Vancomycin. O2 needs down to baseline ARPITA with CKD: Back to baseline Cr 1.3. DM: BSs 400s initially, now low 100s on Lantus Anemia: Improved after transfusion, still low Hypokalemia: Mild. Improved with treatment. Hypernatremia: Na high but starting to trend down on D5. Plan: Continue Zosyn. Increase free H2O. Swallow eval. Follow Na, H/H, BSs. Transfer to /S. 11/21/17 09:11 11/21/17 09:12 11/21/17 09:13 Subjective: C/O hungry since being made NPO. Still feels weak. Breathing feels at baseline. Objective: Vital Signs Temp Pulse Resp BP Pulse Ox 37.1 C 83 16 134/75 H 97 11/21/17 04:00 11/21/17 06:00 11/21/17 06:00 11/21/17 06:00 11/21/17 06:00 Laboratory Results 11/21/17 04:50 11/21/17 04:50 11/20/17 11/21/17 11/22/17 05:59 05:59 05:59 Intake Total 4750 2129 Output Total 2900 3575 Balance 1850 -1446 PT 13.5 SEC (12.0-15.0) 11/17/17 09:00 INR 1.01 (0.83-1.16) 11/17/17 09:00 Physical Exam - Physical Exam General Appearance: alert, no apparent distress EENT: normal ENT inspection Neck: normal inspection Respiratory: lungs clear Cardiac/Chest: regular rate, rhythm, edema Abdomen: normal bowel sounds, non-tender Skin: normal color, warm/dry Extremities: normal inspection, other (amputation RLE) Neuro/Psych: alert, No normal mood/affect ICD10 Worksheet Patient Problems: Problems Problem Status Onset Abscess of left leg Acute Altered mental status Acute Anemia Acute Cellulitis in diabetic foot Acute Cellulitis of foot, right Acute Cellulitis of lower extremity Acute Failure to thrive Acute Fever Acute Lower limb ulcer, heel or midfoot Acute MRSA (methicillin resistant Staphylococcus aureus) Acute 01/16/15 Methicillin resistant Staphylococcus aureus infection Acute ~06/10/17 Osteomyelitis of ankle or foot, right, acute Acute Osteomyelitis of right foot Acute Sepsis Acute Severe sepsis Acute Uremia Acute
[2017-11-21] MEDS: INSULIN LISPRO 100 UNIT/ML SC SCH ×3 (09:40→18:48)
[2017-11-21] MEDS: LANSOPRAZOLE SUSP 30MG/10ML UDSYR (Adult) TUBE SCH (12:47)
[2017-11-21] MEDS: ENOXAPARIN 40 MG/0.4 ML SYR SC SCH (12:47)
[2017-11-21] MEDS: DULoxetine 30 MG CAP TUBE SCH (12:48)
[2017-11-21] MEDS: LEVOTHYROXINE 200 MCG TAB TUBE SCH (12:48)
[2017-11-21] MEDS: GABAPENTIN 100 MG CAP TUBE SCH ×3 (12:48→17:38)
[2017-11-21] MEDS: CITALOPRAM 20 MG TAB TUBE SCH (12:48)
[2017-11-21] MEDS: INSULIN GLARGINE 100 UNITS/ML UNIT SC SCH (13:30)
[2017-11-21] MEDS: fentaNYL 100 MCG PATCH TD SCH (13:30)
[2017-11-21] MEDS: PREGABALIN 50 MG CAP TUBE SCH ×2 (15:44→17:38)
--- NOTE | 2017-11-21 15:45 | HOSPPROG ---
Hospitalist Progress Note Assessment/Plan: # acute encephalopathy - resolved after fentanyl patch removed and patient taken off sedation # acute on chronic (COPD on 4L) hypoxic resp failure d/t aspiration pneumonia- extubated successfully overnight oxygen saturations 96% on 4L CXR ( personally reviewed and interpreted) multifocal infiltrates - MSSA in sputum- cont Unasyn # acute on chronic renal failure - hyperK better; has not needed HD creatinine 1.3 today # septic shock - d/t pna- remains off pressors today # anemia - no clear source of blood loss; agree with transfusing PRBC # DM2 with hypoglycemia overnight- BS 68 - dc lantus - cont SSI # ?UTI - multiple orgs in UCx - not clearly UTI, more likely colonization- wbc count improving even though providencia in urine not covered by abx - no change to abx for urine # chronic pain on continuous narcotics - dc fentanyl TD secondary to sedation # FEN - is passes swallow post extubation diabetic # htn - holding meds # morbid obesity - BMI 52 # charcot foot deformity I have discussed the case with Dr. Nunn - pt stable for transfer to floor Subjective: tearful Objective: Vital Signs Temp Pulse Resp BP Pulse Ox 37.1 C 67 16 166/104 H 96 11/21/17 14:31 11/21/17 14:31 11/21/17 14:31 11/21/17 14:31 11/21/17 14:31 Laboratory Results 11/21/17 04:50 11/21/17 04:50 11/20/17 11/21/17 11/22/17 05:59 05:59 05:59 Intake Total 4750 2129 Output Total 2900 3575 Balance 1850 -1446 PT 13.5 SEC (12.0-15.0) 11/17/17 09:00 INR 1.01 (0.83-1.16) 11/17/17 09:00 - Physical Exam Constitutional: chronically ill appearing, obese Eyes: anicteric sclera Ears, Nose, Mouth, Throat: dry mucous membranes Cardiovascular: regular rate and rhythym Respiratory: no respiratory distress, rhonchi Gastrointestinal: normoactive bowel sounds Genitourinary: no bladder fullness Skin: warm Musculoskeletal: No asymmetric calves Neurologic: AAOx3 Psychiatric: interacting appropriately, depressed Lymph, Heme, Immunologic: no cervical LAD ICD10 Worksheet Patient Problems: Problems Problem Status Onset Abscess of left leg Acute Altered mental status Acute Anemia Acute Cellulitis in diabetic foot Acute Cellulitis of foot, right Acute Cellulitis of lower extremity Acute Failure to thrive Acute Fever Acute Lower limb ulcer, heel or midfoot Acute MRSA (methicillin resistant Staphylococcus aureus) Acute 01/16/15 Methicillin resistant Staphylococcus aureus infection Acute ~06/10/17 Osteomyelitis of ankle or foot, right, acute Acute Osteomyelitis of right foot Acute Sepsis Acute Severe sepsis Acute Uremia Acute
--- NOTE | 2017-11-21 15:59 | ASMTCMCOM ---
CM Note CM Note Notes: Plan is for patient to return to [facility] on discharge. Transferred to the floor. Date Signed: 11/21/2017 03:58 PM Electronically Signed By:Dior Amanda LCSW
[2017-11-21] MEDS ORDERED: ACETAMINOPHEN 325 MG TAB PO PRN (16:32)
[2017-11-21] MEDS ORDERED: POLYETHYLENE GLYCOL 3350 17 GM PKT PO PRN (17:00)
[2017-11-21] MEDS ORDERED: ONDANSETRON DISINTEGRATING 4 MG TAB PO PRN (17:00)
[2017-11-21] MEDS: HYDROmorphONE/DILAUDID 4 MG TAB PO PRN (20:51)
[2017-11-21] MEDS: ASPIRIN 81 MG CHEWABLE TAB PO SCH (20:52)
[2017-11-21] MEDS: GABAPENTIN 100 MG CAP PO SCH (20:52)
[2017-11-21] MEDS: clonazePAM 0.5 MG TAB PO PRN (20:52)
[2017-11-21] MEDS: ENOXAPARIN 60 MG/0.6 ML SYR SC SCH (20:53)
[2017-11-21] MEDS ORDERED: ZOLPIDEM TARTRATE 5 MG TAB PO SCH (23:00)
[2017-11-22] MEDS: HYDROmorphONE/DILAUDID 4 MG TAB PO PRN ×3 (02:13→13:04)
[2017-11-22] MEDS: clonazePAM 0.5 MG TAB PO PRN (02:53)
[2017-11-22] MEDS: AMPICILLIN/SULBACTAM 3 GM VIAL IV SCH (05:38)
[2017-11-22 06:14] LABS: PLATELET COUNT 215 10^3/uL (150-400)
[2017-11-22 07:11] VITALS: BP 149/74; PULSE 59; RESP 18; TEMP 98.5; O2SAT 95
[2017-11-22] MEDS ORDERED: PANTOPRAZOLE SODIUM 40 MG TAB PO SCH (09:00)
[2017-11-22] MEDS ORDERED: DULoxetine 30 MG CAP PO SCH (09:00)
[2017-11-22] MEDS ORDERED: LEVOTHYROXINE 200 MCG TAB PO SCH (09:00)
[2017-11-22] MEDS ORDERED: CITALOPRAM 20 MG TAB PO SCH (09:00)
[2017-11-22] MEDS: GABAPENTIN 100 MG CAP PO SCH (09:03)
[2017-11-22] MEDS: ENOXAPARIN 60 MG/0.6 ML SYR SC SCH (09:04)
[2017-11-22] MEDS: INSULIN LISPRO 100 UNIT/ML SC SCH ×2 (09:04→11:38)
--- NOTE | 2017-11-22 11:04 | PDIAF ---
- Diagnosis Diagnosis: pneumonia Code Status: Full Code - Medication Management Discharge Medications: Medications to Continue on Transfer DULoxetine [Cymbalta 30 MG (*)] 60 mg PO DAILY 02/07/17 [Last Taken 11/16/17] Levothyroxine [Synthroid 200 mcg (*)] 200 mcg PO DAILY 02/07/17 [Last Taken ] Losartan Potassium [Cozaar 25 mg (*)] 25 mg PO DAILY 02/07/17 [Last Taken ] Pregabalin [Lyrica 50mg (*)] 150 mg PO DAILY AT 2PM 02/07/17 [Last Taken ] clonazePAM [Klonopin (*)] 0.5 mg PO BID PRN 02/07/17 [Last Taken 11/15/17] Alteplase [Cathflo Activase 2 mg (*)] 2 mg IVP DAILY PRN 06/10/17 [Last Taken Unknown] Aspirin [Aspirin 81mg (*)] 81 mg PO HS 06/10/17 [Last Taken 11/16/17] Calcium Carbonate [Tums 500MG (*)] 1,000 mg PO Q4H PRN 06/10/17 [Last Taken Unknown] Insulin Lispro [humALOG LISPRO 100 units/ml (*)] 5 unit SC TIDMEAL PRN 06/10/17 [Last Taken 11/16/17] Magnesium Hydroxide [Milk of Magnesia] 30 ml PO DAILY PRN 06/10/17 [Last Taken Unknown] Nystatin Powder [Mycostatin Powder] 1 ammon TP Q8H PRN 06/10/17 [Last Taken Unknown] Omeprazole Magnesium [Prilosec Otc] 20 mg PO DAILY 06/10/17 [Last Taken 11/16/17 ] Phenylephrine/Shk Lv/Mo/Pet,Wh [Preparation H Oint] 1 ammon ME Q6H PRN 06/10/17 [ Last Taken 05/29/17] Promethazine HCl [Phenergan 25mg (*)] 25 mg PO BID PRN 06/10/17 [Last Taken 04/11] Sennosides/Docusate Sodium [Senna-Docusate Sodium Tablet] 2 tab PO BID PRN 06/10 [Last Taken Unknown] Acetaminophen [Tylenol 325mg (*)] 650 mg PO Q4 PRN tab 06/28/17 [Last Taken ] Acetaminophen [Tylenol Rectal] 650 mg ME Q4 PRN supp 06/28/17 [Last Taken Unknown] Citalopram [CeleXA 20 MG] 20 mg PO DAILY tab 06/28/17 [Last Taken Unknown] Polyethylene Glycol 3350 [Miralax 17 gm (*)] 17 gm PO BID PRN pkt 06/28/17 [ Last Taken Unknown] Polyethylene Glycol 3350 [Miralax 17 gm (*)] 17 gm PO DAILY #30 pkt 07/31/17 [ Last Taken 11/16/17] Bisacodyl [Dulcolax] 10 mg RC DAILY PRN 11/17/17 [Last Taken Unknown] Cyclobenzaprine [Flexeril 10 MG (*)] 5 mg PO Q6H PRN 11/17/17 [Last Taken ] Fluticasone Nasal [Flonase Nasal [place]] 1 sprays NASAL DAILY 11/17/17 [Last Taken 11/16/17] Gabapentin [Neurontin 100 MG (*)] 200 mg PO TID 11/17/17 [Last Taken 11/16/17] Ipratropium/Albuterol [Duoneb (*)] 3 ml IH Q6H PRN 11/17/17 [Last Taken Unknown] Lidocaine 5% [Lidoderm 5% Patch] 2 ea TD Q8H PRN 11/17/17 [Last Taken Unknown] Sod Phos,M-B/Na Phos,Di-Ba [Fleet Enema] 133 ml RC DAILY PRN 11/17/17 [Last Taken Unknown] Sodium Chloride [[place] Saline] 1 unit NS Q2H PRN 11/17/17 [Last Taken Unknown] guaiFENesin [Mucinex 600 MG (*)] 600 mg PO BID PRN 11/17/17 [Last Taken 11/12/17 ] HYDROmorphone HCL [Dilaudid 4 mg (*)] 4 mg PO Q4HRS PRN tab 11/22/17 [Last Taken Unknown] Insulin Detemir [Levemir] 10 unit SQ DAILY #0 11/22/17 [Last Taken 11/16/17] levOFLOXACIN [levAQUIN (*)] 750 mg PO DAILY #1 tab 11/22/17 [Last Taken Unknown] Discharge Medications: Refer to the Discharge Home Medication list for PRN reason. - Orders Services needed: Home Care, Registered Nurse, Physical Therapy, Occupational Therapy, Speech Language Pathologist Home Care Face to Face: I certify that this patient was under my care and that I had the required [id number] encounter meeting the encounter requirements on the discharge day. My findings support the fact that the patient is homebound as defined in Home Care Face to Face Continued: CMS Chapter 7 Medicare Benefits Manual 30.1.1 , The condition of the patient is such that there exists a normal inability to leave home and consequently, leaving home would require a considerable and taxing effort. Isolation Type: Contact Isolation Diet Recommendation: ADA 2200 consistent carb Diet Texture: Regular Texture Diet, Thin Liquids, Meds Whole w/Liquids - Follow Up Care Current Providers and Referrals: Patient,NotPresent [Unknown] -
--- NOTE | 2017-11-22 12:40 | ASMTLACE ---
LACE Length of stay for Answers: 4-6 days current admission Acuity / Level of Answers: Yes Care: Did the patient have an inpatient admission? Comorbidities - select Answers: Diabetes (uncontrolled or all that apply controlled) Opioid dependence / Chronic pain # of Emergency department Answers: 5-8 visits in the last 6 months Social determinants Answers: Homelessness (street, skilled nursing) Score: 19 Date Signed: 11/22/2017 12:39 PM Electronically Signed By:Daniela Tsang RN
[2017-11-22] MEDS ORDERED: PREGABALIN 50 MG CAP PO SCH (14:00)
--- NOTE | 2017-11-22 20:56 | GDS ---
[f rep st] DISCHARGE SUMMARY DISCHARGE DIAGNOSES: Include. 1. Acute encephalopathy, thought secondary to medications including chronic narcotics. 2. Acute on chronic hypoxic respiratory failure. 3. Aspiration pneumonia status post intubation. 4. Acute on chronic renal failure. 5. Septic shock secondary to pneumonia. 6. Chronic anemia. 7. Diabetes. 8. Chronic pain on continuous narcotics. 9. Morbid obesity. HISTORY OF PRESENT ILLNESS: This is a 57-year-old female with a history of chronic hypoxic respirato ry failure, who presented on 11/17/2017, to [facility] with respiratory distress. For details of the patient's initial presentation, please see the history and physical dated 11/17/2017. HOSPITAL COURSE: 1. Acute hypoxic respiratory failure secondary to aspiration pneumonia. Patient was intubated, bein g cared for in the intensive care unit. She was successfully extubated and maintained saturations. In 48 hours prior to disposition, had at 95% to 98% on 4 L. The patient will complete her last day o f antibiotics for aspiration pneumonia at the shelter. 2. Septic shock. Patient required pressor support for her sepsis. On the day of disposition, her b lood pressures are stable. She has been off pressors for greater than 72 hours and mentating normall y and breathing at her baseline. 3. Acute encephalopathy. The patient was continued on her home dosing of narcotics for the early pa rt of her hospital stay. Initially extubated, patient remained extremely somnolent. We have discont inued her long-acting fentanyl patch and have found that her mentation is markedly improved without t his medication. Continued her p.r.n. dose of Dilaudid for her chronic pain, but recommend staying aw ay from fentanyl patches going forward. 4. Diabetes. The patient had significant hypoglycemia on half of her home dosing of long-acting ins ulin. We have decreased that significantly in the setting of her acute illness and postextubation ti me, as her diet has not been baseline. Would continue to cover with her sliding scale insulin. I ex pect that she can likely be up titrated back to her previous insulin dosing. However, this was not s afe to reinitiate at those doses. She is being discharged on 10 units of long-acting insulin during the day, rather than 50 in the day and 60 at night. 5. Acute kidney injury. Her renal function has improved after treatment for sepsis. The creatinine peaked at 1.9, is 1.2 on the day of disposition. She is taking adequate oral intake and suspect we will see this maintained post disposition. MEDICATIONS AT THE TIME OF DISPOSITION: Please reference med rec printed on 11/22/2018. PENDING STUDIES: At the time of this dictation are none. FOLLOWUP APPOINTMENTS: Include with the primary care provider in 1-2 weeks for post disposition foll ow up and vital signs and labs. I spent greater than 30 minutes in the planning and coordination of this discharge. /[id number]/MODL
--- NOTE | 2017-11-23 09:31 | ASDISCHSUM ---
Discharge Information Plan Status:SNF Medically Cleared to Leave: Discharge Date:11/22/2017 02:01 PM CM D/C Disposition:Residential Facility ADT D/C Disposition:Residential Facility Projected Discharge Date:11/22/2017 02:00 AM Transportation at D/C:ALS/BLS Discharge Delay Reason: Follow-Up Date:11/22/2017 02:00 AM Discharge Slot: Final Diagnosis:Acute encephalopathy, COPD, Renal Failure, Septic shock Placement Information Referral Type:*Retirement/SNF Referral ID:[id number] Provider Name:Clif Glover/[employer] Address 1:[address] Phone Number: Address 2: Fax Number: [facility]:[place] Selection Factors: State:[place] Patient Contact Information Contact Name:TVOA Relationship:Daughter Address: Work Phone: City: [facility] Phone: [facility] Code: Email: Financial Information Financial Class:Medicare Primary Plan Desc:MEDICARE INPATIENT Primary Plan Number:[id number] Secondary Plan Desc:[place] Secondary Plan Number:[id number] Assessment Information [facility] CM Progress Note CM Note CM Note Notes: Pt. om FED from [facility]. Records indicate a history of homelessness, several comorbidities and multiple ED visits. This SW left a message for SEAN Colon @ [facility] (called through direct line [phone]) and a message for Carine [phone]. Daughter listed in system, Emily [phone]. This SW called but did not leave a VM. Date Signed: 11/17/2017 10:54 AM Electronically Signed By:Susan Fried LCSW [facility] Length of stay for Answers: 4-6 days current admission Acuity / Level of Answers: Yes Care: Did the patient have an inpatient admission? Comorbidities - select Answers: Diabetes (uncontrolled or all that apply controlled) Opioid dependence / Chronic pain # of Emergency department Answers: 5-8 visits in the last 6 months Social determinants Answers: Homelessness (street, retirement) Score: 19 Date Signed: 11/22/2017 12:39 PM Electronically Signed By:Daniela Tsang RN [facility] CM Progress Note CM Note CM Note Notes: Return call from [facility] Nurse Floresita. Floresita left a message for daughter Dorothy, not on file with [facility]. She also attempted to call Emily but was full. At the time of this note Floresita reported that [facility] had not returned the call. Date Signed: 11/17/2017 12:12 PM Electronically Signed By:Susan Fried LCSW [facility] CM Progress Note CM Note CM Note Notes: Pt was admitted with aspiration PNA from [facility]. Anticipate d/c back to [facility] when medically cleared. CM will follow for any d/c needs. Date Signed: 11/18/2017 04:02 PM Electronically Signed By:TAYA Singer [facility] CM Progress Note CM Note CM Note Notes: Plan is for patient to return to [facility] on discharge. Transferred to the floor. Date Signed: 11/21/2017 03:58 PM Electronically Signed By:Dior Amanda LCSW Case Management Discharge Plan Note Case Management Discharge Discharge Order Complete? Answers: Yes Patient to Obtain Answers: Other Notes: [facility] Medications Transportation Arranged Answers: [facility] will Pick (Date 11/22/2017 02:00 AM & Time) Case Management Transport Answers: Yes Form Complete Faxed Final Orders Answers: Yes Agency/Facility Transfer Answers: Yes Report Printed & Faxed to Receiving Agency Discharge Comments Notes: Pt will dc back to [facility] today. Spoke w/Carine from who said they are ready to accept and she has arranged transport w/[facility]. Discussed w/RN who will call report; pt in agreement w/dc plan. Orders/info sent to [facility] through [facility]. Date Signed: 11/22/2017 12:38 PM Electronically Signed By:Daniela Tsang RN Intervention Information Intervention Type:*IM-Signed Date of Service:11/22/2017 11:29 AM Patient Type:Inpatient Staff Member:Louann Zabala Hours: Discipline: Severity: Comment:
== END 2017-11-22 14:01 | DRG 871 ==
LOC: EDUNIT# → F2N 10:54 → F3E 11-21 14:18
PROVIDERS: ADMIT Student in an Organized Health Care Education/Training Program; ATTEND Student in an Organized Health Care Education/Training Program
PROC: 0BH17EZ Insertion of Endotracheal Airway into Trachea, Via Natural or Artificial Opening (ICD-10-PCS; principal; 2017-11-17)
PROC: 5A1945Z Respiratory Ventilation, 24-96 Consecutive Hours (ICD-10-PCS; principal; 2017-11-17)
PROC: 02HV33Z Insertion of Infusion Device into Superior Vena Cava, Percutaneous Approach (ICD-10-PCS; 2017-11-17)
DX: A41.9 Sepsis, unspecified organism (principal); R65.21 Severe sepsis with septic shock; J69.0 Pneumonitis due to inhalation of food and vomit; J96.21 Acute and chronic respiratory failure with hypoxia; G92 Toxic encephalopathy; T40.605A Adverse effect of unspecified narcotics, initial encounter; N17.9 Acute kidney failure, unspecified; I12.9 Hypertensive chronic kidney disease with stage 1 through stage 4 chronic kidney disease, or unspecified chronic kidney disease; E11.22 Type 2 diabetes mellitus with diabetic chronic kidney disease; N18.3 Chronic kidney disease, stage 3 (moderate); E11.65 Type 2 diabetes mellitus with hyperglycemia; E87.6 Hypokalemia; E87.0 Hyperosmolality and hypernatremia; E66.01 Morbid (severe) obesity due to excess calories; Z68.43 Body mass index [BMI] 50.0-59.9, adult; E11.610 Type 2 diabetes mellitus with diabetic neuropathic arthropathy; D63.8 Anemia in other chronic diseases classified elsewhere; J44.9 Chronic obstructive pulmonary disease, unspecified; D86.9 Sarcoidosis, unspecified; E11.51 Type 2 diabetes mellitus with diabetic peripheral angiopathy without gangrene; I73.9 Peripheral vascular disease, unspecified; G89.29 Other chronic pain; E03.9 Hypothyroidism, unspecified; K21.9 Gastro-esophageal reflux disease without esophagitis; Z79.4 Long term (current) use of insulin; Z99.81 Dependence on supplemental oxygen; Z87.891 Personal history of nicotine dependence
CPT/HCPCS: 82947-QW; 92526-GN; 92610-GN; C1751; G0472; G8996-GN-CI; G8997-GN-CI; G8998-GN-CI; J0295; J1642; J1650; J1815; J1940; J2310; J2405; J2543; J2704; J3370; J3480; P9016

== ENCOUNTER 2017-12-15 12:11 | Emergency (ER) | payer OTHER, MEDICAID ==
--- NOTE | 2017-12-15 12:39 | EDPHY ---
H & P Stated Complaint: pt fell out of bed at [facility], left shoulder pain Time Seen by Provider: 12/15/17 12:27 HPI/ROS: CHIEF COMPLAINT: Left shoulder pain following mechanical fall HISTORY OF PRESENT ILLNESS: The patient presents the ED with complaints of left shoulder pain and headache following a mechanical fall. The patient has a history of obesity and currently is living at a shelter. She has multiple chronic medical problems. She recently has been admitted to the hospital for respiratory failure. The patient did strike her head. She denies loss of consciousness. She reportedly felt a pop in her left shoulder. REVIEW OF SYSTEMS: A comprehensive 10 point review of systems is otherwise negative aside from elements mentioned in the history of present illness. Source: Patient - Personal History Current Tetanus Diphtheria and Acellular Pertussis (TDAP): Yes Tetanus Vaccine Date: unsure of date - Medical/Surgical History Hx Asthma: No Hx Chronic Respiratory Disease: No Hx Diabetes: Yes Hx Cardiac Disease: No Hx Renal Disease: Yes Hx Cirrhosis: No Hx Alcoholism: No Hx HIV/AIDS: No Hx Splenectomy or Spleen Trauma: No Other PMH: diabetic ulcers on bi-lat feet, sarcoidosis, fibromyalgia, home O2 for opiods, MRSA, type 2 diabetes,anemia - Social History Smoking Status: Former smoker - Physical Exam Exam: General Appearance: Obese female, no acute distress Head: Normocephalic atraumatic Neck: Minimal left paracervical muscular tenderness Eyes: Pupils equal and round no pallor or injection ENT, Mouth: Mucous membranes moist Respiratory: There are no retractions, lungs are clear to auscultation Cardiovascular: Regular rate and rhythm Gastrointestinal: Abdomen is soft and nontender, no masses, bowel sounds normal Neurological: A&O, normal motor function, normal sensory exam, normal cranial nerves Skin: Warm and dry, no rashes Musculoskeletal: Tenderness to palpation over left clavicle Constitutional: Initial Vital Signs Temperature (C) 37.4 C 12/15/17 12:15 Heart Rate 108 H 12/15/17 12:15 Respiratory Rate 24 H 12/15/17 12:15 Blood Pressure 170/117 H 12/15/17 12:15 O2 Sat (%) 95 12/15/17 12:15 O2 Delivery Mode Room Air Allergies/Adverse Reactions: No Known Allergies Allergy (Verified 03/04/17 04:59) Home Medications: Medication Instructions Recorded DULoxetine [Cymbalta 30 MG (*)] 60 mg PO DAILY 02/07/17 Levothyroxine [Synthroid 200 mcg 200 mcg PO DAILY 02/07/17 (*)] Losartan Potassium [Cozaar 25 mg 25 mg PO DAILY 02/07/17 (*)] Pregabalin [Lyrica 50mg (*)] 150 mg PO DAILY AT 2PM 02/07/17 clonazePAM [Klonopin (*)] 0.5 mg PO BID PRN 02/07/17 Alteplase [Cathflo Activase 2 mg 2 mg IVP DAILY PRN 06/10/17 (*)] Aspirin [Aspirin 81mg (*)] 81 mg PO HS 06/10/17 Calcium Carbonate [Tums 500MG (*)] 1,000 mg PO Q4H PRN 06/10/17 Insulin Lispro [humALOG LISPRO 100 5 unit SC TIDMEAL PRN 06/10/17 units/ml (*)] Magnesium Hydroxide [Milk of 30 ml PO DAILY PRN 06/10/17 Magnesia] Nystatin Powder [Mycostatin Powder] 1 ammon TP Q8H PRN 06/10/17 Omeprazole Magnesium [Prilosec Otc] 20 mg PO DAILY 06/10/17 Phenylephrine/Shk Lv/Mo/Pet,Wh 1 ammon ND Q6H PRN 06/10/17 [Preparation H Oint] Promethazine HCl [Phenergan 25mg 25 mg PO BID PRN 06/10/17 (*)] Sennosides/Docusate Sodium 2 tab PO BID PRN 06/10/17 [Senna-Docusate Sodium Tablet] Acetaminophen [Tylenol 325mg (*)] 650 mg PO Q4 PRN tab 06/28/17 Acetaminophen [Tylenol Rectal] 650 mg ND Q4 PRN supp 06/28/17 Citalopram [CeleXA 20 MG] 20 mg PO DAILY tab 06/28/17 Polyethylene Glycol 3350 [Miralax 17 gm PO BID PRN pkt 06/28/17 17 gm (*)] Polyethylene Glycol 3350 [Miralax 17 gm PO DAILY #30 pkt 07/31/17 17 gm (*)] Bisacodyl [Dulcolax] 10 mg RC DAILY PRN 11/17/17 Cyclobenzaprine [Flexeril 10 MG 5 mg PO Q6H PRN 11/17/17 (*)] Fluticasone Nasal [Flonase Nasal 1 sprays NASAL DAILY 11/17/17 [place]] Gabapentin [Neurontin 100 MG (*)] 200 mg PO TID 11/17/17 Ipratropium/Albuterol [Duoneb (*)] 3 ml IH Q6H PRN 11/17/17 Lidocaine 5% [Lidoderm 5% Patch] 2 ea TD Q8H PRN 11/17/17 Sod Phos,M-B/Na Phos,Di-Ba [Fleet 133 ml RC DAILY PRN 11/17/17 Enema] Sodium Chloride [[place] Saline] 1 unit NS Q2H PRN 11/17/17 guaiFENesin [Mucinex 600 MG (*)] 600 mg PO BID PRN 11/17/17 HYDROmorphone HCL [Dilaudid 4 mg 4 mg PO Q4HRS PRN tab 11/22/17 (*)] Insulin Detemir [Levemir] 10 unit SQ DAILY #0 11/22/17 levOFLOXACIN [levAQUIN (*)] 750 mg PO DAILY #1 tab 11/22/17 Medical Decision Making - Diagnostics Imaging Results: Imaging Impressions Cervical Spine CT 12/15/17 12:28 Impression: 1. Prominent cerebral atrophy considering the patient's age. 2. No acute posttraumatic abnormality identified. 2. CT Cervical Spine Without Contrast, 12:39 PM History: Trauma. Fall out of bed today. Neck pain. Comparison: None Technique: Multislice helical CT through the cervical spine without contrast from the skull base to T1. Soft tissue and bone evaluation is performed. Sagittal and coronal reconstructions are obtained and reviewed. Dose reduction techniques were utilized. Findings: Cervical alignment is anatomic. There is mild superior endplate compression of C7 associated with a small osteophyte of the anterior superior C7 corner. I suspect this is old. No obvious acute fracture or dislocation is identified. The relationship between skull base and C1 is normal. The C1-C2 articulation is normally aligned. The odontoid process is intact. Disk spaces maintain their normal height except for mild narrowing of the C6-C7 disk space where there is a large ventral disk protrusion with disk material extending above and below the disk space consistent with a prolapsed fragment. Facet joints are normally aligned. The cervical thoracic junction is normally aligned. Soft tissue window evaluation does not show evidence of epidural or prevertebral hematoma. Impression: 1. Indeterminate age (suspect old) mild superior endplate C7 compression. This is associated with a large disk protrusion that could potentially be the source of significant central canal stenosis. If clinically indicated consider cervical MRI. Final concordant results discussed with Dr. Edson Jones at 1:22 PM. Final results are concordant with the initial interpretation. General information for patients regarding this examination can be found at [facility]. If you have questions or comments about this report, please contact me at [phone](hospital) or [phone] (cell). Head CT 12/15/17 12:28 Impression: 1. Prominent cerebral atrophy considering the patient's age. 2. No acute posttraumatic abnormality identified. 2. CT Cervical Spine Without Contrast, 12:39 PM History: Trauma. Fall out of bed today. Neck pain. Comparison: None Technique: Multislice helical CT through the cervical spine without contrast from the skull base to T1. Soft tissue and bone evaluation is performed. Sagittal and coronal reconstructions are obtained and reviewed. Dose reduction techniques were utilized. Findings: Cervical alignment is anatomic. There is mild superior endplate compression of C7 associated with a small osteophyte of the anterior superior C7 corner. I suspect this is old. No obvious acute fracture or dislocation is identified. The relationship between skull base and C1 is normal. The C1-C2 articulation is normally aligned. The odontoid process is intact. Disk spaces maintain their normal height except for mild narrowing of the C6-C7 disk space where there is a large ventral disk protrusion with disk material extending above and below the disk space consistent with a prolapsed fragment. Facet joints are normally aligned. The cervical thoracic junction is normally aligned. Soft tissue window evaluation does not show evidence of epidural or prevertebral hematoma. Impression: 1. Indeterminate age (suspect old) mild superior endplate C7 compression. This is associated with a large disk protrusion that could potentially be the source of significant central canal stenosis. If clinically indicated consider cervical MRI. Final concordant results discussed with Dr. Edson Jones at 1:22 PM. Final results are concordant with the initial interpretation. General information for patients regarding this examination can be found at [facility]. If you have questions or comments about this report, please contact me at [phone](hospital) or [phone] (cell). Clavicle X-Ray 12/15/17 12:36 Impression: Distal clavicle fracture 2. Left Clavicle, 2 views History: Pain post fall Findings: There is a distal left clavicular neck fracture with superior displacement of the distal clavicular shaft by three quarters the width of the clavicle. The AC joint remains normally aligned as does the shoulder joint. There is widening of the acromioclavicular distance. Impression: Superiorly displaced distal clavicle fracture, with a tear of the coracoclavicular ligaments. Humerus X-Ray 12/15/17 12:36 Impression: Distal clavicle fracture 2. Left Clavicle, 2 views History: Pain post fall Findings: There is a distal left clavicular neck fracture with superior displacement of the distal clavicular shaft by three quarters the width of the clavicle. The AC joint remains normally aligned as does the shoulder joint. There is widening of the acromioclavicular distance. Impression: Superiorly displaced distal clavicle fracture, with a tear of the coracoclavicular ligaments. ED Course/Re-evaluation: The patient presents the ED after mechanical fall. She is neurologically intact upon arrival. The patient was taken for a stat CT scan of the head which demonstrates no evidence of intracranial hemorrhage. CT C-spine demonstrates no evidence of an acute fracture. The patient does have EGD. The patient was noted to be neurologically intact in the upper lower extremities without any radicular symptoms. The patient does have a distal left clavicle fracture. The patient has been placed in a sling. I have cleared her cervical spine clinically. The patient will be advised to follow up with Orthopedics as an outpatient. I anticipate that her clavicle fracture should heal without the need for surgery. The patient is on chronic narcotic medications at baseline. She will be advised to take these medications and ibuprofen as needed for pain. She is given the contact number for Dr. Garland with Orthopedic surgery. Differential Diagnosis: Differential diagnosis considered includes intracranial hemorrhage, skull fracture, cervical spine fracture, clavicle fracture, pneumothorax, neurovascular injury - Data Points Medications Given: Discontinued Medications Acetaminophen (Tylenol) 1,000 mg PO EDNOW ONE Stop: 12/15/17 13:14 Last Admin: 12/15/17 13:19 Dose: 1,000 mg Departure - Departure Disposition: Home, Routine, Self-Care Clinical Impression: Clavicle fracture Condition: Good Instructions: Clavicle Fracture (ED) Additional Instructions: 1. Please wear sling as needed for comfort. 2. Please continue your regular pain medications. 3. You do have a fracture collar bone which should heal without surgery. Please schedule a follow-up appointment with the orthopedic surgeon you have been referred to. Referrals: Angel Garland MD [Medical Doctor] - As per Instructions
[2017-12-15] MEDS ORDERED: ACETAMINOPHEN 500 MG TAB PO ONE (13:13)
[2017-12-15 14:56] VITALS: BP 165/89; PULSE 78; RESP 18; TEMP 98.2; O2SAT 97
--- NOTE | 2017-12-15 15:36 | ASMTCMCOM ---
CM Note CM Note Notes: Pt presents to ED, from [facility], with complaints of left shoulder pain after falling out of bed. Spoke with Carine at [facility]; reports pt's fall today was out of a low bed. Carine states pt "was placed in a low bed because she keeps falling out of bed; [facility] staff members feel the recent falls may be intentional". Updated MD & RN. Date Signed: 12/15/2017 03:35 PM Electronically Signed By:Joy Paige RN
== END 2017-12-15 15:40 | disposition home or self-care (01) ==
LOC: EDUNIT#
DX: S42.032A Displaced fracture of lateral end of left clavicle, initial encounter for closed fracture (principal); E11.9 Type 2 diabetes mellitus without complications; Z87.891 Personal history of nicotine dependence; Z79.4 Long term (current) use of insulin; Z79.82 Long term (current) use of aspirin; W22.8XXA Striking against or struck by other objects, initial encounter; Y92.129 Unspecified place in nursing home as the place of occurrence of the external cause
CPT/HCPCS: 70450; 72125; 73000; 73060; 99285; A4565

== ENCOUNTER 2017-12-27 14:12 | Emergency (ER) | payer MEDICAID, OTHER ==
--- NOTE | 2017-12-27 14:21 | EDPHY ---
H & P Time Seen by Provider: 12/27/17 14:21 HPI/ROS: CHIEF COMPLAINT: Hyperglycemia HISTORY OF PRESENT ILLNESS: 57-year-old female with diabetes and multiple medical problems presents with hyperglycemia. She lives at [facility] and apparently her blood sugar was greater than 400 just prior to arrival. She has type 2 diabetes and takes insulin as needed. She would like us to check her blood sugar, give her insulin per her usual sliding scale and then send her back to [facility]. She refuses other assessment or treatment. REVIEW OF SYSTEMS: Constitutional: No fever, no recent illness Eyes: No drainage ENT: No sore throat Respiratory: No cough, no shortness of breath Cardiac: No chest pain Gastrointestinal: no vomiting, no abdominal pain Genitourinary: No hematuria, no dysuria Musculoskeletal: recent clavicle fracture Skin: No rash Neurological: No headache Psychiatric: depression - Personal History Tetanus Vaccine Date: unsure of date - Medical/Surgical History Hx Asthma: No Hx Chronic Respiratory Disease: No Hx Diabetes: Yes Hx Cardiac Disease: No Hx Renal Disease: Yes Hx Cirrhosis: No Hx Alcoholism: No Hx HIV/AIDS: No Hx Splenectomy or Spleen Trauma: No Other PMH: diabetic ulcers on bi-lat feet, sarcoidosis, fibromyalgia, home O2 for opiods, MRSA, type 2 diabetes,anemia - Social History Smoking Status: Former smoker - Physical Exam Exam: General Appearance: Alert, angry, demeaning Eyes: Pupils equal and round ENT, Mouth: Mucous membranes moist Neck: Normal inspection Respiratory: Lungs are clear to auscultation anteriorly Cardiovascular: Regular tachycardia Gastrointestinal: Abdomen is soft and nontender Neurological: A&O, nonfocal exam Skin: Warm and dry Extremities: normal inspection Psychiatric: angry Constitutional: Initial Vital Signs Temperature (C) 37 C 12/27/17 14:22 Heart Rate 127 H 12/27/17 14:22 Respiratory Rate 16 12/27/17 14:22 Blood Pressure 145/110 H 12/27/17 14:22 O2 Sat (%) 93 12/27/17 14:22 O2 Delivery Mode Room Air Allergies/Adverse Reactions: No Known Allergies Allergy (Verified 03/04/17 04:59) Home Medications: Medication Instructions Recorded DULoxetine [Cymbalta 30 MG (*)] 60 mg PO DAILY 02/07/17 Levothyroxine [Synthroid 200 mcg 200 mcg PO DAILY 02/07/17 (*)] Losartan Potassium [Cozaar 25 mg 25 mg PO DAILY 02/07/17 (*)] Pregabalin [Lyrica 50mg (*)] 150 mg PO DAILY AT 2PM 02/07/17 clonazePAM [Klonopin (*)] 0.5 mg PO BID PRN 02/07/17 Alteplase [Cathflo Activase 2 mg 2 mg IVP DAILY PRN 06/10/17 (*)] Aspirin [Aspirin 81mg (*)] 81 mg PO HS 06/10/17 Calcium Carbonate [Tums 500MG (*)] 1,000 mg PO Q4H PRN 06/10/17 Insulin Lispro [humALOG LISPRO 100 5 unit SC TIDMEAL PRN 06/10/17 units/ml (*)] Magnesium Hydroxide [Milk of 30 ml PO DAILY PRN 06/10/17 Magnesia] Nystatin Powder [Mycostatin Powder] 1 ammon TP Q8H PRN 06/10/17 Omeprazole Magnesium [Prilosec Otc] 20 mg PO DAILY 06/10/17 Phenylephrine/Shk Lv/Mo/Pet,Wh 1 ammon NM Q6H PRN 06/10/17 [Preparation H Oint] Promethazine HCl [Phenergan 25mg 25 mg PO BID PRN 06/10/17 (*)] Sennosides/Docusate Sodium 2 tab PO BID PRN 06/10/17 [Senna-Docusate Sodium Tablet] Acetaminophen [Tylenol 325mg (*)] 650 mg PO Q4 PRN tab 06/28/17 Acetaminophen [Tylenol Rectal] 650 mg NM Q4 PRN supp 06/28/17 Citalopram [CeleXA 20 MG] 20 mg PO DAILY tab 06/28/17 Polyethylene Glycol 3350 [Miralax 17 gm PO BID PRN pkt 06/28/17 17 gm (*)] Polyethylene Glycol 3350 [Miralax 17 gm PO DAILY #30 pkt 07/31/17 17 gm (*)] Bisacodyl [Dulcolax] 10 mg RC DAILY PRN 11/17/17 Cyclobenzaprine [Flexeril 10 MG 5 mg PO Q6H PRN 11/17/17 (*)] Fluticasone Nasal [Flonase Nasal 1 sprays NASAL DAILY 11/17/17 [place]] Gabapentin [Neurontin 100 MG (*)] 200 mg PO TID 11/17/17 Ipratropium/Albuterol [Duoneb (*)] 3 ml IH Q6H PRN 11/17/17 Lidocaine 5% [Lidoderm 5% Patch] 2 ea TD Q8H PRN 11/17/17 Sod Phos,M-B/Na Phos,Di-Ba [Fleet 133 ml RC DAILY PRN 11/17/17 Enema] Sodium Chloride [[place] Saline] 1 unit NS Q2H PRN 11/17/17 guaiFENesin [Mucinex 600 MG (*)] 600 mg PO BID PRN 11/17/17 HYDROmorphone HCL [Dilaudid 4 mg 4 mg PO Q4HRS PRN tab 11/22/17 (*)] Insulin Detemir [Levemir] 10 unit SQ DAILY #0 11/22/17 levOFLOXACIN [levAQUIN (*)] 750 mg PO DAILY #1 tab 11/22/17 Medical Decision Making ED Course/Re-evaluation: This patient presents with hyperglycemia. She is also tachycardic, with a heart rate in the 120s. She refuses to allow me to assess this tachycardia. She states that her HR is high because she's upset and that she just wants to go home. Insulin 6 units regular subcutaneously given. At her request, no further evaluation done. Transported back to [place] by ambulance. 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
[2017-12-27] MEDS ORDERED: INSULIN REGULAR HUMAN 100 UNIT/ML UNIT SC ONE (14:33)
[2017-12-27 16:00] VITALS: BP 155/85; PULSE 110; RESP 20; TEMP 98.6; O2SAT 95
== END 2017-12-27 15:59 | disposition home or self-care (01) ==
LOC: EDUNIT#
DX: E11.65 Type 2 diabetes mellitus with hyperglycemia (principal); Z79.4 Long term (current) use of insulin; Z87.891 Personal history of nicotine dependence
CPT/HCPCS: J1815

== ENCOUNTER 2018-03-27 08:27 | Emergency (ER) | payer OTHER, MEDICAID ==
[2018-03-27] MEDS ORDERED: LIDOCAINE/PRILOCAINE 1 EACH CRTUBE TP ONE (08:48)
--- NOTE | 2018-03-27 09:36 | EDPHY ---
H & P Time Seen by Provider: 03/27/18 08:54 HPI/ROS: CHIEF COMPLAINT: Altered mental status HISTORY OF PRESENT ILLNESS: 57-year-old female presents to the emergency department by ambulance from [facility] with altered mental status. The patient states that last night she was on the phone with her daughter and felt confused. She states that she was having trouble naming things like this ceiling and the wall. She states"I get disoriented when I have an infection and ". She does have a known abscess in the left axilla that has been draining. She denies fevers or chills. She has had an ongoing productive cough for months. She is unsure of fevers. She has a history of COPD and is chronically on 4 L of oxygen. She denies pain in her chest. Denies neck pain. She is wheelchair-bound. She states that the word-finding difficulty and the confusion has improved although she still feels dizzy and lightheaded. She is concerned about recurring infection. She was admitted to the hospital October 2017 with septic shock and aspiration pneumonia. REVIEW OF SYSTEMS: Constitutional: No fever, no chills. Eyes: No double or blurry vision. ENT: No sore throat. Respiratory: Cough as above Cardiac: No chest pain. Gastrointestinal: No abdominal pain, vomiting or diarrhea. Genitourinary: No dysuria. Musculoskeletal: No neck or back pain. Skin: Infection left axilla. No rashes. Neurological: No headache. 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 Temperature 36.6 degrees, blood pressure 142/45, heart rate 90, 99% on 5 L of nasal cannula oxygen. Eyes: Pupils equal and round. Extraocular motions are all intact. ENT: Mouth: Mucous membranes moist. Respiratory: Diffuse expiratory rhonchi throughout. No wheezing or rales. Cardiovascular: Regular rate and rhythm. Gastrointestinal: Abdomen is obese and soft and nontender, no masses, no rebound or guarding, bowel sounds normal. Neurological: Alert and oriented x 3, cranial nerves II through XII grossly intact Skin: Patient has what appears to be a subcutaneous abscess just below the left axilla that is acutely draining. Mostly serous fluid. There is induration surrounding the wound greater than 3 cm in diameter. Warm and dry, no rashes. Musculoskeletal: Nontender to palpate along the cervical, thoracic or lumbar spine. Neck is supple. Extremities: Right [id number] amputation noted. No signs of infection in the left foot. Psychiatric: Patient is oriented X 3, there is no agitation. Constitutional: Initial Vital Signs Temperature (C) 37.0 C 03/27/18 08:52 Heart Rate 97 03/27/18 08:52 Respiratory Rate 19 03/27/18 08:52 Blood Pressure 133/76 H 03/27/18 08:52 O2 Sat (%) 97 03/27/18 08:52 O2 Delivery Mode Nasal Cannula O2 (L/minute) 5 Allergies/Adverse Reactions: No Known Allergies Allergy (Verified 03/04/17 04:59) Home Medications: Medication Instructions Recorded DULoxetine [Cymbalta 30 MG (*)] 60 mg PO DAILY 02/07/17 Levothyroxine [Synthroid 200 mcg 200 mcg PO DAILY 02/07/17 (*)] Losartan Potassium [Cozaar 25 mg 25 mg PO DAILY 02/07/17 (*)] Pregabalin [Lyrica 50mg (*)] 150 mg PO DAILY AT 2PM 02/07/17 clonazePAM [Klonopin (*)] 0.5 mg PO BID PRN 02/07/17 Alteplase [Cathflo Activase 2 mg 2 mg IVP DAILY PRN 06/10/17 (*)] Aspirin [Aspirin 81mg (*)] 81 mg PO HS 06/10/17 Calcium Carbonate [Tums 500MG (*)] 1,000 mg PO Q4H PRN 06/10/17 Insulin Lispro [humALOG LISPRO 100 5 unit SC TIDMEAL PRN 06/10/17 units/ml (*)] Magnesium Hydroxide [Milk of 30 ml PO DAILY PRN 06/10/17 Magnesia] Nystatin Powder [Mycostatin Powder] 1 ammon TP Q8H PRN 06/10/17 Omeprazole Magnesium [Prilosec Otc] 20 mg PO DAILY 06/10/17 Phenylephrine/Shk Lv/Mo/Pet,Wh 1 ammon MN Q6H PRN 06/10/17 [Preparation H Oint] Promethazine HCl [Phenergan 25mg 25 mg PO BID PRN 06/10/17 (*)] Sennosides/Docusate Sodium 2 tab PO BID PRN 06/10/17 [Senna-Docusate Sodium Tablet] Acetaminophen [Tylenol 325mg (*)] 650 mg PO Q4 PRN tab 06/28/17 Acetaminophen [Tylenol Rectal] 650 mg MN Q4 PRN supp 06/28/17 Citalopram [CeleXA 20 MG] 20 mg PO DAILY tab 06/28/17 Polyethylene Glycol 3350 [Miralax 17 gm PO BID PRN pkt 06/28/17 17 gm (*)] Polyethylene Glycol 3350 [Miralax 17 gm PO DAILY #30 pkt 07/31/17 17 gm (*)] Bisacodyl [Dulcolax] 10 mg RC DAILY PRN 11/17/17 Cyclobenzaprine [Flexeril 10 MG 5 mg PO Q6H PRN 11/17/17 (*)] Fluticasone Nasal [Flonase Nasal 1 sprays NASAL DAILY 11/17/17 [place]] Gabapentin [Neurontin 100 MG (*)] 200 mg PO TID 11/17/17 Ipratropium/Albuterol [Duoneb (*)] 3 ml IH Q6H PRN 11/17/17 Lidocaine 5% [Lidoderm 5% Patch] 2 ea TD Q8H PRN 11/17/17 Sod Phos,M-B/Na Phos,Di-Ba [Fleet 133 ml RC DAILY PRN 11/17/17 Enema] Sodium Chloride [[place] Saline] 1 unit NS Q2H PRN 11/17/17 guaiFENesin [Mucinex 600 MG (*)] 600 mg PO BID PRN 11/17/17 HYDROmorphone HCL [Dilaudid 4 mg 4 mg PO Q4HRS PRN tab 11/22/17 (*)] Insulin Detemir [Levemir] 10 unit SQ DAILY #0 11/22/17 levOFLOXACIN [levAQUIN (*)] 750 mg PO DAILY #1 tab 11/22/17 Medical Decision Making - Diagnostics Imaging Results: Imaging Impressions Chest X-Ray 03/27/18 09:28 Impression: No evidence for pneumonia. Imaging: I viewed and interpreted images myself ED Course/Re-evaluation: The case was discussed with Dr. James Ford, secondary supervising physician, who did not directly evaluate the patient but agrees with treatment and plan. Lactate was normal. The patient has chronic anemia and her hemoglobin and hematocrit are 9.8 and 30% respectively which is an improvement for her. Elevated blood sugar over 300. Chemistries are otherwise unremarkable. She does have a creatinine 1.1 and elevated BUN of 38. Chest x-ray reveals no signs of pneumonia. Urinalysis reveals no signs of infection. Patient does have a likely sebaceous cyst just inferior to the left axilla. There is drainage noted. She does have some induration. No other fluctuance. I do not think further incision and drainage is warranted at this time. Wound culture has been ordered and is pending. She will continue antibiotics as prescribed. The patient was encouraged to follow up with her construction tech given her ongoing chronic cough. She does have a history of COPD. The patient also has evidence of infection in the left axilla however I do not think further debridement is necessary at this time. I did encourage her to a apply warm compresses. She is welcome back at [facility]. I encouraged close follow- up with primary care provider. She was instructed to return if she develops headache, vomiting, altered mental status, fever, or if she feels worse in any way. Patient was monitored throughout her stay in the emergency department for several hours. She was completely lucid. She had no signs of confusion or altered mental status. Certainly no focal neurologic findings. Differential Diagnosis: Including but not limited to sepsis, cellulitis, abscess, electrolyte abnormality, pneumonia - Data Points Laboratory Results: Laboratory Results 03/27/18 09:35 03/27/18 09:35 03/27/18 03/27/18 03/27/18 11:38 11:38 09:35 WBC RBC Hgb Hct MCV MCH MCHC RDW Plt Count MPV Neut % (Auto) Lymph % (Auto) [place] % (Auto) Eos % (Auto) Baso % (Auto) Nucleat RBC Rel Count Absolute Neuts (auto) Absolute Lymphs (auto) Absolute Monos (auto) Absolute Eos (auto) Absolute Basos (auto) Absolute Nucleated RBC Immature Gran % Seg Neutrophils % Band Neutrophils % Lymphocytes % Monocytes % Eosinophils % Basophils % Metamyelocytes % Myelocytes % Promyelocytes % Blast Cells % Immature Gran # Absolute Seg Neuts Absolute Band Neuts Absolute Lymphocytes Absolute Monocytes Absolute Eosinophils Absolute Basophils Absolute Metamyelocyte Absolute Myelocytes Absolute Promyelocytes Absolute Plasma Cells Absolute Blast Cells Plasma Cells % Platelet Estimate Microcytic Cells VBG Lactic Acid Sodium 141 mEq/L mEq/L (135-145) Potassium 4.7 mEq/L mEq/L (3.3-5.0) Chloride 103 mEq/L mEq/L (97-110) Carbon Dioxide 28 mEq/l mEq/l (22-31) Anion Gap 10 mEq/L mEq/L (8-16) BUN 38 mg/dL H mg/dL (7-23) Creatinine 1.1 mg/dL H mg/dL (0.6-1.0) Estimated GFR 51 Glucose 338 mg/dL H mg/dL (70-100) Calcium 9.2 mg/dL mg/dL (8.5-10.4) Urine Color YELLOW Urine Appearance CLEAR Urine pH 5.0 (5.0-7.5) Ur Specific [place] 1.013 (1.002-1.030) Urine Protein NEGATIVE (NEGATIVE) Urine Ketones NEGATIVE (NEGATIVE) Urine Blood NEGATIVE (NEGATIVE) Urine Nitrate NEGATIVE (NEGATIVE) Urine Bilirubin NEGATIVE (NEGATIVE) Urine Urobilinogen NEGATIVE EU EU (0.2-1.0) Ur Leukocyte Esterase NEGATIVE (NEGATIVE) Urine RBC 1-3 /hpf /hpf (0-3) Urine WBC 1-3 /hpf /hpf (0-3) Ur Epithelial Cells TRACE /lpf /lpf (NONE-1+) Urine Mucus TRACE /lpf /lpf (NONE-1+) Urine Glucose 3+ H (NEGATIVE) Urine Opiates Screen 468 ng/mL ng/mL (NEGATIVE) Urine Barbiturates NEGATIVE ng/mL ng/mL (NEGATIVE) Ur Phencyclidine Scrn NEGATIVE ng/mL ng/mL (NEGATIVE) Ur Amphetamines Screen NEGATIVE ng/mL ng/mL (NEGATIVE) U Benzodiazepines Scrn NEGATIVE ng/mL ng/mL (NEGATIVE) Urine Cocaine Screen NEGATIVE ng/mL ng/mL (NEGATIVE) U Marijuana (THC) Screen NEGATIVE ng/mL ng/mL (NEGATIVE) 03/27/18 03/27/18 09:35 09:35 WBC 5.77 10^3/uL 10^3/uL (3.80-9.50) RBC 3.53 10^6/uL L 10^6/uL (4.18-5.33) Hgb 9.8 g/dL L g/dL (12.6-16.3) Hct 30.0 % L % (38.0-47.0) MCV 85.0 fL fL (81.5-99.8) MCH 27.8 pg L pg (27.9-34.1) MCHC 32.7 g/dL g/dL (32.4-36.7) RDW 14.4 % % (11.5-15.2) Plt Count 204 10^3/uL 10^3/uL (150-400) MPV 9.0 fL fL (8.7-11.7) Neut % (Auto) Not Reported Lymph % (Auto) Not Reported [place] % (Auto) Not Reported Eos % (Auto) Not Reported Baso % (Auto) Not Reported Nucleat RBC Rel Count Not Reported Absolute Neuts (auto) Not Reported Absolute Lymphs (auto) Not Reported Absolute Monos (auto) Not Reported Absolute Eos (auto) Not Reported Absolute Basos (auto) Not Reported Absolute Nucleated RBC Not Reported Immature Gran % Not Reported Seg Neutrophils % 58.1 % % Band Neutrophils % 0 % % Lymphocytes % 32.4 % % Monocytes % 3.8 % % Eosinophils % 2.9 % % Basophils % 1.9 % % Metamyelocytes % 0.9 % % Myelocytes % 0 % % Promyelocytes % 0 % % Blast Cells % 0 % % Immature Gran # Not Reported Absolute Seg Neuts 3.35 10^/uL 10^/uL (1.70-6.50) Absolute Band Neuts 0.00 10^3/uL 10^3/uL (0.00-0.70) Absolute Lymphocytes 1.87 10^3/uL 10^3/uL (1.00-3.00) Absolute Monocytes 0.22 10^3/uL L 10^3/uL (0.30-0.80) Absolute Eosinophils 0.17 10^3/uL 10^3/uL (0.03-0.40) Absolute Basophils 0.11 10^3/uL H 10^3/uL (0.02-0.10) Absolute Metamyelocyte 0.05 10^3/mL H 10^3/mL (0.00-0.00) Absolute Myelocytes 0.00 10^3/mL 10^3/mL (0.00-0.00) Absolute Promyelocytes 0.00 10^3/uL 10^3/uL (0.00-0.00) Absolute Plasma Cells 0.00 10^3/uL 10^3/uL (0.00-0.00) Absolute Blast Cells 0.00 10^3/uL 10^3/uL (0.00-0.00) Plasma Cells % 0 % % Platelet Estimate ADEQUATE (ADEQ) Microcytic Cells 1+ H VBG Lactic Acid 0.8 mmol/L mmol/L (0.7-2.1) Sodium Potassium Chloride Carbon Dioxide Anion Gap BUN Creatinine Estimated GFR Glucose Calcium Urine Color Urine Appearance Urine pH Ur Specific [place] Urine Protein Urine Ketones Urine Blood Urine Nitrate Urine Bilirubin Urine Urobilinogen Ur Leukocyte Esterase Urine RBC Urine WBC Ur Epithelial Cells Urine Mucus Urine Glucose Urine Opiates Screen Urine Barbiturates Ur Phencyclidine Scrn Ur Amphetamines Screen U Benzodiazepines Scrn Urine Cocaine Screen U Marijuana (THC) Screen Microbiology Results: MICROBIOLOGY 03/27/18 09:31 Axilla - Swab Gram Stain - Final 03/27/18 09:31 Axilla - Swab Wound Culture - Preliminary Departure - Departure Disposition: Home, Routine, Self-Care Clinical Impression: Altered mental status Qualifiers: Altered mental status type: unspecified Qualified Code(s): R41.82 - Altered mental status, unspecified Condition: Good Instructions: Abscess (ED), Altered Mental Status (ED) Additional Instructions: You have no evidence of acute infection on examination today. Follow up with your primary care provider this week to recheck. Return to the emergency department if you developed fever, shortness of breath, or if you feel worse in any way. Call [phone] for the results of your wound culture in 48 hr. Continue antibiotics as prescribed. Warm compresses. Follow-up with your construction tech regarding your ongoing chronic cough.
[2018-03-27 09:59] LABS: PLATELET COUNT 204 10^3/uL (150-400)
[2018-03-27 13:04] VITALS: BP 134/88
== END 2018-03-27 13:15 | disposition home or self-care (01) ==
LOC: EDUNIT# → EDBD
DX: R41.82 Altered mental status, unspecified (principal); E11.9 Type 2 diabetes mellitus without complications; J44.9 Chronic obstructive pulmonary disease, unspecified; I12.9 Hypertensive chronic kidney disease with stage 1 through stage 4 chronic kidney disease, or unspecified chronic kidney disease; N18.9 Chronic kidney disease, unspecified; Z79.4 Long term (current) use of insulin; Z79.82 Long term (current) use of aspirin; Z87.891 Personal history of nicotine dependence
CPT/HCPCS: 80307; G0480

== ENCOUNTER 2018-06-06 20:10 | Emergency (ER) | payer OTHER, MEDICAID ==
--- NOTE | 2018-06-06 22:06 | EDPHY ---
H & P Stated Complaint: pt request insulin dosage consult--not satisfied w/ [facility] care Time Seen by Provider: 06/06/18 21:50 HPI/ROS: CHIEF COMPLAINT: unsatisfied with [facility] HISTORY OF PRESENT ILLNESS: The patient is a 57-year-old female with morbid obesity and poorly-controlled diabetes with a right below-knee amputation. She lives at [facility] and she her family is unsatisfied with the care there. The patient states that she has no complaints other than that they have not been tight enough with her glycemic control. She states that she has a food addict and will often times eat untill her glucose is 500 and then once them to give her large dose of insulin but they give her a small dose. She does take Lantus 100 units per day as well. Today her 19-year-old daughter was frustrated with the care there and called an ambulance and asked that she be brought to the emergency department for recommendations on her insulin sliding scale. Patient herself has no complaints other than not liking the facility in general and that they do not treat her with respect. Severity: Moderate Modifying factors: Moderate REVIEW OF SYSTEMS: Constitutional: denies: chills, fever, recent illness, recent injury EENTM: denies: blurred vision, double vision, nose congestion Respiratory: denies: cough, shortness of breath Cardiac: denies: chest pain, irregular heart rate, lightheadedness, palpitations Gastrointestinal/Abdominal: denies: abdominal pain, diarrhea, nausea, vomiting, blood streaked stools Genitourinary: denies: dysuria, frequency, hematuria, pain Musculoskeletal: denies: joint pain, muscle pain Skin: denies: lesions, rash, jaundice, bruising Neurological: denies: headache, numbness, paresthesia, tingling, dizziness, weakness Hematologic/Lymphatic: denies: blood clots, easy bleeding, easy bruising Immunologic/allergic: denies: HIV/AIDS, transplant 10 systems reviewed and negative except as noted EXAM: GENERAL: Morbidly obese HEAD: Atraumatic, normocephalic. EYES: Pupils equal round and reactive to light, extraocular movements intact, sclera anicteric, conjunctiva are normal. ENT: TMs normal, nares patent, oropharynx clear without exudates. Moist mucous membranes. NECK: Normal range of motion, supple without lymphadenopathy or JVD. LUNGS: Breath sounds clear to auscultation bilaterally and equal. No wheezes rales or rhonchi. HEART: Regular rate and rhythm without murmurs, rubs or gallops. ABDOMEN: Soft, nontender, normoactive bowel sounds. No guarding, no rebound. No masses appreciated. BACK: No CVA tenderness, no spinal tenderness, step-offs or deformities EXTREMITIES: Right below-knee amputation. Normal range of motion, no pitting or edema. No clubbing or cyanosis. NEUROLOGICAL: Cranial nerves II through XII grossly intact. Normal speech. 5/ 5 strength, normal movement in all extremities, normal sensation, normal reflexes PSYCH: Normal mood, normal affect. SKIN: Warm, dry, normal turgor, no visible rashes or lesions. Source: Patient Exam Limitations: No limitations - Personal History Tetanus Vaccine Date: unsure of date - Medical/Surgical History Hx Asthma: No Hx Chronic Respiratory Disease: No Hx Diabetes: Yes Hx Cardiac Disease: No Hx Renal Disease: Yes Hx Cirrhosis: No Hx Alcoholism: No Hx HIV/AIDS: No Hx Splenectomy or Spleen Trauma: No Other PMH: IDDM, diabetic ulcers on bi-lat feet, R lower leg amput, sarcoidosis , fibromyalgia, home O2, MRSA, anemia - Social History Smoking Status: Former smoker Alcohol Use: Sober Drug Use: None Constitutional: Initial Vital Signs Temperature (C) 36.5 C 06/06/18 20:42 Heart Rate 84 06/06/18 20:42 Respiratory Rate 18 06/06/18 20:42 Blood Pressure 149/94 H 06/06/18 20:42 O2 Sat (%) 94 06/06/18 20:42 O2 Delivery Mode Room Air O2 (L/minute) 5 Allergies/Adverse Reactions: No Known Allergies Allergy (Verified 03/04/17 04:59) Home Medications: Medication Instructions Recorded DULoxetine [Cymbalta 30 MG (*)] 60 mg PO DAILY 02/07/17 Levothyroxine [Synthroid 200 mcg 200 mcg PO DAILY 02/07/17 (*)] Losartan Potassium [Cozaar 25 mg 25 mg PO DAILY 02/07/17 (*)] Pregabalin [Lyrica 50mg (*)] 150 mg PO DAILY AT 2PM 02/07/17 clonazePAM [Klonopin (*)] 0.5 mg PO BID PRN 02/07/17 Alteplase [Cathflo Activase 2 mg 2 mg IVP DAILY PRN 06/10/17 (*)] Aspirin [Aspirin 81mg (*)] 81 mg PO HS 06/10/17 Calcium Carbonate [Tums 500MG (*)] 1,000 mg PO Q4H PRN 06/10/17 Insulin Lispro [humALOG LISPRO 100 5 unit SC TIDMEAL PRN 06/10/17 units/ml (*)] Magnesium Hydroxide [Milk of 30 ml PO DAILY PRN 06/10/17 Magnesia] Nystatin Powder [Mycostatin Powder] 1 ammon TP Q8H PRN 06/10/17 Omeprazole Magnesium [Prilosec Otc] 20 mg PO DAILY 06/10/17 Phenylephrine/Shk Lv/Mo/Pet,Wh 1 ammon MA Q6H PRN 06/10/17 [Preparation H Oint] Promethazine HCl [Phenergan 25mg 25 mg PO BID PRN 06/10/17 (*)] Sennosides/Docusate Sodium 2 tab PO BID PRN 06/10/17 [Senna-Docusate Sodium Tablet] Acetaminophen [Tylenol 325mg (*)] 650 mg PO Q4 PRN tab 06/28/17 Acetaminophen [Tylenol Rectal] 650 mg MA Q4 PRN supp 06/28/17 Citalopram [CeleXA 20 MG] 20 mg PO DAILY tab 06/28/17 Polyethylene Glycol 3350 [Miralax 17 gm PO BID PRN pkt 06/28/17 17 gm (*)] Polyethylene Glycol 3350 [Miralax 17 gm PO DAILY #30 pkt 07/31/17 17 gm (*)] Bisacodyl [Dulcolax] 10 mg RC DAILY PRN 11/17/17 Cyclobenzaprine [Flexeril 10 MG 5 mg PO Q6H PRN 11/17/17 (*)] Fluticasone Nasal [Flonase Nasal 1 sprays NASAL DAILY 11/17/17 [place]] Gabapentin [Neurontin 100 MG (*)] 200 mg PO TID 11/17/17 Ipratropium/Albuterol [Duoneb (*)] 3 ml IH Q6H PRN 11/17/17 Lidocaine 5% [Lidoderm 5% Patch] 2 ea TD Q8H PRN 11/17/17 Sod Phos,M-B/Na Phos,Di-Ba [Fleet 133 ml RC DAILY PRN 11/17/17 Enema] Sodium Chloride [[place] Saline] 1 unit NS Q2H PRN 11/17/17 guaiFENesin [Mucinex 600 MG (*)] 600 mg PO BID PRN 11/17/17 HYDROmorphone HCL [Dilaudid 4 mg 4 mg PO Q4HRS PRN tab 11/22/17 (*)] Insulin Detemir [Levemir] 10 unit SQ DAILY #0 11/22/17 levOFLOXACIN [levAQUIN (*)] 750 mg PO DAILY #1 tab 11/22/17 Medical Decision Making ED Course/Re-evaluation: 10:00 p.m. the patient glucose is currently 280. I will give her IV insulin and recheck. I do not see any evidence for admission. The patient essentially has no complaints other than that she wants her glucose more closely monitored and managed however she is not willing to modify her diet at all. I Understand that she and her daughter not happy with [facility] but we discussed the appropriateness of coming to the hospital to facilitate transfer to a different snf when the patient is not acutely ill. I do not believe that this is appropriate. Eventually agreed to take her back to [facility] and will pursue changing locations from there. The patient does not have an anion gap. Her glucose is only moderately elevated. The she has been given insulin. Will recheck her glucose. She has no further complaints. Then we will discharge back to [facility]. We will ask case management to call them tomorrow to assist relocation. Differential Diagnosis: Partial list of the Differential diagnosis considered include but were not limited to; hyperglycemia, DKA, dehydration, failure to thrive and although unlikely based on the history and physical exam, I also considered infection, head injury. - Data Points Laboratory Results: Laboratory Results 06/06/18 22:06 06/06/18 22:06 06/06/18 06/06/18 23:32 22:06 POC Hgb 9.9 gm/dL L gm/dL (12.6-16.3) POC Hct 29 % L % (38-47) POC Sodium 140 mEq/L mEq/L (135-145) Sodium 139 mEq/L mEq/L (135-145) POC Potassium 4.3 mEq/L mEq/L (3.3-5.0) Potassium 4.7 mEq/L mEq/L (3.3-5.0) POC Chloride 101 mEq/L mEq/L (97-110) Chloride 101 mEq/L mEq/L (97-110) Carbon Dioxide 30 mEq/l mEq/l (22-31) Anion Gap 8 mEq/L mEq/L (8-16) POC BUN 38 mg/dL H mg/dL (7-23) BUN 44 mg/dL H mg/dL (7-23) Creatinine 1.1 mg/dL H mg/dL (0.6-1.0) POC Creatinine 1.1 mg/dL H mg/dL (0.6-1.0) Estimated GFR 51 Glucose 286 mg/dL H mg/dL (70-100) POC Glucose 217 mg/dL H mg/dL (70-100) Calcium 8.8 mg/dL mg/dL (8.5-10.4) Medications Given: Discontinued Medications Heparin Sodium (Porcine) (Heparin Lock Flush) 500 unit IVP EDNOW ONE Stop: 06/06/18 23:56 Last Admin: 06/07/18 00:00 Dose: 500 unit Insulin Human Regular (Humulin R) 10 unit IVP EDNOW ONE Stop: 06/06/18 22:08 Last Admin: 06/06/18 22:17 Dose: 10 units Point of Care Test Results: Chemistry 06/06/18 06/06/18 06/06/18 23:32 22:09 22:03 POC Sodium 140 mEq/L mEq/L 139 mEq/L mEq/L (135-145) (135-145) POC Potassium 4.3 mEq/L mEq/L 4.6 mEq/L mEq/L (3.3-5.0) (3.3-5.0) POC Chloride 101 mEq/L mEq/L 101 mEq/L mEq/L (97-110) (97-110) POC BUN 38 mg/dL H mg/dL 38 mg/dL H mg/dL (7-23) (7-23) POC Creatinine 1.1 mg/dL H mg/dL 1.2 mg/dL H mg/dL (0.6-1.0) (0.6-1.0) POC Glucose 217 mg/dL H mg/dL 295 mg/dL H mg/dL 281 mg/dL H mg/dL (70-100) (70-100) (70-100) ISTAT H&H 06/06/18 06/06/18 23:32 22:09 POC Hgb 9.9 gm/dL L gm/dL 10.9 gm/dL L gm/dL (12.6-16.3) (12.6-16.3) POC Hct 29 % L % 32 % L % (38-47) (38-47) Departure - Departure Disposition: Home, Routine, Self-Care Clinical Impression: Hyperglycemia, Morbid obesity Condition: Fair Instructions: Diabetic Hyperglycemia (ED) Referrals: NONE *PRIMARY CARE P,. [Primary Care Provider] - As per Instructions
[2018-06-06] MEDS ORDERED: INSULIN REGULAR HUMAN 100 UNIT/ML UNIT IVP ONE (22:07)
[2018-06-06 22:13] LABS: PLATELET COUNT 193 10^3/uL (150-400)
[2018-06-07 00:42] VITALS: BP 134/88
== END 2018-06-07 00:44 | disposition home or self-care (01) ==
LOC: EDUNIT#
DX: E11.65 Type 2 diabetes mellitus with hyperglycemia (principal); E66.01 Morbid (severe) obesity due to excess calories; Z89.511 Acquired absence of right leg below knee; Z79.4 Long term (current) use of insulin
CPT/HCPCS: 96374; 96375; 99284; J1642; J1815; 82435-PO; 82565-PO; 82947-PO; 84132-PO; 84295-PO; 84520-PO; 85014-PO

== ENCOUNTER 2018-06-15 17:35 | Emergency (ER) | payer OTHER, MEDICAID ==
--- NOTE | 2018-06-15 17:52 | EDPHY ---
H & P Time Seen by Provider: 06/15/18 17:35 HPI/ROS: CHIEF COMPLAINT: Altered Mental Status HISTORY OF PRESENT ILLNESS: The patient is 57 year old female sent here from [facility] where she is said to have hallucinating for the last 2 weeks. EMS reports that they have seen this patient many times and that she is at her behavior baseline and alert and oriented. Pt reports that she is very frustrated with her care at [facility] as they do not regularly check her blood sugar and move her from room to room daily. She denies suicidal and homicidal ideation. She denies hallucination. She denies drug and ETOH use. She denies fever and dysuria. REVIEW OF SYSTEMS: Constitutional: No fever, no chills. Eyes: No discharge. ENT: No sore throat. Cardiovascular: No chest pain, no palpitations. Respiratory: No cough, no shortness of breath. Gastrointestinal: No abdominal pain, no vomiting. Genitourinary: No hematuria. Musculoskeletal: No back pain. Skin: No rashes. Neurological: No headache. Physical Exam: General Appearance: Alert and orient to person place and time and no distress. Eyes: Pupils equal and round no injection. Respiratory: Chest is nontender, lungs are clear to auscultation. Cardiac: regular rate and rhythm. Gastrointestinal: Abdomen is soft and nontender, no masses, bowel sounds normal. Musculoskeletal: Neck is supple and nontender. Extremities have full range of motion and are nontender. Skin: No rashes or lesions. Constitutional: Initial Vital Signs Temperature (C) 37.3 C 06/15/18 17:35 Heart Rate 102 H 06/15/18 17:35 Respiratory Rate 16 06/15/18 17:35 Blood Pressure 123/54 H 06/15/18 17:35 O2 Sat (%) 97 06/15/18 17:35 O2 Delivery Mode Nasal Cannula O2 (L/minute) 4 Allergies/Adverse Reactions: No Known Allergies Allergy (Unverified 06/15/18 17:52) Home Medications: Medication Instructions Recorded DULoxetine [Cymbalta 30 MG (*)] 60 mg PO DAILY 02/07/17 Levothyroxine [Synthroid 200 mcg 200 mcg PO DAILY 02/07/17 (*)] Losartan Potassium [Cozaar 25 mg 25 mg PO DAILY 02/07/17 (*)] Pregabalin [Lyrica 50mg (*)] 150 mg PO DAILY AT 2PM 02/07/17 clonazePAM [Klonopin (*)] 0.5 mg PO BID PRN 02/07/17 Alteplase [Cathflo Activase 2 mg 2 mg IVP DAILY PRN 06/10/17 (*)] Aspirin [Aspirin 81mg (*)] 81 mg PO HS 06/10/17 Calcium Carbonate [Tums 500MG (*)] 1,000 mg PO Q4H PRN 06/10/17 Insulin Lispro [humALOG LISPRO 100 5 unit SC TIDMEAL PRN 06/10/17 units/ml (*)] Magnesium Hydroxide [Milk of 30 ml PO DAILY PRN 06/10/17 Magnesia] Nystatin Powder [Mycostatin Powder] 1 ammon TP Q8H PRN 06/10/17 Omeprazole Magnesium [Prilosec Otc] 20 mg PO DAILY 06/10/17 Phenylephrine/Shk Lv/Mo/Pet,Wh 1 ammon ND Q6H PRN 06/10/17 [Preparation H Oint] Promethazine HCl [Phenergan 25mg 25 mg PO BID PRN 06/10/17 (*)] Sennosides/Docusate Sodium 2 tab PO BID PRN 06/10/17 [Senna-Docusate Sodium Tablet] Acetaminophen [Tylenol 325mg (*)] 650 mg PO Q4 PRN tab 06/28/17 Acetaminophen [Tylenol Rectal] 650 mg ND Q4 PRN supp 06/28/17 Citalopram [CeleXA 20 MG] 20 mg PO DAILY tab 06/28/17 Polyethylene Glycol 3350 [Miralax 17 gm PO BID PRN pkt 06/28/17 17 gm (*)] Polyethylene Glycol 3350 [Miralax 17 gm PO DAILY #30 pkt 07/31/17 17 gm (*)] Bisacodyl [Dulcolax] 10 mg RC DAILY PRN 11/17/17 Cyclobenzaprine [Flexeril 10 MG 5 mg PO Q6H PRN 11/17/17 (*)] Fluticasone Nasal [Flonase Nasal 1 sprays NASAL DAILY 11/17/17 [place]] Gabapentin [Neurontin 100 MG (*)] 200 mg PO TID 11/17/17 Ipratropium/Albuterol [Duoneb (*)] 3 ml IH Q6H PRN 11/17/17 Lidocaine 5% [Lidoderm 5% Patch] 2 ea TD Q8H PRN 11/17/17 Sod Phos,M-B/Na Phos,Di-Ba [Fleet 133 ml RC DAILY PRN 11/17/17 Enema] Sodium Chloride [[place] Saline] 1 unit NS Q2H PRN 11/17/17 guaiFENesin [Mucinex 600 MG (*)] 600 mg PO BID PRN 11/17/17 HYDROmorphone HCL [Dilaudid 4 mg 4 mg PO Q4HRS PRN tab 11/22/17 (*)] Insulin Detemir [Levemir] 10 unit SQ DAILY #0 11/22/17 levOFLOXACIN [levAQUIN (*)] 750 mg PO DAILY #1 tab 11/22/17 Medical Decision Making ED Course/Re-evaluation: Pt sent her by [facility] for psychiatric evaluation and AMS. On arrival she is afebrile and vitals are stable. She is alert and oriented and has no neurologic deficits. She refused UA but Mental health was willing to see the patient and found the patient to be stable for discharge home. I discussed her care with her daughter and she agrees that the patient has been more angry lately and think once a week ago the patient was hallucinating when her blood sugar was high. She has requested a referral to neurology for further evaluation. Pt has no e/o CVA, psychosis, sepsis, DKA. She is referred to neurology for further evaluation. - Data Points Laboratory Results: Laboratory Results 06/15/18 18:55 06/15/18 18:55 Medications Given: Discontinued Medications Heparin Sodium (Porcine) (Heparin Lock Flush) 500 unit IVP EDNOW ONE Stop: 06/15/18 22:39 Last Admin: 06/15/18 22:30 Dose: 500 unit Sodium Chloride (Ns) 1,000 mls @ 0 mls/hr IV EDNOW ONE; Wide Open PRN Reason: Protocol Stop: 06/15/18 20:27 Last Admin: 06/15/18 20:37 Dose: 1,000 mls Sodium Chloride (Ns) 1,000 mls @ 0 mls/hr IV EDNOW ONE; Wide Open PRN Reason: Protocol Stop: 06/15/18 20:27 Last Admin: 06/15/18 20:38 Dose: 1,000 mls Point of Care Test Results: Chemistry 06/15/18 21:51 POC Glucose 291 mg/dL H mg/dL (70-100) Departure - Departure Disposition: Home, Routine, Self-Care Clinical Impression: Hyperglycemia, Altered mental status, unspecified Condition: Good Instructions: Hyperosmolar Hyperglycemic State (ED), Altered Mental Status (ED) Additional Instructions: Please follow up with Neurology for further evaluation of altered mental status. Additionally the nursing facility were your sting should be taking your blood sugar at least 3 times per day with her meals. Be sure to follow up with your doctor at the nursing facility to have you're A1c checked and to discuss more close monitoring of your blood sugars. Referrals: NONE *PRIMARY CARE P,. [Primary Care Provider] - As per Instructions Heriberto Steele DO [Doctor of Osteopathy] - As per Instructions
[2018-06-15 19:04] LABS: PLATELET COUNT 190 10^3/uL (150-400)
[2018-06-15] MEDS ORDERED: NS 1,000 ML IV ONE ×2 (20:26)
--- NOTE | 2018-06-15 21:36 | ASMTTLCEVL ---
[facility] Evaluation - Basic Information Evaluation Start Date and 06/15/2018 07:30 PM Time Hospital Status Answers: Voluntary Patient statement Notes: "I don't need to be here" Narrative Notes: Pt is a 57 YO caucasion female, resident of [facility], sent to [facility] ED for a psyc eval due to reported hallucinations, difficult interactions with staff, and reportedly increased aggression. [facility] contacted [facility] to see if they had a hx on this pt, they reported that this patient was not open and upon further review has never been seen by mental health partners in any capacity. Diagnosis History Notes: None. Prior suicide attempts Notes: None Prior hospitalizations Notes: None Treatment Responses Notes: NA History of violence Notes: None Therapist: None Psychiatrist: None Medications (name, dosage, route, freq uency) Notes: None Allergies/Reaction Notes: None reported Sleep Notes: Poor due to sleep apnea Appetite Notes: Low Medical/Surgical history Notes: Extensive Medical History and many visits to [facility] ED for medical concerns; GI issues, Diabetic related concerns, obesity...see ED Report and previous [facility] visit. Substance use history (frequency, intensity, his tory, duration) Notes: None reported Family composition Notes: 2 Sisters Marilou and Keely Need for family Answers: Yes participation in patient's care Family psychiatric/substance abuse history Notes: None reported Developmental history Notes: Not add, adhd, denied emotional, physical, sexual abuse, pt has had many falls recently and [facility] would like a neuro consult. Abuse concerns Answers: None Marital status/children Notes: with two adult children. Living situation Notes: [facility] Sexual history/orientation Notes: Heterosexual, not sexually active. Peer support/family strengths Notes: Family support only, pt does not have any reported peer support. Education level/history Notes: Highschool. Work history Notes: Disability. Notes: None Reported. 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 Patient's strengths Answers: Funny/Using Humor (Please select at least TWO strengths): Supportive Family [facility] Evaluation - Mental Status Exam Appearance: Answers: Appropriate Clean Eye Contact: Answers: Good/Direct Mood: Answers: Irritable Affect: Answers: Appropriate Apprehensive Behavior: Answers: Appropriate Cooperative Speech: Answers: Relevant Logical Clear Coherent Flight of Ideas Thought Process: Answers: Organized Oriented Alert Insight: Answers: Fair Judgement: Answers: Fair Manic Signs/Symptoms Answers: Irritability Hallucinations: Answers: Tactile Visual Pt reported to have Answers: No suicidal/self-injuring ideation/behavior? Pt reported to be making Answers: No suicidal/self-injuring threats? Pt reported to have Answers: No aggression/assault ideation/behavior? Pt reported to be making Answers: No aggression/assault threats? Pt exhibits inability to Answers: No care for self/grave disability? Ideation/behavior is Answers: No chronic? Patient has a specific Answers: No plan? Pt has access to means to Answers: No execute the plan? Ideation involves Answers: No serious/lethal intent? Ideation has Answers: No delusional/hallucinatory content? History of Answers: No suicidal/self-injuring ideation, behavior, or threats? History of Answers: No aggressive/assaultive ideation, behavior, or threats? History of serious Answers: No physical harm to self/others while in treatment setting? [facility] Evaluation - Suicide/Homicide Risk Suicide Risk Factors: Answers: < 20 or > 40 Years of Age Agitation Borderline Personality DO Impulsivity Single Homicide/violence risk Answers: None factors: Current Suicidal Answers: No Ideation? Current Suicidal Ideation Answers: No in the Past 48 Hours? Suicide Internal Answers: Absence of Psychosis Protective Factors: Frustration Tolerance Grisel with Stress Church Beliefs Suicide External Answers: Positive Therapeutic Protective Factors: Relationships Responsibility to Children Social Support Ranking of patient's Answers: Low suicidal risk: Ranking of patient's Answers: Low homicidal risk: T[facility] Evaluation - Wrap-up BDI Total Score: 0 BDI Question #2 Score: 0 BDI Question #9 Score: 0 BSS Total Score: 2 AXIS I Diagnosis (include DSM-V and ICD-10 codes), must also be entered in [employer], which is the source of truth. Notes: Deferred to Neuro Evaluation End Date and 06/15/2018 09:50 PM Time (HH:BREANNA): Date Signed: 06/15/2018 09:35 PM Electronically Signed By:Edouard Kam
--- NOTE | 2018-06-15 21:39 | ASMTLCPROG ---
Notes Note: Notes: [facility] spoke with [facility] and pt has no history with pt. Spoke with pt's daughter Tjty [phone] and Aida pt's daycare assistant. Emily is concerned pt is not getting propper insulin, Aida is concerned the [place] is causing hallucinations. Aida reported they thought they were sending her for neurological eval and MRI, not just a mental health exam. A neuro referral has been added to discharge paper work. Per Aida pt is her own worst enemy and keeps missing appts due to her personality disorder. Date Signed: 06/15/2018 09:38 PM Electronically Signed By:Edouard Kam
--- NOTE | 2018-06-15 21:41 | ASMTTCLDSP ---
[facility] Discharge Disposition Disposition Notes: Notes: In consultation with ED physician Nestor Olson and insulation worker interior surface Psychiatrist Darnell Moss MD the pt does not meet appear to meet criterea for a 27-65 Mental Health Hold as she is not an imminant risk of harm to self, to others, or gravely diabled due to a mental illness. PT may be discharged back to [facility]. Was patient given the Answers: Not applicable Inpatient Behavioral Health Prohibited Belongings List while in the ED? Date Signed: 06/15/2018 09:40 PM Electronically Signed By:Edouard Kam
[2018-06-15 22:38] VITALS: BP 105/78
== END 2018-06-15 22:50 | disposition home or self-care (01) ==
LOC: EDUNIT#
DX: E11.65 Type 2 diabetes mellitus with hyperglycemia (principal); Z79.4 Long term (current) use of insulin; E86.9 Volume depletion, unspecified
CPT/HCPCS: 96361; 96374; 99284; J1642; G0480

== ENCOUNTER → 2018-07-05 | Outpatient (CLI) | payer OTHER, MEDICAID ==
[~2018-07-05] MED LIST: GADOBUTROL 10 ML VIAL IVP ONE; fentaNYL 100 MCG/2 ML INJ ONE
== END ==
LOC: FIMAGING 14:54
DX: R44.1 Visual hallucinations (principal)
CPT/HCPCS: 70553; A9585; J1642; J3010; 82565-PO

== ENCOUNTER → 2018-07-19 | Outpatient (CLI) | payer OTHER, MEDICAID | LOC: FIMAGING 13:07 | PROVIDERS: ATTEND Nurse Practitioner Gerontology | DX: R44.3 Hallucinations, unspecified (principal) ==

== ENCOUNTER 2018-10-18 16:34 | Inpatient (IN) | payer OTHER ==
--- NOTE | 2018-10-18 17:40 | EDPHY ---
H & P Stated Complaint: weakness, lethargy starting yesterday from [facility] Time Seen by Provider: 10/18/18 17:28 HPI/ROS: CHIEF COMPLAINT: Lethargy, hypoxia Limitations: Patient unable to provide any clinical history HISTORY OF PRESENT ILLNESS: 58-year-old female with morbid obesity and diabetes presents with lethargy and hypoxia. Patient was sent here by skilled nursing staff who noticed that she was lethargic today. Oxygen saturation was apparently low. The patient thinks that she might of been diagnosed with pneumonia recently, but is unsure. She does not know whether she is on antibiotics or not. No known fever. REVIEW OF SYSTEMS: unable to obtain Source: Patient, EMS - Personal History Current Tetanus/Diphtheria Vaccine: No Current Tetanus Diphtheria and Acellular Pertussis (TDAP): No Tetanus Vaccine Date: unsure of date - Medical/Surgical History Hx Asthma: No Hx Chronic Respiratory Disease: No Hx Diabetes: Yes Hx Cardiac Disease: No Hx Renal Disease: Yes Hx Cirrhosis: No Hx Alcoholism: No Hx HIV/AIDS: No Hx Splenectomy or Spleen Trauma: No Other PMH: IDDM, diabetic ulcers on bi-lat feet, R lower leg amput, sarcoidosis , fibromyalgia, home O2, MRSA, anemia,generalized muscle weakness, anemia, chron. pain syndrom, CRISTIANO (baseline o2 at 4l/hr per nc), morbid obesity due to excess calories, adjustment disorder with depressed mood, dysthymic disorder, neuromuscular dysfunction of bladder, boarderline personality disorder, sleep apnea, - Social History Smoking Status: Former smoker Alcohol Use: None Drug Use: None - Physical Exam Exam: General Appearance: Lethargic, opens eyes to voice, answers a few questions Eyes: Pupils equal and round, no conjunctival pallor or injection ENT, Mouth: Mucous membranes dry Neck: Normal inspection Respiratory: Lungs are clear to auscultation anteriorly Cardiovascular: Regular rate and rhythm Gastrointestinal: Abdomen is soft, no apparent tenderness, erythema under the pannus, appears irritated, not cellulitic Neurological: Lethargic, does not follow commands Skin: Warm and dry, pale Extremities: RLE amputation Psychiatric: Flat affect Constitutional: Initial Vital Signs Temperature (C) 36.7 C 10/18/18 16:50 Heart Rate 97 10/18/18 16:50 Respiratory Rate 18 10/18/18 16:50 Blood Pressure 97/43 L 10/18/18 16:50 O2 Sat (%) 100 10/18/18 16:50 O2 Delivery Mode Nasal Cannula O2 (L/minute) 5 Allergies/Adverse Reactions: No Known Allergies Allergy (Unverified 10/18/18 16:58) Home Medications: Medication Instructions Recorded DULoxetine [Cymbalta 30 MG (*)] 60 mg PO DAILY 02/07/17 Pregabalin [Lyrica 50mg (*)] 150 mg PO BID 02/07/17 clonazePAM [Klonopin (*)] 0.25 mg PO DAILY 02/07/17 Aspirin [Aspirin 81mg (*)] 81 mg PO HS 06/10/17 Calcium Carbonate [Tums 500MG (*)] 1,500 mg PO Q4H PRN 06/10/17 Insulin Lispro [humALOG LISPRO 100 16 unit SC TIDMEAL PRN 06/10/17 units/ml (*)] Omeprazole Magnesium [Prilosec Otc] 20 mg PO DAILY 06/10/17 Acetaminophen [Tylenol 325mg (*)] 650 mg PO Q4 PRN tab 06/28/17 guaiFENesin [Mucinex 600 MG (*)] 600 mg PO Q12H PRN 11/17/17 Buprenorphine 1 ea TD TH 10/18/18 Cholecalciferol Vit D3 [Vitamin D3 50,000 unit PO FR 10/18/18 (*)] Cyanocobalamin [Vitamin B12 (*)] 1,000 mcg PO DAILY 10/18/18 Furosemide [Lasix 20 MG (*)] 20 mg PO DAILY 10/18/18 HYDROmorphone HCL [Dilaudid 2 mg 2 mg PO Q6HRS PRN 10/18/18 (*)] Insulin Glargine [Lantus] 38 units SC BID 10/18/18 Levothyroxine [Synthroid 100 mcg 100 mcg PO DAILY06 10/18/18 (*)] Levothyroxine [Synthroid 112 mcg 112 mcg PO DAILY06 10/18/18 (*)] Losartan Potassium [Cozaar 25 mg 25 mg PO DAILY 10/18/18 (*)] Methyl Salicylate/Menthol 1 each TP DAILY 10/18/18 [SALONPAS PATCH] Naloxone HCl 0.4 mg IJ DAILY PRN 10/18/18 Ondansetron Odt [Zofran Odt 4 mg 4 mg PO Q6H PRN 10/18/18 (*)] PE/Shark Liver/Gly/Pet,Wh 1 ammon MO Q6H PRN 10/18/18 [Preparation H Cream (*)] Polyethylene Glycol 3350 [Miralax 17 gm PO DAILY PRN 10/18/18 17 gm (*)] Potassium Chloride [Klor-Con 10] 10 meq PO Q2D 10/18/18 clonazePAM [Klonopin (*)] 0.5 mg PO HS 10/18/18 guaiFENesin [Guaifenesin] 30 ml PO Q6H PRN 10/18/18 risperiDONE [Risperdal 1mg (*)] 1 mg PO DAILY 10/18/18 risperiDONE [Risperdal 1mg (*)] 1.5 mg PO HS 10/18/18 Medical Decision Making - Diagnostics EKG Interpretation: EKG interpreted by me reveals normal sinus rhythm, rate 93, no ST or T segment changes. Interpretation: Normal EKG. ED Course/Re-evaluation: This pt presents with lethargy and increased oxygen requirement, likely multifactorial in this complex patient (infectious/medications). Meets SIRS criteria, initial lactate normal. CXR reveals RUL infiltrate. Bld cx's drawn and Zosyn IV given for likely aspiration pneumonia. During ED stay, pt had several episodes of diarrhea, ?infectious/Cdif, sent for GI pathogen panel. Also has ARF, most likely secondary to dehydration, gentle IVF given. Elevated d-dimer noted, pt unable to have CTA d/t elevated creatinine. BLE sono ordered to evaluate, consider CTA is creatinine improves vs VQ scan. Pt's mental status remained unchanged throughout. The hospitalist service was consulted for admission. Differential Diagnosis: includes though not limited to UTI, infectious diarrhea, PE, pneumonia, CHF, medication effect. - Data Points Laboratory Results: Laboratory Results 10/18/18 16:44 10/18/18 16:44 Medications Given: Acetaminophen (Tylenol) 650 mg PO Q4HRS PRN PRN Reason: Pain, Mild/Fever, Can Take PO Stop: 04/16/19 19:14 Last Admin: 10/19/18 04:50 Dose: 650 mg Albuterol (Proventil Neb) 3 ml IH Q2HRS PRN PRN Reason: Short of Breath/Dyspnea Stop: 04/16/19 19:14 Last Admin: 10/19/18 14:59 Dose: 3 ml Cholecalciferol (D3-50) 50,000 unit PO FR [facility] Stop: 04/17/19 10:14 Last Admin: 10/19/18 13:30 Dose: 50,000 unit Heparin Sodium (Porcine) (Heparin Sc Injection) 5,000 unit SC Q8 ANNELISE Stop: 04/16/19 21:59 Last Admin: 10/19/18 14:46 Dose: 5,000 unit Hydromorphone HCl (Dilaudid) 0.2 - 0.4 mg IVP Q4HRS PRN PRN Reason: Pain, Severe Unable to Take PO Stop: 10/28/18 19:14 Last Admin: 10/19/18 04:48 Dose: 0.2 mg Sodium Chloride (Ns) 1,000 mls @ 125 mls/hr IV CONT ANNELISE Stop: 04/16/19 19:14 Last Admin: 10/19/18 08:27 Dose: 1,000 mls Piperacillin/Tazobactam/Dextrose (Zosyn 3.375 Gm (Premix)) 50 mls @ 100 mls/hr IV Q6H ANNELISE PRN Reason: Protocol Stop: 11/18/18 00:59 Last Admin: 10/19/18 19:47 Dose: 50 mls Insulin Human Lispro (Humalog Lispro) 0 unit SC TIDMEAL ANNELISE PRN Reason: Protocol Stop: 04/17/19 07:59 Last Admin: 10/19/18 19:35 Dose: 2 units Levothyroxine Sodium (Synthroid) 100 mcg PO DAILY06 [facility] Stop: 04/17/19 05:59 Last Admin: 10/19/18 13:44 Dose: 100 mcg Levothyroxine Sodium (Synthroid) 112 mcg PO DAILY06 [facility] Stop: 04/17/19 05:59 Last Admin: 10/19/18 13:44 Dose: 112 mcg Losartan Potassium (Cozaar) 25 mg PO DAILY [facility] Stop: 04/17/19 08:59 Last Admin: 10/19/18 14:39 Dose: Not Given Oxycodone HCl (Oxycodone Ir) 5 - 10 mg PO Q3HRS PRN PRN Reason: Pain, Severe Able to Take PO Stop: 10/28/18 19:14 Last Admin: 10/19/18 19:59 Dose: 5 mg Discontinued Medications Sodium Chloride (Ns) 1,000 mls @ 0 mls/hr IV ONCE ONE; Wide Open PRN Reason: Protocol Stop: 10/18/18 18:00 Last Admin: 10/18/18 18:17 Dose: 1,000 mls Piperacillin/Tazobactam/Dextrose (Zosyn (Premix)) 100 mls @ 200 mls/hr IV EDNOW ONE PRN Reason: Protocol Stop: 10/18/18 18:32 Last Admin: 10/18/18 18:38 Dose: 100 mls Departure - Departure Disposition: [facility] Inpatient Acute Clinical Impression: Pneumonia Qualifiers: Pneumonia type: due to unspecified organism Laterality: right Lung location: upper lobe of lung Qualified Code(s): J18.1 - Lobar pneumonia, unspecified organism Condition: Fair
[2018-10-18 17:56] LABS: PLATELET COUNT 192 10^3/uL (150-400)
[2018-10-18] MEDS ORDERED: NS 1,000 ML IV ONE (17:59)
[2018-10-18] MEDS ORDERED: PIPERACILLIN/TAZO 4.5 GM/DEX 100 ML IV ONE (18:03)
[2018-10-18] MEDS ORDERED: HYDROCODONE/APAP 5/325 TAB PO PRN (19:15)
[2018-10-18] MEDS ORDERED: HYDROmorphONE/DILAUDID 1 MG/ML INJ IVP PRN (19:15)
[2018-10-18] MEDS ORDERED: ONDANSETRON 4 MG/2 ML VIAL IVP PRN (19:15)
[2018-10-18] MEDS ORDERED: PROMETHAZINE HCL 25 MG/ML INJ IVP PRN (19:15)
[2018-10-18] MEDS ORDERED: ACETAMINOPHEN 650 MG SUPP PR PRN (19:15)
[2018-10-18] MEDS ORDERED: ONDANSETRON DISINTEGRATING 4 MG TAB PO PRN (19:15)
[2018-10-18] MEDS ORDERED: D50W 25 GM/50 ML SYR IVP PRN (19:19)
--- NOTE | 2018-10-18 19:38 | PDGENHP ---
History and Physical - Chief Complaint lethargy, hypoxia - History of Present Illness 58 yo F with PMH that includes morbid obesity, copd with chronic hypoxic respiratory failure, chronic pain with continuous narcotic use and dependency with a hx of multiple admissions to this hospital for altered mental status, respiratory failure and sepsis who presents today from the [place] where she resides for concerns of increased lethargy and increased oxygen needs. At the time of my evaluation patient is unresponsive, essentially only groaning intermittently to examination and therefore this history is obtained entirely per chart review and from discussion with ER doctor. Apparently staff at [place] became concerned today but did not know if she had been ill recently. Patient was incontinent of stool in the ER, with large liquid stool noted to be discharging while she was being evaluated. Her vital signs were otherwise relatively stable in the ER, and patient was nearly at her baseline O2 requirement (currently on 5L, typically on 4). History Information - Allergies/Home Medication List Allergies/Adverse Reactions: No Known Allergies Allergy (Unverified 10/18/18 16:58) Home Medications: DULoxetine [Cymbalta 30 MG (*)] 60 mg PO DAILY 02/07/17 [Last Taken 11/16/17] Levothyroxine [Synthroid 200 mcg (*)] 200 mcg PO DAILY 02/07/17 [Last Taken ] Losartan Potassium [Cozaar 25 mg (*)] 25 mg PO DAILY 02/07/17 [Last Taken ] Pregabalin [Lyrica 50mg (*)] 150 mg PO DAILY AT 2PM 02/07/17 [Last Taken ] clonazePAM [Klonopin (*)] 0.5 mg PO BID PRN 02/07/17 [Last Taken 11/15/17] Alteplase [Cathflo Activase 2 mg (*)] 2 mg IVP DAILY PRN 06/10/17 [Last Taken Unknown] Aspirin [Aspirin 81mg (*)] 81 mg PO HS 06/10/17 [Last Taken 11/16/17] Calcium Carbonate [Tums 500MG (*)] 1,000 mg PO Q4H PRN 06/10/17 [Last Taken Unknown] Insulin Lispro [humALOG LISPRO 100 units/ml (*)] 5 unit SC TIDMEAL PRN 06/10/17 [Last Taken 11/16/17] Magnesium Hydroxide [Milk of Magnesia] 30 ml PO DAILY PRN 06/10/17 [Last Taken Unknown] Nystatin Powder [Mycostatin Powder] 1 ammon TP Q8H PRN 06/10/17 [Last Taken Unknown] Omeprazole Magnesium [Prilosec Otc] 20 mg PO DAILY 06/10/17 [Last Taken 11/16/17 ] Phenylephrine/Shk Lv/Mo/Pet,Wh [Preparation H Oint] 1 ammon SD Q6H PRN 06/10/17 [ Last Taken 05/29/17] Promethazine HCl [Phenergan 25mg (*)] 25 mg PO BID PRN 06/10/17 [Last Taken 04/11] Sennosides/Docusate Sodium [Senna-Docusate Sodium Tablet] 2 tab PO BID PRN 06/10 [Last Taken Unknown] Bisacodyl [Dulcolax] 10 mg RC DAILY PRN 11/17/17 [Last Taken Unknown] Cyclobenzaprine [Flexeril 10 MG (*)] 5 mg PO Q6H PRN 11/17/17 [Last Taken ] Fluticasone Nasal [Flonase Nasal [place]] 1 sprays NASAL DAILY 11/17/17 [Last Taken 11/16/17] Gabapentin [Neurontin 100 MG (*)] 200 mg PO TID 11/17/17 [Last Taken 11/16/17] Ipratropium/Albuterol [Duoneb (*)] 3 ml IH Q6H PRN 11/17/17 [Last Taken Unknown] Lidocaine 5% [Lidoderm 5% Patch] 2 ea TD Q8H PRN 11/17/17 [Last Taken Unknown] Sodium Chloride [[place] Saline] 1 unit NS Q2H PRN 11/17/17 [Last Taken Unknown] Sodium Phosphate,Campbell-Dibasic [Fleet Enema] 133 ml RC DAILY PRN 11/17/17 [Last Taken Unknown] guaiFENesin [Mucinex 600 MG (*)] 600 mg PO BID PRN 11/17/17 [Last Taken 11/12/17 ] I have personally reviewed and updated: family history, medical history, social history, surgical history - Past Medical History COPD, diabetes type 2 (last a1c of 7.9), psychiatric history Additional medical history: DM2 on insulin. morbid obesity. sarcoidosis. CKD , baseline cr 1.3. Charcot foot deformity. chronic osteomyelitis of R heel ulcer. chronic respiratory failure 4L baseline. Staph epi bacteremia. Hypothyroidism. chronic opioid dependence. chronic pain/fibromyalgia. hx of osteomyelitis. ZEUS/OHS - Surgical History Additional surgical history: right BKA - Family History Positive for: diabetes type II (in mother) - Social History Smoking Status: Former smoker Alcohol Use: None Drug Use: None Additional social history: resides in [facility] unobtainable due to mental status Review of Systems Review of Systems: unobtainable 2/2 patients mental status Physical Exam Physical Exam: Temp Pulse Resp BP Pulse Ox 36.7 C 87 16 103/63 98 10/18/18 16:50 10/18/18 19:28 10/18/18 19:28 10/18/18 19:28 10/18/18 19:28 O2 (L/minute) 5 Constitutional: chronically ill appearing, obese Eyes: PERRL Ears, Nose, Mouth, Throat: moist mucous membranes, poor dentition Cardiovascular: regular rate and rhythym, no murmur, rub, or gallop, No edema Respiratory: reduced air movement, other (to anterior exam no w/r/r) Gastrointestinal: normoactive bowel sounds, soft, non-tender abdomen Genitourinary: no bladder fullness Skin: warm, normal color Musculoskeletal: No asymmetric calves Neurologic: No AAOx3 Psychiatric: encephalopathic, other (withdraws to pain, groans occasionally otherwise non responsive) Lab Data & Imaging Review 10/18/18 16:44 10/18/18 16:44 WBC 9.68 10^3/uL (3.80-9.50) H 10/18/18 16:44 RBC 3.56 10^6/uL (4.18-5.33) L 10/18/18 16:44 Hgb 10.0 g/dL (12.6-16.3) L 10/18/18 16:44 Hct 31.8 % (38.0-47.0) L 10/18/18 16:44 MCV 89.3 fL (81.5-99.8) 10/18/18 16:44 MCH 28.1 pg (27.9-34.1) 10/18/18 16:44 MCHC 31.4 g/dL (32.4-36.7) L 10/18/18 16:44 RDW 14.3 % (11.5-15.2) 10/18/18 16:44 Plt Count 192 10^3/uL (150-400) 10/18/18 16:44 MPV 10.4 fL (8.7-11.7) 10/18/18 16:44 Neut % (Auto) 65.9 % (39.3-74.2) 10/18/18 16:44 Lymph % (Auto) 21.5 % (15.0-45.0) 10/18/18 16:44 Campbell % (Auto) 10.1 % (4.5-13.0) 10/18/18 16:44 Eos % (Auto) 1.3 % (0.6-7.6) 10/18/18 16:44 Baso % (Auto) 0.4 % (0.3-1.7) 10/18/18 16:44 Nucleat RBC Rel Count 0.0 % (0.0-0.2) 10/18/18 16:44 Absolute Neuts (auto) 6.37 10^3/uL (1.70-6.50) 10/18/18 16:44 Absolute Lymphs (auto) 2.08 10^3/uL (1.00-3.00) 10/18/18 16:44 Absolute Monos (auto) 0.98 10^3/uL (0.30-0.80) H 10/18/18 16:44 Absolute Eos (auto) 0.13 10^3/uL (0.03-0.40) 10/18/18 16:44 Absolute Basos (auto) 0.04 10^3/uL (0.02-0.10) 10/18/18 16:44 Absolute Nucleated RBC 0.00 10^3/uL (0-0.01) 10/18/18 16:44 Immature Gran % 0.8 % (0.0-1.1) 10/18/18 16:44 Immature Gran # 0.08 10^3/uL (0.00-0.10) 10/18/18 16:44 D-Dimer 3.52 ug/mLFEU (0.00-0.50) H 10/18/18 17:15 VBG Lactic Acid 1.3 mmol/L (0.7-2.1) 10/18/18 17:15 Sodium 139 mEq/L (135-145) 10/18/18 16:44 Potassium 5.1 mEq/L (3.5-5.2) 10/18/18 16:44 Chloride 102 mEq/L (97-110) 10/18/18 16:44 Carbon Dioxide 30 mEq/l (22-31) 10/18/18 16:44 Anion Gap 7 mEq/L (6-14) 10/18/18 16:44 BUN 54 mg/dL (7-23) H 10/18/18 16:44 Creatinine 1.8 mg/dL (0.6-1.0) H 10/18/18 16:44 Estimated GFR 29 10/18/18 16:44 Glucose 186 mg/dL (70-100) H 10/18/18 16:44 Calcium 8.9 mg/dL (8.5-10.4) 10/18/18 16:44 NT-Pro-B Natriuret Pep 294 pg/mL (0-125) H 10/18/18 17:15 Visualized and Interpreted Chest x-ray results: Yes Chest X-Ray results: other (CM, fluid overload versus chf with ? RUL PNA) Visualized and Interpreted EKG results: Yes EKG Interpretation: Positive for: normal sinsus rhythm Assessment & Plan Assessment: 58 yo F with hx of morbid obesity, chronic hypoxic respiratory failure, chronic pain and continuous narcotic use and dependency admitted with acute encephalopathy and e/o pna # toxic/metabolic encephalopathy: presumably due to infection but could also be related to pain medications, will get ABG as well to eval for possible CO2 narcosis though HCO3 essentially at baseline. Holding off on narcan given HD stability and chronic pain but if worsens will start. # PNA: evidence of what appears to be RUL pna on CXR, patient with hx of aspiration in the past and consider aspiration versus HCAP. Started on zosyn which will continue for now, cultures pending # ventura on ckd: with baseline creatinine of closer to 1.3 currently 1.8, elevated BUN and diarrhea noted in ER raising concerns for hypovolemia, IVF overnight, will check UA/urine Na/creatinine and trend # loose stool/incontinence: unclear if this is new as not reported by NH, checking GI pathogen panel # chronic hypoxic respiratory failure: due to copd as well as zeus/ohs, currently appears to be at baseline with sats of 100% on 5L, chronically on 4L # COPD exacerbation: does appear to have decreased bs throughout in the setting of PNA as above, will start duonebs/albuterol nebs and monitor, ABG pending # chronic pain with continuous narcotic use and dependency: holding pain meds for now, has had AMS due to inadvertent OD in the past, patient currently protecting her airway and able to withdraw to pain etc so will hold off on narcan # DM2: with last A1c of 7.9, starting SSI for now, will resume her home regimen when meds can be confirmed # hx of osteomyelitis/cellulitis: examined skin does not appear infected, difficult to examine all areas beneath her pannus, will need full skin evaluation and will ask wound care to assist # morbid obesity: with BMI > 50 last admission, patient largely bed bound due to this in part # anxiety: chronic benzo use # IP status, patient with multiple active issues and will require > 48 hours stay for eval/mgmt of above Patient new to my care. Old records reviewed and summarized as above. care plan reviewed with ER doctor as above.
[2018-10-18] MEDS: NS 1,000 ML IV SCH (21:28)
[2018-10-18] MEDS: HEPARIN 5,000 UNIT/0.5 ML INJ SC SCH (21:53)
--- NOTE | 2018-10-18 23:27 | CPEKG ---
Test Reason : OPEN Blood Pressure : / mmHG Vent. Rate : 093 BPM Atrial Rate : 094 BPM P-R Int : 143 ms QRS Dur : 077 ms QT Int : 345 ms P-R-T Axes : 057 -01 061 degrees QTc Int : 430 ms Sinus rhythm Confirmed by Milagros Gregorio ([id number]) on 10/18/2018 11:27:30 PM Referred By: Milagros Gregorio Confirmed By:Milagros Gregorio
[2018-10-19] MEDS: PIPERACILLIN/TAZO 3.375 GM/DEX 50 ML IV SCH ×4 (01:05→19:47)
[2018-10-19] MEDS: ACETAMINOPHEN 325 MG TAB PO PRN (04:50)
[2018-10-19] MEDS: HEPARIN 5,000 UNIT/0.5 ML INJ SC SCH ×3 (04:56→21:27)
[2018-10-19 05:34] LABS: PLATELET COUNT 158 10^3/uL (150-400)
[2018-10-19] MEDS: oxyCODONE IR 5 MG TAB PO PRN ×3 (08:27→19:59)
[2018-10-19] MEDS: NS 1,000 ML IV SCH (08:27)
[2018-10-19] MEDS: INSULIN LISPRO 100 UNIT/ML SC SCH ×3 (08:55→19:35)
--- NOTE | 2018-10-19 09:06 | PDMN ---
Medical Necessity Medical necessity: Pt meets inpt criteria per MD order and MCG M-282, Pneumonia , Community Acquired, A-2 days. 58 y/o presented to ED w/increased lethargy and increased O2 requiriements, admitted w/acute encephalopathy and evidence of RUL pneumonia on CXR w/COPD exacerbation, and ARPITA on CKD w/creat elevated at 1.8 ( baseline is 1.3). Hx of aspiration in past, consider asp pna vs HCAP. IV ABX's, cultures pending. Comorbidities include morbid obesity, COPD, chronic hypoxic resp failure, chronic pain and cont narcotic use and dependency. Anticipate>2MN for ongoing eval/management of above.
[2018-10-19] MEDS: ALBUTEROL 3 ML DEYVIAL IH PRN ×2 (09:47→14:59)
--- NOTE | 2018-10-19 10:02 | ASMTCMCOM ---
CM Note CM Note Notes: Pt is a 58 y/o female admitted for lethargy and hypoxia. Pt lives at [facility]. Pt has a lot of medical comorbidities. Updates sent to [facility]. Therapies have been ordered as well as wound care. Pt will most likely will return back to [facility] once medically stable. CM available for changes. Plan: [facility] Date Signed: 10/19/2018 10:01 AM Electronically Signed By:SHAW Hsu
[2018-10-19] MEDS ORDERED: guaiFENesin 600 MG TAB.ER PO PRN (10:05)
[2018-10-19] MEDS ORDERED: NALOXONE HCL 0.4 MG/ML INJ IVP PRN (10:05)
[2018-10-19] MEDS ORDERED: guaiFENesin 200 MG/10 ML UDL PO PRN (10:05)
[2018-10-19] MEDS ORDERED: ACETAMINOPHEN 325 MG TAB PO PRN (10:05)
[2018-10-19] MEDS ORDERED: HYDROmorphONE/DILAUDID 2 MG TAB PO PRN (10:05)
[2018-10-19] MEDS ORDERED: POLYETHYLENE GLYCOL 3350 17 GM PKT PO PRN (10:05)
[2018-10-19] MEDS ORDERED: INSULIN LISPRO 100 UNIT/ML SC PRN (10:05)
[2018-10-19] MEDS ORDERED: ONDANSETRON DISINTEGRATING 4 MG TAB PO PRN (10:05)
[2018-10-19] MEDS ORDERED: PREPARATION H 51 GM CRTUBE PR PRN (10:05)
[2018-10-19] MEDS ORDERED: CALCIUM CARBONATE 500 MG CHEWABLE TAB PO PRN (10:05)
[2018-10-19] MEDS ORDERED: CHOLECALCIFEROL VIT D3 50,000 UNIT CAP PO SCH (10:15)
--- NOTE | 2018-10-19 12:05 | HOSPPROG ---
Hospitalist Progress Note Assessment/Plan: 58 yo F with hx of morbid obesity, chronic hypoxic respiratory failure, chronic pain and continuous narcotic use and dependency admitted with acute encephalopathy and e/o pna. First encounter, chart reviewed. # toxic/metabolic encephalopathy: -resolved -presumably due to infection but could also be related to pain medications # PNA: -evidence of what appears to be RUL pna on CXR - patient with hx of aspiration in the past and consider aspiration versus HCAP -Started on zosyn which will continue for now -cultures pending # ventura on ckd: -with baseline creatinine of closer to 1.3 currently 1.8 -elevated BUN and diarrhea noted in ER raising concerns for hypovolemia -IVF overnight -recheck in the am # loose stool/incontinence: -resolved per pt -unclear if this is new as not reported by NH, -GI pathogen panel negative # chronic hypoxic respiratory failure: -due to copd as well as zeus/ohs, -currently appears to be at baseline with sats of 100% on 5L, chronically on 4L # COPD exacerbation: -does appear to have decreased bs throughout in the setting of PNA as above, -duonebs/albuterol nebs and monitor # chronic pain with continuous narcotic use and dependency: -restarted home meds -inadvertent OD in the past, # DM2: -last A1c of 7.9, -starting SSI -resumed her home regimen # hx of osteomyelitis/cellulitis: -examined skin does not appear infected -difficult to examine all areas beneath her pannus, -full skin evaluation and will ask wound care to assist # morbid obesity: -with BMI > 50 last admission, patient largely bed bound due to this in part # anxiety: -chronic benzo use # IP status, patient with multiple active issues and will require > 48 hours stay for eval/mgmt of above Subjective: Feeling better then yesterday. Doesn't rememeber coming to the hospital. No pain currently. Objective: Vital Signs Temp Pulse Resp BP Pulse Ox 36.7 C 92 20 112/59 L 93 10/19/18 11:56 10/19/18 11:56 10/19/18 11:56 10/19/18 11:56 10/19/18 11:56 Microbiology 10/18/18 20:23 Gastrointestinal Tract Panel (PCR) - Final Stool No Organism Detected By Pcr 10/18/18 20:23 Respiratory Panel (PCR) - Final Nasal, Sinus - Swab No Organism Detected By Pcr Laboratory Results 10/19/18 05:10 10/19/18 05:10 10/18/18 10/19/18 10/20/18 05:59 05:59 05:59 Intake Total 1899 Output Total 1 Balance 1898 - Physical Exam Constitutional: not in pain, chronically ill appearing, obese Eyes: PERRL, anicteric sclera, EOMI Ears, Nose, Mouth, Throat: moist mucous membranes, hearing normal, ears appear normal Cardiovascular: regular rate and rhythym, No JVD, No tachycardia, No edema Respiratory: no respiratory distress, no rales or rhonchi, reduced air movement Gastrointestinal: normoactive bowel sounds, No tenderness, No ascites Skin: warm, normal color, No mottled Musculoskeletal: no muscle tenderness, no joint effusions, generalized weakness Neurologic: AAOx3 Psychiatric: interacting appropriately, not anxious, not encephalopathic, thought process linear ICD10 Worksheet Patient Problems: Problems Problem Status Onset Osteomyelitis of right foot Acute Hyperglycemia due to type 2 diabetes mellitus Acute Methicillin resistant Staphylococcus aureus infection Acute ~06/10/17 Osteomyelitis of ankle or foot, right, acute Acute Anemia Acute Cellulitis of foot, right Acute Cellulitis in diabetic foot Acute MRSA (methicillin resistant Staphylococcus aureus) Acute 01/16/15 Failure to thrive Acute Lower limb ulcer, heel or midfoot Acute Cellulitis of lower extremity Acute Abscess of left leg Acute Altered mental status Acute Uremia Acute Fever Acute Sepsis Acute Severe sepsis Acute
[2018-10-19] MEDS: LEVOTHYROXINE 112 MCG TAB PO SCH (13:44)
[2018-10-19] MEDS: LEVOTHYROXINE 100 MCG TAB PO SCH (13:44)
[2018-10-19] MEDS: LOSARTAN POTASSIUM 25 MG TAB PO SCH (14:39)
[2018-10-19] MEDS: ASPIRIN 81 MG CHEWABLE TAB PO SCH (21:25)
[2018-10-19] MEDS: clonazePAM 0.5 MG TAB PO SCH (21:26)
[2018-10-19] MEDS: risperiDONE 1 MG TAB PO SCH (21:28)
[2018-10-19] MEDS: PREGABALIN 50 MG CAP PO SCH (21:28)
[2018-10-19] MEDS: INSULIN GLARGINE 100 UNITS/ML UNIT SC SCH (21:48)
[2018-10-20] MEDS: oxyCODONE IR 5 MG TAB PO PRN ×3 (01:05→22:11)
[2018-10-20] MEDS: PIPERACILLIN/TAZO 3.375 GM/DEX 50 ML IV SCH ×4 (01:06→18:14)
[2018-10-20] MEDS: ACETAMINOPHEN 325 MG TAB PO PRN (02:57)
[2018-10-20] MEDS: HEPARIN 5,000 UNIT/0.5 ML INJ SC SCH ×3 (06:11→22:11)
[2018-10-20] MEDS: LEVOTHYROXINE 112 MCG TAB PO SCH (06:12)
[2018-10-20] MEDS: LEVOTHYROXINE 100 MCG TAB PO SCH (06:12)
[2018-10-20] MEDS: ALBUTEROL 3 ML DEYVIAL IH PRN ×2 (09:34→21:56)
[2018-10-20] MEDS: INSULIN LISPRO 100 UNIT/ML SC SCH ×3 (10:00→18:14)
[2018-10-20] MEDS: risperiDONE 1 MG TAB PO SCH ×2 (10:28→22:13)
[2018-10-20] MEDS: PANTOPRAZOLE SODIUM 40 MG TAB PO SCH (10:28)
[2018-10-20] MEDS: DULoxetine 30 MG CAP PO SCH (10:28)
[2018-10-20] MEDS: PREGABALIN 50 MG CAP PO SCH ×2 (10:28→22:12)
[2018-10-20] MEDS: clonazePAM 0.5 MG TAB PO SCH ×2 (10:28→22:10)
[2018-10-20] MEDS: CYANO/VITAMIN B12 1000 MCG TAB PO SCH (10:28)
[2018-10-20] MEDS: LOSARTAN POTASSIUM 25 MG TAB PO SCH (10:28)
[2018-10-20] MEDS: METHYL SALICYLATE TP SCH (10:30)
[2018-10-20] MEDS: MENTHOL TP SCH (10:30)
[2018-10-20] MEDS: INSULIN GLARGINE 100 UNITS/ML UNIT SC SCH ×2 (10:38→22:11)
--- NOTE | 2018-10-20 11:59 | HOSPPROG ---
Hospitalist Progress Note Assessment/Plan: 58 yo F with hx of morbid obesity, chronic hypoxic respiratory failure, chronic pain and continuous narcotic use and dependency admitted with acute encephalopathy and e/o pna. # toxic/metabolic encephalopathy: -resolved -presumably due to infection but could also be related to pain medications # PNA: -evidence of what appears to be RUL pna on CXR - patient with hx of aspiration in the past and consider aspiration versus HCAP -Started on zosyn which will continue for now -cultures NGTD # ventura on ckd: -with baseline creatinine of closer to 1.3 currently 1.8 -labs ordered for this am, pt refused, will try again -elevated BUN and diarrhea noted in ER raising concerns for hypovolemia -DC IVF -recheck in the am # loose stool/incontinence: -resolved per pt -unclear if this is new as not reported by NH -GI pathogen panel negative # chronic hypoxic respiratory failure: -due to copd as well as zeus/ohs, -currently appears to be at baseline with sats of 100% on 5L, chronically on 4L # COPD exacerbation: -does appear to have decreased bs throughout in the setting of PNA as above, -duonebs/albuterol nebs and monitor # chronic pain with continuous narcotic use and dependency: -restarted home meds -inadvertent OD in the past, # DM2: -last A1c of 7.9, -starting SSI -resumed her home regimen # hx of osteomyelitis/cellulitis: -examined skin does not appear infected -difficult to examine all areas beneath her pannus, -full skin evaluation and will ask wound care to assist # morbid obesity: -with BMI > 50 last admission, patient largely bed bound due to this in part # anxiety: -chronic benzo use # Dispo -follow overnight -recheck labs -hope for DC in am to BM Subjective: Feeling tired today. Not ready to go home. Objective: Vital Signs Temp Pulse Resp BP Pulse Ox 36.5 C 78 16 148/80 H 95 10/20/18 08:00 10/20/18 10:46 10/20/18 08:00 10/20/18 08:00 10/20/18 10:46 Microbiology 10/18/18 20:23 Urine Culture - Final Urine,Clean Catch 10/18/18 20:23 Gastrointestinal Tract Panel (PCR) - Final Stool No Organism Detected By Pcr 10/18/18 20:23 Respiratory Panel (PCR) - Final Nasal, Sinus - Swab No Organism Detected By Pcr Laboratory Results 10/19/18 05:10 10/19/18 05:10 10/19/18 10/20/18 10/21/18 05:59 05:59 05:59 Intake Total 1899 2440 Output Total 1 Balance 1898 2440 - Physical Exam Constitutional: chronically ill appearing, obese Eyes: PERRL, anicteric sclera Ears, Nose, Mouth, Throat: moist mucous membranes, hearing normal Cardiovascular: No JVD, No edema Respiratory: no respiratory distress, reduced air movement Gastrointestinal: No tenderness, No ascites Skin: warm, normal color Musculoskeletal: generalized weakness, No pain with ROM Neurologic: AAOx3 Psychiatric: not anxious, not encephalopathic ICD10 Worksheet Patient Problems: Problems Problem Status Onset Osteomyelitis of right foot Acute Hyperglycemia due to type 2 diabetes mellitus Acute Pneumonia Acute Methicillin resistant Staphylococcus aureus infection Acute ~06/10/17 Osteomyelitis of ankle or foot, right, acute Acute Anemia Acute Cellulitis of foot, right Acute Cellulitis in diabetic foot Acute MRSA (methicillin resistant Staphylococcus aureus) Acute 01/16/15 Failure to thrive Acute Lower limb ulcer, heel or midfoot Acute Cellulitis of lower extremity Acute Abscess of left leg Acute Altered mental status Acute Uremia Acute Fever Acute Sepsis Acute Severe sepsis Acute
[2018-10-20] MEDS: FUROSEMIDE 20 MG TAB PO SCH (14:15)
[2018-10-20] MEDS: ASPIRIN 81 MG CHEWABLE TAB PO SCH (22:10)
[2018-10-21] MEDS: PIPERACILLIN/TAZO 3.375 GM/DEX 50 ML IV SCH ×4 (00:23→19:31)
[2018-10-21] MEDS: LEVOTHYROXINE 100 MCG TAB PO SCH (05:28)
[2018-10-21] MEDS: HEPARIN 5,000 UNIT/0.5 ML INJ SC SCH ×4 (05:28→20:24)
[2018-10-21] MEDS: LEVOTHYROXINE 112 MCG TAB PO SCH (05:28)
[2018-10-21] MEDS: ALBUTEROL 3 ML DEYVIAL IH PRN ×2 (10:29→21:09)
[2018-10-21] MEDS: INSULIN GLARGINE 100 UNITS/ML UNIT SC SCH ×2 (10:56→20:20)
[2018-10-21] MEDS: DULoxetine 30 MG CAP PO SCH (10:58)
[2018-10-21] MEDS: CYANO/VITAMIN B12 1000 MCG TAB PO SCH (10:59)
[2018-10-21] MEDS: POTASSIUM CL 10 MEQ TAB PO SCH (10:59)
[2018-10-21] MEDS: PREGABALIN 50 MG CAP PO SCH ×2 (10:59→20:20)
[2018-10-21] MEDS: PANTOPRAZOLE SODIUM 40 MG TAB PO SCH (10:59)
[2018-10-21] MEDS: risperiDONE 1 MG TAB PO SCH ×2 (11:00→20:20)
[2018-10-21] MEDS: clonazePAM 0.5 MG TAB PO SCH ×2 (11:01→20:19)
[2018-10-21] MEDS: LOSARTAN POTASSIUM 25 MG TAB PO SCH (11:17)
[2018-10-21] MEDS: FUROSEMIDE 20 MG TAB PO SCH (11:18)
[2018-10-21] MEDS: INSULIN LISPRO 100 UNIT/ML SC SCH ×3 (11:20→16:51)
--- NOTE | 2018-10-21 11:24 | HOSPPROG ---
Hospitalist Progress Note Assessment/Plan: 58 yo F with hx of morbid obesity, chronic hypoxic respiratory failure, chronic pain and continuous narcotic use and dependency admitted with acute encephalopathy and e/o pna. # toxic/metabolic encephalopathy: -resolved -presumably due to infection but could also be related to pain medications # PNA: -evidence of what appears to be RUL pna on CXR - patient with hx of aspiration in the past and consider aspiration versus HCAP -Started on zosyn which will continue for now -cultures NGTD # ventura on ckd: -with baseline creatinine of closer to 1.3 currently 1.8 -labs ordered for this am, pt refused, will try again -elevated BUN and diarrhea noted in ER raising concerns for hypovolemia -DC IVF -recheck in the am # loose stool/incontinence: -resolved per pt -unclear if this is new as not reported by NH -GI pathogen panel negative # chronic hypoxic respiratory failure: -due to copd as well as zeus/ohs, -currently appears to be at baseline with sats of 100% on 5L, chronically on 4L # COPD exacerbation: -does appear to have decreased bs throughout in the setting of PNA as above, -duonebs/albuterol nebs and monitor # chronic pain with continuous narcotic use and dependency: -restarted home meds -inadvertent OD in the past, # DM2: -last A1c of 7.9, -starting SSI -resumed her home regimen # hx of osteomyelitis/cellulitis: -examined skin does not appear infected -difficult to examine all areas beneath her pannus, -full skin evaluation and will ask wound care to assist # morbid obesity: -with BMI > 50 last admission, patient largely bed bound due to this in part # anxiety: -chronic benzo use # Dispo -follow overnight -recheck labs -hope for DC in am to BM Subjective: Feeling tired today. Slept well. Not ready to go home. Objective: Vital Signs Temp Pulse Resp BP Pulse Ox 36.5 C 84 17 155/64 H 93 10/21/18 11:21 10/21/18 11:21 10/21/18 11:21 10/21/18 11:21 10/21/18 11:21 Microbiology 10/18/18 20:23 Urine Culture - Final Urine,Clean Catch Laboratory Results 10/20/18 11:45 10/20/18 11:45 10/20/18 10/21/18 10/22/18 05:59 05:59 05:59 Intake Total 2440 950 Output Total 1500 Balance 2440 -550 - Physical Exam Constitutional: chronically ill appearing, obese Eyes: PERRL, anicteric sclera Ears, Nose, Mouth, Throat: moist mucous membranes, hearing normal Cardiovascular: edema, No JVD Respiratory: no respiratory distress, reduced air movement Gastrointestinal: No tenderness, No ascites Skin: warm, normal color Musculoskeletal: no joint effusions, generalized weakness Neurologic: AAOx3 Psychiatric: not anxious, not encephalopathic, thought process linear ICD10 Worksheet Patient Problems: Problems Problem Status Onset Osteomyelitis of right foot Acute Hyperglycemia due to type 2 diabetes mellitus Acute Pneumonia Acute Methicillin resistant Staphylococcus aureus infection Acute ~06/10/17 Osteomyelitis of ankle or foot, right, acute Acute Anemia Acute Cellulitis of foot, right Acute Cellulitis in diabetic foot Acute MRSA (methicillin resistant Staphylococcus aureus) Acute 01/16/15 Failure to thrive Acute Lower limb ulcer, heel or midfoot Acute Cellulitis of lower extremity Acute Abscess of left leg Acute Altered mental status Acute Uremia Acute Fever Acute Sepsis Acute Severe sepsis Acute
[2018-10-21] MEDS: MENTHOL TP SCH (11:27)
[2018-10-21] MEDS: METHYL SALICYLATE TP SCH (11:27)
[2018-10-21] MEDS: oxyCODONE IR 5 MG TAB PO PRN ×2 (12:56→20:20)
[2018-10-21] MEDS: ASPIRIN 81 MG CHEWABLE TAB PO SCH (20:19)
[2018-10-22] MEDS: PIPERACILLIN/TAZO 3.375 GM/DEX 50 ML IV SCH ×3 (01:04→12:47)
[2018-10-22] MEDS: HEPARIN 5,000 UNIT/0.5 ML INJ SC SCH ×2 (06:11→13:45)
[2018-10-22] MEDS: LEVOTHYROXINE 112 MCG TAB PO SCH (06:11)
[2018-10-22] MEDS: LEVOTHYROXINE 100 MCG TAB PO SCH (06:11)
[2018-10-22] MEDS: clonazePAM 0.5 MG TAB PO SCH (08:28)
[2018-10-22] MEDS: PREGABALIN 50 MG CAP PO SCH (08:28)
[2018-10-22] MEDS: DULoxetine 30 MG CAP PO SCH (08:29)
[2018-10-22] MEDS: LOSARTAN POTASSIUM 25 MG TAB PO SCH (08:29)
[2018-10-22] MEDS: POTASSIUM CL 10 MEQ TAB PO SCH (08:29)
[2018-10-22] MEDS: PANTOPRAZOLE SODIUM 40 MG TAB PO SCH (08:30)
[2018-10-22] MEDS: FUROSEMIDE 20 MG TAB PO SCH (08:30)
[2018-10-22] MEDS: INSULIN LISPRO 100 UNIT/ML SC SCH ×2 (08:30→12:48)
[2018-10-22] MEDS: risperiDONE 1 MG TAB PO SCH (08:30)
[2018-10-22] MEDS: CYANO/VITAMIN B12 1000 MCG TAB PO SCH (08:30)
[2018-10-22] MEDS: INSULIN GLARGINE 100 UNITS/ML UNIT SC SCH (08:53)
[2018-10-22] MEDS: METHYL SALICYLATE TP SCH (08:54)
[2018-10-22] MEDS: MENTHOL TP SCH (08:54)
--- NOTE | 2018-10-22 09:20 | PDIAF ---
- Diagnosis Diagnosis: PNA Code Status: Full Code - Medication Management Discharge Medications: electronically signed and located in the Home Medication List. PICC Care - Routine: N/A - Orders Services needed: Registered Nurse, Physical Therapy, Occupational Therapy Isolation Type: Contact Isolation Diet Recommendation: ADA 1800 consistent carb - Follow Up Care Current Providers and Referrals: PITO [facility] VALLE [Other] - As per Instructions
--- NOTE | 2018-10-22 09:50 | ASMTDCNOTE ---
Case Management Discharge Discharge Order Complete? Answers: Yes Patient to Obtain Answers: Other Notes: [facility] Medications Transportation Arranged Answers: [facility] Stretcher Transport will Pick (Date 10/22/2018 03:00 PM & Time) EMTALA Complete Answers: No Case Management Transport Answers: Yes Notes: PCS form completed Form Complete Faxed Final Orders Answers: Yes Agency/Facility Transfer Answers: Yes Report Printed & Faxed to Receiving Agency Family Notified Answers: No Discharge Comments Notes: Pts case discussed w/ Candace Dobbins NP and KD Jarrett. Pt is being d/c'd today back to [facility]. DC orders sent. Kolby will call to give report. Pt requires a stretcher transport according to both [employer] and RN. PCS form completed and a copy is in pts chart. CM available for changes. Plan: [facility] Date Signed: 10/22/2018 09:49 AM Electronically Signed By:SHAW Hsu
--- NOTE | 2018-10-22 09:59 | ASDISCHSUM ---
Discharge Information Plan Status:SNF Medically Cleared to Leave:10/21/2018 Discharge Date:10/21/2018 CM D/C Disposition: ADT D/C Disposition:Half-Way Facility Projected Discharge Date:10/22/2018 11:00 AM Transportation at D/C: Discharge Delay Reason: Follow-Up Date:10/22/2018 11:00 AM Discharge Slot: Final Diagnosis: Placement Information Referral Type:*Correction/SNF Referral ID:[id number] Provider Name:Clif Glover/[facility] Address 1:[address] Address 2: Fax Number: [facility]:[place] Selection Factors: State:[place] Patient Contact Information Contact Name:TOVA Relationship:Daughter Address: Work Phone: City: [facility] Phone: [facility] Code: Email: Financial Information Financial Class:Medicare Advantage Plans Primary Plan Desc:[facility] ADVANTAGE PLANS Primary Plan Number:[id number] Secondary Plan Desc: Secondary Plan Number: Assessment Information [facility] CM Progress Note CM Note CM Note Notes: Pt is a 58 y/o female admitted for lethargy and hypoxia. Pt lives at [facility]. Pt has a lot of medical comorbidities. Updates sent to [facility]. Therapies have been ordered as well as wound care. Pt will most likely will return back to [facility] once medically stable. CM available for changes. Plan: [facility] Date Signed: 10/19/2018 10:01 AM Electronically Signed By:SHAW Hsu Case Management Discharge Plan Note Case Management Discharge Discharge Order Complete? Answers: Yes Patient to Obtain Answers: Other Notes: [facility] Medications Transportation Arranged Answers: [facility]cher Transport will Pick (Date 10/22/2018 03:00 PM & Time) CELY Complete Answers: No Case Management Transport Answers: Yes Notes: PCS form completed Form Complete Faxed Final Orders Answers: Yes Agency/Facility Transfer Answers: Yes Report Printed & Faxed to Receiving Agency Family Notified Answers: No Discharge Comments Notes: Pts case discussed w/ Candace Dobbins NP and KD Jarrett. Pt is being d/c'd today back to [facility]. DC orders sent. Kolby will call to give report. Pt requires a stretcher transport according to both [employer]INICAL [employer]ALITY RN and RN. PCS form completed and a copy is in pts chart. CM available for changes. Plan: [facility] Date Signed: 10/22/2018 09:49 AM Electronically Signed By:SHAW Hsu Intervention Information
[2018-10-22 12:05] VITALS: BP 139/77
--- NOTE | 2018-10-22 12:27 | GDS ---
DISCHARGE DIAGNOSES: 1. Toxic metabolic encephalopathy. 2. Pneumonia. 3. Acute kidney disease on chronic kidney failure. 4. Diarrhea. 5. Chronic hypoxemic respiratory failure. 6. Chronic obstructive pulmonary disease exacerbation. 7. Chronic pain with continued narcotic use and dependency. 8. Diabetes mellitus type 2. 9. Morbid obesity. 10. Anxiety. PHYSICAL EXAM: GENERAL: The patient is alert. VITAL SIGNS: Afebrile at 36.7, pulse 79, respirator y rate is 18, blood pressure is 130/78. She is saturating 96% on 4 L. I have seen and evaluated the patient on the day of discharge. HOSPITAL COURSE: The patient is a 58-year-old patient who resides at [facility], presents to the hospital with confusion. She was evaluated and diagnosed with: 1. Toxic metabolic encephalopathy. This was in the setting of acute infection and has resolved. 2. Pneumonia. The patient has right upper lobe pneumonia on chest x-ray. She was treated with Zosy n during this hospitalization, will be transitioned to oral Augmentin at the time of disposition. 3. Acute kidney injury on chronic kidney disease. She did receive IV fluid hydration, and during [facility] hospitalization, her renal function has significantly improved and she has returned to her baselin e. 4. Diarrhea. This has resolved. 5. Chronic hypoxemic respiratory failure. She is at her baseline 4 L oxygen requirement. 6. Chronic obstructive pulmonary disease exacerbation. DuoNeb was used, but no steroids were initia antonio during this hospital course. 7. Chronic pain with continuous narcotic use and dependency. Her home medications have been re-init iated and continued with no adjustments made. 8. Diabetes mellitus type 2. Sliding scale and continued home regimen have been performed during [facility] hospitalization. No medication adjustments. 9. Morbid obesity. The patient is bed-bound secondary to this condition. 10. Anxiety. This is stable. 11. Disposition. She will be discharged to return to [facility], where she normally resides. FOLLOWUP: Will be with her primary care physician, Dr. Keegan Ghotra. DISCHARGE MEDICATIONS: Please refer to EMR form. I have not adjusted the patient's previously presc ribed home medications to the best of my knowledge with the exception of the addition of Augmentin at the time of disposition. I spent greater than 35 minutes in care coordination and management of the patient's disposition. /[id number]/MODL
[2018-10-25] MEDS ORDERED: BUPRENORPHINE TD SCH (10:05)
== END 2018-10-22 15:19 | DRG 190 ==
LOC: EDUNIT# → F3N 20:48
PROVIDERS: ADMIT Internal Medicine; ATTEND Internal Medicine
DX: J44.0 Chronic obstructive pulmonary disease with (acute) lower respiratory infection (principal); J18.9 Pneumonia, unspecified organism; J44.1 Chronic obstructive pulmonary disease with (acute) exacerbation; G92 Toxic encephalopathy; N17.9 Acute kidney failure, unspecified; J96.11 Chronic respiratory failure with hypoxia; E11.22 Type 2 diabetes mellitus with diabetic chronic kidney disease; N18.9 Chronic kidney disease, unspecified; E66.01 Morbid (severe) obesity due to excess calories; Z68.43 Body mass index [BMI] 50.0-59.9, adult; D86.9 Sarcoidosis, unspecified; G89.29 Other chronic pain; F11.20 Opioid dependence, uncomplicated; G47.33 Obstructive sleep apnea (adult) (pediatric); F41.9 Anxiety disorder, unspecified; Z87.891 Personal history of nicotine dependence; Z99.81 Dependence on supplemental oxygen; Z86.14 Personal history of Methicillin resistant Staphylococcus aureus infection; Z23 Encounter for immunization
CPT/HCPCS: 96365; 97166-GO; G0008; J1170; J1644; J1815; J2543; J7613

== ENCOUNTER → 2018-11-08 | Outpatient (CLI) | payer OTHER | LOC: FIMAGING 12:42 | DX: D16.4 Benign neoplasm of bones of skull and face (principal); I25.10 Atherosclerotic heart disease of native coronary artery without angina pectoris; G31.9 Degenerative disease of nervous system, unspecified ==